=== PATIENT | male | born 1940 | race Caucasian/White ===

== ENCOUNTER 2018-12-08 02:28 | Outpatient (CLI) | payer MEDICARE, OTHER, SELFPAY ==
[2018-12-08 12:13] LABS: HCT 40.5 % (40.0-50.0); HGB 13.4 g/dL (13.5-17.5); Mean Corp. HGB Concentration 33.1 g/dL (32.0-36.0); Mean Corpuscular Hemoglobin 36.4 pg (27.0-33.0); Mean Corpuscular Volume 110.1 fL (80-95); Mean Platelet Volume 9.8 fL (8.0-11.0); Platelet Count 160 x1000/uL (130-400); RBC 3.68 m/cumm (4.50-6.00); RBC Distribution Width 13.6 % (11.8-14.1); White Blood Cell Count 6.05 k/cumm (4.4-10.8)
[2018-12-08 12:44] LABS: ALT 33 U/L (12-78); AST 35 U/L (15-37); Albumin 3.9 g/dL (3.4-5.0); Alkaline Phosphatase 62 U/L (46-116); Anion Gap 9.6 mmol/L (3-11); BUN 14 mg/dL (7-18); Bilirubin, Total 0.9 mg/dL (0.2-1.0); CO2 26.4 mmol/L (21.0-32.0); CREATININE 0.99 mg/dL (0.70-1.30); Calcium 8.5 mg/dL (8.5-10.1); Chloride 108 mmol/L (98-107); Glucose 110 mg/dL (70-100); Potassium 5.1 mmol/L (3.5-5.1); Sodium 144 mmol/L (136-145); Total Protein 6.8 g/dL (6.4-8.2)
== END 2018-12-08 02:48 ==
PROVIDERS: PCP Family Medicine; Visit Provider Family Medicine
DX: Z79.899 Other long term (current) drug therapy (principal); L40.9 Psoriasis, unspecified
CPT/HCPCS: 36415; 80053; 85027

== ENCOUNTER 2019-01-11 05:20 | Emergency (ER) | payer MEDICARE, OTHER, SELFPAY ==
[2019-01-11] VITALS (61 sets, daily range): BP systolic 120–147; BP diastolic 60–86; PULSE 64–79; RESP 13–34; TEMP 36.7–36.8; O2SAT 92–95
--- NOTE | 2019-01-11 05:31 | ED.GENADUL_ITS ---
Discharge Plan Disposition Patient Disposition: HOME Condition: Stable Discharge Details Chief Complaint: Chest Pain Clinical Impression: Chest pain Primary Care Provider: Riky Patterson ED Provider: Nolan Ferreira Home Meds and New Rx's Prescriptions: New lidocaine 5 % adhesive patch,medicated 2 patch TP DAILY Qty: 30 RF: 0 furosemide [Lasix] 20 mg tablet 20 mg PO QAM Qty: 30 RF: 0 Continued ipratropium bromide 42 mcg (0.06 %) spray,non-aerosol 2 spray ASHER TID PRN (Reason: allergy symptoms) Qty: 15 RF: 3 methotrexate sodium 2.5 mg tablet 10 mg PO As Directed Qty: 72 RF: 3 losartan 100 mg tablet 100 mg PO DAILY Qty: 90 RF: 4 melatonin-pyridoxine (vit B6) 1 EACH tablet 2.5 tab PO qpm prn RF: 0 [id number]-qjexypusw-utg C-Mn [Glucosamine 1500 Complex] 1 EACH capsule 500 cap PO DAILY RF: 0 CENTRUM SILVER TABLET 1 EACH tablet 1 tab PO DAILY RF: 0 ascorbic acid (vitamin C) 1,000 MG tablet 1,000 mg PO DAILY RF: 0 aspirin [Aspirin Low-Strength] 81 MG tablet,chewable 81 mg PO DAILY RF: 0 folic acid 1 MG tablet 1 mg PO DAILY Qty: 90 RF: 4 albuterol sulfate [ProAir HFA] 8.5 GM HFA aerosol inhaler 2 puff Inhalation Q6H PRN Qty: 1 RF: 3 tadalafil [Cialis] 5 MG tablet 1 - 2 tab PO As directed MDD 20 mg Qty: 30 RF: 4 metoprolol tartrate 50 mg tablet 25 mg PO BID Qty: 90 RF: 4 Discharge Instructions Instructions: Chest Pain (ED) Additional Instructions: your blood work did not show evidence of a heart attack you had a small amount of fluid in the lungs on your cat scan so we are starting you on lasix. Discuss with your primary care provider continuing this when you follow up with them You should follow up with your primary care provider within a week if you feel more ill, have worsening pain or difficulty breathing return to the emergency department Medical Decision Making <Genet Steve DO - Last Filed: 01/11/19 07:57> 0525 -- 78 yo M with a history of hypertension, hyperlipidemia, COPD, mitral valve replacement and thoracic aortic aneurysm who presents with left-sided chest pain with radiation to his neck worse with deep breath and cough for the past 5 hours. Vitals within normal limits. Lungs clear. He has left anterior chest tenderness to palpation. He has right lower extremity 1+ pitting edema. EKG notes a rate of 72, sinus with first-degree block and no acute ST-T wave ischemic changes. Differential diagnosis includes ACS, dissection, PE, chest wall strain, CHF. Will place an IV, screening labs, CT chest and give nitro for pain. 0615 -- no relief with 3 tabs of nitro. 0715 -- labs and imaging reviewed. Normal white blood cell count, electrolytes. Magnesium 1.5. Troponin negative. BNP 1019. CT chest notes small bilateral pleural effusions but no PE or dissection. Patient still complaining of left- sided chest pain that is worse with deep breath. Suspect could possibly be muscular skeletal. Will give a dose of Toradol and place a Lidoderm patch. We will plan for a 4-hour troponin and repeat EKG. 0800 --Case endorsed to Dr. Ferreira to follow-up on second troponin and EKG and final disposition. Medical Records Medical records reviewed: Yes I reviewed the patient's medical records. Imaging Data Radiologic Study: Radiologist's impression: CT Angiography Chest With Contrast EXAM DATE/TIME: 01/11/2019 5:47 AM CLINICAL HISTORY: 78 years old, male; Left-sided chest pain; Prior surgery; Surgery date: 6+ months; Surgery type: Mitral valve repair; Patient HX: Copd, HX of thoracic aortic aneurysm; Additional info: Pe aorta combo protocol used per Dr. Steve to R/O dissection/pe TECHNIQUE: Imaging protocol: Computed tomographic angiography of the chest with intravenous contrast. 3D rendering: MIP reconstructed images were created and reviewed. Radiation optimization: All CT scans at this facility use at least one of these dose optimization techniques: automated exposure control; mA and/or kV adjustment per patient size (includes targeted exams where dose is matched to clinical indication); or iterative reconstruction. Contrast material: OMNIPAQUE 350; Contrast volume: 85 ml; Contrast route: IV RAC; COMPARISON: CR CHEST 2 VIEWS PA,LAT 09/29/2013 10:55 AM FINDINGS: Pulmonary arteries: Normal. No pulmonary emboli. Aorta: Ascending thoracic aortic aneurysm measures 4.8 x 4.8 cm without dissection Lungs: Unremarkable. No consolidation. No masses. Pleural space: Small bilateral pleural effusions and associated atelectasis. Heart: Unremarkable. No cardiomegaly. No pericardial effusion. Lymph nodes: Unremarkable. No enlarged lymph nodes. Bones/joints: Unremarkable. No acute fracture. Soft tissues: Unremarkable. IMPRESSION: Small bilateral pleural effusions and associated atelectasis. Lab Data Lab results reviewed: Yes I reviewed the patient's lab results. ECG Data Attestation: I personally reviewed and interpreted this ECG (s) as follows: Interpretation: rate of 72, sinus, first degree block, no acute ST elevation or depression, RI 256, QTc 409, QRS 96. <Nolan Ferreira MD - Last Filed: 01/11/19 10:48> Pt signed out to me pending second troponin and ecg both of which are negative and symptoms have resolved with lidocaine patch which seems most likely this is musculoskeletal in nature. His cta did show small pleural effusions which I am starting him on lasix for. He is pain free and hd stable and feels well enough to go home. Will d/c him and have him f/u with his pcp and return precautions given to the patient ECG Data Attestation: I personally reviewed and interpreted this ECG (s) as follows: Prior ECG tracings: available for review Interpretation: 2nd ekg shows sinus rhythm, rate of 71, qtc 422, no acute changes compared to first ekg HPI <Genet Steve DO - Last Filed: 01/11/19 07:57> General Mode of arrival: ambulatory . Date/Time Provider Initiated Documentation: 01/11/19 05:27 . Limitations to Documentation: no limitations . Information obtained by: patient . HPI Narrative: Pt is a 78 yo M w/ a h/o HTN, hyperlipidemia, thoracic aortic aneurysm, mitral valve replacement who presents to the ED w/ a c/o L sided chest pain with radiation to his neck and throat since midnight starting 5 hours ago. Pt describes the pain as sharp, constant and currently 6/10. Pt states the pain is worse with deep breath and cough. He states he has had a nonproductive cough for the past 2 weeks but states it is minimal. He states he was doing a lot of yard work and carpentry at home yesterday but is unsure of a specific injury. He took 4 tabs of aspirin at home w/ some relief. He admits to difficulty taking a deep breath due to the pain in addition to his usual shortness of breath that he has with his COPD. He denies fever, nausea, vomiting, dizziness, decreased appetite, recent travel, recent surgery, leg pain or swelling. Related Data Home Medications Medication Instructions Recorded Confirmed Centrum Silver Tablet 1 tab PO DAILY 09/07/12 01/11/19 [id number]-vdqvijetf-wsn C-Mn 500 cap PO DAILY 09/07/12 01/11/19 [Glucosamine 1500 Complex] melatonin-pyridoxine (vit B6) 2.5 tab PO qpm prn 09/07/12 01/11/19 ascorbic acid (vitamin C) 1,000 mg PO DAILY 09/28/14 01/11/19 aspirin [Aspirin Low-Strength] 81 mg PO DAILY tab-cap 09/28/14 01/11/19 folic acid 1 mg PO DAILY #90 tab-cap 09/28/14 01/11/19 albuterol sulfate [ProAir HFA] 2 puff INHALATION Q6H PRN #1 11/20/17 01/11/19 inhaler tadalafil [Cialis] 1 - 2 tab PO As directed #30 tab 11/24/17 01/11/19 MDD 20 mg metoprolol tartrate 50 mg tablet 25 mg PO BID #90 tab-cap 10/26/18 01/11/19 ipratropium bromide 42 mcg (0.06 2 spray ASHER TID PRN #15 ml 12/02/18 01/11/19 %) nasal spray losartan 100 mg tablet 100 mg PO DAILY #90 tab 12/02/18 01/11/19 methotrexate sodium 2.5 mg tablet 10 mg PO As Directed #72 tab 12/02/18 01/11/19 furosemide [Lasix] 20 mg PO QAM #30 tab 01/11/19 lidocaine 2 patch TP DAILY #30 each 01/11/19 Previous Rx's Medication Instructions Recorded albuterol sulfate [ProAir HFA] 2 puff INHALATION Q6H PRN #1 11/20/17 inhaler tadalafil [Cialis] 1 - 2 tab PO As directed #30 tab 11/24/17 MDD 20 mg metoprolol tartrate 50 mg tablet 25 mg PO BID #90 tab-cap 10/26/18 ipratropium bromide 42 mcg (0.06 2 spray ASHER TID PRN #15 ml 12/02/18 %) nasal spray losartan 100 mg tablet 100 mg PO DAILY #90 tab 12/02/18 methotrexate sodium 2.5 mg tablet 10 mg PO As Directed #72 tab 12/02/18 furosemide [Lasix] 20 mg PO QAM #30 tab 01/11/19 lidocaine 2 patch TP DAILY #30 each 01/11/19 Allergies Allergy/AdvReac Type Severity Reaction Status Date / Time niacin Allergy Severe rash/flusin Verified 12/02/18 13:22 g simvastatin Allergy Intermediate RASH Verified 12/02/18 13:22 metoprolol AdvReac WORSENED Verified 01/11/19 05:33 PSORIASIS General Stated Complaint: Chest Pain BERNY: 2 Review of Systems <Genet Steve DO - Last Filed: 01/11/19 07:57> Review of Systems All systems reviewed & are unremarkable except as noted in HPI and below Constitutional Reports as per HPI, Denies chills and Denies fever(s) Eyes Denies blurry vision ENT Denies dizziness, Denies sore throat and Denies throat swelling Cardiovascular Reports chest pain and Reports dyspnea Respiratory Denies cough and Reports dyspnea Gastrointestinal Denies abdominal pain, Denies diarrhea and Denies vomiting Genitourinary Denies hematuria and Denies dysuria Musculoskeletal Denies back pain and Denies numbness Integumentary/Breasts Denies lesions and Denies rash Neurologic Denies dizziness, Denies focal weakness and Denies numbness Allergic/Immunologic Denies throat swelling PFSH <Genet Steve DO - Last Filed: 01/11/19 07:57> Medical History COPD (chronic obstructive pulmonary disease) (Inactive 11/22/13) Essential hypertension (Inactive 09/08/13) Fractures, multiple (Resolved) HX of multiple fractures; skull,ribs,right pelvis,right ankle and fingers 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 Substance abuse Depression Son No problems noted. Daughter , 40+ Substance abuse Daughter No problems noted. Sister No problems noted. Sister No problems noted. Social History Smoking/Tobacco Use Status: Former Tobacco Use Quit Date: 05/11/02 Alcohol Intake: current Alcohol Intake frequency: 0-2 drinks per day Alcohol type: beer, wine and hard liquor Drug use: Never Caregiver/Support person: No Household members: spouse Communication Needs: None Do you need help understanding health information?: Rarely Pets and animals: Yes Pets and animals: cat(s) Sexually active: No Do you think of yourself as: straight/heterosexual Current gender identity: male What is your relationship status?: How often do you talk on the phone with friends or family?: three or more times per week How often do you get together with friends or relatives?: twice per week How often do you attend catholic or congregation services?: decline to answer Do you belong to any clubs or organized social groups?: no Panel score (0-1 are the most socially isolated patients): 2 What type of physical activity do you participate in: walking and other Details: golf Duration: 30-45 minutes/day Frequency: 3-4 times per week Ericka/Orthodoxy: None Special ericka needs: No Seatbelt use: always Helmet use: No Drive intox or ride w/intox emergency medical technician/driver: No Do you feel safe at home: Yes Do you feel safe in your relationship?: Yes Exam <Genet Steve DO - Last Filed: 01/11/19 07:57> Const General: cooperative and healthy appearing Orientation: alert and awake HENMT Head: normal to inspection Ears: hearing grossly normal bilaterally and external ears normal General nose exam: external nose normal Face and sinus: normal facial exam Mouth: oral mucosae normal Teeth and gingiva: dentition normal Throat: posterior oropharynx normal Eyes General: appearance normal, both eyes and all related structures Eyelids: eyelids normal Pupils: PERRL EOM: EOM intact bilaterally Neck Neck: normal visual inspection Lymphatic: no lymphadenopathy noted Chest Chest: normal inspection of the chest Resp Effort & Inspection: normal respiratory effort and able to speak in complete sentences Auscultation: clear to auscultation bilaterally Cardio Rate: regular rate Rhythm: regular rhythm GI Inspection: normal to inspection Palpation: soft, not firm, no guarding, no hepatosplenomegaly, no masses and nontender Auscultation: normal bowel sounds Skin General skin exam: no rashes or lesions noted Neuro General: alert and awake Cognition: normal cognition Speech: speech normal Gait: normal gait Motor: muscle tone normal throughout Sensory Exam: no sensory deficits noted Extrem General: full ROM and normal capillary refill Other: 1+ pitting edema RLE. No Left lower extremity edema. Psych Appearance: grossly normal Mental Status: mental status grossly normal Speech and Movement: speech and movement normal Affect: normal affect Thought Process: normal Course <Genet Steve DO - Last Filed: 01/11/19 07:57> Vital Signs Temperature 98.2 F 01/11/19 05:25 Pulse 74 01/11/19 05:25 Respiratory Rate 22 01/11/19 05:25 Blood Pressure 138/81 01/11/19 05:25 Pulse Oximetry 95 01/11/19 05:25 Temperature 98.2 F 01/11/19 05:25 Temperature Source Tympanic 01/11/19 05:25 Pulse 74 01/11/19 05:25 Respiratory Rate 22 01/11/19 05:25 Blood Pressure 138/81 01/11/19 05:25 Pulse Oximetry 95 01/11/19 05:25 Oxygen Delivery Method Room Air 01/11/19 05:25 Oxygen Flow Rate 0 01/11/19 05:25 Pain Level 6 01/11/19 05:25 Sign Out <Genet Steve DO - Last Filed: 01/11/19 07:57> Sign Out Data: Sign Out Comment: Follow-up on second troponin and repeat EKG and final disposition. Last updated by Genet Steve DO at 01/11/19 07:28
[2019-01-11 05:56] LABS: Abs Immature Grans 0.02 k/cumm (0.0-0.09); Absolute Basophil Count 0.02 k/cumm (0.0-0.2); Absolute Eosinophil Count 0.17 k/cumm (0.0-0.7); Absolute Lymphocyte Count 0.78 k/cumm (1.2-3.4); Absolute Monocyte Count 0.66 k/cumm (0.11-0.7); Absolute Neutrophil Count 5.23 k/cumm (1.2-6.7); Basophils % 0.3; Eosinophils % 2.5; HCT 39.7 % (40.0-50.0); HGB 13.4 g/dL (13.5-17.5); Immature Grans % 0.3; Lymphocytes % 11.3; Mean Corp. HGB Concentration 33.8 g/dL (32.0-36.0); Mean Corpuscular Hemoglobin 36.8 pg (27.0-33.0); Mean Corpuscular Volume 109.1 fL (80-95); Mean Platelet Volume 9.2 fL (8.0-11.0); Monocytes % 9.6; Platelet Count 175 x1000/uL (130-400); RBC 3.64 m/cumm (4.50-6.00); RBC Distribution Width 13.6 % (11.8-14.1); White Blood Cell Count 6.88 k/cumm (4.4-10.8)
[2019-01-11 06:14] LABS: Macrocytosis 1+; Polychromasia Present
[2019-01-11 06:18] LABS: ALT 34 U/L (16-63); AST 37 U/L (15-37); Albumin 3.8 g/dL (3.4-5.0); Alkaline Phosphatase 56 U/L (46-116); Anion Gap 11.8 mmol/L (3-11); BUN 13 mg/dL (7-18); Bilirubin, Total 0.5 mg/dL (0.2-1.0); CO2 23.2 mmol/L (21.0-32.0); CREATININE 1.04 mg/dL (0.70-1.30); Calcium 8.3 mg/dL (8.5-10.1); Chloride 107 mmol/L (98-107); Glucose 114 mg/dL (70-100); Magnesium 1.5 mg/dL (1.8-2.4); NT-proBNP 1019 pg/mL; Potassium 4.6 mmol/L (3.5-5.1); Sodium 142 mmol/L (136-145); Total Protein 7.4 g/dL (6.4-8.2); Troponin I < 0.05 ng/mL (0.00-0.06)
[2019-01-11] MEDS: Omnipaque 350 MG/ML 100 ML BTL IJ (06:30)
--- NOTE | 2019-01-11 06:50 | DI.CT_ITS ---
SYMPTOM/DIAGNOSIS: H/O THORACIC AORTIC ANEURYSM LT SIDED CHEST PAIN CT ANGIOGRAPHY CHEST: CT angiography was performed with multi slice acquisition and multi planar and 3D reconstruction. The aorta is well opacified with IV contrast which shows no evidence of dissection. There is some calcification along the aorta and mild mural thickening. The maximal diameter of the ascending aorta is 4.8 cm. There is a mitral valve prosthesis. The pulmonary arteries are suboptimally opacified with contrast. No central pulmonary emboli are seen. There are bilateral pleural effusions, small, right greater than left. There is mild right basilar atelectasis. No infiltrate or pulmonary edema is seen. No thoracic compression fractures are seen. Calcifications are noted in the spleen. The liver and gallbladder as well as adrenals and visualized portions of the pancreas and kidneys are unremarkable. IMPRESSION: Atherosclerotic changes of the aorta without evidence of dissection. Dilatation of the ascending aorta to 4.8 cm. Small bilateral pleural effusions, right greater than left.
--- NOTE | 2019-01-11 07:02 | DI.VRAD_ITS ---
EXAM: CT Angiography Chest With Contrast EXAM DATE/TIME: 01/11/2019 5:47 AM CLINICAL HISTORY: 78 years old, male; Left-sided chest pain; Prior surgery; Surgery date: 6+ months; Surgery type: Mitral valve repair; Patient HX: Copd, HX of thoracic aortic aneurysm; Additional info: Pe aorta combo protocol used per Dr. Steve to R/O dissection/pe TECHNIQUE: Imaging protocol: Computed tomographic angiography of the chest with intravenous contrast. 3D rendering: MIP reconstructed images were created and reviewed. Radiation optimization: All CT scans at this facility use at least one of these dose optimization techniques: automated exposure control; mA and/or kV adjustment per patient size (includes targeted exams where dose is matched to clinical indication); or iterative reconstruction. Contrast material: OMNIPAQUE 350; Contrast volume: 85 ml; Contrast route: IV RAC; COMPARISON: CR CHEST 2 VIEWS PA,LAT 09/29/2013 10:55 AM FINDINGS: Pulmonary arteries: Normal. No pulmonary emboli. Aorta: Ascending thoracic aortic aneurysm measures 4.8 x 4.8 cm without dissection Lungs: Unremarkable. No consolidation. No masses. Pleural space: Small bilateral pleural effusions and associated atelectasis. Heart: Unremarkable. No cardiomegaly. No pericardial effusion. Lymph nodes: Unremarkable. No enlarged lymph nodes. Bones/joints: Unremarkable. No acute fracture. Soft tissues: Unremarkable. IMPRESSION: Small bilateral pleural effusions and associated atelectasis. Dictated and Authenticated by: Trino Gaytan MD. Ordering:BRY De León MD
[2019-01-11] MEDS: Acetaminophen 325 MG TAB 650 MG PO (07:05)
[2019-01-11] MEDS: Ketorolac 30 MG/ML VIAL IVP (07:43)
[2019-01-11] MEDS: Lidocaine 5% Patch 1 PATCH TP (07:45)
[2019-01-11] MEDS: Furosemide 20 MG/2 ML VIAL IVP (08:26)
[2019-01-11 10:40] LABS: Troponin I < 0.05 ng/mL (0.00-0.06)
--- NOTE | 2019-01-11 10:46 | NUR.NOTE ---
Nursing Note: Referral faxed to PCP for follow up for chest pain. Lorna Ospina.
== END 2019-01-11 11:05 | disposition home or self-care (01) ==
PROVIDERS: Physician Assistant; Emergency Provider Emergency Medicine; PCP Family Medicine
DX: R07.89 Other chest pain (principal); J90 Pleural effusion, not elsewhere classified; J44.9 Chronic obstructive pulmonary disease, unspecified; Z87.891 Personal history of nicotine dependence; I10 Essential (primary) hypertension; Z95.2 Presence of prosthetic heart valve
CPT/HCPCS: 36415; 71275; 80053; 93005; 96374; 96375; 99285; 83735; 83880; 84484; 85025; 93010; J1885; J1941; J3490

== ENCOUNTER 2019-11-09 02:19 | Outpatient (CLI) | payer MEDICARE, OTHER, SELFPAY ==
--- NOTE | 2019-11-09 13:13 | DI.RAD_ITS ---
EXAM: XR CHEST 2V PA LATERAL CLINICAL HISTORY: Dyspnea on exertion, R06.00 TECHNIQUE: 2D digital imaging was performed. COMPARISON: CR CHEST 2 VIEWS PA,LAT from 09/29/2013 FINDINGS: MEDIASTINUM: Normal. HEART: Upper limits of normal in size. Mitral valve replacement. PULMONARY VASCULATURE: Normal. LUNGS: Clear. PLEURAL SPACE: No pleural effusion or pneumothorax. BONE:Degenerative changes in the spine. OTHER FINDINGS:Normal. IMPRESSION: No acute pulmonary findings. DATA REPOSITORY: RADIATION DOSE DELIVERED:
== END 2019-11-09 02:39 ==
PROVIDERS: PCP Family Medicine; Visit Provider Family Medicine
DX: R06.00 Dyspnea, unspecified (principal); Z95.2 Presence of prosthetic heart valve
CPT/HCPCS: 71046

== ENCOUNTER 2019-12-12 08:18 | Outpatient (CLI) | payer MEDICARE, OTHER, SELFPAY ==
[2019-12-12 12:56] LABS: Anion Gap 7.1 mmol/L (3-11); BUN 23 mg/dL (7-18); CO2 26.9 mmol/L (21.0-32.0); CREATININE 1.15 mg/dL (0.70-1.30); Calcium 8.8 mg/dL (8.5-10.1); Chloride 105 mmol/L (98-107); Glucose 102 mg/dL (74-106); Magnesium 1.8 mg/dL (1.8-2.4); Potassium 4.5 mmol/L (3.5-5.1); Sodium 139 mmol/L (136-145)
== END 2019-12-12 08:38 ==
PROVIDERS: PCP Family Medicine; Visit Provider Family Medicine
DX: I10 Essential (primary) hypertension (principal); E83.42 Hypomagnesemia
CPT/HCPCS: 36415; 80048; 83735

== ENCOUNTER 2020-01-06 03:51 | Outpatient (CLI) | payer MEDICARE, OTHER, SELFPAY ==
[2020-01-09 08:18] LABS: SARS-CoV-2 RNA Undetected (Undetected); SARS-CoV-2 Specimen Source Nasopharynx
== END 2020-01-06 04:11 ==
PROVIDERS: PCP Nurse Practitioner; Visit Provider Family Medicine
DX: Z11.59 Encounter for screening for other viral diseases (principal)
CPT/HCPCS: U0003

== ENCOUNTER → 2020-01-27 09:00 | Outpatient (BNVA) | payer MEDICARE, OTHER, SELFPAY | PROVIDERS: PCP Nurse Practitioner; Referring Provider Nurse Practitioner; Visit Provider Internal Medicine Cardiovascular Disease | DX: I34.0 Nonrheumatic mitral (valve) insufficiency (principal); I77.819 Aortic ectasia, unspecified site; J44.9 Chronic obstructive pulmonary disease, unspecified; I10 Essential (primary) hypertension; Z87.891 Personal history of nicotine dependence | CPT/HCPCS: 99204; 99215 ==

== ENCOUNTER 2020-12-25 03:13 | Outpatient (CLI) | payer MEDICARE, OTHER, SELFPAY ==
[2020-12-25 12:22] LABS: HCT 42.9 % (40.0-50.0); HGB 13.9 g/dL (13.5-17.5); MCH 36.6 pg (27.0-33.0); MCHC 32.4 % (32.0-36.0); MPV 10.1 fL (8.0-11.0); Platelet Count 176 10^3/uL (130-400); RDW 13.6 % (11.8-14.1); RDW-SD 56.8 fL; WBC 4.41 10^3/uL (4.4-10.8)
[2020-12-25 12:36] LABS: ALT 36 U/L (16-63); AST 45 U/L (15-37); Alkaline Phosphatase 53 U/L (46-116); Bilirubin, Direct 0.2 mg/dL (0.0-0.2); Bilirubin, Total 0.7 mg/dL (0.2-1.0); CREATININE 1.2 mg/dL (0.70-1.30); Estimated GFR 58.11 (mL/min/1.73m2); Potassium 4.5 mmol/L (3.5-5.1)
[2020-12-25 13:00] LABS: MCV 112.9 fL (80-95)
== END 2020-12-25 03:14 | disposition home or self-care (01) ==
LOC: LOS 03:18
PROVIDERS: PCP Nurse Practitioner; Visit Provider Nurse Practitioner
DX: I34.0 Nonrheumatic mitral (valve) insufficiency (principal); R06.09 Other forms of dyspnea; L40.9 Psoriasis, unspecified
CPT/HCPCS: 36415; 80076; 85027; 82565; 84132

== ENCOUNTER 2021-07-08 01:05 | Outpatient (CLI) | payer MEDICARE, OTHER, SELFPAY ==
--- NOTE | 2021-07-08 13:57 | DI.US_ITS ---
APPROVED REPORT EXAM: Comprehensive 2D, Doppler, and color-flow Echocardiogram Patient Location: Out-Patient [facility] [employer] Member: Ramila Yan RDCS (AE) Indications: Mitral insufficiency, h/o Annular ring, Thoracic aortic aneurysm Other Information Study Quality: Fair. Technically limited study due to body habitus. Conclusion Normal left ventricular wall thickness and chamber size. Estimated ejection fraction is 60 to 65%. Wall motion is normal The right ventricle is not well visualized Both atria are normal in size The aortic valve is trileaflet and sclerotic with mild to moderate regurgitation. There is no aortic stenosis Mitral annuloplasty ring noted. Mild to moderate eccentric mitral regurgitation Normal tricuspid valve with moderate regurgitation. Estimated right ventricular systolic pressure is 55 mmHg Dilated ascending aorta and aortic root Wall motion Left Ventricle The left ventricle is normal size. The left ventricular systolic function is normal. The left ventric ular ejection fraction is within the normal range. There is normal left ventricular wall thickness. T here is normal LV segmental wall motion. There is no ventricular septal defect visualized. LVEF is 60 -65%. Right Ventricle Right ventricle is not well visualized. Right ventricular systolic function could not be assessed. Th e RVSP is 54.9mmHg. Atria The left atrium size is normal. The right atrium size is normal. The interatrial septum is intact wit h no evidence for an atrial septal defect. Aortic Valve The aortic valve is sclerotic Aortic valve is trileaflet. There is no aortic valvular stenosis. Mild to moderate aortic regurgitation. Mitral Valve Mitral annuloplasty changes are present. No evidence of mitral valve stenosis. Mild to moderate kobe l regurgitation. Mitral regurgitation jet is eccentrically directed. Tricuspid Valve The tricuspid valve is normal in structure. There is no tricuspid valve stenosis. Moderate tricuspid regurgitation. Pulmonic Valve The pulmonary valve is normal in structure. There is no pulmonic valvular stenosis. Trace pulmonic re gurgitation. Great Vessels Aortic root is moderately dilated.3.81 cm The ascending aorta isdilated.4.98 cm Aortic arch is normal in caliber. Due to poor image quality, the IVC could not be assessed. Pericardium There is no pericardial effusion. 2D Dimensions IVSD d PLAX 1.25 cm M: 0.6-1.2 LV Vol A2C d MOD 124.0 mL LVPW d PLAX 1.28 cm M: 0.6 - 1.2 LV Vol A4C d MOD 124.4 mL LVID d PLAX 5.37 cm M: 4.2 - 5.8 LA vol/ BSA A2C s A-L 25.5 mL/m2 LVDs 3.75 cm M: 2.5 - 4.0 LA vol/ BSA A4C s A-L 31.1 mL/m2 Ao Root d 4.28 cm M: 3.1 - 3.7 LA Vol/ BSA Biplane s A-L 28.3 mL/m2 RA Area A4C 17.99 cm2 LA Area A4C s MOD 23.43 cm2 RA Vol/ BSA A4C s A-L 20.9 mL/m2 LA Area A2C s MOD 21.12 cm2 Ao Asc Diam d 4.98 cm M: 2.6 - 3.4 LV EF A4C MOD 59.2 % LV EF Teichholz 56.5 % LV EF A2C MOD 59.1 % LVEF (Argueta's) 58.71 % M: 52 - 72 LV EF Biplane MOD 58.7 % LV Volume 91.08 mL M: 62 - 150 SV 73.81 mL LV Volume Index 41.02 mL/m2 M: 34 - 74 SV Index 33.13 mL/m2 LV Vol Biplane MOD 125.7 mL FS 29.80 % LV Diastology MV E' medial 0.042 (>0.07 m/s) E/A Ratio 1.4 LV E/e MED 44.10 (<14) MV E Vmax 1.83 (0.4-1.3 m/s) MV E' lateral 0.054 (>0.1 m/s) MV A Vmax 1.30 (0.4-1.3 m/s) LV E/e LAT 34.05 (<14) MV E/A Ratio 1.40 MV E/E' medial 44.12 MV E/E' lateral 34.09 Aortic Valve LVOT Area 3.76 cm2 AoV Area Vmax 2.65 cm2 LVOT Vmax 1.13 m/s AoV Area/ BSA (Vmax) 1.19 cm2/m2 LVOT Mean Lonnie. 0.71 m/s JULIETTE Mean Lonnie. 2.46 cm2 LVOT Peak Grad 5.1 mmHg JULIETTE Mean Lonnie. Index 1.10 cm2/m2 LVOT Mean Grad 2.3 mmHg AR DT 1581 msec LVOT VTI 0.226 m AR PHT 459 msec LVOT Diam s 2.15 cm AoV Vmax 1.60 m/s Velocity Ratio 0.70 AoV Mean Lonnie. 1.08 m/s AoV Peak Grad 10.2 mmHg LVOT SV 84.83 mL AoV Mean Grad 5.2 mmHg AoV VTI 0.296 m AoV Area VTI 2.87 cm2 AoV Area/ BSA (VTI) 1.29 cm/m2 Mitral Valve MV DT 369 (160-240 msec) MV PHT 107 msec MV Area PHT 2.06 cm2 MV VTI 0.592 m MV VTI Annulus 0.600 m MV Area VTI 1.45 (4.0-6.0 cm2) Pulmonary Valve PV Vmax 0.87 (0.5-1.5 m/s) RVOT Peak Gr. 1.31 mmHg PV Peak Grad 3.0 mmHg RVOT Mean Gr. 0.75 mmHg PV Mean Grad 1.8 mmHg RVOT VTI 0.134 m PV VTI 0.193 m RVOT Vmax 0.57 m/s Tricuspid Valve TR Peak Grad 51.8 mmHg TR Vmax 3.60 m/s RA Pressure 3.00 mmHg RVSP (TR) 54.9 mmHg
== END 2021-07-08 01:25 ==
PROVIDERS: PCP Nurse Practitioner; Visit Provider Nurse Practitioner
DX: I34.0 Nonrheumatic mitral (valve) insufficiency (principal); I71.2 Thoracic aortic aneurysm, without rupture
CPT/HCPCS: 93306

== ENCOUNTER 2021-10-31 03:29 | Outpatient (CLI) | payer MEDICARE, OTHER, SELFPAY ==
[2021-10-31 12:40] LABS: HCT 38.1 % (40.0-50.0); MCH 39.6 pg (27.0-33.0); MCHC 34.1 % (32.0-36.0); MCV 116 fL (80-95); MPV 10.5 fL (8.0-11.0); Platelet Count 161 10^3/uL (130-400); RBC 3.28 10^6/uL (4.36-5.78); RDW 14.3 % (11.8-14.1); RDW-SD 60.8 fL; WBC 4.58 10^3/uL (4.4-10.8)
[2021-10-31 12:51] LABS: ALT 31 U/L (16-63); AST 48 U/L (15-37); Albumin 3.8 g/dL (3.4-5.0); Alkaline Phosphatase 52 U/L (46-116); Anion Gap 6.9 mmol/L (3-11); BUN 20 mg/dL (7-18); Bilirubin, Total 0.7 mg/dL (0.2-1.0); CO2 28.1 mmol/L (21.0-32.0); CREATININE 1.2 mg/dL (0.70-1.30); Calcium 8.7 mg/dL (8.5-10.1); Calculated LDL 117 mg/dL (<100); Chloride 106 mmol/L (98-107); Cholesterol 213 mg/dL (<200); Estimated GFR 57.96 (mL/min/1.73m2); Glucose 101 mg/dL (74-106); HDL Cholesterol 64 mg/dL (40-60); Potassium 5.4 mmol/L (3.5-5.1); Sodium 141 mmol/L (136-145); Total Protein 7.3 g/dL (6.4-8.2); Triglyceride 163 mg/dL (<150)
== END 2021-10-31 03:30 | disposition home or self-care (01) ==
LOC: LOS 03:29
PROVIDERS: PCP Nurse Practitioner; Visit Provider Nurse Practitioner
DX: E78.5 Hyperlipidemia, unspecified (principal); I10 Essential (primary) hypertension; L40.59 Other psoriatic arthropathy
CPT/HCPCS: 36415; 80053; 80061; 85027

== ENCOUNTER 2021-11-12 09:25 | Outpatient (CLI) | payer MEDICARE, OTHER, SELFPAY ==
--- NOTE | 2021-11-12 09:15 | RT.EKG_ITS ---
APPROVED REPORT Exam: Resting ECG Reason for Exam: CANDIS RAMIREZ regurg history Patient Location: O HR:80 bpm ECG Measurements Heart Rate 80 AXIS LA [id number] P [id number] QRSd 96 QRS -26 QT 365 T 30 QTc 421 Conclusion NSR Atrial premature beats First-degree AV block Late transition
== END 2021-11-12 09:26 | disposition home or self-care (01) ==
LOC: DI.CARD 09:26
PROVIDERS: PCP Nurse Practitioner; Visit Provider Internal Medicine Cardiovascular Disease
DX: I34.0 Nonrheumatic mitral (valve) insufficiency (principal); R06.00 Dyspnea, unspecified
CPT/HCPCS: 93010

== ENCOUNTER → 2021-11-12 13:09 | Outpatient (BNVA) | payer MEDICARE, OTHER, SELFPAY | PROVIDERS: PCP Nurse Practitioner; Referring Provider Nurse Practitioner; Visit Provider Internal Medicine Cardiovascular Disease | DX: I34.0 Nonrheumatic mitral (valve) insufficiency (principal); I71.2 Thoracic aortic aneurysm, without rupture; I10 Essential (primary) hypertension; R06.00 Dyspnea, unspecified | CPT/HCPCS: 93005; 99215 ==

== ENCOUNTER → 2021-12-02 02:24 | Outpatient (CLI) | payer MEDICARE, OTHER, SELFPAY ==
--- NOTE | 2021-12-02 08:00 | DI.CT_ITS ---
Exam(s) CT THORAX CTA EXAM: CT THORAX CTA CLINICAL HISTORY: Ascending Aorta 4.98 cm, MITRAL INSUFF, THORACIC AORTIC ANEURYSM, I71.2. TECHNIQUE: Imaging Protocol: CT angiography of the chest was performed using pulmonary embolus benjamin col. Multi planar reconstructions were performed. CONTRAST MATERIAL: Intravenous: Omnipaque 350 Contrast volume: 100 cc COMPARISON: CT CT CHEST PE CTA from 01/11/2019 FINDINGS: CHEST: THORACIC AORTA/CARDIAC: The ascending thoracic aorta is again noted be dilated. Maximum diameter devon roximately 4.9 cm. No dissection evident. The diameter of the mid aortic arch is 3.2 cm. Diameter of the proximal descending thoracic aorta is 3.7 cm. Diameter of the mid descending thoracic aorta i s 3.5 cm and the diameter of the distal most descending thoracic aorta just above the hemidiaphragm i s 3.7 cm. There is no evidence of aortic dissection. No pericardial effusion. Mitral valve prosthe sis again noted. The heart size is upper normal. No significant shift of the interventricular septu m PULMONARY ARTERIES: There are no obvious intraluminal filling defects to suggest acute pulmonary emb cherry. LUNGS: Mild benign-appearing increased markings in the right lung base just above the hemidiaphragm i n the right middle lobe.. Small 2-3 millimeter nodule in the anterior basal segment of the left lowe r lobe noted. No pleural effusions on either side. MEDIASTINUM: There is no hilar nor mediastinal adenopathy. Visualized thyroid unremarkable. PARTIALLY VISUALIZED UPPERMOST ABDOMEN: Splenic granulomas. Spleen size normal. No adrenal masses. Hepatic steatosis. OSSEOUS: No significant osseous lesions.. IMPRESSION: 1. Maximum diameter of the ascending thoracic aorta is 4.9 cm, similar to previous.No evidence of aor tic dissection. Other thoracic aortic measurements as above. 2. Lung findings as above. No pleural effusions. 3. No hilar nor mediastinal adenopathy. RADIATION DOSE DELIVERED: 575.7mGy.cm Total DLP DATA REPOSITORY: All CT scans at this facility are submitted to the National Radiology Data Registry (NRDR) Dose Index Registry (DIR) with the [employer] (A[employer]). RADIATION OPTIMIZATION: All CT scans at this facility use at least one of these dose optimization te chniques: automated exposure control; mA and/or kV adjustment per patient size (includes targeted exa ms where dose is matched to clinical indication); or iterative reconstruction.
[2021-12-02 13:30] LABS: CREATININE 1.7 mg/dL (0.70-1.30); Estimated GFR 38.78 (mL/min/1.73m2)
[2021-12-02] MEDS: Omnipaque 350 MG/ML 100 ML BTL IV (13:49)
== END ==
PROVIDERS: PCP Nurse Practitioner; Visit Provider Internal Medicine Cardiovascular Disease
DX: I34.0 Nonrheumatic mitral (valve) insufficiency (principal); I71.2 Thoracic aortic aneurysm, without rupture
CPT/HCPCS: 71275; 82565; J3490

== ENCOUNTER 2022-01-01 14:02 | Outpatient (CLI) | payer MEDICARE, OTHER, SELFPAY ==
--- NOTE | 2022-01-01 14:00 | RT.EKG_ITS ---
APPROVED REPORT Exam: Resting ECG Reason for Exam: possible stroke Patient Location: O HR:59 bpm ECG Measurements Heart Rate 59 AXIS WI 281 P -46 QRSd 97 QRS -25 QT 421 T 31 QTc 417 Conclusion Sinus or ectopic atrial rhythm...P axis (-45,135) Prolonged WI interval...WI >220, V-rate 50- 90 Borderline left axis deviation...QRS axis (-15,-29)
== END 2022-01-01 14:03 | disposition home or self-care (01) ==
LOC: DI.CM 14:03
PROVIDERS: PCP Nurse Practitioner; Visit Provider Nurse Practitioner Family
DX: R29.90 Unspecified symptoms and signs involving the nervous system (principal); R94.31 Abnormal electrocardiogram [ECG] [EKG]
CPT/HCPCS: 93010

== ENCOUNTER 2022-01-01 15:39 | Outpatient (REF) | payer MEDICARE, OTHER, SELFPAY ==
[2022-01-01 21:33] LABS: Abs Immature Grans 0.03 10^3/uL (0.0-0.06); Absolute Basophil Count 0.05 10^3/uL (0.0-0.2); Absolute Eosinophil Count 0.35 10^3/uL (0.0-0.7); Absolute Lymphocyte Count 0.96 10^3/uL (1.2-3.4); Absolute Monocyte Count 0.88 10^3/uL (0.1-0.8); Absolute Neutrophil Count 4.58 10^3/uL (1.2-6.7); Basophils % 0.7; Eosinophils % 5.1; HCT 40.4 % (40.0-50.0); Immature Grans % 0.4; MCH 39.8 pg (27.0-33.0); MCHC 34.7 % (32.0-36.0); MCV 115 fL (80-95); MPV 10.9 fL (8.0-11.0); Monocytes % 12.8; Platelet Count 224 10^3/uL (130-400); RBC 3.52 10^6/uL (4.36-5.78); RDW 13.2 % (11.8-14.1); RDW-SD 56.4 fL; WBC 6.85 10^3/uL (4.4-10.8)
[2022-01-01 22:10] LABS: ALT 29 U/L (16-63); AST 40 U/L (15-37); Albumin 4.3 g/dL (3.4-5.0); Alkaline Phosphatase 51 U/L (46-116); Anion Gap 8.8 mmol/L (3-11); BUN 18 mg/dL (7-18); Bilirubin, Total 0.7 mg/dL (0.2-1.0); CO2 26.2 mmol/L (21.0-32.0); CREATININE 1.3 mg/dL (0.70-1.30); Chloride 105 mmol/L (98-107); Estimated GFR 52.85 (mL/min/1.73m2); Glucose 100 mg/dL (74-106); Potassium 4.7 mmol/L (3.5-5.1); Sodium 140 mmol/L (136-145); TSH 1.76 uIU/mL (0.36-3.74); Total Protein 7.6 g/dL (6.4-8.2)
== END 2022-01-01 15:40 | disposition home or self-care (01) ==
LOC: LBN 15:39
PROVIDERS: PCP Nurse Practitioner; Visit Provider Nurse Practitioner Family
DX: R06.00 Dyspnea, unspecified (principal); R53.83 Other fatigue; R29.90 Unspecified symptoms and signs involving the nervous system
CPT/HCPCS: 80053; 84443; 85025

== ENCOUNTER → 2022-01-03 00:21 | Outpatient (CLI) | payer MEDICARE, OTHER, SELFPAY ==
--- NOTE | 2022-01-03 07:00 | DI.CT_ITS ---
Exam(s) CT HEAD WO EXAM: CT HEAD WO CLINICAL HISTORY: mild expressive aphasia,fatigue,r53.83. TECHNIQUE: Imaging Protocol: Axial computed tomography images with coronal and sagittal reformatted images were created and reviewed COMPARISON: No exams were available for comparison FINDINGS: There are no skull fractures nor fluid in the visualized paranasal sinuses. There is no evidence of intracranial hemorrhage, mass effect, or shift of midline structures. There are no extra-axial fluid collections. The ventricles are not enlarged or shifted and there is no blo od within the ventricular system nor within the basal cisterns. There is bilateral periventricular white matter hypodensity consistent with chronic small vessel dise ase. There are few nonhemorrhagic lacunar infarcts in the left periventricular white matter, age ind eterminate. Nonhemorrhagic. The amount of involutional changes consistent with this patient's advanced age. IMPRESSION: No acute intracranial findings on this noninfused CT scan of the brain. Chronic small-vessel white matter ischemic changes with multiple nonacute appearing and nonhemorrhagi c left-sided lacunar infarcts Symmetrical involutional change which is consistent with this patient's advanced age. RADIATION DOSE DELIVERED: 796.62mGy.cm Total DLP DATA REPOSITORY: All CT scans at this facility are submitted to the National Radiology Data Registry (NRDR) Dose Index Registry (DIR) with the [employer] (ACR). RADIATION OPTIMIZATION: All CT scans at this facility use at least one of these dose optimization te chniques: automated exposure control; mA and/or kV adjustment per patient size (includes targeted exa ms where dose is matched to clinical indication); or iterative reconstruction.
== END ==
PROVIDERS: PCP Nurse Practitioner; Visit Provider Nurse Practitioner Family
DX: R47.01 Aphasia (principal); R53.83 Other fatigue; R90.82 White matter disease, unspecified; I67.89 Other cerebrovascular disease
CPT/HCPCS: 70450

== ENCOUNTER 2022-01-03 15:25 | Outpatient (REF) | payer MEDICARE, OTHER, SELFPAY ==
[2022-01-03 11:04] LABS: Bilirubin Negative (Negative); Blood Negative (Negative); Clarity Clear (Clear); Glucose Negative (Negative); Ketones Negative (Negative); Leukocyte Esterase Negative (Negative); Nitrite Negative (Negative); Specific Gravity 1.025 (1.005-1.025); Urobilinogen 0.2 EU/dL (Up TO 0.2); pH 6.5 (5-8)
== END 2022-01-03 15:26 | disposition home or self-care (01) ==
LOC: LBN 15:25
PROVIDERS: PCP Nurse Practitioner; Visit Provider Nurse Practitioner Family
DX: R29.818 Other symptoms and signs involving the nervous system (principal); R53.83 Other fatigue; R06.09 Other forms of dyspnea
CPT/HCPCS: 81003

== ENCOUNTER → 2022-01-21 13:45 | Outpatient (BNVA) | payer MEDICARE, OTHER, SELFPAY | PROVIDERS: PCP Nurse Practitioner; Referring Provider Nurse Practitioner; Visit Provider Psychiatry & Neurology Neurology | DX: I63.81 Other cerebral infarction due to occlusion or stenosis of small artery (principal); I10 Essential (primary) hypertension; E78.5 Hyperlipidemia, unspecified; Z98.890 Other specified postprocedural states; R73.9 Hyperglycemia, unspecified | CPT/HCPCS: 99215 ==

== ENCOUNTER 2022-05-21 02:20 | Outpatient (CLI) | payer MEDICARE, OTHER, SELFPAY ==
--- NOTE | 2022-05-21 10:30 | DI.US_ITS ---
APPROVED REPORT EXAM: Comprehensive 2D, Doppler, and color-flow Echocardiogram Patient Location: Out-Patient [facility] Filler: Ramila Yan RDCS (AE) Indications: Status post mitral valve repair, Mitral insufficiency Other Information Study Quality: Fair. Technically limited study due to body habitus. Conclusion Left ventricle is mildly dilated. Wall thickness is normal. Estimated ejection fraction is 50 to 55 %. There are no segmental wall motion abnormalities Right ventricle is not well visualized Left atrium is mildly dilated. Right atrial size is normal Aortic valve is mildly sclerotic and trileaflet with trace regurgitation There has been a mitral valve repair with an annuloplasty ring. There is mild residual mitral regurg itation Normal tricuspid valve with trace regurgitation. Right ventricular systolic pressure could not be es timated Dilated aortic root , 4.58 cm and ascending aorta, 5.01 cm Wall motion Left Ventricle Left ventricle is mildly dilated. Left ventricular systolic function is borderline. There is normal l eft ventricular wall thickness. There is global hypokinesis of the left ventricle. There is no ventri cular septal defect visualized. LVEF is 50-55%. Right Ventricle Right ventricle is not well visualized. Right ventricular systolic function could not be assessed. Atria Left atrium is mildly dilated. The right atrium size is normal. The interatrial septum is intact with no evidence for an atrial septal defect. Aortic Valve The aortic valve is mildly sclerotic Aortic valve is trileaflet. There is no aortic valvular stenosis . Trace aortic regurgitation. Mitral Valve Mitral annuloplasty changes are present. No evidence of mitral valve stenosis. Mild mitral regurgitat ion. Tricuspid Valve The tricuspid valve is normal in structure. There is no tricuspid valve stenosis. Trace tricuspid reg urgitation. Unable to assess PA pressure. Pulmonic Valve Pulmonic valve is not well visualized. There is no pulmonic valvular stenosis. There is no pulmonic v alvular regurgitation. Great Vessels Aortic root is severely dilated. The ascending aorta is severely dilated. IVC is normal in size and c ollapses >50% with inspiration. Pericardium There is no pericardial effusion. 2D Dimensions IVSD d PLAX 1.18 cm M: 0.6-1.2 LV Vol A2C d MOD 128.0 mL LVPW d PLAX 1.15 cm M: 0.6 - 1.2 LV Vol A4C d MOD 154.2 mL LVID d PLAX 5.90 cm M: 4.2 - 5.8 LA vol/ BSA A2C s A-L 42.9 mL/m2 LVDs 4.35 cm M: 2.5 - 4.0 LA Area A2C s MOD 27.34 cm2 Ao Root d 4.58 cm M: 3.1 - 3.7 LV EF A4C MOD 51.6 % Ao Asc Diam d 5.01 cm M: 2.6 - 3.4 LV EF A2C MOD 50.3 % LV EF Teichholz 50.0 % LV EF Biplane MOD 52.6 % LVEF (Argueta's) 52.56 % M: 52 - 72 SV 76.40 mL LV Volume 105.88 mL M: 62 - 150 SV Index 34.90 mL/m2 LV Volume Index 48.34 mL/m2 M: 34 - 74 LV Vol Biplane MOD 145.4 mL FS 25.80 % LV Diastology MV E' medial 0.127 (>0.07 m/s) E/A Ratio 1.3 LV E/e MED 15.50 (<14) MV E Vmax 1.97 (0.4-1.3 m/s) MV E' lateral 0.119 (>0.1 m/s) MV A Vmax 1.50 (0.4-1.3 m/s) LV E/e LAT 16.60 (<14) MV E/A Ratio 1.30 MV E/E' medial 15.51 MV E/E' lateral 16.63 Aortic Valve LVOT Area 4.12 cm2 AoV Area Vmax 4.46 cm2 LVOT Vmax 1.74 m/s AoV Area/ BSA (Vmax) 2.04 cm2/m2 LVOT Mean Lonnie. 0.97 m/s JULIETTE Mean Lonnie. 3.67 cm2 LVOT Peak Grad 12.2 mmHg JULIETTE Mean Lonnie. Index 1.68 cm2/m2 LVOT Mean Grad 4.3 mmHg AR DT 1936 msec LVOT VTI 0.311 m AR PHT 561 msec LVOT Diam s 2.25 cm AoV Vmax 1.61 m/s Velocity Ratio 1.08 AoV Mean Lonnie. 1.10 m/s AoV Peak Grad 10.4 mmHg LVOT SV 128.19 mL AoV Mean Grad 5.5 mmHg AoV VTI 0.284 m AoV Area VTI 4.51 cm2 AoV Area/ BSA (VTI) 2.06 cm/m2 Mitral Valve MV DT 211 (160-240 msec) MV PHT 61 msec MV Area PHT 3.59 cm2 MV VTI 0.591 m MV Area VTI 2.17 (4.0-6.0 cm2) Pulmonary Valve PV Vmax 0.99 (0.5-1.5 m/s) RVOT Peak Gr. 1.45 mmHg PV Peak Grad 4.0 mmHg RVOT Mean Gr. 0.70 mmHg PV Mean Grad 1.9 mmHg RVOT VTI 0.110 m PV VTI 0.168 m RVOT Vmax 0.60 m/s
== END 2022-05-21 02:40 ==
LOC: DI 02:23
PROVIDERS: PCP Nurse Practitioner Family; Visit Provider Internal Medicine Cardiovascular Disease
DX: I34.0 Nonrheumatic mitral (valve) insufficiency (principal)
CPT/HCPCS: 93306

== ENCOUNTER → 2022-05-27 09:43 | Outpatient (BNVA) | payer MEDICARE, OTHER, SELFPAY | PROVIDERS: PCP Nurse Practitioner Family; Referring Provider Nurse Practitioner; Visit Provider Internal Medicine Cardiovascular Disease | DX: I34.0 Nonrheumatic mitral (valve) insufficiency (principal); I71.21 Aneurysm of the ascending aorta, without rupture; I63.9 Cerebral infarction, unspecified | CPT/HCPCS: 99214 ==

== ENCOUNTER 2022-06-24 07:05 | Emergency (ER) | payer MEDICARE, OTHER, SELFPAY ==
[2022-06-24] VITALS (33 sets, daily range): BP systolic 112–148; BP diastolic 66–92; PULSE 69–101; RESP 15–35; TEMP 37; O2SAT 92–96
--- NOTE | 2022-06-24 07:00 | RT.EKG_ITS ---
APPROVED REPORT Exam: Resting ECG Reason for Exam: chest pain Patient Location: E HR:76 bpm ECG Measurements Heart Rate 76 AXIS DE 144 P -81 QRSd 89 QRS -37 QT 360 T 43 QTc 406 Conclusion Sinus or ectopic atrial rhythm...P axis (-45,135) Left axis deviation...QRS axis (-30,-90)
--- NOTE | 2022-06-24 07:26 | ED.GENADUL_ITS ---
Discharge Plan Discharge Details Chief Complaint: Chest Pain Primary Care Provider: Jocy Forbes ED Provider: Nolan Ferreira Home Meds and New Rx's Prescriptions: No Action DHEA 50 mg tablet 50 mg PO DAILY coenzyme [id number] E 100-100 mg-unit capsule PO metoprolol tartrate 25 mg tablet 25 mg PO DAILY aspirin [Adult Low Dose Aspirin] 81 mg tablet,delayed release (DR/EC) 81 mg PO DAILY triamcinolone acetonide 0.5 % cream 1 applic Topical BID PRN (Reason: psoriasis) Qty: 15 0RF furosemide [Lasix] 20 mg tablet 20 mg PO QAM PRN (Reason: edema) Qty: 90 3RF tamsulosin 0.4 mg capsule 0.4 mg PO DAILY Qty: 90 1RF Spiriva Respimat 1.25 mcg/actuation mist 2 puff inhalation DAILY Qty: 4 1RF CENTRUM SILVER TABLET 1 EACH tablet 1 tab PO DAILY ascorbic acid (vitamin C) 1,000 MG tablet 1,000 mg PO DAILY zhgjpldhety-lhrmpdpmc-daj C-Mn [Glucosamine 1500 Complex] 500-400 mg capsule 1 cap PO BID losartan 100 mg tablet 100 mg PO DAILY Qty: 90 4RF methotrexate sodium 2.5 mg tablet 15 mg PO QWEEK Qty: 72 3RF Incruse Ellipta 62.5 mcg/actuation blister with device 1 inh inhalation DAILY Qty: 30 3RF Medical Decision Making 81yo male with a history of cva, hypertension, hyperlipidemia, COPD, mitral valve replacement and thoracic aortic aneurysm, who comes in with chest pain that started while sleeping aroud 11pm last night. He states the pain is sharp and in the center of his chest. Denies fevers, chills, dyspnea, radiation of pain, diaphoresis. He took ibuprofen this morning a few hours ago and improved the pain and states it is now 2/10. He arrives stable caox4 speaking clearly in no distress. He has no jvd, no calf tenderness, stable vitals, equal and clear breath sounds. Unclear etiology for his pain, ekg not diagnostic, will obtain troponin and given his history of thoracic aneurysm obtain cta of the chest. HE has no abdominal pain or tenderness on exam so doubt referred pain from the abdomen. Patient declines pain medication currently pt signed out to oncoming provider pending labs, ct and final dispo Differential Diagnosis Differential Diagnosis: nstemi, disection, aneurysm, pleurisy, pericarditis Medical Records Medical records reviewed: Yes I reviewed the patient's medical records. ECG Data Attestation: I personally reviewed and interpreted this ECG (s) as follows: Prior ECG tracings: available for review Interpretation: sinus rhythm, pvc's, rate of 76 no stemi HPI General Mode of arrival: ambulatory . Date/Time Provider Initiated Documentation: 06/24/22 07:17 . Limitations to Documentation: no limitations . Information obtained by: patient . History of Present Illness 81 year old M presents to the emergency department with the chief complaint of chest pain, described as moderate, Quality is described as aching and sharp, Patient reports no radiation. Patient started experiencing this hour(s) (8) and it has been constant. Other factors that worsen symptoms (deep breaths) . Patient notes denies cough, diaphoresis, fever/chills and nausea/vomiting. Patient did receive the following treatments prior to arrival, NSAID Related Data Home Medications Medication Instructions Recorded Confirmed Centrum Silver Tablet 1 tab PO DAILY 09/07/12 05/27/22 ascorbic acid (vitamin C) 1,000 mg 1,000 mg PO DAILY 09/28/14 05/27/22 tablet xtpphvirjdt-hzubezagy-xla C-Mn 500 1 cap PO BID 01/18/19 05/27/22 mg-400 mg capsule (Glucosamine 1) prasterone (dhea) 50 mg tablet 50 mg PO DAILY 12/09/19 05/27/22 (DHEA) coenzyme [id number] E 100 mg-100 cap PO 06/11/21 05/27/22 unit capsule losartan 100 mg tablet 100 mg PO DAILY #90 tabs 09/17/21 05/27/22 methotrexate sodium 2.5 mg tablet 15 mg PO QWEEK #72 tabs 02/20/22 05/27/22 aspirin 81 mg tablet,delayed 81 mg PO DAILY 05/13/22 05/27/22 release (Adult Low Dose Aspirin) furosemide 20 mg tablet (Lasix) 20 mg PO QAM PRN edema #90 tabs 05/13/22 05/27/22 tamsulosin 0.4 mg capsule 0.4 mg PO DAILY #90 caps 05/13/22 05/27/22 tiotropium bromide 1.25 2 puff inhalation DAILY #4 grams 05/13/22 05/27/22 mcg/actuation mist for inhalation (Spiriva Respimat) triamcinolone acetonide 0.5 % 1 applic topical BID PRN psoriasis 05/13/22 05/27/22 topical cream #15 grams umeclidinium 62.5 mcg/actuation 1 inh inhalation DAILY #30 ea 05/15/22 05/27/22 blister powder for inhalation (Incruse Ellipta) metoprolol tartrate 25 mg tablet 25 mg PO DAILY 05/27/22 05/27/22 Previous Rx's Medication Instructions Recorded losartan 100 mg tablet 100 mg PO DAILY #90 tabs 09/17/21 methotrexate sodium 2.5 mg tablet 15 mg PO QWEEK #72 tabs 02/20/22 furosemide 20 mg tablet (Lasix) 20 mg PO QAM PRN edema #90 tabs 05/13/22 tamsulosin 0.4 mg capsule 0.4 mg PO DAILY #90 caps 05/13/22 tiotropium bromide 1.25 2 puff inhalation DAILY #4 grams 05/13/22 mcg/actuation mist for inhalation (Spiriva Respimat) triamcinolone acetonide 0.5 % 1 applic topical BID PRN psoriasis 05/13/22 topical cream #15 grams umeclidinium 62.5 mcg/actuation 1 inh inhalation DAILY #30 ea 05/15/22 blister powder for inhalation (Incruse Ellipta) Allergies Allergy/AdvReac Type Severity Reaction Status Date / Time niacin Allergy Severe rash/flusin Verified 06/24/22 07:33 g simvastatin AdvReac Intermediate Myalgia Verified 06/24/22 07:33 atorvastatin AdvReac Myalgias Verified 06/24/22 07:33 metoprolol AdvReac WORSENED Verified 06/24/22 07:33 PSORIASIS detergent AdvReac Intermediate Skin Rash Uncoded 06/24/22 07:33 General Stated Complaint: Chest Pain BERNY: 2 Review of Systems All systems reviewed & are unremarkable except as noted in HPI and below Constitutional Constitutional: Denies chills, Denies fever(s) and Denies weakness Cardiovascular Cardiovascular: Denies dyspnea Respiratory Respiratory: Denies cough and Denies dyspnea Gastrointestinal Gastrointestinal: Denies abdominal pain, Denies nausea and Denies vomiting Genitourinary Genitourinary: Denies dysuria Musculoskeletal Musculoskeletal: Denies joint swelling Integumentary/Breasts Skin/Breast: Denies rash Neurologic Neurologic: Denies weakness PFSH All Active Problems Urinary hesitancy (Acute) Possibly due to BPH Multiple lacunar infarcts (Chronic) Hyperlipidemia (Acute) COPD (chronic obstructive pulmonary disease) (Chronic 11/22/13) Essential hypertension (Acute 09/08/13) Thoracic aortic aneurysm (Acute) 2021- Aortic root is moderately dilated.4.89 cm The ascending aorta isdilated.4.98 cm Aortic arch is normal in caliber. 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 Substance abuse Depression Son No problems noted. Daughter , 40+ Substance abuse Daughter No problems noted. Sister No problems noted. Sister No problems noted. Social History Smoking/Tobacco Use Status: Former Tobacco Use tobacco type: cigarettes, pipe and cigars Quit Date: 05/11/02 Tobacco: How many years used: 30 Second Hand Exposure: Yes Smoking risk assessment performed?: Yes Alcohol Intake: current Alcohol Intake frequency: a few times a week Alcohol type: wine and hard liquor Drug use: Never Substance use type: does not use Caregiver/Support person: No Household members: spouse Housing: house Communication Needs: None Do you need help understanding health information?: Never Pets and animals: Yes Pets and animals: cat(s) Sexually active: No Do you think of yourself as: straight/heterosexual Current gender identity: male What is your relationship status?: How often do you talk on the phone with friends or family?: once per week How often do you get together with friends or relatives?: decline to answer How often do you attend spiritism or yazdanism services?: decline to answer Do you belong to any clubs or organized social groups?: no Panel score (0-1 are the most socially isolated patients): 1 What type of physical activity do you participate in: walking Duration: 30-45 minutes/day Frequency: 1-2 times per week Ericka/Confucianism: None Special ericka needs: No Seatbelt use: always Helmet use: No Drive intox or ride w/intox grain combine driver: No Do you feel safe at home: Yes Do you feel safe in your relationship?: Yes Exam Const General: no acute distress Orientation: alert HENMT Head: normal to inspection Ears: external ears normal General nose exam: external nose normal Mouth: moist mucous membranes Eyes General: appearance normal, both eyes and all related structures Neck Neck: normal visual inspection Chest Chest: normal inspection of the chest Resp Effort & Inspection: normal respiratory effort and able to speak in complete sentences Auscultation: clear to auscultation bilaterally Cardio Jugular venous pressure: no JVD Rate: regular rate GI Palpation: soft and nontender Skin General skin exam: no rashes or lesions noted Neuro General: patient alert and patient oriented x3 Extrem General: normal to inspection Psych Mental Status: mental status grossly normal Course Vital Signs Vital signs: Vital Signs Temperature 37.0 C 06/24/22 07:09 Pulse 90 06/24/22 07:09 Respiratory Rate 18 06/24/22 07:09 Blood Pressure 148/92 H 06/24/22 07:09 Pulse Oximetry 94 06/24/22 07:09 Temperature 37.0 C 06/24/22 07:09 Temperature Source Tympanic 06/24/22 07:09 Pulse 90 06/24/22 07:09 Respiratory Rate 18 06/24/22 07:09 Blood Pressure 148/92 H 06/24/22 07:09 Blood Pressure Position Sitting 06/24/22 07:09 Pulse Oximetry 94 06/24/22 07:09 Oxygen Delivery Method Room Air 06/24/22 07:09 Oxygen Flow Rate 0 06/24/22 07:09
[2022-06-24 07:36] LABS: Abs Immature Grans 0.03 10^3/uL (0.0-0.06); Absolute Basophil Count 0.03 10^3/uL (0.0-0.2); Absolute Eosinophil Count 0.07 10^3/uL (0.0-0.7); Absolute Lymphocyte Count 0.52 10^3/uL (1.2-3.4); Absolute Monocyte Count 1.02 10^3/uL (0.1-0.8); Absolute Neutrophil Count 7.63 10^3/uL (1.2-6.7); Basophils % 0.3; Eosinophils % 0.8; HCT 41.8 % (40.0-50.0); HGB 14.1 g/dL (13.5-17.5); Immature Grans % 0.3; Lymphocytes % 5.6; MCH 36.8 pg (27.0-33.0); MCHC 33.7 % (32.0-36.0); MCV 109 fL (80-95); MPV 9.3 fL (8.0-11.0); Platelet Count 141 10^3/uL (130-400); RBC 3.83 10^6/uL (4.36-5.78); RDW 13.7 % (11.8-14.1); RDW-SD 55.8 fL
[2022-06-24 07:55] LABS: Prothrombin Time 10.4 sec (9.3-11.0)
[2022-06-24 07:59] LABS: Anisocytosis 1+; Diff Comment RBC Morph Reviewed; Macrocytosis 2+
[2022-06-24 08:00] LABS: ALT 20 U/L (16-63); AST 29 U/L (15-37); Albumin 3.9 g/dL (3.4-5.0); Alkaline Phosphatase 55 U/L (46-116); BUN 18 mg/dL (7-18); Bilirubin, Total 1.1 mg/dL (0.2-1.0); CREATININE 1.2 mg/dL (0.70-1.30); Calcium 8.9 mg/dL (8.5-10.1); Chloride 104 mmol/L (98-107); Estimated GFR 60.38 (mL/min/1.73m2); Glucose 131 mg/dL (74-106); Lipase 26 U/L (16-77); Magnesium 1.5 mg/dL (1.8-2.4); Poikilocytes 1+; Potassium 4.5 mmol/L (3.5-5.1); Sodium 138 mmol/L (136-145); Total Protein 7.3 g/dL (6.4-8.2); Troponin I < 50 ng/L (<or=60)
--- NOTE | 2022-06-24 08:02 | W.EDPROG ---
Date of service: 06/24/22 Time of Service: 14:15 Medical Decision Making Medical Records Medical records narrative: I received signout on this 81-year-old male with a history of unknown thoracic aneurysm currently pending a CT chest in setting of chest pain that occurred last night. He is also pending 2 troponins. We will update documentation following imaging. 930AM I spoke to Dr. Black from cardiology. She will help to arrange follow-up. Patient was found to have a right pleural solution but no obvious infiltrate. We will touch base at this primary care provider. His symptoms did not improve with nitroglycerin. 10:20 AM I spoke with Dr. Marr from pulmonology as the patient had right-sided pleural effusion. She will help to arrange outpatient follow-up. Patient does have history of furosemide use however he has not had any lower extremity swelling or worsening shortness of breath and did not appear to be in acute heart failure. Given that he was satting well on room air I felt that the risks of emergent thoracentesis outweigh the benefits so we will proceed with an empiric trial of expectant outpatient management. I have asked patient to return if he feels more short of breath or if he develops any fevers. Given no obvious infiltrate while observe patient off of antibiotics at the moment. Discharge Plan Disposition Patient Disposition: Home Discharge Details Clinical Impression: Pleural effusion on right Primary Care Provider: Jocy Forbes ED Provider: Riky Friedman Home Meds and New Rx's Prescriptions: No Action DHEA 50 mg tablet 50 mg PO DAILY coenzyme [id number]-[id number] E 100-100 mg-unit capsule 1 cap PO DAILY metoprolol tartrate 25 mg tablet 25 mg PO DAILY aspirin [Adult Low Dose Aspirin] 81 mg tablet,delayed release (DR/EC) 81 mg PO DAILY triamcinolone acetonide 0.5 % cream 1 applic Topical BID PRN (Reason: psoriasis) Qty: 15 0RF furosemide [Lasix] 20 mg tablet 20 mg PO QAM PRN (Reason: edema) Qty: 90 3RF tamsulosin 0.4 mg capsule 0.4 mg PO DAILY Qty: 90 1RF Spiriva Respimat 1.25 mcg/actuation mist 2 puff inhalation DAILY Qty: 4 1RF CENTRUM SILVER TABLET 1 EACH tablet 1 tab PO DAILY ascorbic acid (vitamin C) 1,000 MG tablet 1,000 mg PO DAILY cehyvxrdiwp-kitnbinwn-ejn C-Mn [Glucosamine 1500 Complex] 500-400 mg capsule 1 cap PO BID losartan 100 mg tablet 100 mg PO DAILY Qty: 90 4RF methotrexate sodium 2.5 mg tablet 15 mg PO QWEEK Qty: 72 3RF Incruse Ellipta 62.5 mcg/actuation blister with device 1 inh inhalation DAILY Qty: 30 3RF Discharge Instructions Additional Instructions: You were seen in the emergency department for your chest pain. You were found to have a pleural effusion which is fluid around your lungs. Please follow-up with your primary care provider later this week. If you develop fevers or a cough please return to the emergency department. The pulmonology clinic will call you to arrange for outpatient follow-up. If you feel more short of breath please return to the emergency department.
[2022-06-24] MEDS: Omnipaque 350 MG/ML 500 ML BTL-Imaging package 100 ML IJ (08:41)
[2022-06-24] MEDS: Normal Saline - Diluent 50 ML VIAL IV (08:43)
--- NOTE | 2022-06-24 09:05 | DI.CT_ITS ---
Exam(s) CT THORAX CTA EXAM: CT THORAX CTA CLINICAL HISTORY: chest pain, known aneurysm. TECHNIQUE: Imaging Protocol: CT angiography of the chest was performed using pulmonary embolus benjamin col. Multi planar reconstructions were performed. CONTRAST MATERIAL: Intravenous: Omnipaque 350 Contrast volume: 100 cc COMPARISON: CT CT THORAX CTA from 12/02/2021 FINDINGS: CHEST: THORACIC AORTA: A dilated ascending thoracic aorta is again noted diameter 4.9 cm, unchanged. no dis section evident. diameter of the mid aortic arch is 3.1 cm, unchanged. diameter of the proximal savannah cending thoracic aorta is 0.8 cm, unchanged. appearance and diameter of the descending thoracic aort a is also unchanged. the upper most abdominal aorta is included in the field of view here down to th e superior mesenteric artery (which is patent to). diameter of the proximal abdominal aorta is upper normal. LUNGS: There are no confluent infiltrates nor ominous pulmonary nodules. However, there is now a sma ll right pleural effusion which was not previously present. There is a tiny amount of left pleural f luid also noted.. MEDIASTINUM: There is no hilar nor mediastinal adenopathy. Visualized thyroid unremarkable. CARDIAC: Cardiomegaly. No significant pericardial effusion.Thoracic aorta as described above. PARTIALLY VISUALIZED UPPERMOST ABDOMEN: No obvious findings OSSEOUS: No significant osseous lesions.No fractures.. IMPRESSION: 1. Dilated thoracic aorta as described above, unchanged from prior study of 12/02/2021.. Maximum carlos meter 4.9 cm. There is no evidence of aortic dissection and no evidence of pericardial effusion. 2. Small-moderate size right pleural effusion now evident. Tiny amount of left pleural fluid. No co nfluent infiltrates evident. No ominous pulmonary nodules. 3. No obvious significant intrathoracic adenopathy. Called by myself to ER physician. RADIATION DOSE DELIVERED: 632.36mGy.cm Total DLP DATA REPOSITORY: All CT scans at this facility are submitted to the National Radiology Data Registry (NRDR) Dose Index Registry (DIR) with the [employer] (A[employer]). RADIATION OPTIMIZATION: All CT scans at this facility use at least one of these dose optimization te chniques: automated exposure control; mA and/or kV adjustment per patient size (includes targeted exa ms where dose is matched to clinical indication); or iterative reconstruction.
[2022-06-24 09:37] LABS: Troponin I < 50 ng/L (<or=60)
[2022-06-25 18:05] LABS: Troponin T, 5th gen, P 21 ng/L (<=15)
== END 2022-06-24 10:30 | disposition home or self-care (01) ==
PROVIDERS: Emergency Medicine; Emergency Provider Emergency Medicine; PCP Nurse Practitioner Family
DX: J90 Pleural effusion, not elsewhere classified (principal); I10 Essential (primary) hypertension; E78.5 Hyperlipidemia, unspecified; J44.9 Chronic obstructive pulmonary disease, unspecified; Z86.73 Personal history of transient ischemic attack (TIA), and cerebral infarction without residual deficits; R07.9 Chest pain, unspecified
CPT/HCPCS: 36415; 71275; 80053; 83690; 84484; 93005; 99285; 83735; 85025; 85610; 85730; 93010

== ENCOUNTER 2022-07-28 02:26 | Outpatient (CLI) | payer MEDICARE, OTHER, SELFPAY ==
--- NOTE | 2022-07-28 09:21 | DI.RAD_ITS ---
Exam(s) XR CHEST 2V PA LATERAL EXAM: XR CHEST 2V PA LATERAL CLINICAL HISTORY: f/u pleural effusion on rt,j90. TECHNIQUE: 2D digital imaging was performed. COMPARISON: CR XR CHEST 2V PA LATERAL from 11/09/2019 FINDINGS: 2 views: Prosthetic mitral valve is again noted. Heart size unchanged mild cardiomegaly again noted. Mediastinum is not widened. Lungs are clear. No infiltrates nor pleural effusions. No pulmonary edema. IMPRESSION: No acute pulmonary findings.Prosthetic mitral valve again noted. DATA REPOSITORY: RADIATION DOSE DELIVERED:
== END 2022-07-28 02:46 ==
LOC: DI 02:26
PROVIDERS: PCP Nurse Practitioner Family; Visit Provider Student in an Organized Health Care Education/Training Program
DX: J90 Pleural effusion, not elsewhere classified (principal); Z95.2 Presence of prosthetic heart valve; I51.7 Cardiomegaly
CPT/HCPCS: 71046

== ENCOUNTER 2022-10-29 02:45 | Outpatient (CLI) | payer MEDICARE, OTHER, SELFPAY ==
[2022-10-29 12:26] LABS: Abs Immature Grans 0.01 10^3/uL (0.0-0.06); Absolute Basophil Count 0.04 10^3/uL (0.0-0.2); Absolute Lymphocyte Count 0.72 10^3/uL (1.2-3.4); Absolute Monocyte Count 0.52 10^3/uL (0.1-0.8); Absolute Neutrophil Count 2.61 10^3/uL (1.2-6.7); Eosinophils % 7.1; HCT 39.9 % (40.0-50.0); HGB 13.6 g/dL (13.5-17.5); Immature Grans % 0.2; Lymphocytes % 17.1; MCH 37.4 pg (27.0-33.0); MCHC 34.1 % (32.0-36.0); MCV 110 fL (80-95); Monocytes % 12.4; Neutrophils % 62.2; Platelet Count 158 10^3/uL (130-400); RBC 3.64 10^6/uL (4.36-5.78); RDW 13.8 % (11.8-14.1); RDW-SD 55.7 fL
[2022-10-29 12:51] LABS: Anion Gap 10.1 mmol/L (3-11); BUN 21 mg/dL (7-18); CO2 24.9 mmol/L (21.0-32.0); CREATININE 1.3 mg/dL (0.70-1.30); Calcium 8.7 mg/dL (8.5-10.1); Calculated LDL 129 mg/dL (<100); Chloride 106 mmol/L (98-107); Cholesterol 216 mg/dL (<200); Estimated GFR 54.51 (mL/min/1.73m2); Glucose 150 mg/dL (74-106); HDL Cholesterol 67 mg/dL (40-60); Hemoglobin A1C 5.3 % (<5.7); Potassium 4.2 mmol/L (3.5-5.1); Sodium 141 mmol/L (136-145); TSH (W/Ref FT4) 1.86 uIU/mL (0.36-3.74); Triglyceride 101 mg/dL (<150)
[2022-10-29 13:12] LABS: NT-proBNP 660 pg/mL (<300)
== END 2022-10-29 02:46 | disposition home or self-care (01) ==
LOC: LOS 02:45
PROVIDERS: PCP Nurse Practitioner Family; Visit Provider Nurse Practitioner Family
DX: I10 Essential (primary) hypertension (principal); E78.5 Hyperlipidemia, unspecified; R73.9 Hyperglycemia, unspecified; R42 Dizziness and giddiness; R06.09 Other forms of dyspnea
CPT/HCPCS: 36415; 80048; 80061; 83036; 83880; 84443; 85025

== ENCOUNTER 2022-11-21 00:06 | Outpatient (CLI) | payer MEDICARE, OTHER, SELFPAY ==
--- NOTE | 2022-11-21 08:00 | DI.CT_ITS ---
Exam(s) CT THORAX CTA EXAM: CT THORAX CTA CLINICAL HISTORY: Thoracic aortic aneurysm,I71.2. TECHNIQUE: Imaging Protocol: CT angiography of the chest was performed using pulmonary embolus benjamin col. Multi planar reconstructions were performed. CONTRAST MATERIAL: Intravenous: Omnipaque 350 Contrast volume: 100 cc COMPARISON: CT CT CHEST PE CTA from 01/11/[address] THORAX CTA from 06/24/2022 FINDINGS: CHEST: THORACIC AORTA: Diameter of the enlarged ascending thoracic aorta is again noted be 4.9 cm, unchanged and there is no evidence of dissection.The diameter of the mid level of the aortic arch remains 3.1 cm. There is a pseudo-coarctation appearance of the thoracic aortic arch again noted. Diameter of t he proximal descending thoracic aorta is 4 cm. The diameter of the mid descending thoracic aorta is 3.5 cm, unchanged. Diameter of the lower descending thoracic aorta is 3.5 cm, unchanged. Diameter o f the upper abdominal aorta at the SMA takeoff point is 3.2 cm, unchanged. However, the lower most images of this study are slightly lower than on the prior study and include t he abdominal aorta add to level just below the renal arteries and there appears to be fusiform aneury sm dilatation to diameter 3.9 cm. This, however, is unchanged from a CT scan of January 2019. Ple ase note that neither CT scan includes the entire abdominal aorta. LUNGS: No infiltrates nor ominous pulmonary nodules evident. Previously present pleural effusions fo r evident on the June 2022 CT scan have resolved. There presently no pleural effusions. MEDIASTINUM: There is no hilar nor mediastinal adenopathy. Visualized thyroid unremarkable. CARDIAC: Mild cardiomegaly. No pericardial effusion.Thoracic aorta as described above. PARTIALLY VISUALIZED UPPERMOST ABDOMEN: No adrenal masses. Small nonobstructive calculus is noted in the lower pole the left kidney. OSSEOUS: No significant osseous lesions.No fractures.. IMPRESSION: 1. Stable appearance of the dilated thoracic aorta with measurements as above..Maximum measurement is 4.9 cm which is the ascending thoracic aorta. There is no evidence of dissection. 2. There is also evidence of an abdominal aortic aneurysm partly included in the field of view on the lower most images exhibiting diameter 3.9 cm. This, however, is unchanged from January 2019. Ple ase note the entire abdominal aorta is not included on the field of view of this chest only study. 3. Previously present pleural effusions have resolved. There presently no pleural effusions. Small calculus noted in the lower pole the left kidney, nonobstructive. RADIATION DOSE DELIVERED: 687.21mGy.cm Total DLP DATA REPOSITORY: All CT scans at this facility are submitted to the National Radiology Data Registry (NRDR) Dose Index Registry (DIR) with the [employer] (ACR). RADIATION OPTIMIZATION: All CT scans at this facility use at least one of these dose optimization te chniques: automated exposure control; mA and/or kV adjustment per patient size (includes targeted exa ms where dose is matched to clinical indication); or iterative reconstruction.
[2022-11-21] MEDS: Normal Saline - Diluent 50 ML VIAL IJ (14:31)
[2022-11-21] MEDS: Normal Saline Flush 10 ML SYR IVP (14:32)
[2022-11-21] MEDS: Omnipaque 350 MG/ML 100 ML BTL IJ (14:32)
== END 2022-11-21 00:26 ==
LOC: DI 00:07
PROVIDERS: PCP Nurse Practitioner Family; Visit Provider Internal Medicine Cardiovascular Disease
DX: I71.23 Aneurysm of the descending thoracic aorta, without rupture (principal)
CPT/HCPCS: 71275; 82565; J3490

== ENCOUNTER → 2022-12-02 10:30 | Outpatient (BNVA) | payer MEDICARE, OTHER, SELFPAY | PROVIDERS: PCP Nurse Practitioner Family; Referring Provider Nurse Practitioner Family; Visit Provider Internal Medicine Cardiovascular Disease | DX: I10 Essential (primary) hypertension (principal); Z86.73 Personal history of transient ischemic attack (TIA), and cerebral infarction without residual deficits; I71.20 Thoracic aortic aneurysm, without rupture, unspecified; I34.0 Nonrheumatic mitral (valve) insufficiency | CPT/HCPCS: 99214 ==

== ENCOUNTER → 2023-06-25 03:40 | Outpatient (CLI) | payer MEDICARE, OTHER, SELFPAY ==
--- NOTE | 2023-06-25 12:37 | DI.RAD_ITS ---
Exam(s) XR CHEST 2V PA LATERAL EXAM: XR CHEST 2V PA LATERAL CLINICAL HISTORY: chest congestion, hx of pleural effusion,r09.89,thoracic aortic aneurysm TECHNIQUE: 2D digital imaging was performed. COMPARISON: CT CT THORAX CTA from 11/21/2022 FINDINGS: HEART: Enlarged. Mitral valve prosthesis. Aorta: Tortuous. PULMONARY VASCULATURE: Normal. LUNGS: Clear. PLEURAL SPACE: No pleural effusion or pneumothorax. BONE:Unremarkable for age. Soft tissues: Unremarkable. IMPRESSION: No acute abnormality. DATA REPOSITORY: RADIATION DOSE DELIVERED:
== END ==
PROVIDERS: PCP Nurse Practitioner Family; Visit Provider Nurse Practitioner Family
DX: R09.89 Other specified symptoms and signs involving the circulatory and respiratory systems (principal)
CPT/HCPCS: 71046

== ENCOUNTER → 2023-06-25 03:41 | Outpatient (CLI) | payer MEDICARE, OTHER, SELFPAY ==
--- NOTE | 2023-06-25 07:30 | DI.US_ITS ---
APPROVED REPORT EXAM: Comprehensive 2D, Doppler, and color-flow Echocardiogram Patient Location: Out-Patient Quality Assurance Advisor: Ramila Yan RDCS ([facility]) Indications: f/u thoracic aortic aneurysm and ascending aorta, Mitral insufficiency, h/o Mitral annul oplasty. Other Information Study Quality: Fair. Technically limited study due to body habitus. Conclusion Normal left ventricular size and systolic function. Ejection fraction is 50 -55 %. Wall motion is n ormal Right ventricle is not well-visualized Atria are normal in size Aortic valve is trileaflet with trace regurgitation Prior mitral valve repair with trace to mild regurgitation Dilated aortic root and ascending aorta both approximately 4.8 cm Wall motion Left Ventricle The left ventricle is normal size. The overall left ventricular systolic function appears low normal range. There is normal left ventricular wall thickness. Regional wall motion is grossly normal. There is no ventricular septal defect visualized. LVEF is 50-53%. Right Ventricle Right ventricle is not well visualized. Right ventricular systolic function could not be assessed. Atria The left atrium size is normal. The right atrium size is normal. The interatrial septum is intact wit h no evidence for an atrial septal defect. Aortic Valve The aortic valve is normal in structure. Aortic valve is trileaflet. There is no aortic valvular sten osis. Trivial aortic regurgitation. Mitral Valve Mitral annuloplasty changes are present. No evidence of mitral valve stenosis. Trace to mild mitral r egurgitation. Tricuspid Valve The tricuspid valve is normal in structure. There is no tricuspid valve stenosis. Trace tricuspid reg urgitation. Unable to assess PA pressure. Pulmonic Valve The pulmonary valve is normal in structure. There is no pulmonic valvular stenosis. Trace pulmonic re gurgitation. Great Vessels Aortic root is moderate to severely dilated. The ascending aorta is moderate to severely dilated. IVC is normal in size and collapses >50% with inspiration. Pericardium There is no pericardial effusion. 2D Dimensions IVSD d PLAX 1.08 cm M: 0.6-1.2 Ao Root d 4.67 cm M: 3.1 - 3.7 LVPW d PLAX 1.07 cm M: 0.6 - 1.2 Ao Asc Diam d 4.79 cm M: 2.6 - 3.4 LVID d PLAX 5.46 cm M: 4.2 - 5.8 LVDs 4.06 cm M: 2.5 - 4.0 LV EF Teichholz 49.9 % FS 25.59 % LV EDV (Teich) 144.8 mL LV ESV (Teich) 72.6 mL LV Volumes - Method of Disks (Argueta's) Single Plane 2D LV Volumes Biplane 2D LV Volumes LV EDV A4C 106.3 mL LV EDV BP 96.37 mL M: 62 - 150 LV ESV A4C 58.6 mL LV ESV BP 50.2 mL LVEF(%) A4C 44.8 % LVEF(%) BP 47.96 % M: 52 - 72 LV EDV A2C 86.7 mL LV EDV BP Index 44.82 mL/m2 M: 34 - 74 LV ESV A2C 37.9 mL SV BP LVEF(%) A2C 56.2 % SV Index LA Volume LA Length A4C 6.5 cm LA Length A2C 6.3 cm LA Area A4C s 25.73 cm2 LA Area A2C s 23.02 cm2 LA Vol A4C A-L 86.97 mL LA Vol A2C A-L 70.88 mL LA Vol Biplane A-L 79.2 mL LA Vol/BSA A4C A-L LA Vol/BSA A2C A-L LA Vol/BSA BP A-L 36.8 mL/m2 LA Vol A4C MOD 82.0 mL LA Vol A2C MOD 68.2 mL LA Vol BP MOD 75.4 mL LV Diastology MV E' medial 0.819 (>0.07 m/s) MV E Vmax 1.58 (0.4-1.3 m/s) MV E/E' MED 1.93 (<14) MV A Vmax 1.10 (0.4-1.3 m/s) MV E' lateral 0.071 (>0.1 m/s) E/A Ratio 1.4 MV E/E' LAT 22.17 (<14) MV E' Average 0.445 m/s MV E/E'(average) 3.56 Aortic Valve AoV Vmax 1.39 m/s LVOT Vmax 1.10 m/s AoV Peak Grad 7.7 mmHg LVOT Peak Grad 4.9 mmHg AoV Area (Vmax) 2.75 cm2 LVOT VTI 0.219 m AoV VTI 0.276 m LVOT Mean Grad 2.9 mmHg AoV Mean Lonnie. 0.90 m/s LVOT SV 75.88 mL AoV Mean Grad 3.8 mmHg LVOT Diam s 2.10 cm AoV Area (VTI) 2.75 cm2 Velocity Ratio 0.79 Mitral Valve MV DT 301 (160-240 msec) MV Vmax TIPS 1.59 m/s MV Mean Grad 3.4 (<2mmHg) MV VTI 0.497 m Pulmonary Valve PV Vmax 0.73 (0.5-1.5 m/s) RVOT Vmax 0.55 m/s PV Peak Grad 2.1 mmHg RVOT Peak Gr. 1.2 mmHg PV Mean Lonnie 0.45 m/s RVOT VTI 0.112 m PV Mean Grad 1.0 mmHg RVOT Mean Gr. 0.6 mmHg Tricuspid Valve RA Pressure 3.00 mmHg TV S' 0.12 m/s
== END ==
PROVIDERS: PCP Nurse Practitioner Family; Visit Provider Internal Medicine Cardiovascular Disease
DX: I34.0 Nonrheumatic mitral (valve) insufficiency (principal)
CPT/HCPCS: 93306; 71046

== ENCOUNTER → 2023-07-07 09:43 | Outpatient (BNVA) | payer MEDICARE, OTHER, SELFPAY | PROVIDERS: PCP Nurse Practitioner Family; Visit Provider Internal Medicine Cardiovascular Disease | DX: I71.21 Aneurysm of the ascending aorta, without rupture (principal); I34.0 Nonrheumatic mitral (valve) insufficiency; I10 Essential (primary) hypertension | CPT/HCPCS: 99213 ==

== ENCOUNTER → 2023-12-24 10:36 | Outpatient (BNVA) | payer MEDICARE, OTHER, SELFPAY | PROVIDERS: PCP Nurse Practitioner Family; Visit Provider Internal Medicine Cardiovascular Disease | DX: I71.21 Aneurysm of the ascending aorta, without rupture (principal); I34.0 Nonrheumatic mitral (valve) insufficiency | CPT/HCPCS: 99213 ==

== ENCOUNTER 2024-02-12 03:08 | Outpatient (CLI) | payer MEDICARE, OTHER, SELFPAY ==
[2024-02-12 12:11] LABS: HGB 14.3 g/dL (13.5-17.5); MCH 37.7 pg (27.0-33.0); MCHC 33.3 % (32.0-36.0); Platelet Count 150 10^3/uL (130-400); RBC 3.79 10^6/uL (4.36-5.78); RDW 12.9 % (11.8-14.1); RDW-SD 54.1 fL; WBC 4.92 10^3/uL (4.4-10.8)
[2024-02-12 12:12] LABS: MCV 114 fL (80-95)
[2024-02-12 12:23] LABS: ALT 20 U/L (16-63); AST 26 U/L (15-37); Albumin 3.6 g/dL (3.4-5.0); Alkaline Phosphatase 62 U/L (46-116); BUN 12 mg/dL (7-18); Bilirubin, Total 0.61 mg/dL (0.2-1.0); CREATININE 1.3 mg/dL (0.70-1.30); Calcium 8.9 mg/dL (8.5-10.1); Calculated LDL 88 mg/dL (<100); Chloride 105 mmol/L (98-107); Cholesterol 183 mg/dL (<200); Estimated GFR 54.17 (mL/min/1.73m2); Glucose 145 mg/dL (74-106); HDL Cholesterol 66 mg/dL (40-60); Sodium 141 mmol/L (136-145); Total Protein 7.2 g/dL (6.4-8.2); Triglyceride 146 mg/dL (<150)
[2024-02-12 13:03] LABS: Lab Add On Test DONE
[2024-02-12 13:51] LABS: Hemoglobin A1C 5.2 % (<5.7)
== END 2024-02-12 03:09 | disposition home or self-care (01) ==
LOC: LOS 03:08
PROVIDERS: PCP Nurse Practitioner Family; Visit Provider Nurse Practitioner Family
DX: E78.5 Hyperlipidemia, unspecified (principal); R06.00 Dyspnea, unspecified; I10 Essential (primary) hypertension; I71.21 Aneurysm of the ascending aorta, without rupture; I34.0 Nonrheumatic mitral (valve) insufficiency; L40.9 Psoriasis, unspecified; R39.11 Hesitancy of micturition; J44.9 Chronic obstructive pulmonary disease, unspecified; Z00.00 Encounter for general adult medical examination without abnormal findings; R73.09 Other abnormal glucose
CPT/HCPCS: 36415; 80053; 80061; 85027; 83036

== ENCOUNTER 2024-03-18 00:35 | Outpatient (CLI) | payer MEDICARE, OTHER, SELFPAY ==
--- NOTE | 2024-03-18 07:30 | DI.RAD_ITS ---
Exam(s) XR FEMUR LT EXAM: XR FEMUR LT CLINICAL HISTORY: Fall, injury, pain, hematoma,[id number]. TECHNIQUE: 2D digital imaging was performed. Three views. COMPARISON: None. FINDINGS: BONES: No acute fracture is present. No bony destructive lesion is seen. JOINTS: A joint effusion is present. No dislocation present. The left hip joint space is maintained . Mild acetabular spurring. Mild narrowing of the medial femoral tibial joint space of the knee. P eriarticular spurring noted greater medially and at the patella. SOFT TISSUE: Soft tissue edema. Vascular calcification. Surgical clips in the left groin region. IMPRESSION: No evidence of acute fracture. Mild degenerative changes of the hip and knee. Soft tissue swelling. Joint effusion. DATA REPOSITORY: RADIATION DOSE DELIVERED:
== END 2024-03-18 00:55 ==
LOC: DI 00:35
PROVIDERS: PCP Nurse Practitioner Family; Visit Provider Nurse Practitioner Family
DX: W19.XXXA Unspecified fall, initial encounter (principal); M16.12 Unilateral primary osteoarthritis, left hip; M17.12 Unilateral primary osteoarthritis, left knee
CPT/HCPCS: 73552

== ENCOUNTER 2024-04-05 09:46 | Outpatient (CLI) | payer MEDICARE, OTHER, SELFPAY ==
--- NOTE | 2024-04-05 09:21 | DI.RAD_ITS ---
Exam(s) XR CHEST 2V PA LATERAL EXAM: XR CHEST 2V PA LATERAL CLINICAL HISTORY: fall with left side pain W19.XXXA R07.81 PLEURODYNIA TECHNIQUE: 2D digital imaging was performed of the chest. Two images were obtained. PA and lateral views were obtained. COMPARISON: CR XR CHEST 2V PA LATERAL from 06/25/2023 FINDINGS: MEDIASTINUM: Normal. HEART: Normal. Mitral valve replacement. PULMONARY VASCULATURE: Normal. There is tortuosity and atherosclerosis of the thoracic aorta. LUNGS: Clear. PLEURAL SPACE: No pleural effusion or pneumothorax. BONE:Within normal limits for the patient's age. No displaced left rib fractures are identified. OTHER FINDINGS:Normal. IMPRESSION: 1. No acute pulmonary findings. 2. No displaced left rib fractures. If there is continued concern, dedicated left rib films may be o btained. DATA REPOSITORY: RADIATION DOSE DELIVERED:
--- NOTE | 2024-04-05 09:30 | DI.US_ITS ---
Exam(s) US LOWER EXTREMITY VENOUS LT EXAM: US LOWER EXTREMITY VENOUS LT CLINICAL HISTORY: left leg swelling and pain M79.89 SOFT TISSUE DISORDER TECHNIQUE: Left lower extremity venous ultrasound performed using grayscale, color-flow, and spectra l Doppler analysis. COMPARISON: No exams were available for comparison FINDINGS: The left common femoral, femoral and popliteal veins demonstrate normal compressibility, augmentation , and color Doppler. The posterior tibial veins are patent. The saphenofemoral junction is unremarka ble. There is no evidence of a Schrader cyst. There is edema seen in the soft tissues of the lower leg . There is a 6.4 x 1.7 x 6.2 cm complex fluid collection in the soft tissues of the lateral left thi gh which may represent a hematoma. IMPRESSION: 1. No evidence of a left lower extremity DVT. 2. 6.4 x 1.7 x 6.2 cm complex fluid collection in the soft tissues of the lateral left thigh. This c an be seen secondary to trauma and may represent a hematoma. Please correlate clinically. In the ap propriate clinical setting, abscess cannot be excluded. DATA REPOSITORY:
== END 2024-04-05 10:06 ==
LOC: DI 09:46
PROVIDERS: PCP Nurse Practitioner Family; Visit Provider Nurse Practitioner Family
DX: M79.89 Other specified soft tissue disorders (principal); W19.XXXA Unspecified fall, initial encounter; R07.81 Pleurodynia
CPT/HCPCS: 71046; 93971

== ENCOUNTER 2024-06-14 10:06 | Outpatient (CLI) | payer MEDICARE, OTHER, SELFPAY ==
[2024-06-14 12:24] LABS: HCT 40.9 % (40.0-50.0); MCH 36.8 pg (27.0-33.0); MCHC 34.2 % (32.0-36.0); MCV 108 fL (80-95); MPV 10.2 fL (8.0-11.0); Platelet Count 144 10^3/uL (130-400); RDW 13.2 % (11.8-14.1); WBC 4.86 10^3/uL (4.4-10.8)
[2024-06-14 12:47] LABS: ALT 25 U/L (16-63); AST 30 U/L (15-37); Albumin 3.8 g/dL (3.4-5.0); Alkaline Phosphatase 56 U/L (46-116); Anion Gap 7.4 mmol/L (3-11); BUN 21 mg/dL (7-18); Bilirubin, Total 0.96 mg/dL (0.2-1.0); CO2 28.6 mmol/L (21.0-32.0); CREATININE 1.2 mg/dL (0.70-1.30); Calcium 9.3 mg/dL (8.5-10.1); Chloride 106 mmol/L (98-107); Estimated GFR 59.63 (mL/min/1.73m2); Glucose 103 mg/dL (74-106); NT-proBNP 713 pg/mL (<300); Potassium 4.2 mmol/L (3.5-5.1); Sodium 142 mmol/L (136-145); Total Protein 7.4 g/dL (6.4-8.2)
== END 2024-06-14 10:07 | disposition home or self-care (01) ==
LOC: LOS 10:07
PROVIDERS: PCP Nurse Practitioner Family; Referring Provider Nurse Practitioner Family; Visit Provider Nurse Practitioner Family
DX: R06.00 Dyspnea, unspecified (principal); I34.0 Nonrheumatic mitral (valve) insufficiency; L40.50 Arthropathic psoriasis, unspecified; R60.0 Localized edema
CPT/HCPCS: 36415; 80053; 85027; 83880

== ENCOUNTER 2024-07-14 02:11 | Outpatient (CLI) | payer MEDICARE, OTHER, SELFPAY ==
--- NOTE | 2024-07-14 08:15 | DI.US_ITS ---
APPROVED REPORT EXAM: Comprehensive 2D, Doppler, and color-flow Echocardiogram Patient Location: Out-Patient Dump Worker: Anibal Maddox RDCS ([facility]) Indications: Mitral valve repair, dilated ascending aorta Other Information Study Quality: Technically Limited. Technically limited study due to body habitus. Conclusion Normal left ventricular wall thickness and chamber size. Ejection fraction is 60%. Wall motion is n ormal Right ventricle is not well-visualized Both atria are moderately enlarged Aortic valve is sclerotic and trileaflet trace regurgitation Prior mitral valve repair with mild residual regurgitation aortic root and ascending aorta measure 4.7, 4.8 cm Wall motion Left Ventricle The left ventricle is normal size. The left ventricular systolic function is normal. The left ventric ular ejection fraction is within the normal range. There is normal left ventricular wall thickness. T here is normal LV segmental wall motion. There is no ventricular septal defect visualized. LVEF is 59 -62%. Right Ventricle The right ventricle is not well-visualized . Atria Left atrium is moderately dilated. Right atrium is moderately dilated. The interatrial septum is inta ct with no evidence for an atrial septal defect. Aortic Valve The Aortic valve is sclerotic. There is no aortic valvular stenosis. Trace aortic regurgitation. Mitral Valve Status post mitral valve repair. No evidence of mitral valve stenosis. Mild mitral regurgitation. Tricuspid Valve The tricuspid valve is normal in structure. There is no tricuspid valve stenosis. Trace tricuspid reg urgitation. Pulmonic Valve The pulmonary valve is normal in structure. There is no pulmonic valvular stenosis. There is no pulmo narda valvular regurgitation. Great Vessels Aortic root is moderately dilated. The ascending aorta is moderately dilated. Aortic arch is normal i n caliber. IVC is normal in size and collapses >50% with inspiration. Pericardium There is no pericardial effusion. 2D Dimensions IVSD d PLAX 0.75 cm M: 0.6-1.2 Ao Root d 4.72 cm M: 3.1 - 3.7 LVPW d PLAX 0.83 cm M: 0.6 - 1.2 Ao Asc Diam d 4.80 cm M: 2.6 - 3.4 LVID d PLAX 5.26 cm M: 4.2 - 5.8 LVDs 3.58 cm M: 2.5 - 4.0 LV EF Teichholz 59.5 % FS 31.88 % LV EDV (Teich) 132.8 mL LV ESV (Teich) 53.7 mL Stroke Vol Index (Teich) 37.10 M-Mode TAPSE 1.38 cm (M/F) >1.7 LV Volumes - Method of Disks (Argueta's) Single Plane 2D LV Volumes Biplane 2D LV Volumes LV EDV A4C 157.0 mL LV EDV BP 141.93 mL M: 62 - 150 LV ESV A4C 59.2 mL LV ESV BP 58.6 mL LVEF(%) A4C 62.3 % LVEF(%) BP 58.73 % M: 52 - 72 LV EDV A2C 116.3 mL LV EDV BP Index 66.63 mL/m2 M: 34 - 74 LV ESV A2C 57.0 mL SV BP LVEF(%) A2C 51.0 % SV Index LA Volume LA Length A4C 5.4 cm LA Length A2C LA Area A4C s 21.77 cm2 LA Area A2C s LA Vol A4C A-L 74.21 mL LA Vol A2C A-L LA Vol Biplane A-L LA Vol A4C MOD 72.4 mL LA Vol A2C MOD LA Vol BP MOD RA Volume RA Area A4C 15.4 cm2 RA ESV A4C (A-L) 40.5mL RA Vol/BSA A4C A-L RA Length A4C 5.0 cm RA ESV A4C (MOD) 36.1mL LV Diastology MV E' medial 0.084 (>0.07 m/s) MV E Vmax 1.61 (0.4-1.3 m/s) MV E/E' MED 18.98 (<14) MV A Vmax 0.50 (0.4-1.3 m/s) MV E' lateral 0.096 (>0.1 m/s) E/A Ratio 3.2 MV E/E' LAT 16.60 (<14) MV E' Average 0.090 m/s MV E/E'(average) 17.71 Aortic Valve AoV Vmax 1.29 m/s LVOT Vmax 1.06 m/s AoV Peak Grad 29.8 mmHg LVOT Peak Grad 4.5 mmHg AoV Area (Vmax) 3.59 cm2 LVOT VTI 0.168 m AoV VTI 0.233 m LVOT Mean Grad 2.4 mmHg AoV Mean Lonnie. 0.78 m/s LVOT SV 73.23 mL AoV Mean Grad 2.9 mmHg LVOT Diam s 2.35 cm AoV Area (VTI) 3.14 cm2 AV Regurg Peak Gr. 6.61 mmHg Velocity Ratio 0.82 AR Decel [place] 1.0m/sec2 AR DT 3561 msec AR PHT 1033 msec AR Vmax 3.64 m/s Mitral Valve MV DT 172 (160-240 msec) MV Vmax TIPS 2.15 m/s MV Mean Grad 9.2 (<2mmHg) MV VTI 0.410 m
== END 2024-07-14 02:31 ==
LOC: DI 02:12
PROVIDERS: PCP Nurse Practitioner Family; Visit Provider Internal Medicine Cardiovascular Disease
DX: I71.20 Thoracic aortic aneurysm, without rupture, unspecified (principal); I35.0 Nonrheumatic aortic (valve) stenosis; I34.2 Nonrheumatic mitral (valve) stenosis
CPT/HCPCS: 93306

== ENCOUNTER → 2024-07-22 10:30 | Outpatient (BNVA) | payer MEDICARE, OTHER, SELFPAY | PROVIDERS: PCP Nurse Practitioner Family; Visit Provider Internal Medicine Cardiovascular Disease | DX: I71.21 Aneurysm of the ascending aorta, without rupture (principal); Z98.890 Other specified postprocedural states; I10 Essential (primary) hypertension | CPT/HCPCS: 99214 ==

== ENCOUNTER 2024-10-12 14:05 | Inpatient (IN) | payer MEDICARE, OTHER, SELFPAY ==
[2024-10-12] VITALS (36 sets, daily range): BP systolic 113–144; BP diastolic 70–99; PULSE 84–106; RESP 2–33; TEMP 36–36.6; O2SAT 87–99
--- NOTE | 2024-10-12 14:00 | RT.EKG_ITS ---
APPROVED REPORT Exam: Resting ECG Reason for Exam: SOB Patient Location: E HR:101 bpm ECG Measurements Heart Rate 101 AXIS PA [id number] P [id number] QRSd 92 QRS -28 QT 356 T 38 QTc 463 Conclusion Undetermined Rhythm: Sinus w PAC vs Atrial Flutter vs Atrial Fib Borderline Left [place] Normal Interval Normal ST segments
--- NOTE | 2024-10-12 14:12 | ED.GENADUL_ITS ---
Discharge Plan Disposition Patient Disposition: Admit to [facility] Condition: Fair Discharge Details Clinical Impression: Community acquired pneumonia, COPD exacerbation Admit Date/Time: 10/12/24 17:28 Admit Provider: Mikie Allen Attending Provider: Mikie Allen Primary Care Provider: Racquel White ED Provider: Mikie Dash Discharge Data Discharge Date/Time-TO BE ENTERED AT DEPARTURE: 10/12/24 18:11 HPI General Mode of arrival: ambulatory . Date/Time Provider Initiated Documentation: 10/12/24 14:12 . Limitations to Documentation: no limitations . Information obtained by: patient, RN notes reviewed and old records reviewed . HPI Narrative: Patient presents to the emergency department from urgent care with increased difficulty breathing over the last 3 to 4 weeks. Patient does have history of COPD. He does report some increased cough and sputum production. He denies having any chest pain or pressure. He has bilateral lower extremity swelling but feels that has been stable. He reports his weight is actually gone down almost 25 pounds as opposed to going up. He has had some intermittent fevers. He has been using his albuterol inhaler and nebulizer with some relief. Not currently on antibiotics or steroids. Breathing has got to the point where he is unable to even walk without getting short of breath. If he exerts himself beyond that he has to stop every 10 to 15 feet to catch his breath. Denies feeling lightheaded or weak. Again denies feeling chest pain or pressure. He does have a history of thoracic aneurysm as well as mitral valve repair. Related Data Home Medications ?Medication ?Instructions ?Recorded ?Confirmed Centrum Silver Tablet 1 tab PO DAILY 09/07/12 10/12/24 ascorbic acid (vitamin C) 1,000 mg 1,000 mg PO DAILY 09/28/14 10/12/24 tablet [id number]-lcy C-Mn 500 1 cap PO BID 01/18/19 10/12/24 mg-400 mg capsule (Glucosamine 1) prasterone (DHEA) 50 mg tablet 50 mg PO DAILY 12/09/19 10/12/24 (DHEA) aspirin 81 mg tablet,delayed 81 mg PO DAILY 05/13/22 10/12/24 release (Adult Low Dose Aspirin) methotrexate sodium 2.5 mg tablet 15 mg (6 x 2.5 mg) PO QWEEK #72 08/10/23 10/12/24 tabs inhalational spacing device #1 ea 09/15/23 10/12/24 (Aerochamber MV spacer) tamsulosin 0.4 mg capsule 0.4 mg PO DAILY #90 caps 10/13/23 10/12/24 furosemide 20 mg tablet (Lasix) 20 mg PO QAM PRN edema #90 tabs 06/15/24 10/12/24 triamcinolone acetonide 0.5 % 1 applic topical BID PRN psoriasis 08/12/24 10/12/24 topical cream #45 grams albuterol sulfate 90 mcg/actuation 2 puff inhalation Q4H PRN 09/21/24 10/12/24 aerosol inhaler shortness of breath or wheezing #8.5 grams Previous Rx's ?Medication ?Instructions ?Recorded methotrexate sodium 2.5 mg tablet 15 mg (6 x 2.5 mg) PO QWEEK #72 08/10/23 tabs inhalational spacing device #1 ea 09/15/23 (Aerochamber MV spacer) tamsulosin 0.4 mg capsule 0.4 mg PO DAILY #90 caps 10/13/23 furosemide 20 mg tablet (Lasix) 20 mg PO QAM PRN edema #90 tabs 06/15/24 triamcinolone acetonide 0.5 % 1 applic topical BID PRN psoriasis 08/12/24 topical cream #45 grams albuterol sulfate 90 mcg/actuation 2 puff inhalation Q4H PRN 09/21/24 aerosol inhaler shortness of breath or wheezing #8.5 grams Allergies Allergy/AdvReac Type Severity Reaction Status Date / Time niacin Allergy Severe rash/flusin Verified 10/12/24 14:16 g simvastatin AdvReac Intermediate Myalgia Verified 10/12/24 14:16 detergent AdvReac Intermediate Skin Rash Uncoded 10/12/24 14:16 General BERNY: 2 Exam Narrative Exam Narrative: Const: WDWN elderly male in NAD. VS per triage. HEENT: NC/AT. Normal facial exam. Neck: Supple. Trachea midline. Lungs: Tachypneic with mild increased work of breathing, lung sounds diminished. Cor: RRR without murmur. Good radial pulses. GI: Soft/ND/NT. Neuro: A+O x 3. Normal speech, mentation, gait. Cranial nerves II - XII grossly intact. No gross motor or sensory deficit. Ext: No C/C. Significant BLE Medical Decision Making Patient presenting to ED with increasing shortness of breath and dyspnea on exertion worsening over 3 to 4 weeks. He does have history of COPD and does admit to increased cough and sputum production. He intermittently has fevers. He does think albuterol helps but it does not last very long. He does have known thoracic aneurysm and mitral valve repair. He feels that his lower extremity edema is baseline and has been for the last month or so. He has actually lost weight. He is denying any chest pain or pressure. His EKG obtained at triage has an undetermined rhythm, sinus with PAC versus a flutter versus A-fib. Monitor appears to be sinus at this time. Lung sounds are dim inished throughout and he is tachypneic with some increased work of breathing. Saturations are 90-92 at rest without oxygen. Differential is rather broad though I suspect this is going to end up being COPD exacerbation. Doubt AK or arrhythmia but will check troponins. Given weight loss and stable lower extremity edema probably not CHF but will obtain BNP. Doubtful this is PE given timeframe but will obtain CTA of chest as this is likely to provide the most information to help sort out because of his SOB and RAMIREZ. Will give DuoNeb here as he has not used his inhaler or neb today. Patient's laboratory studies with a normal white count. He has a mild anemia. His venous gas shows that he is hyperventilating to some degree with alkalosis and low pCO2. Chemistries unremarkable. Magnesium a little low at 1.6. Initial troponin at 163. BNP also elevated 4613. His CT scan was discussed with radiology, Dr. Ureña. Patient has a right sided pleural effusion and right lower lobe infiltrate most consistent with pneumonia. His aortic aneurysm is stable. He does not have evidence of pulmonary edema on CT. Repeat troponin is unchanged at 163. Given this I do not think this is cardiac related at all. May have some demand given the amount of dyspnea on exertion and shortness of breath he has been having. Will treat this as community-acquired pneumonia/COPD exacerbation. Ceftriaxone, azithromycin, Solu-Medrol all ordered. I have discussed findings with patient. Recommend admission to stabilize his dyspnea. He is also now requiring 2 L nasal cannula oxygen saturations Dipping below 90 at rest. Did not attempt to ambulate patient. Case discussed with hospitalist and patient accepted to their service. Medical Records Medical records reviewed: Yes I reviewed the patient's medical records. Medical records narrative: outpatient cardiology note, today's note Lab Data Lab results reviewed: Yes I reviewed the patient's lab results. Lab results narrative: see MDM ECG Data Attestation: I personally reviewed and interpreted this ECG (s) as follows: Prior ECG tracings: available for review Interpretation: see MDM/EKG [facility] All Active Problems (Updated 10/12/24 @ 19:13 by Mikie Dash MD) COPD exacerbation (Acute) Hypomagnesemia (Acute) Community acquired pneumonia (Acute) Bilateral edema of lower extremity (Acute) Urinary hesitancy (Acute) Possibly due to BPH Dupuytren contracture (Acute) bilateral palms Mitral insufficiency (Chronic) status post mitral valve ring 2021 EF 60-65% Sensorineural hearing loss (SNHL) of both ears (Acute) Venous insufficiency of left leg (Acute) Psoriasis (Acute) On methotrexate, CBC & CMP yearly Medical History Thoracic aortic aneurysm 2021- Aortic root is moderately dilated.4.89 cm The ascending aorta isdilated.4.98 cm Aortic arch is normal in caliber. 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 Substance abuse Depression Son No problems noted. Daughter , 40+ Substance abuse Daughter No problems noted. Sister No problems noted. Sister No problems noted. Social History Smoking/Tobacco Use Status: Former Tobacco Use tobacco type: cigarettes, pipe and cigars Quit Date: 05/11/03 Tobacco: How many years used: 30 Second Hand Exposure: Yes Smoking risk assessment performed?: Yes Alcohol Intake: current Alcohol Intake frequency: 3 or more drinks per day Alcohol type: beer, wine and hard liquor Drug use: Never Substance use type: does not use Caregiver/Support person: No Household members: spouse Housing: house Communication Needs: None Do you need help understanding health information?: Never Pets and animals: Yes Pets and animals: cat(s) Sexually active: No Do you think of yourself as: straight/heterosexual Current gender identity: male What is your relationship status?: How often do you talk on the phone with friends or family?: once per week How often do you get together with friends or relatives?: decline to answer How often do you attend buddhism or temple services?: decline to answer Do you belong to any clubs or organized social groups?: no Panel score (0-1 are the most socially isolated patients): 1 What type of physical activity do you participate in: walking Duration: 30-45 minutes/day Frequency: 1-2 times per week Ericka/Tenriism: None Special ericka needs: No Seatbelt use: always Helmet use: No Drive intox or 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
--- NOTE | 2024-10-12 14:30 | DI.CT_ITS ---
Exam(s) CT CHEST PE CTA EXAM: CT CHEST PE CTA CLINICAL HISTORY: worsening SOB, ? new afib. TECHNIQUE: Imaging Protocol: CT angiography of the chest was performed using pulmonary embolus benjamin col. Multi planar reconstructions were performed. CONTRAST MATERIAL: Intravenous: Omnipaque 350 Contrast volume: 80 cc COMPARISON: CT CT THORAX CTA from 11/21/2022 FINDINGS: CHEST: PULMONARY ARTERIES: There are no intraluminal filling defects to suggest acute pulmonary emboli. LUNGS: There is mild pleural based infiltrate in the anterior basal segment of the right lower lobe. There is a small-moderate size unilateral non loculated right pleural effusion. No pleural effusion on the left side. There is slightly increased markings in the posterior segment of the right upper lobe and basal segments of the right lower lobe. No infiltrates in the left lung. No findings in tr achea and mainstem bronchi. No bronchiectasis. MEDIASTINUM: There is no hilar nor mediastinal adenopathy. CARDIAC: Mild cardiomegaly again noted. Prosthetic mitral valve again noted. There is no pericardia l effusion. The diameter of the thoracic aorta is again noted be enlarged. Diameter of the ascendin g thoracic aorta is 4.9 cm, unchanged. Again noted is a pseudo coarctation configuration of the aort ic archthe diameter of the proximal descending thoracic aorta again measures 4 cm. The diameter of t he mid descending thoracic aorta measures 3.5 cm, unchanged, and the diameter of the lower descending thoracic aorta is also 3.5 cm. Cannot assess for dissection as there is no contrast in the thoraci c aorta; all the contrast is in the pulmonary arterial tree. There is no significant shift of the in terventricular septum. PARTIALLY VISUALIZED UPPERMOST ABDOMEN: Splenic granulomas noted. No obvious adrenal masses. OSSEOUS: No significant osseous lesions.. IMPRESSION: 1. No evidence of acute pulmonary emboli. No evidence of pulmonary infarction.Small-moderate size ri ght pleural effusion and mild infiltrate in the right lower lobe in the anterior basal segment of the right lower lobe. 2. Mild cardiomegaly. Prosthetic mitral valve. 3. Ascending thoracic aortic aneurysm with unchanged diameter 4.9 cm. Cannot assess for dissection a s there is no contrast in the thoracic aorta. Other findings as above. Called by myself to ER physician 10/12/2024 at 4:01 p.m. RADIATION DOSE DELIVERED: Total DLP DATA REPOSITORY: All CT scans at this facility are submitted to the National Radiology Data Registry (NRDR) Dose Index Registry (DIR) with the [employer] (ACR). RADIATION OPTIMIZATION: All CT scans at this facility use at least one of these dose optimization te chniques: automated exposure control; mA and/or kV adjustment per patient size (includes targeted exa ms where dose is matched to clinical indication); or iterative reconstruction.
[2024-10-12 14:46] LABS: Abs Immature Grans 0.03 10^3/uL (0.0-0.06); Absolute Basophil Count 0.04 10^3/uL (0.0-0.2); Absolute Eosinophil Count 0.14 10^3/uL (0.0-0.7); Absolute Lymphocyte Count 0.47 10^3/uL (1.2-3.4); Absolute Monocyte Count 0.97 10^3/uL (0.1-0.8); Absolute Neutrophil Count 4.18 10^3/uL (1.2-6.7); BE (Venous) 0 mmol/L (-2-3); Basophils % 0.7 %; Eosinophils % 2.4 %; HCO3 (Venous) 24 mmol/L (23-28); HCT 36.7 % (40.0-50.0); HGB 12.2 g/dL (13.5-17.5); Immature Grans % 0.5 %; Lymphocytes % 8.1 %; MCH 35.7 pg (27.0-33.0); MCHC 33.2 % (32.0-36.0); MCV 107 fL (80-95); MPV 9.2 fL (8.0-11.0); Monocytes % 16.6 %; Neutrophils % 71.7 %; O2 Sat (Venous) 93 %; Platelet Count 218 10^3/uL (130-400); RBC 3.42 10^6/uL (4.36-5.78); RDW 12.9 % (11.8-14.1); RDW-SD 50.6 fL; TCO2 (Venous) 22 mmol/L (24-29); WBC 5.83 10^3/uL (4.4-10.8); pCO2 (Venous) 36 mmHg (41-51); pH (Venous) 7.43 (7.31-7.41); pO2 (Venous) 66 mmHg
[2024-10-12] MEDS: Albuterol/Ipratropium 3 ML UPD VIAL UPD ×2 (14:47→23:56)
[2024-10-12 15:05] LABS: Macrocytosis 1+
[2024-10-12 15:14] LABS: ALT 20 U/L (16-63); AST 28 U/L (15-37); Albumin 3.1 g/dL (3.4-5.0); Alkaline Phosphatase 70 U/L (46-116); Anion Gap 8.4 mmol/L (3-11); BUN 19 mg/dL (7-18); Bilirubin, Total 0.6 mg/dL (0.2-1.0); CO2 25.6 mmol/L (21.0-32.0); CREATININE 1.1 mg/dL (0.70-1.30); Calcium 8.9 mg/dL (8.5-10.1); Chloride 105 mmol/L (98-107); Estimated GFR 65.79 (mL/min/1.73m2); Glucose 110 mg/dL (74-106); Magnesium 1.6 mg/dL (1.8-2.4); NT-proBNP 4613 pg/mL (<300); Potassium 4.7 mmol/L (3.5-5.1); Sodium 139 mmol/L (136-145); Total Protein 7.2 g/dL (6.4-8.2)
[2024-10-12 15:15] LABS: Troponin I 163 ng/L (<or=76)
[2024-10-12] MEDS: Omnipaque 350 MG/ML 100 ML BTL 80 ML IJ (15:49)
[2024-10-12 16:34] LABS: Troponin I 163 ng/L (<or=76)
[2024-10-12] MEDS: Azithromycin 250 MG TAB 500 MG PO (16:43)
[2024-10-12] MEDS: methylPREDNISolone SUCC 125 MG VIAL IVP (16:43)
[2024-10-12] MEDS: cefTRIAXone 1 GM/50 ML BAG IVPB (16:44)
--- NOTE | 2024-10-12 17:55 | W.PC.ACHO ---
Registration Status: Primary Language: Preferred Language: ED Information & Data Chief Complaint SOB 10/12/24 15:00 Chief Complaint SOB 10/12/24 14:08 Triage Note increased SOB over past few 10/12/24 14:08 days, more difficulty ambulating, swelling BLE Medical / Surgical History Thoracic aortic aneurysm Essential hypertension (09/08/13) COPD (chronic obstructive pulmonary disease) (11/22/13) Hyperlipidemia Multiple lacunar infarcts Psoriatic arthritis Fractures, multiple History of poliomyelitis History of tobacco use (Last Reviewed 10/12/24 @ 14:15 by Mikie Dash MD) H/O mitral valve repair Vasectomy Most Recent Vital Signs Temperature 36.6 C 10/12/24 14:43 Pulse 95 H 10/12/24 17:20 Pulse 88 10/12/24 17:20 Respiratory Rate 28 H 10/12/24 17:20 Respiratory Effort Short of Breath 10/12/24 14:41 Respiratory Depth Normal 10/12/24 14:41 Respiratory Pattern Normal 10/12/24 14:41 Blood Pressure 132/95 H 10/12/24 17:16 Blood Pressure Mean 102 10/12/24 17:16 Pulse Oximetry 96 10/12/24 17:20 Oxygen Delivery Method Room Air 10/12/24 14:43 Oxygen Flow Rate 0 10/12/24 14:43 Allergies niacin Allergy (Severe, Verified 10/12/24 14:16) rash/flusing simvastatin Adverse Reaction (Intermediate, Verified 10/12/24 14:16) Myalgia detergent Adverse Reaction (Intermediate, Uncoded 10/12/24 14:16) Skin Rash Active Medications Generic Name Dose Route Start Last Admin Trade Name Sebastianq PRN Reason Stop Dose Admin Iohexol 80 ml 10/12/24 16:00 10/12/24 15:49 Omnipaque 350 Mg/Ml 100 Ml Btl IJ 11/11/24 23:59 80 ml DIRECTED DHARMESH Administration IV IV Catheter Type [Right Peripheral IV Antecubital] IV Catheter Gauge [Right 18 Antecubital] Diagnostics 10/12/24 10/12/24 10/12/24 Range/Units 17:32 15:55 14:40 WBC 5.83 (4.4-10.8) 10^3/uL RBC 3.42 L (4.36-5.78) 10^6/uL Hgb 12.2 L (13.5-17.5) g/dL Hct 36.7 L (40.0-50.0) % MCV 107 H (80-95) fL MCH 35.7 H (27.0-33.0) pg MCHC 33.2 (32.0-36.0) % RDW 12.9 (11.8-14.1) % Plt Count 218 (130-400) 10^3/uL MPV 9.2 (8.0-11.0) fL Immature Gran % 0.5 % Neutrophils % 71.7 % Lymphocytes % 8.1 % Monocytes % 16.6 % Eosinophils % 2.4 % Basophils % 0.7 % Nucleated RBC % 0.0 (0.0-0.3) % Absolute Neutrophils 4.18 (1.2-6.7) 10^3/uL Absolute Lymphocytes 0.47 L (1.2-3.4) 10^3/uL Absolute Monocytes 0.97 H (0.1-0.8) 10^3/uL Absolute Eosinophils 0.14 (0.0-0.7) 10^3/uL Absolute Basophils 0.04 (0.0-0.2) 10^3/uL RBC Morphology See Below Macrocytosis 1+ VBG pH 7.43 H (7.31-7.41) VBG pCO2 36 L (41-51) mmHg VBG pO2 66 mmHg VBG HCO3 24 (23-28) mmol/L VBG Total CO2 22 L (24-29) mmol/L VBG O2 Saturation 93 % VBG Base Excess 0 (-2-3) mmol/L Sodium 139 (136-145) mmol/L Potassium 4.7 (3.5-5.1) mmol/L Chloride 105 (98-107) mmol/L Carbon Dioxide 25.6 (21.0-32.0) mmol/L Anion Gap 8.4 (3-11) mmol/L BUN 19 H (7-18) mg/dL Creatinine 1.1 (0.70-1.30) mg/dL Est GFR (CKD-EPI 2020) 65.79 (mL/min/1.73m2) Glucose 110 H (74-106) mg/dL Calcium 8.9 (8.5-10.1) mg/dL Magnesium 1.6 L (1.8-2.4) mg/dL Total Bilirubin 0.6 (0.2-1.0) mg/dL AST 28 (15-37) U/L ALT 20 (16-63) U/L Alkaline Phosphatase 70 (46-116) U/L Troponin I Cancelled 163 H* 163 H* (<or=76) ng/L NT-Pro-B Natriuret Pep 4613 H (<300) pg/mL Total Protein 7.2 (6.4-8.2) g/dL Albumin 3.1 L (3.4-5.0) g/dL Intake and Output - 24 Hour Total 10/12/24 14:05 thru 10/12/24 14:08 Weight 97.885 kg Falls Risk Assessment History of Falls No History 10/12/24 14:42 Contributing Factors No Factors 10/12/24 14:42 Ambulatory Aids Independent 10/12/24 14:42 Tubes/Lines None 10/12/24 14:42 Gait Evaluation No gait disturbance 10/12/24 14:42 Cognition No cognitive impairment 10/12/24 14:42 Fall Total Score 0 10/12/24 14:42 Level of Risk Standard/Low Risk 10/12/24 14:42 v v v v v v v v v Sending and/or Receiving Nurses: Please use comment section below to note any information pertinent to the patient hand-off not included above. Information / Comments: Report received from:dayo
[2024-10-12] MEDS: Enoxaparin 40 MG/0.4 ML SYR SC (18:14)
[2024-10-12] MEDS: MAGNESIUM SULFATE 1 GM/100 ML BAG IV_INF (18:14)
--- NOTE | 2024-10-12 18:43 | HPE_ITS ---
Date of service: 10/12/24 Time of Service: 18:43 Assessment and Plan Assessment and plan (1) COPD exacerbation: Status: Acute Assessment and plan: Patient presents with worsening dyspnea, increased sputum production, and intermittent fevers Imaging: Chest CT shows mild right lower lobe infiltrate and right pleural effusion?suggestive of infectious etiology. Labs: WBC normal (likely blunted due to methotrexate), elevated proBNP (4613), t roponin elevation (163 x2, 3rd pending)?likely chronic or type 2 from increased work of breathing and demand Treatment Initiated: * Azithromycin + Ceftriaxone for CAP coverage. * Systemic corticosteroids for COPD exacerbation. * DuoNebs administered in ED. * Continue dual antibiotic therapy (ceftriaxone + azithromycin) for 5?7 days. * Continue systemic steroids (e.g., prednisone 40 mg daily x5 days). * Bronchodilators: albuterol-ipratropium nebs Q4?6H PRN. * Monitor respiratory status closely, especially for any need for oxygen supplementation or respiratory failure. * Sputum culture, blood cultures pending (2) Community acquired pneumonia: Status: Acute Assessment and plan: as above (3) Hypomagnesemia: Status: Acute Assessment and plan: 1.6 - repleted; follow (4) Thoracic aortic aneurysm: Assessment and plan: - stable with unchanged diameter of 4.9 cm. (5) Essential hypertension: Assessment and plan: BP stable 130/88 Continue home meds History of Present Illness History of Present Illness Chief Complaint: Shortness of breath Narrative: The patient is an 84 year old male with a significant past medical history including COPD, thoracic aortic aneurysm, mitral valve repair, hypertension, hyperlipidemia, psoriatic arthritis (on methotrexate), and prior tobacco use, who presents to the emergency department with progressive shortness of breath over the past 3 to 4 weeks. He reports a worsening cough with increased sputum production, intermittent low- grade fevers, and increasing dyspnea on exertion to the point that he now becomes short of breath after walking 10 to 15 feet. He denies any chest pain, pressure, lightheadedness, or syncope. He notes some relief with albuterol inhaler and nebulizer, though effects are short-lived. The patient has not been on any antibiotics or steroids recently. He has stable bilateral lower extremity edema, which he feels has not changed over the past month, and he reports an unintentional weight loss of approximately 25 pounds. No recent travel, known sick contacts, or changes in functional status besides worsening breathlessness. He denies hemoptysis, orthopnea, or paroxysmal nocturnal dyspnea. On arrival, he was noted to be tachypneic with mild increased work of breathing, oxygen saturation of 90?92% on room air, and diminished breath sounds bilaterally. Initial EKG showed a rhythm concerning for PACs vs atrial flutter or fibrillation, though currently in sinus on monitoring. A DuoNeb was administered in the ED with plans for further diagnostic workup, including CTA chest, troponins, BNP, and labs to assess for infectious or cardiopulmonary causes. Given the subacute symptom progression, COPD history, and increased sputum production with intermittent fevers, the leading differential includes COPD exacerbation (possibly infectious) and community-acquired pneumonia. Less likely considerations include pulmonary embolism, heart failure exacerbation, or arrhythmia-induced decompensation. Labs in the ED: WBC 5.83 Hgb 12.2, sodium 139, potassium 4.7, chloride 105, BUN 19 Creatinine 1.1, glucose 110, manesium 1.6, Troponin 163, 163 and third pending. proBNP [address]: no evidence of Acute PE, no evidence of pulmonary infarction. Small - moderate size right pleural effusion and mild infiltrate in the right lower lobe in the anterior basal segment of the right lower lobe. Mild cardiomegally, prosthetic mitral valve, ascending thoracic aortic aneurysm with unchanged diameter 4.9 cm. Last echo 07/2024 - EF 60% NWMA Patient was given azithromycin, ceftriaxone and steroids in the ED. Patient is admitted for further testing and treatment. He does not require oxygen at this time. Patient confirmed he is DNR/DNI. Review of Systems All systems reviewed & are unremarkable except as noted in HPI and below PFSH All Active Problems (Updated 10/12/24 @ 18:56 by Kaela Wagoner NP) COPD exacerbation (Acute) Hypomagnesemia (Acute) Community acquired pneumonia (Acute) Bilateral edema of lower extremity (Acute) Urinary hesitancy (Acute) Possibly due to BPH Dupuytren contracture (Acute) bilateral palms Mitral insufficiency (Chronic) status post mitral valve ring 2021 EF 60-65% Sensorineural hearing loss (SNHL) of both ears (Acute) Venous insufficiency of left leg (Acute) Psoriasis (Acute) On methotrexate, CBC & CMP yearly Medical History Thoracic aortic aneurysm 2021- Aortic root is moderately dilated.4.89 cm The ascending aorta isdilated.4.98 cm Aortic arch is normal in caliber. 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 Substance abuse Depression Son No problems noted. Daughter , 40+ Substance abuse Daughter No problems noted. Sister No problems noted. Sister No problems noted. Social History Smoking/Tobacco Use Status: Former Tobacco Use tobacco type: cigarettes, pipe and cigars Quit Date: 05/11/03 Tobacco: How many years used: 30 Second Hand Exposure: Yes Smoking risk assessment performed?: Yes Alcohol Intake: current Alcohol Intake frequency: 3 or more drinks per day Alcohol type: beer, wine and hard liquor Drug use: Never Substance use type: does not use Caregiver/Support person: No Household members: spouse Housing: house Communication Needs: None Do you need help understanding health information?: Never Pets and animals: Yes Pets and animals: cat(s) Sexually active: No Do you think of yourself as: straight/heterosexual Current gender identity: male What is your relationship status?: How often do you talk on the phone with friends or family?: once per week How often do you get together with friends or relatives?: decline to answer How often do you attend pentecostalism or protestant services?: decline to answer Do you belong to any clubs or organized social groups?: no Panel score (0-1 are the most socially isolated patients): 1 What type of physical activity do you participate in: walking Duration: 30-45 minutes/day Frequency: 1-2 times per week Ericka/Taoism: None Special ericka needs: No Seatbelt use: always Helmet use: No Drive intox or ride w/intox crude oil driver: No Do you feel safe at home: Yes Do you feel safe in your relationship?: Yes Meds Allergies and Home Medications Allergies Allergy/AdvReac Type Severity Reaction Status Date / Time niacin Allergy Severe rash/flusin Verified 10/12/24 14:16 g simvastatin AdvReac Intermediate Myalgia Verified 10/12/24 14:16 detergent AdvReac Intermediate Skin Rash Uncoded 10/12/24 14:16 Home Medications ?Medication ?Instructions ?Recorded ?Confirmed ?Type Centrum Silver Tablet 1 tab PO DAILY 09/07/12 10/12/24 History ascorbic acid (vitamin C) 1,000 mg 1,000 mg PO DAILY 09/28/14 10/12/24 History tablet [id number] C-Mn 500 1 cap PO BID 01/18/19 10/12/24 History mg-400 mg capsule (Glucosamine 1) prasterone (DHEA) 50 mg tablet 50 mg PO DAILY 12/09/19 10/12/24 History (DHEA) aspirin 81 mg tablet,delayed 81 mg PO DAILY 05/13/22 10/12/24 History release (Adult Low Dose Aspirin) methotrexate sodium 2.5 mg tablet 15 mg (6 x 2.5 mg) PO QWEEK #72 08/10/23 10/12/24 Rx tabs inhalational spacing device #1 ea 09/15/23 10/12/24 Rx (Aerochamber MV spacer) tamsulosin 0.4 mg capsule 0.4 mg PO DAILY #90 caps 10/13/23 10/12/24 Rx furosemide 20 mg tablet (Lasix) 20 mg PO QAM PRN edema #90 tabs 06/15/24 10/12/24 Rx triamcinolone acetonide 0.5 % 1 applic topical BID PRN psoriasis 08/12/24 10/12/24 Rx topical cream #45 grams albuterol sulfate 90 mcg/actuation 2 puff inhalation Q4H PRN 09/21/24 10/12/24 Rx aerosol inhaler shortness of breath or wheezing #8.5 grams Exam Const General: no acute distress Orientation: alert HENMT Head: normal to inspection Ears: external ears normal General nose exam: external nose normal Mouth: moist mucous membranes Eyes General: appearance normal, both eyes and all related structures Neck Neck: normal visual inspection Chest Chest: normal inspection of the chest Resp Effort & Inspection: normal respiratory effort and able to speak in complete sentences Auscultation: clear to auscultation bilaterally Cardio Jugular venous pressure: no JVD Rate: regular rate GI Palpation: soft and nontender Skin General skin exam: no rashes or lesions noted Neuro General: patient alert and patient oriented x3 Extrem General: normal to inspection Psych Mental Status: mental status grossly normal Results Labs 10/12/24 14:40 10/12/24 14:40 Labs: Laboratory Results - last 24 hr 10/12/24 10/12/24 10/12/24 14:40 15:55 17:32 WBC 5.83 RBC 3.42 L Hgb 12.2 L Hct 36.7 L MCV 107 H MCH 35.7 H MCHC 33.2 RDW 12.9 Plt Count 218 MPV 9.2 Immature Gran % 0.5 Neutrophils % 71.7 Lymphocytes % 8.1 Monocytes % 16.6 Eosinophils % 2.4 Basophils % 0.7 Nucleated RBC % 0.0 Absolute Neutrophils 4.18 Absolute Lymphocytes 0.47 L Absolute Monocytes 0.97 H Absolute Eosinophils 0.14 Absolute Basophils 0.04 RBC Morphology See Below Macrocytosis 1+ VBG pH 7.43 H VBG pCO2 36 L VBG pO2 66 VBG HCO3 24 VBG Total CO2 22 L VBG O2 Saturation 93 VBG Base Excess 0 Sodium 139 Potassium 4.7 Chloride 105 Carbon Dioxide 25.6 Anion Gap 8.4 BUN 19 H Creatinine 1.1 Est GFR (CKD-EPI 2020) 65.79 Glucose 110 H Calcium 8.9 Magnesium 1.6 L Total Bilirubin 0.6 AST 28 ALT 20 Alkaline Phosphatase 70 Troponin I 163 H* 163 H* Cancelled NT-Pro-B Natriuret Pep 4613 H Total Protein 7.2 Albumin 3.1 L Last Vital Signs Temp 36 C L 10/12/24 18:20 Pulse 98 H 10/12/24 18:20 Resp 18 10/12/24 18:20 BP 133/93 H 10/12/24 18:20 Pulse Ox 92 10/12/24 18:20 PAWSS Have you Been Recently Intoxicated or Drunk Within the Last 30 days?: No Have you Ever Experienced Previous Episodes of Alcohol Withdrawal?: No Have you ever Experienced Withdrawal Seizures?: No Have you ever Experienced Delirium Tremens(DT)s?: No Have you ever undergone Alcohol Rehabilitation Treatment (i.e, inpt ot outpatient treatment programs)?: No Have you ever Experienced Blackouts?: No Have you ever Combined Alcohol with other Downers within the last 90 days?: No Have you ever Combined Alcohol with any other Substance of Abuse during the last 90 days?: No Positive Blood Alcohol level on Presentation? [PCS.BAL]: No Evidence of Increased Autonomic Activity (i.e. HR>120, tremor, sweating, agitation, nausea)?: No Result: 0 Time Spent Time spent with Patient: 40-54 minutes Time was spent: preparing to see the patient(eg.review tests), obtaining and/or reviewing separately otained hiistory, ordering medications,tests, procedures, referring, communicating with other health health care specialist, indepentently interpreting results, counseling the patient and care coordination
[2024-10-12] MEDS: Normal Saline Flush 10 ML SYR IVP (21:22)
[2024-10-12 23:09] LABS: MRSA PCR Positive (Negative)
[2024-10-13] VITALS (8 sets, daily range): BP systolic 105–143; BP diastolic 74–92; PULSE 95–104; RESP 2–19; TEMP 35.5–36.7; O2SAT 89–94
[2024-10-13] MEDS: Albuterol/Ipratropium 3 ML UPD VIAL UPD ×2 (06:10→18:22)
[2024-10-13 06:39] LABS: Abs Immature Grans 0.04 10^3/uL (0.0-0.06); Absolute Basophil Count 0.01 10^3/uL (0.0-0.2); Absolute Lymphocyte Count 0.28 10^3/uL (1.2-3.4); Absolute Neutrophil Count 2.69 10^3/uL (1.2-6.7); Basophils % 0.3 %; HCT 35.3 % (40.0-50.0); HGB 11.9 g/dL (13.5-17.5); Immature Grans % 1.3 %; MCH 36.4 pg (27.0-33.0); MCHC 33.7 % (32.0-36.0); MCV 108 fL (80-95); MPV 9.1 fL (8.0-11.0); Monocytes % 3.2 %; Neutrophils % 86.2 %; Platelet Count 187 10^3/uL (130-400); RBC 3.27 10^6/uL (4.36-5.78); RDW 12.7 % (11.8-14.1); RDW-SD 50.4 fL; WBC 3.12 10^3/uL (4.4-10.8)
[2024-10-13 06:58] LABS: Anion Gap 8.7 mmol/L (3-11); BUN 20 mg/dL (7-18); CO2 27.3 mmol/L (21.0-32.0); Calcium 8.9 mg/dL (8.5-10.1); Chloride 104 mmol/L (98-107); Estimated GFR 73.76 (mL/min/1.73m2); Glucose 178 mg/dL (74-106); Magnesium 1.9 mg/dL (1.8-2.4); Potassium 4.6 mmol/L (3.5-5.1); Sodium 140 mmol/L (136-145)
[2024-10-13] MEDS: Multivitamin TAB 1 TAB PO (08:11)
[2024-10-13] MEDS: predniSONE 20 MG TAB 40 MG PO (08:11)
[2024-10-13] MEDS: Ascorbic Acid 500 MG TAB 1000 MG PO (08:11)
[2024-10-13] MEDS: Normal Saline Flush 10 ML SYR IVP ×2 (08:11→22:06)
[2024-10-13] MEDS: Tamsulosin 0.4 MG CAPCR PO (08:11)
--- NOTE | 2024-10-13 09:10 | INITIAL_ITS ---
Date of service: 10/13/24 Time of Service: 09:10 Care Management Initial Assmt Initial Assessment Reason for Hospitalization: COPD Functional Status/Living Situation Patient Presentation: Romeo was sitting in a recliner getting ready to eat dinner when CM met with him. He is easy to engage in conversation and reports that he lives in [place] with his Akanksha. 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 His primary RN is present and feels pt will benefit from a PT consult,because he is unsteady on his feet. Per pt, he's had a couple of recent falls and a history of passing/blacking out. He denies any concerns at home, recently hired someone to mow his lawn and is planning to continue to hire help around the house now that he and his are getting older. Town of Residence: [place] Resides with: Spouse (Akanksha ) Employment Status: Retired Instrumental Activities of Daily Living (ADLs): Independent Medications Medication Management: No Issues/Barriers identified Advance Directives Advance Directives: Do you have an Advance Directive: Y 10/22/22 16:53 AD On File at [facility]: Y 10/22/22 16:53 Date Asked 06/04/24 06/13/24 13:38 AD Date Reviewed 10/12/24 10/12/24 14:11 COLST On File at [facility] No 10/12/24 14:11 COLST Date Scanned Code Status Resuscitation Status DNR/DNI Insurance Coverage/Financial Issues Insurance: Medicare Part A & B - [id number] [employer] Medicare Supplement Ins - [id number] Care Team Visit Care Team Role Provider Type Michelle De La O APRN MD [facility] STAFF PHYSICIAN BRENDA Grace Primary Care Provider [facility] Mikie Dash MD Emergency Provider [facility] STAFF PHYSICIAN Mikie Allen MD Admit Provider [facility] STAFF PHYSICIAN Attending Provider Discharge Potential Discharge Needs: PCP F/U Appt Anticipated Barriers to Discharge: None Identified Patient/Family Education Needs: Review discharge instructions, discuss Ask Me Three Transportation: Private vehicle Plan: Pt would benefit from a PT evaluation. Anticipate, Romeo will discharge home via private vehicle when medically cleared for discharge. He will follow up with community providers and his discharge plan of care as directed. CM will follow. Social Determinants of Health Screening Social Determinants of health last assessed in clinic: 10/13/24 Will the Patient Participate in the Screening?: Yes Do you worry about having a steady place to live?: no Problems where you live: no known problems In the past 12 months, have you had to go without electric, gas, oil or water in your home?: no 1. Within the past 12 months, we worried whether our food would run out before we got money to buy more.: Never true 2. Within the past 12 months, the food we bought just didn't last and we didn't have money to get more.: Never true Has lack of transportation kept you from medical appointments or from doing things needed for daily living?: no Has anyone in your life made you feel unsafe or unsupported?: no How hard is it for you to pay for the very basics like food, housing, medical care, and heating? Would you say it is:: Not hard at all Do you want help finding or keeping work or a job?: I do not need or want help If for any reason you need help with day-to-day activities such as bathing, preparing meals, shopping, managing finances, etc., do you get the help you need?: I don?t need any help How often do you feel lonely or isolated from those around you?: Never Do you speak a language other than Czech at home?: No PFSH All Active Problems (Updated 10/13/24 @ 15:47 by Michelle De La O APRN) On deep vein thrombosis (DVT) prophylaxis (Acute) COPD exacerbation (Acute) Hypomagnesemia (Acute) Community acquired pneumonia (Acute) Bilateral edema of lower extremity (Acute) Urinary hesitancy (Acute) Possibly due to BPH Dupuytren contracture (Acute) bilateral palms Mitral insufficiency (Chronic) status post mitral valve ring 2021 EF 60-65% Sensorineural hearing loss (SNHL) of both ears (Acute) Venous insufficiency of left leg (Acute) Psoriasis (Acute) On methotrexate, CBC & CMP yearly Medical History Thoracic aortic aneurysm 2021- Aortic root is moderately dilated.4.89 cm The ascending aorta isdilated.4.98 cm Aortic arch is normal in caliber. 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 Substance abuse Depression Son No problems noted. Daughter , 40+ Substance abuse Daughter No problems noted. Sister No problems noted. Sister No problems noted. Social History Smoking/Tobacco Use Status: Former Tobacco Use tobacco type: cigarettes, pipe and cigars Quit Date: 10/11/98 Tobacco: How many years used: 30 Second Hand Exposure: Yes Smoking risk assessment performed?: Yes Alcohol Intake: current Alcohol Intake frequency: 3 or more drinks per day Alcohol type: beer, wine and hard liquor Drug use: Never Substance use type: does not use Caregiver/Support person: No Household members: spouse Housing: house Communication Needs: None Do you need help understanding health information?: Never Pets and animals: Yes Pets and animals: cat(s) Sexually active: No Do you think of yourself as: straight/heterosexual Current gender identity: male What is your relationship status?: How often do you talk on the phone with friends or family?: once per week How often do you get together with friends or relatives?: decline to answer How often do you attend pentecostal or nondenominational services?: decline to answer Do you belong to any clubs or organized social groups?: no Panel score (0-1 are the most socially isolated patients): 1 What type of physical activity do you participate in: walking Duration: 30-45 minutes/day Frequency: 1-2 times per week Ericka/Evangelical: None Special ericka needs: No Seatbelt use: always Helmet use: No Drive intox or ride w/intox charter and tour bus driver: No Do you feel safe at home: Yes Do you feel safe in your relationship?: Yes
--- NOTE | 2024-10-13 11:07 | PDOC.CMDIS ---
Date of service: 10/13/24 Time of Service: 11:07 LACE Index Scoring Tool Questions: Length of Stay (in days): 1 Was the patient admitted via the E.D.?: Yes Comorbidities: Chronic Pulmonary Disease E.D. Visits: 1 Answers: Total Score: 7 Risk of Readmission: Low Risk Care Management Discharge Plan Reason for Hospitalization: COPD Discharge Plan: Romeo is being discharged home via private vehicle. Pt will follow up with community providers and discharge plan of care as directed. No new services are ordered prior to discharge. Patient/Family Education Needs: Review discharge instructions and plan to follow up after discharge. Discuss ask me three. SDOH Health Related Social Needs: No Data to Display
--- NOTE | 2024-10-13 12:02 | W.PM.DS.N ---
Date of service: 10/14/24 Time of Service: 15:37 DS: Diagnosis Discharge Diagnosis (1) COPD exacerbation: Status: Acute (2) Community acquired pneumonia: Status: Acute (3) Hypomagnesemia: Status: Acute (4) Thoracic aortic aneurysm: (5) Essential hypertension: Discharge Plan Disposition Patient Disposition: Home Condition: Improving Discharge Details Reason For Visit: Community acquired pneumonia; COPD exacerbation Admit Date/Time: 10/12/24 17:28 Admit Provider: Mikie Allen Attending Provider: Mikie Allen [facility]: This 84 year old male patiet with a significant past medical history including COPD, thoracic aortic aneurysm, mitral valve repair, hypertension, hyperlipidemia, psoriatic arthritis (on methotrexate), and prior tobacco use presented to the emergency department on 10/12/24 with progressive shortness of breath over the past 3 to 4 weeks, worsening cough with increased sputum production, intermittent low-grade fevers, and increasing dyspnea on exertion on ambulation of 10 to [address] was positive for small-moderate size right pleural effusion and mild infiltrate in the right lower lobe in the anterior basal segment of the right lower lobe.. Work-up in the ED was positive BNP at 4613, Mg of 1.6.Reported some relief with albuterol inhaler and nebulizer, though effects are short-lived. On arrival, he was noted to be tachypneic with mild increased work of breathing, oxygen saturation of 90?92% on room air, and diminished breath sounds bilaterally. Initial EKG showed a tachycardic rhythm HR 101 concerning for PACs vs atrial flutter or fibrillation but later estimated to be in sinus on monitoring. The patient was admitted to the medical surgical floor for sepsis in the setting of pneumonia and COPD exacerbation. Blood culture were negative. A-fib seen on telemetry metoprolol low dose started for rate control. absence of p-wave as per EKG. Cardiology consult completed with recommendation fro anticoagualtion, the patient was started on Eliquis and risk of stroke VS risk of bleeding discussed with patient. Outpatient referral with cardiology completed. On the day of discharge patient was hemodynamically stable and left follow-up with his primary care practitioner within 7 days of discharge. Outpatient physical referral completed. Recommendation for PCP follow-up Will need a cardiology referral outpatient Adjust metoprolol dosing if needed Discussed with Dr. Dumont Home Meds and New Rx's Prescriptions: New azithromycin 500 mg tablet See Rx Instructions .ROUTE .COMPLEX Qty: 3 0RF Rx Instructions: For 500 mg dose pack: take 500 mg once daily for 3 days cefpodoxime 200 mg tablet 200 mg PO BID Qty: 10 0RF Rx Instructions: must administer with a meal/food prednisone 20 mg tablet 40 mg PO DAILY Qty: 10 0RF Eliquis 5 mg tablet 5 mg PO BID Qty: 60 0RF metoprolol tartrate 25 mg tablet 12.5 mg PO BID Qty: 30 0RF Continued DHEA 50 mg tablet 50 mg PO DAILY (DME) Aerochamber MV Spacer See Rx Instructions .Route Qty: 1 0RF Rx Instructions: As directed albuterol sulfate 90 mcg/actuation HFA aerosol inhaler 2 puff inhalation Q4H PRN (Reason: shortness of breath or wheezing) Qty: 8.5 0RF aspirin [Adult Low Dose Aspirin] 81 mg tablet,delayed release (DR/EC) 81 mg PO DAILY tamsulosin 0.4 mg capsule 0.4 mg PO DAILY Qty: 90 3RF CENTRUM SILVER TABLET 1 EACH tablet 1 tab PO DAILY ascorbic acid (vitamin C) 1,000 MG tablet 1,000 mg PO DAILY [id number] C-Mn [Glucosamine 1500 Complex] 500-400 mg capsule 1 cap PO BID methotrexate sodium 2.5 mg tablet 15 mg PO QWEEK Qty: 72 3RF furosemide [Lasix] 20 mg tablet 20 mg PO QAM PRN (Reason: edema) Qty: 90 3RF triamcinolone acetonide 0.5 % cream 1 applic Topical BID PRN (Reason: psoriasis) Qty: 45 3RF Discharge Instructions Instructions: Heart Failure, Adult (DC), Community-Acquired Pneumonia, Adult (DC) Referrals: P.SHWETA Hernández [OTHER] - (Outpatient physical therapy ) Edelmira Dillard MD [ [facility] STAFF PHYSICIAN] - (Will need a follow-up with cardiology please - already a patient ) Jocy Forbes NP [Primary Care Provider] - (Follow-up within 7 days of discharge please) Activity:: Activity as Tolerated Equipment/Supplies:: No Equipment Needed Diet:: heart healthy Discharge Orders Discharge Orders: Discharge Order (Routine); Ordered 10/14/24 Ordered By: Michelle De La O DS: Summary Time Spent with Patient providing and/or coordinating discharge services: Greater than 30 minutes Status at Discharge Functional status at discharge: independent ambulation Overall status at discharge: patient is progressing back to baseline Mental Status: mental status grossly normal Speech and Movement: speech and movement normal Mood: congruent mood Affect: normal affect Quality:SDOH Health Related Social Needs: No Data to Display Exam Narrative Exam Narrative: Constitutional The patient is sitting in chair well groomed without acute distress; A&O X 4 , non-focal ; speaks in full sentences, unlabored breathing, clear lung bilaterally; Atrial-fibrillation, irregular rhythm, S1, S2, murmur, bilateral radial and dorsalis pedis pulses are positive, palpable; abdomen is not distended, soft and non tender, bowel sounds are present; negative CVA ; moves all 4 ext - trace edema to both legs L>R. Psych Mental Status: mental status grossly normal Speech and Movement: speech and movement normal Mood: congruent mood Affect: normal affect DS: Data Vitals/I&O Vitals and I&O: Vital Signs Temperature 36.2 C L 10/13/24 11:30 Temperature Source Temporal Artery Scan 10/13/24 11:30 Pulse 100 H 10/13/24 11:30 Pulse Rhythm Regular 10/12/24 18:20 Pulse 90 10/12/24 17:50 Respiratory Rate 15 10/13/24 11:30 Respiratory Effort Short of Breath 10/12/24 18:20 Respiratory Depth Normal 10/12/24 18:20 Respiratory Pattern Normal 10/12/24 18:20 Blood Pressure 105/74 10/13/24 11:30 Blood Pressure Mean 84 10/13/24 11:30 Pulse Oximetry 94 10/13/24 11:30 Oxygen Delivery Method Room Air 10/13/24 11:30 Oxygen Flow Rate 0 10/13/24 11:30 Pain Level 0 10/13/24 01:53 Comment nurse notified 10/12/24 19:23 Intake & Output 10/12/24 10/13/24 10/13/24 23:59 11:59 23:59 Output Total 175 / 175 100 / 100 Balance -175 / -175 -100 / -100 Weight 97.522 kg Output: Urine 175 / 175 100 / 100 Other: Urine Color Yellow Yellow Urine Appearance Clear Urine Odor Normal Normal Comment pt voided into toilet unable to mesasure 97, 107, 91 Data Completed and Pending Labs on day of discharge: Labs from last 24 hours 10/13/24 10/12/24 10/12/24 05:53 22:05 21:45 WBC 3.12 L RBC 3.27 L Hgb 11.9 L Hct 35.3 L MCV 108 H MCH 36.4 H MCHC 33.7 RDW 12.7 Plt Count 187 MPV 9.1 Immature Gran % 1.3 Neutrophils % 86.2 Lymphocytes % 9.0 Monocytes % 3.2 Eosinophils % 0.0 Basophils % 0.3 Nucleated RBC % 0.0 Absolute Neutrophils 2.69 Absolute Lymphocytes 0.28 L Absolute Monocytes 0.10 Absolute Eosinophils 0.00 Absolute Basophils 0.01 RBC Morphology Macrocytosis VBG pH VBG pCO2 VBG pO2 VBG HCO3 VBG Total CO2 VBG O2 Saturation VBG Base Excess Sodium 140 Potassium 4.6 Chloride 104 Carbon Dioxide 27.3 Anion Gap 8.7 BUN 20 H Creatinine 1.0 Est GFR (CKD-EPI 2020) 73.76 Glucose 178 H Calcium 8.9 Magnesium 1.9 Total Bilirubin AST ALT Alkaline Phosphatase Troponin I NT-Pro-B Natriuret Pep Total Protein Albumin Legionella Source Pending Legionella DNA (PCR) Pending MRSA (TEM-PCR) Positive A 10/12/24 10/12/24 10/12/24 17:32 15:55 14:40 WBC 5.83 RBC 3.42 L Hgb 12.2 L Hct 36.7 L MCV 107 H MCH 35.7 H MCHC 33.2 RDW 12.9 Plt Count 218 MPV 9.2 Immature Gran % 0.5 Neutrophils % 71.7 Lymphocytes % 8.1 Monocytes % 16.6 Eosinophils % 2.4 Basophils % 0.7 Nucleated RBC % 0.0 Absolute Neutrophils 4.18 Absolute Lymphocytes 0.47 L Absolute Monocytes 0.97 H Absolute Eosinophils 0.14 Absolute Basophils 0.04 RBC Morphology See Below Macrocytosis 1+ VBG pH 7.43 H VBG pCO2 36 L VBG pO2 66 VBG HCO3 24 VBG Total CO2 22 L VBG O2 Saturation 93 VBG Base Excess 0 Sodium 139 Potassium 4.7 Chloride 105 Carbon Dioxide 25.6 Anion Gap 8.4 BUN 19 H Creatinine 1.1 Est GFR (CKD-EPI 2020) 65.79 Glucose 110 H Calcium 8.9 Magnesium 1.6 L Total Bilirubin 0.6 AST 28 ALT 20 Alkaline Phosphatase 70 Troponin I Cancelled 163 H* 163 H* NT-Pro-B Natriuret Pep 4613 H Total Protein 7.2 Albumin 3.1 L Legionella Source Legionella DNA (PCR) MRSA (TEM-PCR) 10/12/24 22:05 Sputum Sputum Culture - Pending 10/12/24 19:48 Blood Blood Culture - Pending 10/12/24 19:35 Blood Blood Culture - Pending Preliminary micro results at discharge 10/12/24 22:05 Sputum Sputum Culture - Pending 10/12/24 19:48 Blood Blood Culture - Pending 10/12/24 19:35 Blood Blood Culture - Pending [facility] All Active Problems (Updated 10/14/24 @ 13:53 by Edelmira Dillard MD) Supraventricular tachycardia (Chronic) On deep vein thrombosis (DVT) prophylaxis (Acute) COPD exacerbation (Acute) Hypomagnesemia (Acute) Community acquired pneumonia (Acute) Bilateral edema of lower extremity (Acute) Urinary hesitancy (Acute) Possibly due to BPH Dupuytren contracture (Acute) bilateral palms Mitral insufficiency (Chronic) status post mitral valve ring 2021 EF 60-65% Sensorineural hearing loss (SNHL) of both ears (Acute) Venous insufficiency of left leg (Acute) Psoriasis (Acute) On methotrexate, CBC & CMP yearly Medical History Thoracic aortic aneurysm 2021- Aortic root is moderately dilated.4.89 cm The ascending aorta isdilated.4.98 cm Aortic arch is normal in caliber. 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 Substance abuse Depression Son No problems noted. Daughter , 40+ Substance abuse Daughter No problems noted. Sister No problems noted. Sister No problems noted. Social History Smoking/Tobacco Use Status: Former Tobacco Use tobacco type: cigarettes, pipe and cigars Quit Date: 10/11/98 Tobacco: How many years used: 30 Second Hand Exposure: Yes Smoking risk assessment performed?: Yes Alcohol Intake: current Alcohol Intake frequency: 3 or more drinks per day Alcohol type: beer, wine and hard liquor Drug use: Never Substance use type: does not use Caregiver/Support person: No Household members: spouse Housing: house Communication Needs: None Do you need help understanding health information?: Never Pets and animals: Yes Pets and animals: cat(s) Sexually active: No Do you think of yourself as: straight/heterosexual Current gender identity: male What is your relationship status?: How often do you talk on the phone with friends or family?: once per week How often do you get together with friends or relatives?: decline to answer How often do you attend zoroastrianism or mandaeism services?: decline to answer Do you belong to any clubs or organized social groups?: no Panel score (0-1 are the most socially isolated patients): 1 What type of physical activity do you participate in: walking Duration: 30-45 minutes/day Frequency: 1-2 times per week Ericka/Adventist: None Special ericka needs: No Seatbelt use: always Helmet use: No Drive intox or ride w/intox motor coach driver: No Do you feel safe at home: Yes Do you feel safe in your relationship?: Yes Time Spent with Patient Time Spent with Patient: 70-84 minutes4 Time was spent: preparing to see the patient(eg.review tests), obtaining and/or reviewing separately otained hiistory, ordering medications,tests, procedures, referring, communicating with other health family member caretaker, indepentently interpreting results, counseling the patient and care coordination
[2024-10-13] MEDS: Cefpodoxime 200 MG TAB PO ×2 (12:50→22:06)
[2024-10-13] MEDS: Azithromycin 250 MG TAB 500 MG PO (12:50)
--- NOTE | 2024-10-13 15:35 | PGE_ITS ---
Date of Service Date of service: 10/13/24 Time of Service: 15:36 Assessment and Plan Assessment and plan (1) COPD exacerbation: Status: Acute Assessment and plan: Patient presented with worsening dyspnea,increased non-productive cough, and intermittent fevers Imaging: Chest CT shows mild right lower lobe infiltrate and right pleural effusion?suggestive of infectious etiology. Labs: no leukocytosis (likely blunted due to methotrexate), elevated proBNP (4613)- IV lasix 20 mg daily troponin elevation (163 x2, 3rd cancelled 0- will repeat with next blood dr sofía)?likely chronic or type 2 from increased work of breathing and demand Treatment Initiated: * Azithromycin + Ceftriaxone for CAP coverage change to oral zithromax and cefpodoxime * MRSA positive in nares- zyvox IV added * Blood C& S pending - * IV Systemic corticosteroids in the ED now on oral for COPD exacerbation. * Continue DuoNebs administered in ED. * Continue dual antibiotic therapy (cephalosporin + azithromycin) for 5?7 days with additional MRSA coverage * Continue systemic steroids (e.g., prednisone 40 mg daily x5 days). * Bronchodilators: albuterol-ipratropium nebs Q4?6H PRN. * Monitor respiratory status closely, especially for any need for oxygen supplementation or respiratory failure. * Sputum culture, blood cultures pending (2) Community acquired pneumonia: Status: Acute Assessment and plan: as above (3) Hypomagnesemia: Status: Acute Assessment and plan: Resolved at 1.9 today Was 1.6 Mag in AM (4) Thoracic aortic aneurysm: Assessment and plan: -Asymptomatic - stable with unchanged diameter of 4.9 cm. (5) Essential hypertension: Assessment and plan: Continue to monitor Ongoing home meds (6) On deep vein thrombosis (DVT) prophylaxis: Status: Acute Assessment and plan: Ongoing LMWH discussed with Dr. Dumont Subjective Subjective Patient reports: feels better, tolerating liquids well, tolerating a regular diet, flatus and shortness of breath (improving); denies voiding w/o difficulty, nausea, vomiting or fever Exam Narrative Exam Narrative: Constitutional The patient is sitting in chair well groomed without acute distress; A&O X 4 , non-focal ; speaks in full sentences, unlabored breathing, clear lung bilaterally; regular rhythm, S1, S2, murmur, bilateral radial and dorsalis pedis pulses are positive, palpable; abdomen is not distended, soft and non tender, bowel sounds are present; negative CVA ; moves all 4 ext Objective Last Vital Signs Temp 36.2 C L 10/13/24 11:30 Pulse 100 H 10/13/24 11:30 Resp 15 10/13/24 11:30 BP 105/74 10/13/24 11:30 Pulse Ox 94 10/13/24 11:30 Laboratory Results - last 24 hr 10/12/24 10/12/24 10/12/24 15:55 17:32 21:45 WBC RBC Hgb Hct MCV MCH MCHC RDW Plt Count MPV Immature Gran % Neutrophils % Lymphocytes % Monocytes % Eosinophils % Basophils % Nucleated RBC % Absolute Neutrophils Absolute Lymphocytes Absolute Monocytes Absolute Eosinophils Absolute Basophils Sodium Potassium Chloride Carbon Dioxide Anion Gap BUN Creatinine Est GFR (CKD-EPI 2020) Glucose Calcium Magnesium Troponin I 163 H* Cancelled MRSA (TEM-PCR) Positive A 10/13/24 05:53 WBC 3.12 L RBC 3.27 L Hgb 11.9 L Hct 35.3 L MCV 108 H MCH 36.4 H MCHC 33.7 RDW 12.7 Plt Count 187 MPV 9.1 Immature Gran % 1.3 Neutrophils % 86.2 Lymphocytes % 9.0 Monocytes % 3.2 Eosinophils % 0.0 Basophils % 0.3 Nucleated RBC % 0.0 Absolute Neutrophils 2.69 Absolute Lymphocytes 0.28 L Absolute Monocytes 0.10 Absolute Eosinophils 0.00 Absolute Basophils 0.01 Sodium 140 Potassium 4.6 Chloride 104 Carbon Dioxide 27.3 Anion Gap 8.7 BUN 20 H Creatinine 1.0 Est GFR (CKD-EPI 2020) 73.76 Glucose 178 H Calcium 8.9 Magnesium 1.9 Troponin I MRSA (TEM-PCR) PAWSS Have you Been Recently Intoxicated or Drunk Within the Last 30 days?: No Have you Ever Experienced Previous Episodes of Alcohol Withdrawal?: No Have you ever Experienced Withdrawal Seizures?: No Have you ever Experienced Delirium Tremens(DT)s?: No Have you ever undergone Alcohol Rehabilitation Treatment (i.e, inpt ot outpatient treatment programs)?: No Have you ever Experienced Blackouts?: No Have you ever Combined Alcohol with other Downers within the last 90 days?: No Have you ever Combined Alcohol with any other Substance of Abuse during the last 90 days?: No Positive Blood Alcohol level on Presentation? [PCS.BAL]: No Evidence of Increased Autonomic Activity (i.e. HR>120, tremor, sweating, agitation, nausea)?: No Result: 0 Time Spent with Patient Time Spent with Patient: >50 minutes Time was spent: preparing to see the patient(eg.review tests), obtaining and/or reviewing separately otained hiistory, ordering medications,tests, procedures, referring, communicating with other health pet care associate, indepentently interpreting results, counseling the patient and care coordination
[2024-10-13 16:43] LABS: Troponin I 89 ng/L (<or=76)
[2024-10-13] MEDS: Furosemide 20 MG/2 ML VIAL IVP (17:06)
[2024-10-13] MEDS: Enoxaparin 40 MG/0.4 ML SYR SC (17:06)
[2024-10-13] MEDS: LINEZOLID 600 MG/300 ML BAG 300 MG IVPB (17:58)
[2024-10-14 00:03] VITALS: RESP 5
[2024-10-14] MEDS: Albuterol/Ipratropium 3 ML UPD VIAL UPD ×3 (00:03→11:19)
[2024-10-14 04:43] VITALS: BP 126/84; PULSE 64; RESP 19; TEMP 36; O2SAT 94
[2024-10-14] MEDS: LINEZOLID 600 MG/300 ML BAG 300 MG IVPB (05:54)
[2024-10-14 06:31] LABS: Abs Immature Grans 0.06 10^3/uL (0.0-0.06); Absolute Basophil Count 0.01 10^3/uL (0.0-0.2); Absolute Eosinophil Count 0.01 10^3/uL (0.0-0.7); Absolute Lymphocyte Count 0.65 10^3/uL (1.2-3.4); Absolute Monocyte Count 0.86 10^3/uL (0.1-0.8); Absolute Neutrophil Count 8.33 10^3/uL (1.2-6.7); Basophils % 0.1 %; Eosinophils % 0.1 %; HCT 36.4 % (40.0-50.0); HGB 12.1 g/dL (13.5-17.5); Immature Grans % 0.6 %; Lymphocytes % 6.6 %; MCH 35.9 pg (27.0-33.0); MCHC 33.2 % (32.0-36.0); MCV 108 fL (80-95); MPV 9.5 fL (8.0-11.0); Monocytes % 8.7 %; Neutrophils % 83.9 %; Platelet Count 216 10^3/uL (130-400); RBC 3.37 10^6/uL (4.36-5.78); RDW 12.9 % (11.8-14.1); RDW-SD 50.4 fL; WBC 9.92 10^3/uL (4.4-10.8)
[2024-10-14 06:44] LABS: Anion Gap 8.1 mmol/L (3-11); BUN 27 mg/dL (7-18); CO2 27.9 mmol/L (21.0-32.0); CREATININE 1.2 mg/dL (0.70-1.30); Chloride 103 mmol/L (98-107); Estimated GFR 59.26 (mL/min/1.73m2); Glucose 126 mg/dL (74-106); Magnesium 1.7 mg/dL (1.8-2.4); Potassium 4.1 mmol/L (3.5-5.1); Sodium 139 mmol/L (136-145)
[2024-10-14] MEDS: Normal Saline Flush 10 ML SYR IVP ×2 (07:30→09:46)
[2024-10-14 08:07] VITALS: BP 119/84; PULSE 108; RESP 14; TEMP 35.8; O2SAT 93
[2024-10-14] MEDS: Ascorbic Acid 500 MG TAB 1000 MG PO (09:43)
[2024-10-14] MEDS: Multivitamin TAB 1 TAB PO (09:44)
[2024-10-14] MEDS: Tamsulosin 0.4 MG CAPCR PO (09:44)
[2024-10-14] MEDS: predniSONE 20 MG TAB 40 MG PO (09:44)
[2024-10-14] MEDS: Furosemide 20 MG/2 ML VIAL IVP (09:44)
[2024-10-14] MEDS: Cefpodoxime 200 MG TAB PO (09:44)
--- NOTE | 2024-10-14 10:00 | RT.EKG_ITS ---
APPROVED REPORT Exam: Resting ECG Reason for Exam: Atrial fibrilltion Patient Location: I HR:108 bpm ECG Measurements Heart Rate 108 AXIS WV [id number] P [id number] QRSd 93 QRS -31 QT 328 T 42 QTc 440 Conclusion Junctional tachycardia...absent P waves, rapid V-rate Left axis deviation...QRS axis (-30,-90)
[2024-10-14 11:19] VITALS: PULSE 102; O2SAT 90
[2024-10-14 11:34] VITALS: BP 119/87
[2024-10-14] MEDS: Metoprolol 12.5 MG TAB PO (12:32)
[2024-10-14] MEDS: Magnesium Oxide 400 MG TAB PO (12:32)
--- NOTE | 2024-10-14 13:50 | W.CARDCONSUL ---
Date of service: 10/14/24 Time of Service: 13:50 Assessment and Plan Assessment and plan (1) H/O mitral valve repair: Assessment and plan: Prior echocardiogram has shown good durability of of his mitral valve repair (2) Thoracic aortic aneurysm: Assessment and plan: Stable overall, 5 cm (3) Supraventricular tachycardia: Status: Chronic Assessment and plan: I agree this is most likely atrial fibrillation. The fact that he has had multiple strokes in the past would go along with this. I would recommend he be considered for anticoagulation though he may be resistant History of Present Illness Narrative: This is an 84-year-old man who was admitted several days ago with difficulty breathing. He was felt to have pneumonia but has also been diuresed with good effect. He has a cardiac history includes mitral insufficiency dating back to 2016 when he had a robotic mitral valve repair. He has a known ascending aortic aneurysm measuring approximately 5 cm, stable for several years. Here in the hospital he was noted to have a narrow complex supraventricular tachycardia, predominantly regular. Low-dose beta-blake has been initiated. Apparently consideration is being given to anticoagulation. Several years ago the patient was noted to have multiple infarcts on brain imaging. He declined further evaluation one of the concerns at that point was that he had atrial fibrillation causing stroke. Currently the patient is sitting in the chair. He relates that he is being discharged PFSH All Active Problems (Updated 10/14/24 @ 13:53 by Edelmira Dillard MD) Supraventricular tachycardia (Chronic) On deep vein thrombosis (DVT) prophylaxis (Acute) COPD exacerbation (Acute) Hypomagnesemia (Acute) Community acquired pneumonia (Acute) Bilateral edema of lower extremity (Acute) Urinary hesitancy (Acute) Possibly due to BPH Dupuytren contracture (Acute) bilateral palms Mitral insufficiency (Chronic) status post mitral valve ring 2021 EF 60-65% Sensorineural hearing loss (SNHL) of both ears (Acute) Venous insufficiency of left leg (Acute) Psoriasis (Acute) On methotrexate, CBC & CMP yearly Medical History Thoracic aortic aneurysm 2021- Aortic root is moderately dilated.4.89 cm The ascending aorta isdilated.4.98 cm Aortic arch is normal in caliber. 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 Substance abuse Depression Son No problems noted. Daughter , 40+ Substance abuse Daughter No problems noted. Sister No problems noted. Sister No problems noted. Social History Smoking/Tobacco Use Status: Former Tobacco Use tobacco type: cigarettes, pipe and cigars Quit Date: 10/11/98 Tobacco: How many years used: 30 Second Hand Exposure: Yes Smoking risk assessment performed?: Yes Alcohol Intake: current Alcohol Intake frequency: 3 or more drinks per day Alcohol type: beer, wine and hard liquor Drug use: Never Substance use type: does not use Caregiver/Support person: No Household members: spouse Housing: house Communication Needs: None Do you need help understanding health information?: Never Pets and animals: Yes Pets and animals: cat(s) Sexually active: No Do you think of yourself as: straight/heterosexual Current gender identity: male What is your relationship status?: How often do you talk on the phone with friends or family?: once per week How often do you get together with friends or relatives?: decline to answer How often do you attend jehovah's witness or lutheran services?: decline to answer Do you belong to any clubs or organized social groups?: no Panel score (0-1 are the most socially isolated patients): 1 What type of physical activity do you participate in: walking Duration: 30-45 minutes/day Frequency: 1-2 times per week Ericka/Caodaism: None Special ericka needs: No Seatbelt use: always Helmet use: No Drive intox or ride w/intox cdl bulk driver: No Do you feel safe at home: Yes Do you feel safe in your relationship?: Yes Exam Const Other: Looks younger than stated age no acute distress Results Last Vital Signs Temp 35.8 C L 10/14/24 08:07 Pulse 102 H 10/14/24 11:19 Resp 14 10/14/24 08:07 BP 119/87 10/14/24 11:34 Pulse Ox 90 L 10/14/24 11:19 Labs 10/14/24 05:52 10/14/24 05:52 Labs: Laboratory Results - last 24 hr 10/13/24 10/14/24 16:05 05:52 WBC 9.92 RBC 3.37 L Hgb 12.1 L Hct 36.4 L MCV 108 H MCH 35.9 H MCHC 33.2 RDW 12.9 Plt Count 216 MPV 9.5 Immature Gran % 0.6 Neutrophils % 83.9 Lymphocytes % 6.6 Monocytes % 8.7 Eosinophils % 0.1 Basophils % 0.1 Nucleated RBC % 0.0 Absolute Neutrophils 8.33 H Absolute Lymphocytes 0.65 L Absolute Monocytes 0.86 H Absolute Eosinophils 0.01 Absolute Basophils 0.01 Sodium 139 Potassium 4.1 Chloride 103 Carbon Dioxide 27.9 Anion Gap 8.1 BUN 27 H Creatinine 1.2 Est GFR (CKD-EPI 2020) 59.26 Glucose 126 H Calcium 9.0 Magnesium 1.7 L Troponin I 89 H*
--- NOTE | 2024-10-14 14:15 | PT.INIE ---
PT Notes Visit Reasons: Community acquired pneumonia; COPD exacerbation Physical Therapy Inpatient Initial Evaluation Date: 10/14/2024 Referring Doctor: Riky Goff MD PT Orders: PT CONSULT: recent falls, some weakness Precautions: Fall. Standard. Activity as tolerated. Patient Profile/Admitting Diagnosis: Romeo is an 84-year-old male with COPD excerbation, CAP, thoracic aortic aneurysm, and HTN admitted to the ED with chief complaits of worsening SOB for the past 2-3 weeks. PMHX: All Active Problems (Updated 10/12/24 @ 18:56 by Kaela Wagoner NP) COPD exacerbation (Acute) Hypomagnesemia (Acute) Community acquired pneumonia (Acute) Bilateral edema of lower extremity (Acute) Urinary hesitancy (Acute) Possibly due to BPH Dupuytren contracture (Acute) bilateral palms Mitral insufficiency (Chronic) status post mitral valve ring 2021 EF 60-65% Sensorineural hearing loss (SNHL) of both ears (Acute) Venous insufficiency of left leg (Acute) Psoriasis (Acute) On methotrexate, CBC & CMP yearly Medical History Thoracic aortic aneurysm 2021- Aortic root is moderately dilated.4.89 cm The ascending aorta isdilated.4.98 cm Aortic arch is normal in caliber. 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 I with all aspects of ADLs prior to admission. Still drives. Equipment Owned/DME: [facility], [facility] Subjective: Mildly short of breath after the walk but resolved with rest. Hopeful to go home today. Objective: General Observation: Seated on bedside chair. No lines. Mental Status: Alert and oriented as to person, place, time, and purpose. Able to pay attention, focus, and respond appropriately. Pain: Non reported Vital Signs: Closely monitored by nursing staff ROM: Right Upper Extremity: Shoulder Flexion WFL. Shoulder abduction WFL. Elbow flexion WFL. Wrist flexion WFL. Functional opening and closing of hand WFL. Left Upper Extremity: Shoulder Flexion WFL. Shoulder abduction WFL. Elbow flexion WFL. Wrist flexion WFL. Functional opening and closing of hand WFL. Right Lower Extremity: Hip flexion WFL. Hip abduction WFL. Knee flexion WFL. Ankle dorsiflexion WFL. Ankle plantarflexion WFL. Left Lower Extremity: Hip flexion WFL. Hip abduction WFL. Knee flexion WFL. Ankle dorsiflexion WFL. Ankle plantarflexion WFL. Strength: Right Upper Extremity: Shoulder flexors 4-/5. Shoulder abductors 4-/5. Elbow flexors 4-/5. Elbow extensors 4-/5. [employer] strong. Left Upper Extremity: Shoulder flexors 4-/5. Shoulder abductors 4-/5. Elbow flexors 4-/5. Elbow extensors 4-/5. [employer] strong. Right Lower Extremity: Hip flexors 4-/5. Hip abductors 4-/5. Knee flexors 4-/5. Knee extensors 4-/5. Ankle dorsiflexors 4-/5. Ankle plantarflexors 4-/5. Left Lower Extremity: Hip flexors 4-/5. Hip abductors 4-/5. Knee flexors 4-/5. Knee extensors 4-/5. Ankle dorsiflexors 4-/5. Ankle plantarflexors 4-/5. Bed Mobility/Transfers: Rolling independent Supine to sit independent Sit to supine independent Sit to stand independent Stand to sit independent Bed to reclining chair independent Reclining chair to bed independent Gait: Supervision only for ambulation up to 250 feet without assitive device but with slowed maddie and needed to hold onto walk with each directional change. Patient stated that this has been his baseline mobility at home. Balance: Static Sitting: Normal Dynamic Sitting: Normal Static Standing: Good Dynamic Standing: Fair 4-Stage Balance Test: Feet together 10 seocnds Semi- tandem 10 seconds Full tandem unable One-legged stance unable Special Tests: Mobility Limitations Standardized Measure [facility] AM-PAC 6 clicks Basic Mobility Inpatient Short Form: Raw Score: 24 CMS Score: 0% deficit Informed Consent/Education: Patient was instructed in purpose of PT consult and plan of care. Agreeable to proceed with established PT POC to achieve personal goals. Assessment: Patient is at baseline mobility level requiring no assistive device with maddie slowed. Will benefit from OP PT to decrease fall risk and address pre-existing balance problem. Patient presents with clinical signs and symptoms consistent with current/admitting diagnoses that have resulted to mobility limitations, gait instability, generalized weakness, and overall ADL decline as demonstrated by the following impairment level findings: 1. Decreased strength to B LE major muscle groups 2. Impaired sitting/standing balance 3. Impaired activity tolerance 4. Shortness of breath Impairments are contributing to the following functional limitations: 1. Decline in bed mobility skills 2. Decline in transfer skills 3. Difficulty with ambulation with slowed maddie 4. Increased completion time for mobility ADL performance 5. Increased risk for falls 6. Difficulty with managing steps alone safely Patient is assessed as a 24543 Low complexity based on the following: History: 84-year-old male with past medical history as indicated above Examination: Demonstrable impairment in strength, balance, and mobility level with underlying impairments and functional limitations as exhibited above Presentation: Stable Decision Makin Low complexity Goals: N/A. PT evaluation only for need for assistive device. Plan of Care/Treatment Plan: N/A. PT evaluation only for need for assistive device. DISCHARGE RECOMMENDATIONS: [] Home with no services [] [] Home with services [specify] [X] Home with outpatient PT. OP PT for balance and strengthening. [] SNF for continued rehabilitation [] [] [facility] [] [] SNF versus LTC based on ability to participate and progress [] TREATMENT CODE/TIME: 28523 x 25 minutes for 1 unit (14:15-14:40). Thank you for the opportunity to participate in the care of this patient. Yessi Schwartz PT, DPT, CLT [facility] [place], [place]
[2024-10-17 23:58] LABS: Result Negative; Specimen Source sputum
== END 2024-10-14 16:26 | disposition home or self-care (01) | DRG 194 ==
LOC: ER 15:22 → MS 18:09
PROVIDERS: Nurse Practitioner Family; Admitting Provider Hospitalist; Emergency Provider Emergency Medicine; PCP Nurse Practitioner Family; Responsible Provider Nurse Practitioner Acute Care; Visit Provider Hospitalist
DX: J18.9 Pneumonia, unspecified organism (principal); I47.10 Supraventricular tachycardia, unspecified; J44.1 Chronic obstructive pulmonary disease with (acute) exacerbation; J44.0 Chronic obstructive pulmonary disease with (acute) lower respiratory infection; I71.21 Aneurysm of the ascending aorta, without rupture; L40.50 Arthropathic psoriasis, unspecified; Z95.2 Presence of prosthetic heart valve; I10 Essential (primary) hypertension; E83.42 Hypomagnesemia; R60.0 Localized edema; H90.3 Sensorineural hearing loss, bilateral; E78.5 Hyperlipidemia, unspecified; Z66 Do not resuscitate; I87.2 Venous insufficiency (chronic) (peripheral); N40.1 Benign prostatic hyperplasia with lower urinary tract symptoms; R39.11 Hesitancy of micturition; Z79.631 Long term (current) use of antimetabolite agent; Z86.73 Personal history of transient ischemic attack (TIA), and cerebral infarction without residual deficits; Z87.891 Personal history of nicotine dependence; Z86.12 Personal history of poliomyelitis; Z79.899 Other long term (current) drug therapy
CPT/HCPCS: 00123; 36415; 71275; 80048; 80053; 82805; 87040; 87641; 87801; 93005; 94640; 94761; 96365; 96367; 96372; 96375; 97162; 99222; 99285; J1650; 83735; 83880; 84484; 85025; 87070; 87205; 93010; 94760; 99233; 99239; J0696; J1938; J2020; J2919; J3475; J3490; J7512; J7620; J8610

== ENCOUNTER → 2024-11-04 10:37 | Outpatient (BNVA) | payer MEDICARE, OTHER, SELFPAY | PROVIDERS: PCP Nurse Practitioner Family; Referring Provider Nurse Practitioner Family; Visit Provider Internal Medicine Cardiovascular Disease | DX: I48.0 Paroxysmal atrial fibrillation (principal); I71.21 Aneurysm of the ascending aorta, without rupture; Z98.890 Other specified postprocedural states; Z79.01 Long term (current) use of anticoagulants | CPT/HCPCS: 99214 ==

== ENCOUNTER → 2024-12-20 12:55 | Outpatient (BNVA) | payer MEDICARE, OTHER, SELFPAY | PROVIDERS: PCP Nurse Practitioner Family; Referring Provider Nurse Practitioner Family; Visit Provider Internal Medicine Pulmonary Disease | DX: L40.50 Arthropathic psoriasis, unspecified (principal); J90 Pleural effusion, not elsewhere classified; J44.9 Chronic obstructive pulmonary disease, unspecified; Z87.891 Personal history of nicotine dependence | CPT/HCPCS: 99215 ==

== ENCOUNTER 2024-12-26 04:31 | Outpatient (CLI) | payer MEDICARE, OTHER, SELFPAY ==
[2024-12-26] MEDS: Inhaler, Assist Device 1 EACH MC (16:40)
[2024-12-26] MEDS: Levalbuterol HFA 15 GM INH 4 PUFF IH (16:40)
--- NOTE | 2024-12-27 09:13 | W.PFT ---
Date of service: 12/26/24 Time of Service: 15:13 Pulmonary Function Test Result Indications: COPD Impression 1. Good patient effort was noted. ATS standards for reproducibility were met. 2. Spirometry showed moderate obstructive lung disease with an FEV1 of 79% (1.76 L) 3. Following the administration of a bronchodilator there was not a significant response 4. TLC was normal. No evidence of restrictive lung disease 5. DLCO was 53%, consistent with a moderate defect in alveolar gas exchange
== END 2024-12-26 04:32 | disposition home or self-care (01) ==
LOC: RT 04:31
PROVIDERS: PCP Nurse Practitioner Family; Visit Provider Internal Medicine Pulmonary Disease
DX: J44.9 Chronic obstructive pulmonary disease, unspecified (principal)
CPT/HCPCS: 94060; 94726; 94729

== ENCOUNTER 2025-01-29 11:12 | Observation (INO) | payer MEDICARE, OTHER, SELFPAY ==
[2025-01-29] VITALS (30 sets, daily range): BP systolic 116–150; BP diastolic 81–94; PULSE 75–91; RESP 12–33; TEMP 36.2–36.7; O2SAT 93–99
--- NOTE | 2025-01-29 | DI.CT_ITS ---
Exam(s) CT ABDOMEN PELVIS WO EXAM: CT ABDOMEN PELVIS WO CLINICAL HISTORY: BRITTANY. TECHNIQUE: Imaging Protocol: Axial computed tomography images with coronal and sagittal reformatted images were created and reviewed. COMPARISON: CT CT CHEST PE CTA from 01/11/[address] THORAX CTA from 12/02/[address] THORAX CTA from 06/24/[address] THORAX CTA from 11/21/[address] CHEST PE CTA from 10/12/2024 FINDINGS: Lack of IV contrast does limit evaluation of the abdominal pelvic organs. ABDOMEN: Lung Bases: There are persistent small pleural effusions, right greater than left. There is atelectasis in the right lung base. Liver: Normal density. No measurable mass. Gallbladder and biliary tract: There is a tiny gallstone in the fundus of the gallbladder. There is no biliary ductal dilatation. Pancreas: Normal density, no abnormal calcifications or inflammatory process. Spleen: Calcified granuloma are seen in the spleen. Kidneys: Normal size, contour and axis.There is bilateral nephrolithiasis. There is no obstructive uropathy. No masses seen. Adrenal glands: No mass is seen. Lymph nodes: Within normal limits. Abdominal Aorta: There is a 4.5 x 4.8 cm infrarenal abdominal aortic aneurysm. Atherosclerotic calcification is present. PELVIS: Bladder:Symmetric distention, no gross wall thickening. Bowel: There is diverticulosis seen in the colon without evidence of acute diverticulitis. There is no evidence of bowel obstruction or bowel wall thickening. The stomach is incompletely distended limiting evaluation. There is no evidence of appendicitis. There is no evidence of pneumatosis. Peritoneal cavity: There is a small amount of perihepatic and perisplenic ascites. There is also a small amount of ascites seen in both the pericolic gutters. No free air. Reproductive organs: Unremarkable as visualized. Bones: Within normal limits. There is grade 1 anterolisthesis of L5 on S1. There is moderately severe bilateral neural foraminal stenosis at L5-S1. There is mild retrolisthesis of L3 on L4. There is moderate bilateral neural foraminal stenosis present. Soft Tissues: There is a fat containing right inguinal hernia. IMPRESSION: 1. Small amount of abdominal pelvic ascites. 2. Persistent bilateral pleural effusions, right greater than left and right basilar atelectasis. 3. Colonic diverticulosis without evidence of acute diverticulitis. 4. 4.5 x 4.8 cm infrarenal abdominal aortic aneurysm. 5. Bilateral nephrolithiasis. No hydronephrosis. 6. Cholelithiasis. No biliary ductal dilatation. RADIATION DOSE DELIVERED: 885.07mGy.cm Total DLP DATA REPOSITORY: All CT scans at this facility are submitted to the National Radiology Data Registry (NRDR) Dose Index Registry (DIR) with the [employer] (A[employer]). RADIATION OPTIMIZATION: All CT scans at this facility use at least one of these dose optimization techniques: automated exposure control; mA and/or kV adjustment per patient size (includes targeted exams where dose is matched to clinical indication); or iterative reconstruction.
--- NOTE | 2025-01-29 11:15 | RT.EKG_ITS ---
APPROVED REPORT Exam: Resting ECG Reason for Exam: SOB, Leg swelling Patient Location: E HR:87 bpm ECG Measurements Heart Rate 87 AXIS [place] [id number] P [id number] QRSd 96 QRS -21 QT 389 T 56 QTc 468 Conclusion Atrial fibrillation...? atrial activity -------- NO STEMI
--- NOTE | 2025-01-29 11:30 | DI.RAD_ITS ---
Exam(s) XR PORTABLE CHEST AP EXAM: XR PORTABLE CHEST AP CLINICAL HISTORY: SOB TECHNIQUE: 2D digital imaging was performed of the chest. One image was obtained. An AP view was obtained. COMPARISON: CR XR CHEST 2V PA LATERAL from 07/28/2022 CR XR CHEST 2V PA LATERAL from 06/25/2023 CR XR CHEST 2V PA LATERAL from 04/05/[address] CHEST PE CTA from 10/12/2024 FINDINGS: MEDIASTINUM: Normal. HEART: There is an enlarged heart. There is a mitral valve prosthesis present. PULMONARY VASCULATURE: Normal. LUNGS: There opacity seen in the lower lobes bilaterally, right greater than left. PLEURAL SPACE: There is some blunting of the right costophrenic angle suggesting a small pleural effusion. There is no left pleural effusion. No pneumothorax is present. BONE:Within normal limits for the patient's age. OTHER FINDINGS:Surgical clips are seen in the right axilla. IMPRESSION: 1. Cardiomegaly. 2. Tiny right pleural effusion. 3. Bilateral basilar opacities, right greater than left. Differential considerations include atelectasis, pneumonia or pulmonary edema. 4. The preliminary [facility] report was reviewed. DATA REPOSITORY: RADIATION DOSE DELIVERED:
--- NOTE | 2025-01-29 11:39 | W.ED.GENAD ---
Discharge Plan Disposition Patient Disposition: Admit to [facility] Condition: Stable Discharge Details Clinical Impression: CHF (congestive heart failure), BRITTANY (acute kidney injury) Primary Care Provider: Jocy Forbes ED Provider: Ayala Klein Home Meds and New Rx's Prescriptions: No Action DHEA 50 mg tablet 50 mg PO DAILY (DME) Aerochamber MV Spacer See Rx Instructions .Route Qty: 1 0RF Rx Instructions: As directed Breztri Aerosphere 160-9-4.8 mcg/actuation HFA aerosol inhaler 2 inh inhalation BID Qty: 10.7 3RF folic acid 1 mg tablet 1 mg PO DAILY Qty: 90 3RF aspirin [Adult Low Dose Aspirin] 81 mg tablet,delayed release (DR/EC) 81 mg PO DAILY metoprolol succinate 50 mg tablet extended release 24 hr 50 mg PO DAILY Qty: 90 3RF Eliquis 5 mg tablet 5 mg PO BID Qty: 180 3RF tamsulosin 0.4 mg capsule 0.4 mg PO DAILY Qty: 90 3RF CENTRUM SILVER TABLET 1 EACH tablet 1 tab PO DAILY ascorbic acid (vitamin C) 1,000 MG tablet 1,000 mg PO DAILY [id number] C-Mn [Glucosamine 1500 Complex] 500-400 mg capsule 1 cap PO BID furosemide [Lasix] 20 mg tablet 20 mg PO QAM PRN (Reason: edema) Qty: 90 3RF triamcinolone acetonide 0.5 % cream 1 applic Topical BID PRN (Reason: psoriasis) Qty: 45 3RF albuterol sulfate 90 mcg/actuation HFA aerosol inhaler 2 puff inhalation Q4H PRN (Reason: shortness of breath or wheezing) Qty: 8.5 12RF HPI General Mode of arrival: wheelchair. Date/Time Provider Initiated Documentation: 01/29/25 11:26. Limitations to Documentation: no limitations and physical limitation (CHINIK). Information obtained by: patient, RN notes reviewed and old records reviewed. HPI Narrative: 84-year-old male presents to the ER chief complaint of increased shortness of breath which began last night, leg weeping and increased edema left greater than the right. He reports that he had a hard time sleeping last night and woke up soaked from the edema in his lower extremity. Denies any recent travel. He does have a history of pulmonary edema, COPD, thoracic aortic aneurysm, hypomagnesemia hypertension, hyperlipidemia CVA, history of a former smoker and mitral valve repair. He did not take any of his a.m. medications this morning including 20 mg of his daily Lasix. He does appear somewhat short of breath and dyspneic. No tripoding no retractions, he does have leaking of clear fluid to his left lower calf and left thigh. Related Data Home Medications ?Medication ?Instructions ?Recorded ?Confirmed Centrum Silver Tablet 1 tab PO DAILY 09/07/12 01/29/25 ascorbic acid (vitamin C) 1,000 mg 1,000 mg PO DAILY 09/28/14 01/29/25 tablet [id number]-[id number] C-Mn 500 1 cap PO BID 01/18/19 01/29/25 mg-400 mg capsule (Glucosamine 1) prasterone (DHEA) 50 mg tablet 50 mg PO DAILY 12/09/19 01/29/25 (DHEA) aspirin 81 mg tablet,delayed 81 mg PO DAILY 05/13/22 01/29/25 release (Adult Low Dose Aspirin) inhalational spacing device #1 ea 09/15/23 01/29/25 (Aerochamber MV spacer) furosemide 20 mg tablet (Lasix) 20 mg PO QAM PRN edema #90 tabs 06/15/24 01/29/25 triamcinolone acetonide 0.5 % 1 applic topical BID PRN psoriasis 08/12/24 01/29/25 topical cream #45 grams apixaban 5 mg tablet (Eliquis) 5 mg PO BID #180 tabs 11/04/24 01/29/25 metoprolol succinate 50 mg 50 mg PO DAILY #90 tabs 11/04/24 01/29/25 tablet,extended release 24 hr tamsulosin 0.4 mg capsule 0.4 mg PO DAILY #90 caps 11/28/24 01/29/25 budesonide 160 mcg-glycopyr 9 2 inh inhalation BID #10.7 grams 12/20/24 01/29/25 mcg-formot 4.8 mcg/actuation HFA inhaler (Breztri Aerosphere) folic acid 1 mg tablet 1 mg PO DAILY #90 tabs 12/20/24 01/29/25 albuterol sulfate 90 mcg/actuation 2 puff inhalation Q4H PRN 01/10/25 01/29/25 aerosol inhaler shortness of breath or wheezing #8.5 grams Previous Rx's ?Medication ?Instructions ?Recorded inhalational spacing device #1 ea 09/15/23 (Aerochamber MV spacer) furosemide 20 mg tablet (Lasix) 20 mg PO QAM PRN edema #90 tabs 06/15/24 triamcinolone acetonide 0.5 % 1 applic topical BID PRN psoriasis 08/12/24 topical cream #45 grams apixaban 5 mg tablet (Eliquis) 5 mg PO BID #180 tabs 11/04/24 metoprolol succinate 50 mg 50 mg PO DAILY #90 tabs 11/04/24 tablet,extended release 24 hr tamsulosin 0.4 mg capsule 0.4 mg PO DAILY #90 caps 11/28/24 budesonide 160 mcg-glycopyr 9 2 inh inhalation BID #10.7 grams 12/20/24 mcg-formot 4.8 mcg/actuation HFA inhaler (Breztri Aerosphere) folic acid 1 mg tablet 1 mg PO DAILY #90 tabs 12/20/24 albuterol sulfate 90 mcg/actuation 2 puff inhalation Q4H PRN 01/10/25 aerosol inhaler shortness of breath or wheezing #8.5 grams Allergies Allergy/AdvReac Type Severity Reaction Status Date / Time niacin Allergy Severe rash/flusin Verified 01/29/25 11:24 g simvastatin AdvReac Intermediate Myalgia Verified 01/29/25 11:24 detergent AdvReac Intermediate Skin Rash Uncoded 01/29/25 11:24 General Stated Complaint: Vascular BERNY: 3 Review of Systems All systems reviewed & are unremarkable except as noted in HPI and below Cardiovascular Cardiovascular: Denies chest pain, Reports leg edema, Reports dyspnea and Reports dyspnea on exertion Respiratory Respiratory: Reports dyspnea and Reports dyspnea on exertion Integumentary/Breasts Skin/Breast: Reports as per HPI Exam Narrative Exam Narrative: Constitutional: Alert and oriented x3. Appears stated age. Normal body habitus. Appears frail and chronically ill. Alert and oriented x 3. Head: Normocephalic, no trauma. Eyes: Pupils PERRL, Red reflex noted, EOM's intact. Eyelids symmetrical without lesions, discharge, or swelling. ENT: Bilateral TM's WNL, no mastoid TTP, swelling, or erythema, Nasal turbinates WNL, no nasal discharge. Normal dentition, Posterior pharynx WNL, no exudate. Chest: RRR, Normal S1, S2, distal pulses intact. Resp: Lungs clear to auscultation bilaterally, no wheezes, rales, or rhonchi. Slightly diminished in the bases. Abdomen: Soft, non-distended, Normoactive bowel sounds all 4 quads. Musculoskeletal: Unable to assess gait, moves all 4 extremities with difficulty. Skin: 2+ pitting edema noted to lower extremity, he does have some weeping clear fluid up into his thigh on the left, also has some edema which appears chronic on the right lower extremity. Does have a healing contusion noted to his right lateral hand, ecchymosis noted to his left outer ear. Denies falls. Neurologic: Cranial nerves II-XII intact. Alert and oriented x 3. Motor: No deficits noted. Is slightly hard of hearing. Hematologic/Lymphatic: No ecchymosis, no lymphadenopathy. Course Vital Signs Vital signs: Vital Signs Temperature 36.7 C 01/29/25 11:17 Pulse 84 01/29/25 11:17 Respiratory Rate 18 01/29/25 11:17 Blood Pressure 131/90 01/29/25 11:17 Pulse Oximetry 93 01/29/25 11:17 Temperature 36.7 C 01/29/25 11:17 Temperature Source Oral 01/29/25 11:17 Pulse 84 01/29/25 11:17 Respiratory Rate 18 01/29/25 11:17 Blood Pressure 131/90 01/29/25 11:17 Blood Pressure Position Sitting 01/29/25 11:17 Pulse Oximetry 93 01/29/25 11:17 Oxygen Delivery Method Room Air 01/29/25 11:17 Oxygen Flow Rate 0 01/29/25 11:17 Pain Level 0 01/29/25 11:17 Medical Decision Making 84-year-old male presents to the ER chief complaint of increased shortness of breath which began last night, leg weeping and increased edema left greater than the right. He reports that he had a hard time sleeping last night and woke up soaked from the edema in his lower extremity. Denies any recent travel. He does have a history of pulmonary edema, COPD, thoracic aortic aneurysm, hypomagnesemia hypertension, hyperlipidemia CVA, history of a former smoker and mitral valve repair. He did not take any of his a.m. medications this morning including 20 mg of his daily Lasix. He does appear somewhat short of breath and dyspneic. No tripoding no retractions, he does have leaking of clear fluid to his left lower calf and left thigh. Cardiac workup ordered including EKG, CBC CMP, PT, VBG proBNP serial troponins, chest x-ray and 20 of Lasix IV. Will consider giving an additional 20 mg after lab results. EKG was reviewed by myself and Dr. Van ER attending, old EKG available for review, no STEMI, normal sinus rhythm please see official report. 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 These were last drawn in October of this year, glucose 123 proBNP is elevated at 5502. Initial troponin is 36. 1313: Contacted Dr. Celeste regarding patient case and details and request for admission. He verbalized understanding and agrees to accept patient for CHF exacerbation and BRITTANY. Discussed plan of care with patient who verbalized understanding is in agreement with the plan. He has had approximately 50 to 75 mL of urine output since the IV Lasix. Plan is to admit patient to [facility]. He has been hemodynamically stable condition throughout his stay. This text was generated using [employer] dictation system, please disregard any oddities of phrase or misspellings. Medical Records Medical records reviewed: Yes I reviewed the patient's medical records. Imaging Data Radiologic Study: Imaging: X-Ray Radiologist's impression: FINDINGS: MEDIASTINUM: Normal. HEART: There is an enlarged heart. There is a mitral valve prosthesis present. PULMONARY VASCULATURE: Normal. LUNGS: There opacity seen in the lower lobes bilaterally, right greater than left. PLEURAL SPACE: There is some blunting of the right costophrenic angle suggesting a small pleural effusion. There is no left pleural effusion. No pneumothorax is present. BONE:Within normal limits for the patient's age. OTHER FINDINGS:Surgical clips are seen in the right axilla. IMPRESSION: 1. Cardiomegaly. 2. Tiny right pleural effusion. 3. Bilateral basilar opacities, right greater than left. Differential considerations include atelectasis, pneumonia or pulmonary edema. 4. The preliminary [facility] report was reviewed. Lab Data Lab results reviewed: Yes I reviewed the patient's lab results. Labs: Laboratory Tests Range/Units 01/29/25 12:10 WBC (4.4-10.8) 10^3/uL 7.12 RBC (4.36-5.78) 10^6/uL 3.27 L Hgb (13.5-17.5) g/dL 10.3 L Hct (40.0-50.0) % 33.2 L MCV (80-95) fL 102 H MCH (27.0-33.0) pg 31.5 MCHC (32.0-36.0) % 31.0 L RDW (11.8-14.1) % 16.7 H Plt Count (130-400) 10^3/uL 161 MPV (8.0-11.0) fL 9.1 Immature Gran % % 0.3 Neutrophils % % 78.9 Lymphocytes % % 7.9 Monocytes % % 9.8 Eosinophils % % 2.5 Basophils % % 0.6 Nucleated RBC % (0.0-0.3) % 0.0 Absolute Neutrophils (1.2-6.7) 10^3/uL 5.62 Absolute Lymphocytes (1.2-3.4) 10^3/uL 0.56 L Absolute Monocytes (0.1-0.8) 10^3/uL 0.70 Absolute Eosinophils (0.0-0.7) 10^3/uL 0.18 Absolute Basophils (0.0-0.2) 10^3/uL 0.04 PT (9.1-11.1) sec 13.8 H INR (0.9-1.1) 1.4 H VBG pH (7.31-7.41) 7.42 H VBG pCO2 (41-51) mmHg 43 VBG pO2 mmHg 34 VBG HCO3 (23-28) mmol/L 28 VBG Total CO2 (24-29) mmol/L 26 VBG O2 Saturation % 58 VBG Base Excess (-2-3) mmol/L 3 Sodium (136-145) mmol/L 142 Potassium (3.5-5.1) mmol/L 4.5 Chloride (98-107) mmol/L 105 Carbon Dioxide (21.0-32.0) mmol/L 30.1 Anion Gap (3-11) mmol/L 6.9 BUN (7-18) mg/dL 30 H Creatinine (0.70-1.30) mg/dL 2.2 H Est GFR (CKD-EPI 2020) (mL/min/1.73m2) 28.63 Glucose (74-106) mg/dL 123 H Calcium (8.5-10.1) mg/dL 8.9 Magnesium (1.8-2.4) mg/dL 2.0 Total Bilirubin (0.2-1.0) mg/dL 0.9 AST (15-37) U/L 26 ALT (16-63) U/L 19 Alkaline Phosphatase (46-116) U/L 63 Troponin I (<or=76) ng/L 36 NT-Pro-B Natriuret Pep (<300) pg/mL 5502 H Total Protein (6.4-8.2) g/dL 7.3 Albumin (3.4-5.0) g/dL 3.6 PFSH All Active Problems (Updated 01/29/25 @ 13:35 by Leda Falcon NP) BPH (benign prostatic hyperplasia) (Chronic) COPD (chronic obstructive pulmonary disease) (Chronic 11/22/13) Essential hypertension (Chronic 09/08/13) Decompensated heart failure (Acute) BRITTANY (acute kidney injury) (Acute) CHF (congestive heart failure) (Chronic) Obstructive lung disease (Acute) Pleural effusion (Acute) Paroxysmal A-fib (Acute) Supraventricular tachycardia (Chronic) On deep vein thrombosis (DVT) prophylaxis (Acute) COPD exacerbation (Acute) Community acquired pneumonia (Acute) Bilateral edema of lower extremity (Acute) Urinary hesitancy (Acute) Possibly due to BPH Dupuytren contracture (Acute) bilateral palms Mitral insufficiency (Chronic) status post mitral valve ring 2021 EF 60-65% Sensorineural hearing loss (SNHL) of both ears (Acute) Venous insufficiency of left leg (Acute) Psoriasis (Acute) On methotrexate, CBC & CMP yearly Medical History Hypomagnesemia Thoracic aortic aneurysm 2021- Aortic root is moderately dilated.4.89 cm The ascending aorta isdilated.4.98 cm Aortic arch is normal in caliber. 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 Substance abuse Depression Son No problems noted. Daughter , 40+ Substance abuse Daughter No problems noted. Sister No problems noted. Sister No problems noted. Social History Smoking/Tobacco Use Status: Former Tobacco Use tobacco type: cigarettes, pipe and cigars Quit Date: 10/11/98 Tobacco: How many years used: 30 Second Hand Exposure: Yes Smoking risk assessment performed?: Yes Alcohol Intake: current Alcohol Intake frequency: 3 or more drinks per day Alcohol type: beer, wine and hard liquor Drug use: Never Substance use type: does not use Caregiver/Support person: No Household members: spouse Housing: house Communication Needs: None Do you need help understanding health information?: Never Pets and animals: Yes Pets and animals: cat(s) Sexually active: No Do you think of yourself as: straight/heterosexual Current gender identity: male What is your relationship status?: How often do you talk on the phone with friends or family?: once per week How often do you get together with friends or relatives?: decline to answer How often do you attend sabianism or jew services?: decline to answer Do you belong to any clubs or organized social groups?: no Panel score (0-1 are the most socially isolated patients): 1 What type of physical activity do you participate in: walking Duration: 30-45 minutes/day Frequency: 1-2 times per week Ericka/Methodist: None Special ericka needs: No Seatbelt use: always Helmet use: No Drive intox or ride w/intox class b driver: No Do you feel safe at home: Yes Do you feel safe in your relationship?: Yes PAWSS Have you Been Recently Intoxicated or Drunk Within the Last 30 days?: No Have you Ever Experienced Previous Episodes of Alcohol Withdrawal?: No Have you ever Experienced Withdrawal Seizures?: No Have you ever Experienced Delirium Tremens(DT)s?: No Have you ever undergone Alcohol Rehabilitation Treatment (i.e, inpt ot outpatient treatment programs)?: No Have you ever Experienced Blackouts?: No Have you ever Combined Alcohol with other Downers within the last 90 days?: No Have you ever Combined Alcohol with any other Substance of Abuse during the last 90 days?: No Positive Blood Alcohol level on Presentation? [PCS.BAL]: No Evidence of Increased Autonomic Activity (i.e. HR>120, tremor, sweating, agitation, nausea)?: No Result: 0
[2025-01-29 12:21] LABS: BE (Venous) 3 mmol/L (-2-3); HCO3 (Venous) 28 mmol/L (23-28); O2 Sat (Venous) 58 %; TCO2 (Venous) 26 mmol/L (24-29); pCO2 (Venous) 43 mmHg (41-51); pO2 (Venous) 34 mmHg
[2025-01-29] MEDS: Furosemide 20 MG/2 ML VIAL IVP (12:22)
[2025-01-29 12:23] LABS: Abs Immature Grans 0.02 10^3/uL (0.0-0.06); HCT 33.2 % (40.0-50.0); HGB 10.3 g/dL (13.5-17.5); Immature Grans % 0.3 %; MCH 31.5 pg (27.0-33.0); MCHC 31.0 % (32.0-36.0); MCV 102 fL (80-95); MPV 9.1 fL (8.0-11.0); Platelet Count 161 10^3/uL (130-400); RBC 3.27 10^6/uL (4.36-5.78); RDW 16.7 % (11.8-14.1); RDW-SD 62.9 fL; WBC 7.12 10^3/uL (4.4-10.8)
[2025-01-29 12:32] LABS: INR 1.4 (0.9-1.1); Prothrombin Time 13.8 sec (9.1-11.1)
[2025-01-29 12:45] LABS: ALT 19 U/L (16-63); AST 26 U/L (15-37); Albumin 3.6 g/dL (3.4-5.0); Alkaline Phosphatase 63 U/L (46-116); Anion Gap 6.9 mmol/L (3-11); BUN 30 mg/dL (7-18); Bilirubin, Total 0.9 mg/dL (0.2-1.0); CO2 30.1 mmol/L (21.0-32.0); Calcium 8.9 mg/dL (8.5-10.1); Chloride 105 mmol/L (98-107); Estimated GFR 28.63 (mL/min/1.73m2); Glucose 123 mg/dL (74-106); Magnesium 2.0 mg/dL (1.8-2.4); NT-proBNP 5502 pg/mL (<300); Potassium 4.5 mmol/L (3.5-5.1); Sodium 142 mmol/L (136-145); Total Protein 7.3 g/dL (6.4-8.2); Troponin I 36 ng/L (<or=76)
--- NOTE | 2025-01-29 13:30 | W.PM.HP.N ---
Date of service: 01/29/25 Time of Service: 13:30 Assessment and Plan Assessment and plan (1) Decompensated heart failure: Status: Acute Assessment and plan: Referred to observation on the medical surgical unit received IV diuresis in ED, output 650 ml prior to admission, Monitor intake and output closely Daily weights Update echocardiogram when available Previous echo from July 2024 showed preserved ejection fraction at 60% with no wall motion abnormalities. Both atria moderately enlarged prior MVR with mild regurgitation aortic root and ascending aorta measure 4.7 and 4.8 cm (2) BRITTANY (acute kidney injury): Status: Acute Assessment and plan: In the setting of decompensated heart failure with history of BPH on tamsulosin Monitor for outlet obstruction Renal imaging Will avoid nephrotoxic drugs, renally dose medications as needed Continue diuresis (3) Paroxysmal A-fib: Status: Acute Assessment and plan: Rate controlled Fully anticoagulated on apixaban Continue Metroprolol succinate (4) COPD (chronic obstructive pulmonary disease): Status: Chronic Assessment and plan: Stable with no evidence of exacerbation will continue budesonide/formoterol inhaler (5) Essential hypertension: Status: Chronic Assessment and plan: Blood pressure is stable Continue routine monitoring while diuresing (6) BPH (benign prostatic hyperplasia): Status: Chronic Assessment and plan: Continue tamsulosin Monitoring for urinary retention in setting of BRITTANY, postvoid bladder scan Renal imaging DVT prophylaxis: on apixaban discussed with DR Roula PINTO All Active Problems (Updated 01/29/25 @ 13:35 by Leda Falcon NP) BPH (benign prostatic hyperplasia) (Chronic) COPD (chronic obstructive pulmonary disease) (Chronic 11/22/13) Essential hypertension (Chronic 09/08/13) Decompensated heart failure (Acute) BRITTANY (acute kidney injury) (Acute) CHF (congestive heart failure) (Chronic) Obstructive lung disease (Acute) Pleural effusion (Acute) Paroxysmal A-fib (Acute) Supraventricular tachycardia (Chronic) On deep vein thrombosis (DVT) prophylaxis (Acute) COPD exacerbation (Acute) Community acquired pneumonia (Acute) Bilateral edema of lower extremity (Acute) Urinary hesitancy (Acute) Possibly due to BPH Dupuytren contracture (Acute) bilateral palms Mitral insufficiency (Chronic) status post mitral valve ring 2021 EF 60-65% Sensorineural hearing loss (SNHL) of both ears (Acute) Venous insufficiency of left leg (Acute) Psoriasis (Acute) On methotrexate, CBC & CMP yearly Medical History Hypomagnesemia Thoracic aortic aneurysm 2021- Aortic root is moderately dilated.4.89 cm The ascending aorta isdilated.4.98 cm Aortic arch is normal in caliber. 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 Substance abuse Depression Son No problems noted. Daughter , 40+ Substance abuse Daughter No problems noted. Sister No problems noted. Sister No problems noted. Social History Smoking/Tobacco Use Status: Former Tobacco Use tobacco type: cigarettes, pipe and cigars Quit Date: 10/11/98 Tobacco: How many years used: 30 Second Hand Exposure: Yes Smoking risk assessment performed?: Yes Alcohol Intake: current Alcohol Intake frequency: 3 or more drinks per day Alcohol type: beer, wine and hard liquor Drug use: Never Substance use type: does not use Caregiver/Support person: No Household members: spouse Housing: house Communication Needs: None Do you need help understanding health information?: Never Pets and animals: Yes Pets and animals: cat(s) Sexually active: No Do you think of yourself as: straight/heterosexual Current gender identity: male What is your relationship status?: How often do you talk on the phone with friends or family?: once per week How often do you get together with friends or relatives?: decline to answer How often do you attend hinduism or taoist services?: decline to answer Do you belong to any clubs or organized social groups?: no Panel score (0-1 are the most socially isolated patients): 1 What type of physical activity do you participate in: walking Duration: 30-45 minutes/day Frequency: 1-2 times per week Ericka/Zoroastrianism: None Special ericka needs: No Seatbelt use: always Helmet use: No Drive intox or ride w/intox driver trainer: No Do you feel safe at home: Yes Do you feel safe in your relationship?: Yes Meds Allergies and Home Medications Allergies Allergy/AdvReac Type Severity Reaction Status Date / Time niacin Allergy Severe rash/flusin Verified 01/29/25 11:24 g simvastatin AdvReac Intermediate Myalgia Verified 01/29/25 11:24 detergent AdvReac Intermediate Skin Rash Uncoded 01/29/25 11:24 Home Medications ?Medication ?Instructions ?Recorded ?Confirmed ?Type Centrum Silver Tablet 1 tab PO DAILY 09/07/12 01/29/25 History ascorbic acid (vitamin C) 1,000 mg 1,000 mg PO DAILY 09/28/14 01/29/25 History tablet pqnijpnyqjk-jrzoarjje-qzy C-Mn 500 1 cap PO BID 01/18/19 01/29/25 History mg-400 mg capsule (Glucosamine 1) prasterone (DHEA) 50 mg tablet 50 mg PO DAILY 12/09/19 01/29/25 History (DHEA) aspirin 81 mg tablet,delayed 81 mg PO DAILY 05/13/22 01/29/25 History release (Adult Low Dose Aspirin) inhalational spacing device #1 ea 09/15/23 01/29/25 Rx (Aerochamber MV spacer) furosemide 20 mg tablet (Lasix) 20 mg PO QAM PRN edema #90 tabs 06/15/24 01/29/25 Rx triamcinolone acetonide 0.5 % 1 applic topical BID PRN psoriasis 08/12/24 01/29/25 Rx topical cream #45 grams apixaban 5 mg tablet (Eliquis) 5 mg PO BID #180 tabs 11/04/24 01/29/25 Rx metoprolol succinate 50 mg 50 mg PO DAILY #90 tabs 11/04/24 01/29/25 Rx tablet,extended release 24 hr tamsulosin 0.4 mg capsule 0.4 mg PO DAILY #90 caps 11/28/24 01/29/25 Rx budesonide 160 mcg-glycopyr 9 2 inh inhalation BID #10.7 grams 12/20/24 01/29/25 Rx mcg-formot 4.8 mcg/actuation HFA inhaler (Breztri Aerosphere) folic acid 1 mg tablet 1 mg PO DAILY #90 tabs 12/20/24 01/29/25 Rx albuterol sulfate 90 mcg/actuation 2 puff inhalation Q4H PRN 01/10/25 01/29/25 Rx aerosol inhaler shortness of breath or wheezing #8.5 grams Exam Narrative Exam Narrative: Chronically ill-appearing male with stated age no acute distress head is atraumatic eyes nonicteric noninjected oral mucosas slightly dry neck full range of motion cardiovascular regular rate and rhythm respirations even and unlabored breath sounds are clear bilaterally no rales or wheezing abdomen is round soft nontender bilateral lower extremities pitting edema +2 up to the waist. Neurologic he is awake alert oriented no focal deficits psychiatric appropriate mood and affect Results Labs 01/29/25 12:10 01/29/25 12:10 Labs: Laboratory Results - last 24 hr 01/29/25 12:10 WBC 7.12 RBC 3.27 L Hgb 10.3 L Hct 33.2 L MCV 102 H MCH 31.5 MCHC 31.0 L RDW 16.7 H Plt Count 161 MPV 9.1 Immature Gran % 0.3 Neutrophils % 78.9 Lymphocytes % 7.9 Monocytes % 9.8 Eosinophils % 2.5 Basophils % 0.6 Nucleated RBC % 0.0 Absolute Neutrophils 5.62 Absolute Lymphocytes 0.56 L Absolute Monocytes 0.70 Absolute Eosinophils 0.18 Absolute Basophils 0.04 PT 13.8 H INR 1.4 H VBG pH 7.42 H VBG pCO2 43 VBG pO2 34 VBG HCO3 28 VBG Total CO2 26 VBG O2 Saturation 58 VBG Base Excess 3 Sodium 142 Potassium 4.5 Chloride 105 Carbon Dioxide 30.1 Anion Gap 6.9 BUN 30 H Creatinine 2.2 H Est GFR (CKD-EPI 2020) 28.63 Glucose 123 H Calcium 8.9 Magnesium 2.0 Total Bilirubin 0.9 AST 26 ALT 19 Alkaline Phosphatase 63 Troponin I 36 NT-Pro-B Natriuret Pep 5502 H Total Protein 7.3 Albumin 3.6 Last Vital Signs Temp 36.7 C 01/29/25 11:17 Pulse 84 01/29/25 11:17 Resp 18 01/29/25 12:10 BP 131/90 01/29/25 11:17 Pulse Ox 93 01/29/25 11:17 PAWSS Have you Been Recently Intoxicated or Drunk Within the Last 30 days?: No Have you Ever Experienced Previous Episodes of Alcohol Withdrawal?: No Have you ever Experienced Withdrawal Seizures?: No Have you ever Experienced Delirium Tremens(DT)s?: No Have you ever undergone Alcohol Rehabilitation Treatment (i.e, inpt ot outpatient treatment programs)?: No Have you ever Experienced Blackouts?: No Have you ever Combined Alcohol with other Downers within the last 90 days?: No Have you ever Combined Alcohol with any other Substance of Abuse during the last 90 days?: No Positive Blood Alcohol level on Presentation? [PCS.BAL]: No Evidence of Increased Autonomic Activity (i.e. HR>120, tremor, sweating, agitation, nausea)?: No Result: 0 Time Spent Time spent with Patient: 55-74 minutes Time was spent: preparing to see the patient(eg.review tests), obtaining and/or reviewing separately otained hiistory, ordering medications,tests, procedures, indepentently interpreting results and counseling the patient
--- NOTE | 2025-01-29 13:47 | DI.VRAD_ITS ---
PROCEDURE INFORMATION: Exam: XR Chest Exam date and time: 01/29/2025 12:08 PM Age: 84 years old Clinical indication: Shortness of breath TECHNIQUE: Imaging protocol: Radiologic exam of the chest. Views: 1 view. COMPARISON: CT CHEST PE CTA 10/12/2024 3:34 PM FINDINGS: Lungs: There are bibasilar linear opacities nonspecific possibly atelectasis. There is no lobar consolidation. There is no overt CHF Pleural spaces: There is no large pleural effusion or pneumothorax Heart/Mediastinum: Heart is enlarged. Mitral valve replacement noted. Vasculature: Vascular calcification is seen at the aortic arch Bones/joints: Degenerative changes are seen in the spine, shoulders. There is no acute bony abnormality. IMPRESSION: 1. Cardiomegaly 2. Mild bibasilar opacity possibly atelectasis. No lobar consolidation. Dictated and Authenticated by: Jeni Barrientos MD. Orderin Ernie Cai MD
[2025-01-29 14:00] LABS: Troponin I 36 ng/L (<or=76)
[2025-01-29 16:02] LABS: Glucose Negative (Negative)
[2025-01-29 17:23] LABS: Troponin I 42 ng/L (<or=76)
[2025-01-29] MEDS: Normal Saline Flush 10 ML SYR IVP (20:12)
[2025-01-30] VITALS (9 sets, daily range): BP systolic 114–123; BP diastolic 77–84; PULSE 81–89; RESP 17–34; TEMP 36.4–36.9; O2SAT 83–95
[2025-01-30 06:28] LABS: Abs Immature Grans 0.04 10^3/uL (0.0-0.06); HCT 33.3 % (40.0-50.0); HGB 9.8 g/dL (13.5-17.5); Immature Grans % 0.6 %; MCH 31.3 pg (27.0-33.0); MCHC 29.4 % (32.0-36.0); MCV 106 fL (80-95); MPV 9.4 fL (8.0-11.0); Platelet Count 136 10^3/uL (130-400); RBC 3.13 10^6/uL (4.36-5.78); RDW 17.2 % (11.8-14.1); RDW-SD 66.6 fL; WBC 6.98 10^3/uL (4.4-10.8)
[2025-01-30 07:08] LABS: Anion Gap 9.1 mmol/L (3-11); BUN 28 mg/dL (7-18); CO2 25.9 mmol/L (21.0-32.0); Calcium 8.8 mg/dL (8.5-10.1); Chloride 105 mmol/L (98-107); Estimated GFR 39.02 (mL/min/1.73m2); Glucose 97 mg/dL (74-106); Potassium 4.0 mmol/L (3.5-5.1); Sodium 140 mmol/L (136-145)
[2025-01-30] MEDS: Metoprolol CR 50 MG TABCR PO (07:52)
[2025-01-30] MEDS: Multivitamin TAB 1 TAB PO (07:52)
[2025-01-30] MEDS: Tamsulosin 0.4 MG CAPCR PO (07:52)
[2025-01-30] MEDS: Aspirin E.C. 81 MG TABEC PO (07:52)
[2025-01-30] MEDS: Ascorbic Acid 500 MG TAB 1000 MG PO (07:52)
[2025-01-30] MEDS: Furosemide 20 MG TAB PO (07:52)
[2025-01-30] MEDS: Normal Saline Flush 10 ML SYR IVP ×2 (07:57→19:45)
--- NOTE | 2025-01-30 08:38 | PDOC.CMIN ---
Date of service: 01/30/25 Time of Service: 08:39 Care Management Initial Assmt Initial Assessment Reason for Hospitalization: Decompensated heart failure Functional Status/Living Situation Patient Presentation: Romeo was sitting in a recliner getting ready to eat lunch when CM met with him. Romeo was easy to engage in conversation and reports that he lives in [place] with his , Akanksha. Together, they had a blended family of 7, although he reports 2 have from drug use. 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 Romeo reports that he is satisfied with the care he is currently receiving. However, he shared that his feels he should be under the care of an MD and transferred to [facility] [place]. He states he is mentioning this out of repect for her judgement. CM will continue to follow. Town of Residence: [place] Resides with: Spouse (Akanksha) Significant Other/Family: Local ( and 5 children.) Employment Status: Retired Instrumental Activities of Daily Living (ADLs): Independent Medications Medication Management: No Issues/Barriers identified Physical Functioning/Mobility Assistive Device: Walker Advance Directives Advance Directives: Do you have an Advance Directive: Y 10/22/22, 16:53 AD On File at [facility]: Y 10/22/22, 16:53 Date Asked 01/29/25 01/29/25, 13:26 AD Date Reviewed 01/29/25 01/29/25, 15:11 COLST On File at [facility] No 10/12/24, 14:11 COLST Date Scanned Code Status Resuscitation Status DNR/DNI Portal Pt does not currently have a portal and education provided: Yes Insurance Coverage/Financial Issues Insurance: Medicare Part A & B - [id number] [employer] Medicare Supplement Ins - [id number] Care Team Visit Care Team Role Provider Type Kaela Wagoner NP MD [facility] STAFF PHYSICIAN Jocy Forbes NP Primary Care Provider NURSE PRACTITIONER InPatient Cresencio Bennett Other Providers OTHER Ayala Klein NP Emergency Provider NURSE PRACTITIONER Isac Celeste MD Admit Provider [facility] STAFF PHYSICIAN Attending Provider Discharge Anticipated Barriers to Discharge: None Identified Patient/Family Education Needs: Review discharge instructions, discuss Ask Me Three Transportation: Private vehicle Plan: PT recommends: Home with HHPT and better breather's program versus outpatient pulmonary rehab. Anticipate, Romeo will discharge home via private vehicle with family once medically ready for discharge. He will follow up with community providers and continue per his discharge plan of care. CM will follow. Social Determinants of Health Screening Will the Patient Participate in the Screening?: Unable to obtain PFSH All Active Problems (Updated 01/29/25 @ 13:35 by Leda Falcon NP) BPH (benign prostatic hyperplasia) (Chronic) COPD (chronic obstructive pulmonary disease) (Chronic 11/22/13) Essential hypertension (Chronic 09/08/13) Decompensated heart failure (Acute) BRITTANY (acute kidney injury) (Acute) CHF (congestive heart failure) (Chronic) Obstructive lung disease (Acute) Pleural effusion (Acute) Paroxysmal A-fib (Acute) Supraventricular tachycardia (Chronic) On deep vein thrombosis (DVT) prophylaxis (Acute) COPD exacerbation (Acute) Community acquired pneumonia (Acute) Bilateral edema of lower extremity (Acute) Urinary hesitancy (Acute) Possibly due to BPH Dupuytren contracture (Acute) bilateral palms Mitral insufficiency (Chronic) status post mitral valve ring 2021 EF 60-65% Sensorineural hearing loss (SNHL) of both ears (Acute) Venous insufficiency of left leg (Acute) Psoriasis (Acute) On methotrexate, CBC & CMP yearly Medical History Hypomagnesemia Thoracic aortic aneurysm 2021- Aortic root is moderately dilated.4.89 cm The ascending aorta isdilated.4.98 cm Aortic arch is normal in caliber. 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 Substance abuse Depression Son No problems noted. Daughter , 40+ Substance abuse Daughter No problems noted. Sister No problems noted. Sister No problems noted. Social History Smoking/Tobacco Use Status: Former Tobacco Use tobacco type: cigarettes, pipe and cigars Quit Date: 10/11/98 Tobacco: How many years used: 30 Second Hand Exposure: Yes Smoking risk assessment performed?: Yes Alcohol Intake: current Alcohol Intake frequency: 3 or more drinks per day Alcohol type: beer, wine and hard liquor Drug use: Never Substance use type: does not use Caregiver/Support person: No Household members: spouse Housing: house Communication Needs: None Do you need help understanding health information?: Never Pets and animals: Yes Pets and animals: cat(s) Sexually active: No Do you think of yourself as: straight/heterosexual Current gender identity: male What is your relationship status?: How often do you talk on the phone with friends or family?: once per week How often do you get together with friends or relatives?: decline to answer How often do you attend anabaptist or hinduism services?: decline to answer Do you belong to any clubs or organized social groups?: no Panel score (0-1 are the most socially isolated patients): 1 What type of physical activity do you participate in: walking Duration: 30-45 minutes/day Frequency: 1-2 times per week Ericka/Confucianism: None Special ericka needs: No Seatbelt use: always Helmet use: No Drive intox or ride w/intox armored truck driver: No Do you feel safe at home: Yes Do you feel safe in your relationship?: Yes
[2025-01-30] MEDS: Albuterol HFA 8 GM 60 PUFF INH IH (08:46)
[2025-01-30] MEDS: Apixaban 2.5 MG TAB PO ×2 (08:51→19:43)
--- NOTE | 2025-01-30 10:29 | IN_ITS ---
PT Notes Visit Reasons: decompensated heart failure,acute kidney injury Physical Therapy Inpatient Initial Evaluation Date: 01/30/2025 Referring Doctor: [] PT Orders: PT CONSULT: [] Precautions: Standard, oxygen to maintain saturation >88% ( Currnetly 1L/min at rest) Patient Profile/Admitting Diagnosis: 84-year-old male presents to the ER ON 01/29/2025 with chief complaint of increased shortness of breath which began last night, leg weeping and increased edema left greater than the right. He reports that he had a hard time sleeping last night (01/28/25) and woke up soaked from the edema in his lower extremity. 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 These were last drawn in October of this year, glucose 123 proBNP is elevated at 5502. Initial troponin is 36. Pt admitted to the Med Surg unit for Observation for management of CHF and BRITTANY. PMHX: BPH (benign prostatic hyperplasia) (Chronic) COPD (chronic obstructive pulmonary disease) (Chronic 11/22/13) Essential hypertension (Chronic 09/08/13) Decompensated heart failure (Acute) BRITTANY (acute kidney injury) (Acute) CHF (congestive heart failure) (Chronic) Obstructive lung disease (Acute) Pleural effusion (Acute) Paroxysmal A-fib (Acute) Supraventricular tachycardia (Chronic) On deep vein thrombosis (DVT) prophylaxis (Acute) COPD exacerbation (Acute) Community acquired pneumonia (Acute) Bilateral edema of lower extremity (Acute) Urinary hesitancy (Acute)Possibly due to BPH Dupuytren contracture (Acute) bilateral palms Mitral insufficiency (Chronic) status post mitral valve [id number] EF 60-65% Sensorineural hearing loss (SNHL) of both ears (Acute) Venous insufficiency of left leg (Acute) Psoriasis (Acute) On methotrexate, CBC & CMP yearly Medical History Hypomagnesemia Thoracic aortic aneurysm 2021- Aortic root is moderately dilated.4.89 cm The ascending aorta isdilated.4.98 cm Aortic arch is normal in caliber. 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 Patient has help for lawn service. He is independent otherwise Equipment Owned/DME: [facility] Subjective: Patient states he choked on his eggs this morning and the nurse is aware. Objective: [] General Observation: presented semireclined in bed Oxygen at 1L/min via NC Mental Status: A +OX4,cooperative , motivated, agreeable to participate Pain: denied Vitals: 1L min : rest 92%; 90% with activity and 100% cues ; without cues 84% on room air ROM: [] BUE: WFL BLE: WFL Strength: [] BUE: 5/5 BLE: hips: 3+/5, knees 4/5, ankle 4/5 Sensation: Intact Bed Mobility/Transfers: [] Supine to sit contact-guard assist cues for technique Sit to stand contact-guard assist with cues for hand placement Stand to sit contact-guard assist with cues for hand placement Bed to chair contact-guard assist with FWW cues for safe approach Gait: Ambulated 30 feet with FWW with contact-guard assist wide base of support external rotation bilateral hips, reduced step height reduce step length Balance: [] Static Sitting: Normal Dynamic Sitting:Good Static Standing: Good with BUE Dynamic Standing: Fair with UE support Special Tests: [] Mobility Limitations Standardized Measure [] [facility] AM-PAC 6 clicks Basic Mobility Inpatient Short Form: [] Raw Score: 20 CMS Score: 35.83% Informed Consent/Education: Patient instructed in purpose of PT consult. Patient education provided on pursed lip breathing at rest and during functional tasks patient would benefit from further training for carryover of good technique Assessment: Patient is an 84 yo male who presents with clinical signs and symptoms consistent with current/admitting diagnoses that have resulted to mobility limitations, gait instability, generalized weakness, and impairment of motor control as demonstrated by the following impairment level findings: 1. Decreased strength to BLE major muscle groups 2. Impaired standing balance 3. Impaired functional activity tolerance 4. Poor breath control/pacing techniques 5. O2 dependent currently at 1 L/min via nasal cannula Impairments are contributing to the following functional limitations: 1. Inability to safely ambulate without assistive device 2. Increase completion time for mobility ADL performance 3. Increased fall risk 4. Decline in functional transfer ability 5. Difficulty performing stairs Patient is assessed as a moderate complexity based on the following: History: 84-year-old male with impairment level findings, functional limitations, and past medical history as indicated above Examination: Demonstrable impairment in strength, balance, and mobility level with underlying impairments and functional limitations as documented above Presentation: Evolving Decision Making: Moderate Goals: 1. Independent bed mobility 2. Independent transfers eith LRD 3. Mod I amb with LRD >150 feet x 2 maintaining SaO2 >88% with use of energy conservation/pacing 4. supervision 5 steps with rails to safeley enter and exit home 5. independent with PLB and breath control during all functional mobility Plan of Care/Treatment Plan: 1-2x/day, 7 days/week x 1 week. Plan of care has been reviewed with the HIGH PRESSURE FIRER providing the service under Physical Therapy direction. Initiate Physical Therapy intervention for strengthening, bed mobility, transfers, gait, stairs, balance training, use of assistive device. DISCHARGE RECOMMENDATIONS: Home with HHPT and better breather's program versus outpatient pulmonary rehab TREATMENT CODE/TIME: [id number] Thank you for the opportunity to participate in the care of this patient. Ashely Delacruz, PT [facility]
--- NOTE | 2025-01-30 13:53 | W.PM.PROGNOT ---
Date of Service Date of service: 01/30/25 Time of Service: 13:53 Assessment and Plan Assessment and plan (1) Decompensated heart failure: Status: Acute Assessment and plan: Monitor intake and output closely Continue furosemide - 40 mg IV today and increase to 40 mg orally daily Daily weights Echo done - results pending Previous echo from July 2024 showed preserved ejection fraction at 60% with no wall motion abnormalities. Both atria moderately enlarged prior MVR with mild regurgitation aortic root and ascending aorta measure 4.7 and 4.8 cm Pulmonary consult: Dyspnea/CHF exacerbation: Likely hypervolemic; small R pleural effusion. Diuresis, monitor renal function. Bedside US post-diuresis,COPD: Stable; continue Breztri + PRN albuterol. A-fib: On apixaban. Renal: Acute on chronic; UA unremarkable, nephrolithiasis non-obstructive. Plan: No steroids/ABX. Follow up on echo. VBG reassuring pH 7.44, CO2 42 HCO3 29 (2) BRITTANY (acute kidney injury): Status: Acute Assessment and plan: In the setting of decompensated heart failure with history of BPH on tamsulosin Cr 1.7 up from baseline 1.2 Monitor for outlet obstruction Renal imaging -Bilateral nephrolithiasis. No hydronephrosis. Will avoid nephrotoxic drugs, renally dose medications as needed Continue diuresis (3) Paroxysmal A-fib: Status: Acute Assessment and plan: Rate controlled Fully anticoagulated on apixaban - decrease to 2.5 mg daily s/t renal fxn Continue Metroprolol succinate (4) COPD (chronic obstructive pulmonary disease): Status: Chronic Assessment and plan: Stable with no evidence of exacerbation will continue budesonide/formoterol inhaler (5) Essential hypertension: Status: Chronic Assessment and plan: Blood pressure is stable Continue routine monitoring while diuresing (6) BPH (benign prostatic hyperplasia): Status: Chronic Assessment and plan: Continue tamsulosin Monitoring for urinary retention in setting of BRITTANY, postvoid bladder scan Renal imaging Bilateral nephrolithiasis. No hydronephrosis. DVT prophylaxis: on apixaban discussed with Dr Celeste Subjective Subjective Patient reports: no new complaints, tolerating liquids well, tolerating a regular diet, flatus, diarrhea, shortness of breath and afebrile; denies blood in stool, nausea or vomiting Interval history since last seen: Pain Exam Narrative Exam Narrative: General: Alert, in no acute distress Head: Normocephalic, atraumatic ENT: No stridor; trachea midline Cardiovascular: Normal rate, irregular rhythm; no murmurs or gallops noted Respiratory: Clear to auscultation bilaterally; no wheezes, crackles, rhonchi; no prolonged expiration Gastrointestinal: Abdomen soft, non-tender, non-distended; no hepatosplenomegaly Skin: Warm, dry, intact; no rashes Extremities: +2 pitting edema; no cyanosis or digital clubbing Psychiatric: Normal affect, appropriate mood and behavior Objective Last Vital Signs Temp 36.5 C 01/30/25 13:30 Pulse 87 01/30/25 13:30 Resp 32 H 01/30/25 13:30 BP 114/81 01/30/25 13:30 Pulse Ox 89 L 01/30/25 13:30 Laboratory Results - last 24 hr 01/29/25 01/29/25 01/29/25 13:23 15:59 17:00 WBC RBC Hgb Hct MCV MCH MCHC RDW Plt Count MPV Immature Gran % Neutrophils % Lymphocytes % Monocytes % Eosinophils % Basophils % Nucleated RBC % Absolute Neutrophils Absolute Lymphocytes Absolute Monocytes Absolute Eosinophils Absolute Basophils Sodium Potassium Chloride Carbon Dioxide Anion Gap BUN Creatinine Est GFR (CKD-EPI 2020) Glucose Calcium Troponin I 36 42 Urine Color Yellow Urine Clarity Clear Urine pH 6.0 Ur Specific [place] 1.015 Urine Protein Negative Urine Ketones Negative Urine Blood Negative Urine Nitrite Negative Urine Bilirubin Negative Urine Urobilinogen 0.2 Ur Leukocyte Esterase Negative Urine Glucose Negative 01/30/25 05:53 WBC 6.98 RBC 3.13 L Hgb 9.8 L Hct 33.3 L MCV 106 H D MCH 31.3 MCHC 29.4 L RDW 17.2 H Plt Count 136 MPV 9.4 Immature Gran % 0.6 Neutrophils % 76.9 Lymphocytes % 8.5 Monocytes % 8.6 Eosinophils % 4.7 Basophils % 0.7 Nucleated RBC % 0.0 Absolute Neutrophils 5.37 Absolute Lymphocytes 0.59 L Absolute Monocytes 0.60 Absolute Eosinophils 0.33 Absolute Basophils 0.05 Sodium 140 Potassium 4.0 Chloride 105 Carbon Dioxide 25.9 Anion Gap 9.1 BUN 28 H Creatinine 1.7 H Est GFR (CKD-EPI 2020) 39.02 Glucose 97 Calcium 8.8 Troponin I Urine Color Urine Clarity Urine pH Ur Specific [place] Urine Protein Urine Ketones Urine Blood Urine Nitrite Urine Bilirubin Urine Urobilinogen Ur Leukocyte Esterase Urine Glucose PAWSS Have you Been Recently Intoxicated or Drunk Within the Last 30 days?: No Have you Ever Experienced Previous Episodes of Alcohol Withdrawal?: No Have you ever Experienced Withdrawal Seizures?: No Have you ever Experienced Delirium Tremens(DT)s?: No Have you ever undergone Alcohol Rehabilitation Treatment (i.e, inpt ot outpatient treatment programs)?: No Have you ever Experienced Blackouts?: No Have you ever Combined Alcohol with other Downers within the last 90 days?: No Have you ever Combined Alcohol with any other Substance of Abuse during the last 90 days?: No Positive Blood Alcohol level on Presentation? [PCS.BAL]: No Evidence of Increased Autonomic Activity (i.e. HR>120, tremor, sweating, agitation, nausea)?: No Result: 0 Time Spent with Patient Time Spent with Patient: 25-34 minutes Time was spent: preparing to see the patient(eg.review tests), ordering medications,tests, procedures, referring, communicating with other health hospice care transitions coordinator, indepentently interpreting results, counseling the patient and care coordination
[2025-01-30 14:19] LABS: BE (Venous) 5 mmol/L (-2-3); HCO3 (Venous) 29 mmol/L (23-28); O2 Sat (Venous) 46 %; TCO2 (Venous) 27 mmol/L (24-29); pCO2 (Venous) 42 mmHg (41-51); pO2 (Venous) 28 mmHg
--- NOTE | 2025-01-30 14:22 | PUCON_ITS ---
General Date Of Service Date of service: 01/30/25 Time of Service: 13:50 Reason for Consult: Dyspnea, pleural effusion Recommendations: Assessment: 1. Dyspnea - suspect mainly due to hypervolemia / CHF exacerbation. Do not believe he is in COPD exacerbation . Right pleural effusion is small - could be contributing to some degree, but unlikely the main cause 2. Right pleural effusion - likely cardiogenic. Small on CT imaging. No clinical evidence of active infectious process at this time 3. COPD - not in exacerbation 4. A-fib - on eliquis 5. Acute on chronic renal failure - UA unremarkable. Bilateral nephrolithiasis on CT imaging, no obstructive uropathy noted Recommendations - agree with diuresis. Will need to follow his renal function closely - will do a bedside US in the Am to re-assess his right pleural effusion after diuresis - do not see any clear indication for systemic steroids or antibiotics at this time. Continue breztri and PRN albuterol - follow up on echo report Discussed with Kaela Wagoner NP. History of Present Illness Narrative: Patient is an 84 yo with a history of COPD, Afib, and pleural effusions who was admitted on 01/29 for worsening dyspnea. He reports a several week history of worsening dyspnea and LE swelling. Has had a cough with clear sputum production. No fevers. No hemoptysis. Denied chest pain. CT abd on admission showed a small right pleural effusion. He is currently using breztri and PRN albuterol for COPD management. Leroy that breztri did improve his COPD management moreso than anoro. Has diuresed ~600 mL since admission. Dyspnea has mildly improved since. Currently on room air. Family history: denied family history of lung disease Smoking history: smoked 1 ppd x 45 years. Quit 1999 Exposure history: none ROS: 10 pt ROS negative except as in HPI PFSH All Active Problems (Updated 01/29/25 @ 13:35 by Leda Falcon, JANETTE) BPH (benign prostatic hyperplasia) (Chronic) COPD (chronic obstructive pulmonary disease) (Chronic 11/22/13) Essential hypertension (Chronic 09/08/13) Decompensated heart failure (Acute) BRITTANY (acute kidney injury) (Acute) CHF (congestive heart failure) (Chronic) Obstructive lung disease (Acute) Pleural effusion (Acute) Paroxysmal A-fib (Acute) Supraventricular tachycardia (Chronic) On deep vein thrombosis (DVT) prophylaxis (Acute) COPD exacerbation (Acute) Community acquired pneumonia (Acute) Bilateral edema of lower extremity (Acute) Urinary hesitancy (Acute) Possibly due to BPH Dupuytren contracture (Acute) bilateral palms Mitral insufficiency (Chronic) status post mitral valve ring 2021 EF 60-65% Sensorineural hearing loss (SNHL) of both ears (Acute) Venous insufficiency of left leg (Acute) Psoriasis (Acute) On methotrexate, CBC & CMP yearly Medical History Hypomagnesemia Thoracic aortic aneurysm 2021- Aortic root is moderately dilated.4.89 cm The ascending aorta isdilated.4.98 cm Aortic arch is normal in caliber. 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 Substance abuse Depression Son No problems noted. Daughter , 40+ Substance abuse Daughter No problems noted. Sister No problems noted. Sister No problems noted. Social History Smoking/Tobacco Use Status: Former Tobacco Use tobacco type: cigarettes, pipe and cigars Quit Date: 10/11/98 Tobacco: How many years used: 30 Second Hand Exposure: Yes Smoking risk assessment performed?: Yes Alcohol Intake: current Alcohol Intake frequency: 3 or more drinks per day Alcohol type: beer, wine and hard liquor Drug use: Never Substance use type: does not use Caregiver/Support person: No Household members: spouse Housing: house Communication Needs: None Do you need help understanding health information?: Never Pets and animals: Yes Pets and animals: cat(s) Sexually active: No Do you think of yourself as: straight/heterosexual Current gender identity: male What is your relationship status?: How often do you talk on the phone with friends or family?: once per week How often do you get together with friends or relatives?: decline to answer How often do you attend scientologist or advent services?: decline to answer Do you belong to any clubs or organized social groups?: no Panel score (0-1 are the most socially isolated patients): 1 What type of physical activity do you participate in: walking Duration: 30-45 minutes/day Frequency: 1-2 times per week Ericka/Christian: None Special ericka needs: No Seatbelt use: always Helmet use: No Drive intox or ride w/intox charter bus driver: No Do you feel safe at home: Yes Do you feel safe in your relationship?: Yes Visit Medication and Allergies Active Medications Generic Name Dose Route Start Last Admin Trade Name Freq PRN Reason Stop Dose Admin Acetaminophen 650 mg 01/29/25 15:29 Acetaminophen 325 Mg Tab PO Q4H PRN PRN Albuterol Sulfate 2 puff 01/29/25 15:52 01/30/25 08:46 Albuterol Hfa 8 Gm 60 Puff Inh IH 2 puffs Q4H PRN PRN Administration shortness of breath or wheezing Apixaban 2.5 mg 01/30/25 08:30 01/30/25 08:51 Apixaban 2.5 Mg Tab PO 2.5 mg BID DHARMESH Administration Ascorbic Acid 1,000 mg 01/30/25 08:30 01/30/25 07:52 Ascorbic Acid 500 Mg Tab PO 1,000 mg DAILY DHARMESH Administration Aspirin 81 mg 01/30/25 08:30 01/30/25 07:52 Aspirin E.C. 81 Mg Tabec PO 81 mg DAILY DHARMESH Administration Furosemide 20 mg 01/30/25 08:30 01/30/25 07:52 Furosemide 20 Mg Tab PO 20 mg QAM DHARMESH Administration IV Miscellaneous Supplies 1 each 01/29/25 11:30 Iv Access-Emergency Dept IV DIRECTED DHARMESH Metoprolol Succinate 50 mg 01/30/25 08:30 01/30/25 07:52 Metoprolol Cr 50 Mg Tabcr PO 50 mg DAILY DHARMESH Administration Multivitamins 1 tab 01/30/25 08:30 01/30/25 07:52 Multivitamin Tab PO 1 tab DAILY DHARMESH Administration Pt's Own Budesonide- 2 each 01/30/25 08:30 01/30/25 08:47 Glycopyr-Formoterol IH 2 each [Breztri] Inhaler BID DHARMESH Administration Polyethylene Glycol 17 gm 01/29/25 15:29 Polyethylene Glycol 3350 17 Gm Packet PO DAILY PRN PRN Constipation Sodium Chloride 0 ml 01/29/25 11:26 Normal Saline Flush 10 Ml Syr IVP PRN PRN Sodium Chloride 0 ml 01/29/25 20:00 01/30/25 07:57 Normal Saline Flush 10 Ml Syr IVP 10 ml BID DHARMESH Administration Sodium Chloride 0 ml 01/29/25 11:26 Normal Saline 10 Ml Vial IJ DIRECTED PRN Tamsulosin HCl 0.4 mg 01/30/25 08:30 01/30/25 07:52 Tamsulosin 0.4 Mg Capcr PO 0.4 mg DAILY DHARMESH Administration Allergies niacin Allergy (Severe, Verified 01/29/25 11:24) rash/flusing simvastatin Adverse Reaction (Intermediate, Verified 01/29/25 11:24) Myalgia detergent Adverse Reaction (Intermediate, Uncoded 01/29/25 11:24) Skin Rash Exam Narrative Exam Narrative: General: alert, no acute distress Head: normocephalic ENT: no stridor, trachea midline CV: normal rate, irregular rhythm Respiratory: no wheezing, no crackles, no rhonchi, no prolonged expiration GI: abd soft, non-tender, non-distended Skin: no rashes Extremities: +2 edema, no digital clubbing Psych: normal affect Results Last Vital Signs Temp 36.5 C 01/30/25 13:30 Pulse 87 01/30/25 13:30 Resp 32 H 01/30/25 13:30 BP 114/81 01/30/25 13:30 Pulse Ox 89 L 01/30/25 13:30 Labs 01/30/25 05:53 01/30/25 05:53 Labs: Laboratory Results - last 24 hr 01/29/25 01/29/25 01/30/25 15:59 17:00 05:53 WBC 6.98 RBC 3.13 L Hgb 9.8 L Hct 33.3 L MCV 106 H D MCH 31.3 MCHC 29.4 L RDW 17.2 H Plt Count 136 MPV 9.4 Immature Gran % 0.6 Neutrophils % 76.9 Lymphocytes % 8.5 Monocytes % 8.6 Eosinophils % 4.7 Basophils % 0.7 Nucleated RBC % 0.0 Absolute Neutrophils 5.37 Absolute Lymphocytes 0.59 L Absolute Monocytes 0.60 Absolute Eosinophils 0.33 Absolute Basophils 0.05 Sodium 140 Potassium 4.0 Chloride 105 Carbon Dioxide 25.9 Anion Gap 9.1 BUN 28 H Creatinine 1.7 H Est GFR (CKD-EPI 2020) 39.02 Glucose 97 Calcium 8.8 Troponin I 42 Urine Color Yellow Urine Clarity Clear Urine pH 6.0 Ur Specific [place] 1.015 Urine Protein Negative Urine Ketones Negative Urine Blood Negative Urine Nitrite Negative Urine Bilirubin Negative Urine Urobilinogen 0.2 Ur Leukocyte Esterase Negative Urine Glucose Negative Imaging Chest x-ray: report reviewed and image reviewed Abdomen CT scan report/results: report reviewed and image reviewed
--- NOTE | 2025-01-30 14:28 | PT.INTREAT ---
PT Notes Visit Reasons: decompensated heart failure,acute kidney injury Date: 01/30/2025 PRECAUTIONS: Standard, oxygen to maintain saturation >88% ( Currnetly 1L/min at rest) SUBJECTIVE: Pt in recliner when approached for therapy this afternoon. agreed to participating with therapy session. OBJECTIVE: ?pt trial on room air with pt SA02 staying at low 90's at rest ? PAIN: VITALS: monitored by nursing Therapeutic Activities 57524: Direct one-on-one instruction in dynamic activities to improve functional performance. ?? BED MOBILITY/TRANSFERS? Rolling L/R: independent Supine-sit: ?independent? Sit-supine: ? independent? Sit-stand: ? independent? Stand-sit: ?independent? Bed-Chair:? ?independent ? Chair-bed: independent Provided skilled cues and instruction on performance and technique throughout. Gait Training 06275: Direct one-on-one instruction and skilled instruction in: Employing an assistive device Movement sequencing Turning and movement with proper form Provided verbal cues for equipment management and technique Provided instruction in gait pattern Patient education regarding pacing and breathing techniques to maximize activity tolerance? GAIT? Assistive Device: ??FWW ? Weight bearing: FWB Assist: ?SBA? Distance:?? ?100' x2 ?seated rest break in between distance ? Deviation: ? Slow maddie, low step height, short step length? STAIRS:? 6 steps x4 up/down, step over step bilateral handrail ? ASSESSMENT:?Pt tolerated activity well, pt Sa02 walking from room to PT gym stayed at low 90's%, Sao2 going up and down stairs went down to 88% which was able to go back up without 02 support with pt doing purse lip and deep breathing. PLAN: Continue with balance training, global strengthening and general conditioning for improved safety, mobility and activity tolerance until pt is ready for DC. TREATMENT CODE/TIME: 76862k3, 52632m4 30mins ( 1:20-1:50pm)
[2025-01-30] MEDS: Furosemide 40 MG/4 ML VIAL IVP (15:45)
[2025-01-30] MEDS: Acetaminophen 325 MG TAB 650 MG PO (18:25)
[2025-01-30] MEDS: Melatonin 3 MG TAB 9 MG PO (19:43)
[2025-01-31] VITALS (12 sets, daily range): BP systolic 104–125; BP diastolic 70–90; PULSE 56–95; RESP 15–22; TEMP 36.2–36.9; O2SAT 85–95
--- NOTE | 2025-01-31 07:53 | PGE_ITS ---
Date of Service Date of service: 01/31/25 Time of Service: 07:40 Assessment and Plan Assessment and plan (1) COPD (chronic obstructive pulmonary disease): Status: Chronic (2) BRITTANY (acute kidney injury): Status: Acute (3) Pleural effusion: Status: Acute (4) Paroxysmal A-fib: Status: Acute (5) Heart failure with preserved ejection fraction: Status: Acute (6) Acute hypoxic respiratory failure: Status: Acute Assessment and plan: Assessment: 1. Dyspnea - Largely improved. mainly due to hypervolemia / CHF exacerbation. Not in a COPD exacerbation. 2. B/L pleural effusion - POCUS exam completed reveals small in size R>L - likely cardiogenic. No clinical evidence of active infectious process at this time 3. Acute Hypoxic Respiratory Failure - in the setting of hypervolemia, comfortable 93% on 1.5L 4. COPD - not in exacerbation 5. A-fib - on eliquis 6. Acute on chronic renal failure - UA unremarkable. Bilateral nephrolithiasis on CT imaging, no obstructive uropathy noted Recommendations - agree with continued diuresis today, provided Cr has not significantly increased. Will wait to see labs this AM - his pleural effusions are small and likley cardiogenic. Can monitor with diuresis. I suspect they will continue to improve with fluid removal - wean O2 as tolerated to keep SpO2 >88% - continue to work with PT - Continue maintenance therapy for COPD - breztri and PRN albuterol Subjective Subjective Interval history since last seen: Patient slept well, breathing better than yesterday. Has a cough with clear mucous production. Worked with PT yesterday. Diuresed 1.6 L over the past day. TTE 01/29/25 with moderate TR. EF normal Exam Const General: cooperative, comfortable and no acute distress Resp Effort & Inspection: normal respiratory effort and able to speak in complete sentences Auscultation: clear to auscultation bilaterally, no rales, no rhonchi and no wheezes Cardio Rate: regular rate Heart Sounds: S1 normal, S2 normal, no gallops, no murmurs and no rubs Extrem Other: improved edema in the lower extremities Objective Last Vital Signs Temp 98.1 F 01/31/25 07:09 Pulse 88 01/31/25 07:09 Resp 20 01/31/25 07:09 BP 110/90 01/31/25 07:09 Pulse Ox 93 09/23/25 07:09 Laboratory Results - last 24 hr 01/30/25 14:10 VBG pH 7.44 H VBG pCO2 42 VBG pO2 28 VBG HCO3 29 H VBG Total CO2 27 VBG O2 Saturation 46 VBG Base Excess [address] abd imaging and CXR reviewed PAWSS Have you Been Recently Intoxicated or Drunk Within the Last 30 days?: No Have you Ever Experienced Previous Episodes of Alcohol Withdrawal?: No Have you ever Experienced Withdrawal Seizures?: No Have you ever Experienced Delirium Tremens(DT)s?: No Have you ever undergone Alcohol Rehabilitation Treatment (i.e, inpt ot outpatient treatment programs)?: No Have you ever Experienced Blackouts?: No Have you ever Combined Alcohol with other Downers within the last 90 days?: No Have you ever Combined Alcohol with any other Substance of Abuse during the last 90 days?: No Positive Blood Alcohol level on Presentation? [PCS.BAL]: No Evidence of Increased Autonomic Activity (i.e. HR>120, tremor, sweating, agitation, nausea)?: No Result: 0 POCUS Pulmonology Limited thoracic lung Exam DATE OF EXAM: 01/31/25 TIME OF EXAM: 08:45 PROVIDER THAT PERFORMED THE STUDY: Rusty Burger IS THIS A REPEAT STUDY: No REASON FOR EXAM: Shortness ofBreath and Pleural Effusion Visualized structures: right posterior and left posterior PERTINENT FINDINGS/IMPRESSION: Present Left pleural effusion and Right pleural effusion DIFFERNTIAL DIAGNOSES: B/L pleural effusions R>L Exam complete Time Spent with Patient Time Spent with Patient: 35-49 minutes Time was spent: preparing to see the patient(eg.review tests), obtaining and/or reviewing separately otained hiistory, ordering medications,tests, procedures, referring, communicating with other health healthcare economics consultant, indepentently interpreting results and counseling the patient
--- NOTE | 2025-01-31 09:04 | PDOC.CMPRO ---
Date of service: 01/31/25 Time of Service: 09:04 Care Management Progress Note Progress Note Text Progress Note Text: Romeo was awake and sitting in a recliner when CM met with him. He is being closely monitored and treated for Acute hypoxic respiratory failure, BRITTANY and B/L pleural effusion likely cardiogenic, per provider. He continues to requires supplemental O2, but reports that he feels better than yesterday. He is working with PT, the recommend home with New [facility] PT, also recommend better breathers program. CM notified [facility] of anticipated discharge tomorrow. Discharge Potential Discharge Needs: PCP F/U Appt Anticipated Barriers to Discharge: None Identified Patient/Family Education Needs: Review discharge instructions, discuss Ask Me Three Transportation: Private vehicle Plan: PT recommends: Home with HHPT and better breather's program versus outpatient pulmonary rehab. Anticipate, Romeo will discharge home via private vehicle with family once medically ready for discharge. He will follow up with community providers and continue per his discharge plan of care. CM will follow. Social Determinants of Health Screening Will the Patient Participate in the Screening?: Unable to obtain
--- NOTE | 2025-01-31 09:07 | PGE_ITS ---
Date of Service Date of service: 01/31/25 Time of Service: 09:07 Assessment and Plan Assessment and plan (1) COPD (chronic obstructive pulmonary disease): Status: Chronic Assessment and plan: Stable with no evidence of exacerbation Continue Breztri + PRN albuterol (2) BRITTANY (acute kidney injury): Status: Acute Assessment and plan: In the setting of decompensated heart failure with history of BPH on tamsulosin Cr 1.5 - decreased from 01/30 1.7 Monitor for outlet obstruction Renal imaging -Bilateral nephrolithiasis. No hydronephrosis. Will avoid nephrotoxic drugs, renally dose medications as needed Continue diuresis - discussed with pulmonology (3) Pleural effusion: Status: Acute Assessment and plan: Seen by pulmonology again today; dyspnea largely improved. Dyspnea improved, likely due to CHF exacerbation; not a COPD flare. Small bilateral pleural effusions (R>L), likely cardiogenic; no signs of infect ion. Acute hypoxic respiratory failure, improved; stable on 1.5 L O2 (SpO2 93%). Continue diuresis; monitor pleural effusions with diuresis; wean O2 to maintain SpO2 >88%; continue PT; Should be ok to dc tomorrow if continues to improve. (4) Paroxysmal A-fib: Status: Acute Assessment and plan: Rate controlled Fully anticoagulated on apixaban - decrease to 2.5 mg daily s/t renal fxn Continue Metroprolol succinate (5) Heart failure with preserved ejection fraction: Status: Acute (6) Acute hypoxic respiratory failure: Status: Acute Assessment and plan: Assessment: 1. Dyspnea - Largely improved. mainly due to hypervolemia / CHF exacerbation. Not in a COPD exacerbation. 2. B/L pleural effusion - POCUS exam completed reveals small in size R>L - likely cardiogenic. No clinical evidence of active infectious process at this time 3. Acute Hypoxic Respiratory Failure - in the setting of hypervolemia, comfortable 93% on 1.5L 4. COPD - not in exacerbation 5. A-fib - on eliquis 6. Acute on chronic renal failure - UA unremarkable. Bilateral nephrolithiasis on CT imaging, no obstructive uropathy noted Recommendations - agree with continued diuresis today, provided Cr has not significantly increased. Will wait to see labs this AM - his pleural effusions are small and likley cardiogenic. Can monitor with diuresis. I suspect they will continue to improve with fluid removal - wean O2 as tolerated to keep SpO2 >88% - continue to work with PT - Continue maintenance therapy for COPD - breztri and PRN albuterol (7) Decompensated heart failure: Status: Acute Assessment and plan: Monitor intake and output closely. Continue furosemide 40 mg IV today, then transition to 40 mg PO daily. Daily weights. Echocardiogram completed?LV normal size. EF 55-60%; no segmental wall motion abdnormalities. Prior echocardiogram (July 2024) showed preserved EF (60%), no wall motion abnormalities, moderate biatrial enlargement, history of MVR with mild regurgitation, and aortic root/ascending aorta measuring 4.7?4.8 cm (8) Essential hypertension: Status: Chronic Assessment and plan: Blood pressure is stable Continue routine monitoring while diuresing (9) BPH (benign prostatic hyperplasia): Status: Chronic Assessment and plan: Continue tamsulosin Monitoring for urinary retention in setting of BRITTANY, postvoid bladder scan Renal imaging Bilateral nephrolithiasis. No hydronephrosis. DVT prophylaxis: on apixaban discussed with Dr Celeste Subjective Subjective Patient reports: no new complaints, feels better, tolerating liquids well, tolerating a regular diet, shortness of breath and afebrile; denies flatus, diarrhea, nausea or vomiting Interval history since last seen: Continues to complain of some shortness of breath with exertion Exam Narrative Exam Narrative: General: Alert, in no acute distress Head: Normocephalic, atraumatic ENT: No stridor; trachea midline Cardiovascular: Normal rate, irregular rhythm; no murmurs or gallops noted Respiratory: Clear to auscultation bilaterally; no wheezes, crackles, rhonchi; no prolonged expiration Gastrointestinal: Abdomen soft, non-tender, non-distended; no hepatosplenomegaly Skin: Warm, dry, intact; no rashes Extremities: +2 pitting edema; no cyanosis or digital clubbing Psychiatric: Normal affect, appropriate mood and behavior Objective Last Vital Signs Temp 36.7 C 01/31/25 07:09 Pulse 88 01/31/25 07:09 Resp 20 01/31/25 07:09 BP 110/90 01/31/25 07:09 Pulse Ox 93 01/31/25 07:09 Laboratory Results - last 24 hr 01/30/25 01/31/25 14:10 08:47 WBC Cancelled RBC Cancelled Hgb Cancelled Hct Cancelled MCV Cancelled MCH Cancelled MCHC Cancelled RDW Cancelled Plt Count Cancelled MPV Cancelled Immature Gran % Cancelled Neutrophils % Cancelled Band Neutrophils % Cancelled Lymphocytes % Cancelled Atypical Lymphs % Cancelled Monocytes % Cancelled Eosinophils % Cancelled Basophils % Cancelled Metamyelocytes % Cancelled Myelocytes % Cancelled Promyelocytes % Cancelled Other Cells % Cancelled Nucleated RBC % Cancelled Absolute Neutrophils Cancelled Absolute Lymphocytes Cancelled Absolute Monocytes Cancelled Absolute Eosinophils Cancelled Absolute Basophils Cancelled RBC Morphology Cancelled Polychromasia Cancelled Hypochromasia Cancelled Poikilocytosis Cancelled Basophilic Stippling Cancelled Anisocytosis Cancelled Microcytosis Cancelled Macrocytosis Cancelled Spherocytes Cancelled Tear Drop Cells Cancelled Ovalocytes Cancelled Stomatocytes Cancelled [place] Bodies Cancelled Wendie Cells/Echinocytes Cancelled Acanthocytes (Spur) Cancelled Schistocytes Cancelled VBG pH 7.44 H VBG pCO2 42 VBG pO2 28 VBG HCO3 29 H VBG Total CO2 27 VBG O2 Saturation 46 VBG Base Excess 5 H Sodium Cancelled Potassium Cancelled Chloride Cancelled Carbon Dioxide Cancelled Anion Gap Cancelled BUN Cancelled Creatinine Cancelled Est GFR (CKD-EPI 2020) Cancelled Glucose Cancelled Calcium Cancelled Magnesium Cancelled Vitamin B12 Cancelled PAWSS Have you Been Recently Intoxicated or Drunk Within the Last 30 days?: No Have you Ever Experienced Previous Episodes of Alcohol Withdrawal?: No Have you ever Experienced Withdrawal Seizures?: No Have you ever Experienced Delirium Tremens(DT)s?: No Have you ever undergone Alcohol Rehabilitation Treatment (i.e, inpt ot outpatient treatment programs)?: No Have you ever Experienced Blackouts?: No Have you ever Combined Alcohol with other Downers within the last 90 days?: No Have you ever Combined Alcohol with any other Substance of Abuse during the last 90 days?: No Positive Blood Alcohol level on Presentation? [PCS.BAL]: No Evidence of Increased Autonomic Activity (i.e. HR>120, tremor, sweating, agitation, nausea)?: No Result: 0 Time Spent with Patient Time Spent with Patient: 25-34 minutes Time was spent: preparing to see the patient(eg.review tests), ordering medications,tests, procedures, referring, communicating with other health manager wound care, indepentently interpreting results, counseling the patient and care coordination
[2025-01-31] MEDS: Ascorbic Acid 500 MG TAB 1000 MG PO (09:10)
[2025-01-31] MEDS: Furosemide 40 MG TAB PO (09:10)
[2025-01-31] MEDS: Metoprolol CR 50 MG TABCR PO (09:11)
[2025-01-31] MEDS: Tamsulosin 0.4 MG CAPCR PO (09:11)
[2025-01-31] MEDS: Normal Saline Flush 10 ML SYR IVP ×3 (09:11→19:47)
[2025-01-31] MEDS: Aspirin E.C. 81 MG TABEC PO (09:11)
[2025-01-31] MEDS: Multivitamin TAB 1 TAB PO (09:11)
[2025-01-31] MEDS: Apixaban 2.5 MG TAB PO ×2 (09:11→19:47)
[2025-01-31 09:35] LABS: Abs Immature Grans 0.03 10^3/uL (0.0-0.06); HCT 31.4 % (40.0-50.0); HGB 9.8 g/dL (13.5-17.5); Immature Grans % 0.4 %; MCH 31.4 pg (27.0-33.0); MCHC 31.2 % (32.0-36.0); MCV 101 fL (80-95); MPV 9.8 fL (8.0-11.0); Platelet Count 153 10^3/uL (130-400); RBC 3.12 10^6/uL (4.36-5.78); RDW 16.9 % (11.8-14.1); RDW-SD 61.1 fL; WBC 8.26 10^3/uL (4.4-10.8)
[2025-01-31 09:56] LABS: Lab Add On Test DONE
[2025-01-31 09:57] LABS: Lab Add On Test DONE
[2025-01-31 10:43] LABS: Anion Gap 13.3 mmol/L (3-11); BUN 22 mg/dL (7-18); CO2 25.7 mmol/L (21.0-32.0); Calcium 8.7 mg/dL (8.5-10.1); Chloride 102 mmol/L (98-107); Estimated GFR 45.34 (mL/min/1.73m2); Glucose 174 mg/dL (74-106); Magnesium 1.7 mg/dL (1.8-2.4); Potassium 3.8 mmol/L (3.5-5.1); Sodium 141 mmol/L (136-145)
[2025-01-31] MEDS: Furosemide 40 MG/4 ML VIAL IVP (11:37)
--- NOTE | 2025-01-31 13:55 | PT.INTREAT ---
PT Notes Visit Reasons: decompensated heart failure,acute kidney injury Inpatient Physical Therapy Treatment Note [facility] Date: 01/31/25 PRECAUTIONS:Standard SUBJECTIVE: Pt reports that yesterday and today he had head ache. OBJECTIVE: VITALS: ? Post-Treatment: 114/73 Therapeutic Activities ([id number][]): Direct one-on-one instruction in dynamic activities to improve functional performance. ? BED MOBILITY/TRANSFERS? Sit-stand: SBA ? Stand-sit: SBA ? Provided skilled cues and instruction on performance and technique throughout. ? Therapeutic Exercises ([id number][]): Direct one-on-one instruction in therapeutic exercises to develop strength, endurance, range of motion and flexibility. ? Exercises ? Too tired Ambulation ? Assistive Device: FWW? Weight bearing: Full Assist: SBA ? Distance:? Approx 165 ft ?had to take a seated break due to feeling slightly dizzy and had a head ache. I took his bp which is above and WNL and oxygen in the low 90's with 2L. ? ASSESSMENT:? Pt did not want to complete any ther ex after his walk due to the headache. PLAN: Cont as per PT POC. TREATMENT CODE/TIME: 1:25- 1:55 (30) TAx2 DISCHARGE RECOMMENDATION: []
--- NOTE | 2025-01-31 14:22 | PT.INTREAT ---
Date of service: 01/31/25 Time of Service: 11:21 PT Notes Visit Reasons: decompensated heart failure,acute kidney injury Date: 01/31/2025 PRECAUTIONS: Standard, oxygen to maintain saturation >88% ( Currently 1.5L/min at rest) SUBJECTIVE: Pt stating he feels a little better today but still feels short of breath. OBJECTIVE: Pt presented semireclined in bed with his step dtr present. His oxygen was not on. Sats 85% on RA Oxygen applied sats increased to 92% with cues for PLB? PAIN: denies VITALS: monitored by nursing Therapeutic Activities 88557: Direct one-on-one instruction in dynamic activities to improve functional performance. ?? BED MOBILITY/TRANSFERS? Rolling L/R: independent Supine-sit: ?independent? Sit-supine: ? independent? Sit-stand: ? independent? Stand-sit: ?independent? Bed-Chair:?supervision with cues for FWW management and hand placement? Chair-bed: Supervision with FWW cues for safe approach Provided skilled cues and instruction on performance and technique throughout. Education for breath control and pacing exhalation with exertion during transitions. Pt needs continuous cues for breath control. Gait Training 89651: Direct one-on-one instruction and skilled instruction in: Employing an assistive device Movement sequencing Turning and movement with proper form Provided verbal cues for equipment management and technique Provided instruction in gait pattern Patient education regarding pacing and breathing techniques to maximize activity tolerance? GAIT? Assistive Device: ??FWW ? Weight bearing: FWB Assist: ?SBA? Distance:?? ?100' x2 ?seated rest break in between distance ? Deviation: ? Slow maddie, low step height, short step length? STAIRS:? 6 steps x4 up/down, step over step bilateral handrail SBA cues for exhaling as steps up. ? ASSESSMENT:?Pt tolerated activity well, pt Sa02 walking from room to PT gym stayed at low 90's% on 2L/min with stand rest and cues to breath in through nose and slowly exhale out through pursed lips., Sao2 going up and down stairs went down to 88% on 2L/min which was able to return to low 90s with pt doing purse lip breathing. Patient requires continuous cues for pursed lip breathing technique with emphasis on slowly inhaling through his nose and then slowly exhaling through pursed lips patient tendency to hold his breath between inhaling and exhaling and then pushing the air out quickly through open mouth. PLAN: Continue with balance training, global strengthening and general conditioning for improved safety, mobility and activity tolerance until pt is ready for DC. TREATMENT CODE/TIME: 02676, [id number] 43mins ( [id number])
[2025-01-31] MEDS: Acetaminophen 325 MG TAB 650 MG PO (14:44)
[2025-01-31 16:04] LABS: Vitamin B12 494 pg/mL (193-986)
[2025-01-31 19:28] LABS: Folate > 20.0 ng/mL (8.6-20.0)
[2025-01-31] MEDS: Melatonin 3 MG TAB 9 MG PO (19:47)
[2025-02-01 02:40] VITALS: BP 100/73; PULSE 94; RESP 22; TEMP 36.8; O2SAT 93
[2025-02-01] MEDS: Acetaminophen 325 MG TAB 650 MG PO (03:17)
[2025-02-01] MEDS: Albuterol HFA 8 GM 60 PUFF INH IH (05:28)
[2025-02-01 07:12] LABS: Abs Immature Grans 0.03 10^3/uL (0.0-0.06); HCT 30.3 % (40.0-50.0); HGB 9.4 g/dL (13.5-17.5); Immature Grans % 0.4 %; MCH 31.0 pg (27.0-33.0); MCHC 31.0 % (32.0-36.0); MCV 100 fL (80-95); MPV 10.2 fL (8.0-11.0); Platelet Count 164 10^3/uL (130-400); RBC 3.03 10^6/uL (4.36-5.78); RDW 16.7 % (11.8-14.1); RDW-SD 61.1 fL; WBC 7.13 10^3/uL (4.4-10.8)
[2025-02-01 07:44] VITALS: O2SAT 88
[2025-02-01 07:45] LABS: Anion Gap 9.7 mmol/L (3-11); BUN 27 mg/dL (7-18); CO2 29.3 mmol/L (21.0-32.0); Calcium 8.8 mg/dL (8.5-10.1); Chloride 100 mmol/L (98-107); Estimated GFR 49.25 (mL/min/1.73m2); Glucose 93 mg/dL (74-106); Magnesium 1.6 mg/dL (1.8-2.4); Potassium 3.6 mmol/L (3.5-5.1); Sodium 139 mmol/L (136-145)
[2025-02-01 07:49] VITALS: BP 107/76; PULSE 89; RESP 20; TEMP 36.1; O2SAT 95
[2025-02-01] MEDS: Metoprolol CR 50 MG TABCR PO (09:22)
[2025-02-01] MEDS: Tamsulosin 0.4 MG CAPCR PO (09:22)
[2025-02-01] MEDS: Multivitamin TAB 1 TAB PO (09:22)
[2025-02-01] MEDS: Ascorbic Acid 500 MG TAB 1000 MG PO (09:22)
[2025-02-01] MEDS: Aspirin E.C. 81 MG TABEC PO (09:22)
[2025-02-01] MEDS: Furosemide 40 MG TAB PO (09:22)
[2025-02-01] MEDS: Polyethylene Glycol 3350 17 GM PACKET PO (09:38)
[2025-02-01] MEDS: MAGNESIUM SULFATE 1 GM/100 ML BAG IV_INF (09:38)
[2025-02-01 10:15] VITALS: PULSE 88; PULSE 94; PULSE 95; RESP 20; RESP 24; RESP 26; O2SAT 89; O2SAT 92; O2SAT 94
[2025-02-01 10:30] VITALS: O2SAT 92
--- NOTE | 2025-02-01 10:38 | PT.INTREAT ---
PT Notes Visit Reasons: decompensated heart failure,acute kidney injury Date: 02/01/2025 PRECAUTIONS: Standard, oxygen to maintain saturation >88% ( Currently RA at rest) SUBJECTIVE: Pt stating he feels a little better today but still feels short of breath. OBJECTIVE: Pt presented reclined in chair respiratory therapist present to monitor O2 sats during functional tasks on room air? PAIN: denies VITALS: monitored by RT, patient able to sustain saturations greater than 90% throughout session intermittent cues for pursed lip breathing Therapeutic Activities 35065: Direct one-on-one instruction in dynamic activities to improve functional performance. ?? BED MOBILITY/TRANSFERS? Sit-stand: ? independent? Stand-sit: ?independent? Bed-Chair:?supervision with cues for FWW management and hand placement? Chair-bed: Supervision with FWW cues for safe approach Provided skilled cues and instruction on performance and technique throughout. Education for breath control and pacing exhalation with exertion during transitions. Pt needs continuous cues for breath control. Ambulation Employing an assistive device Movement sequencing Turning and movement with proper form Provided verbal cues for equipment management and technique Provided instruction in gait pattern Patient education regarding pacing and breathing techniques to maximize activity tolerance? GAIT? Assistive Device: ??FWW ? Weight bearing: FWB Assist: ?SBA? Distance:?? ?160 feet x 1 with 1 stand rest then?40 feet seated rest break in between distance ? Deviation: ? Slow maddie, low step height, short step length? STAIRS:? 6 steps x4 up/down, step over step bilateral handrail SBA cues for exhaling as steps up. ? ASSESSMENT:? patient with improved functional activity tolerance this session demonstrating ability to ambulate at 160 feet x 1 with 1 standing rest before needing sit rest due to reports of left lower extremity fatigue. Patient able to maintain saturations greater than 90% on room air. As needed through continuous oximetry with RT present PLAN: Continue with balance training, global strengthening and general conditioning for improved safety, mobility and activity tolerance until pt is ready for DC. TREATMENT CODE/TIME: 57765, [id number]
--- NOTE | 2025-02-01 11:26 | PDOC.CMDIS ---
Date of service: 02/01/25 Time of Service: 11:26 LACE Index Scoring Tool Questions: Length of Stay (in days): 3 Was the patient admitted via the E.D.?: Yes Comorbidities: Congestive Heart Failure and Chronic Pulmonary Disease E.D. Visits: 2 Answers: Total Score: 13 Risk of Readmission: High Risk Care Management Discharge Plan Reason for Hospitalization: decompensated heart failure, BRITTANY Discharge Plan: PT recommends: Home with HHPT and better breather's program versus outpatient pulmonary rehab. Romeo will discharge home with new PT services. He will drive himself home. He will follow up with community providers and continue per his discharge plan of care. Patient/Family Education Needs: Review of discharge instruction, activity, limitations, and plan of care. Discuss ask me three. SDOH Health Related Social Needs: Health related social needs lonely/isolated
[2025-02-01 11:50] VITALS: BP 112/71; PULSE 81; RESP 20; TEMP 36.6; O2SAT 88
--- NOTE | 2025-02-01 12:20 | W.PM.DS.N ---
Date of service: 02/01/25 Time of Service: 12:20 DS: Diagnosis Discharge Diagnosis (1) COPD (chronic obstructive pulmonary disease): Status: Chronic (2) BRITTANY (acute kidney injury): Status: Acute (3) Pleural effusion: Status: Acute (4) Paroxysmal A-fib: Status: Acute (5) Heart failure with preserved ejection fraction: Status: Acute (6) Acute hypoxic respiratory failure: Status: Acute (7) Decompensated heart failure: Status: Acute (8) Essential hypertension: Status: Chronic (9) BPH (benign prostatic hyperplasia): Status: Chronic Discharge Plan Disposition Patient Disposition: Home W/Home Health Services Condition: Improving Discharge Details Reason For Visit: decompensated heart failure,acute kidney injury Admit Date/Time: 01/29/25 13:28 Admit Provider: Isac Celeste Attending Provider: Isac Celeste [facility] Hospital Course: The patient is 84 year old male, admitted with acute hypoxic respiratory failure and dyspnea, primarily in the setting of decompensated heart failure and hypervolemia. Pulmonology was consulted and noted small bilateral pleural effusions, right greater than left, which were deemed cardiogenic in nature without evidence of infection. The patient?s dyspnea improved with diuresis and he is now stable, saturating 93% on room air. COPD remains stable without exacerbation, and maintenance therapy with Breztri and PRN albuterol will be continued. He has a history of paroxysmal atrial fibrillation, currently rate controlled on metoprolol succinate and fully anticoagulated on apixaban, which was dose-adjusted to 2.5 mg BID due to renal function during hospitalization. He also has acute kidney injury on chronic kidney disease, with creatinine improved to 1.4 from 1.7 on admission, and renal imaging showed bilateral nephrolithiasis without obstruction. Heart failure with preserved ejection fraction was confirmed on echocardiogram with an EF of 55?60% and no wall motion abnormalities, consistent with his prior study. He will continue daily furosemide, increased to 40 mg orally, with monitoring of intake/output, daily weights, and a repeat BMP in one week. His essential hypertension is stable, and his benign prostatic hyperplasia remains controlled on tamsulosin with monitoring for urinary retention. The patient reports improvement in breathing, tolerates diet well, and remains afebrile with stable vital signs. Stable for discharge home with home health PT and home health nursing to provide ongoing teaching, monitoring, and support with disease management and follow-up care. Recommendations for Follow Up Recommended tests to be ordered by follow up provider: POLI 1 week. (Mateusz and madhu) Home Meds and New Rx's Prescriptions: New furosemide 40 mg Tablet 40 mg PO QAM Qty: 30 0RF Continued DHEA 50 mg tablet 50 mg PO DAILY (DME) Aerochamber MV Spacer See Rx Instructions .Route Qty: 1 0RF Rx Instructions: As directed Breztri Aerosphere 160-9-4.8 mcg/actuation HFA aerosol inhaler 2 inh inhalation BID Qty: 10.7 3RF folic acid 1 mg tablet 1 mg PO DAILY Qty: 90 3RF aspirin [Adult Low Dose Aspirin] 81 mg tablet,delayed release (DR/EC) 81 mg PO DAILY metoprolol succinate 50 mg tablet extended release 24 hr 50 mg PO DAILY Qty: 90 3RF Eliquis 5 mg tablet 5 mg PO BID Qty: 180 3RF tamsulosin 0.4 mg capsule 0.4 mg PO DAILY Qty: 90 3RF CENTRUM SILVER TABLET 1 EACH tablet 1 tab PO DAILY ascorbic acid (vitamin C) 1,000 MG tablet 1,000 mg PO DAILY [id number] C-Mn [Glucosamine 1500 Complex] 500-400 mg capsule 1 cap PO BID triamcinolone acetonide 0.5 % cream 1 applic Topical BID PRN (Reason: psoriasis) Qty: 45 3RF albuterol sulfate 90 mcg/actuation HFA aerosol inhaler 2 puff inhalation Q4H PRN (Reason: shortness of breath or wheezing) Qty: 8.5 12RF Discontinued furosemide [Lasix] 20 mg tablet 20 mg PO QAM PRN (Reason: edema) Qty: 90 3RF Discharge Instructions Instructions: Heart Failure, Adult (DC), Furosemide Additional Instructions: Medications: Furosemide 40 mg oral daily (new dose). Continue Breztri daily and albuterol as needed. Apixaban 5 mg twice daily. Metoprolol succinate, tamsulosin, and other home meds as prescribed. Follow-up: Labs (POLI) Recommend in 1 week to monitor renal function and electrolytes. Activity: Resume activity as tolerated. Home health PT arranged for strengthening and mobility support. Diet: Cardiac diet with sodium restriction. When to seek care: Worsening shortness of breath, chest pain, palpitations, fever, weight gain >2?3 lbs in 24 hrs, or decreased urine output. Stable for discharge home with home health PT and home health nursing to provide ongoing teaching, monitoring, and support with disease management and follow-up care. Stand Alone Forms: Nursing Discharge Form Referrals: Jocy Forbes NP [Primary Care Provider, Medicine] Referral Note: Please contact your PCP to make a follow-up appointment. Activity:: Activity as Tolerated Equipment/Supplies:: Walker Diet:: As Tolerated Discharge Orders Discharge Orders: Discharge Order (Routine); Ordered 02/01/25 Ordered By: Kaela Wagoner DS: Summary Time Spent with Patient providing and/or coordinating discharge services: Greater than 30 minutes Status at Discharge Functional status at discharge: uses cane/walker Overall status at discharge: patient is back to baseline Mental Status: mental status grossly normal Speech and Movement: speech and movement normal Mood: congruent mood Affect: normal affect Exam Narrative Exam Narrative: Constitutional: Alert and oriented x3. Appears stated age. Normal body habitus. Appears frail and chronically ill. Alert and oriented x 3. Head: Normocephalic, no trauma. Eyes: Pupils PERRL, Red reflex noted, EOM's intact. Eyelids symmetrical without lesions, discharge, or swelling. ENT: Bilateral TM's WNL, no mastoid TTP, swelling, or erythema, Nasal turbinates WNL, no nasal discharge. Normal dentition, Posterior pharynx WNL, no exudate. Chest: RRR, Normal S1, S2, distal pulses intact. Resp: Lungs clear to auscultation bilaterally, no wheezes, rales, or rhonchi. Slightly diminished in the bases. Abdomen: Soft, non-distended, Normoactive bowel sounds all 4 quads. Musculoskeletal: Unable to assess gait, moves all 4 extremities with difficulty. Skin: 1+ pitting edema noted to lower extremity, healing contusion noted to his right lateral hand, ecchymosis noted to his left outer ear. Denies falls. Neurologic: Cranial nerves II-XII intact. Alert and oriented x 3. Motor: No deficits noted. Is slightly hard of hearing. Hematologic/Lymphatic: No ecchymosis, no lymphadenopathy. Psych Mental Status: mental status grossly normal Speech and Movement: speech and movement normal Mood: congruent mood Affect: normal affect DS: Data Vitals/I&O Vitals and I&O: Vital Signs Temperature 36.1 C L 02/01/25 07:49 Temperature Source Temporal Artery Scan 02/01/25 07:49 Pulse 89 02/01/25 07:49 Pulse Rhythm Irregular 01/29/25 15:30 Pulse 86 01/29/25 14:50 Respiratory Rate 20 02/01/25 07:49 Respiratory Effort Normal, Non-Labored 01/29/25 15:30 Respiratory Depth Normal 01/29/25 14:30 Respiratory Pattern Normal 01/29/25 13:15 Blood Pressure 107/76 02/01/25 07:49 Blood Pressure Mean 86 02/01/25 07:49 Blood Pressure Position Sitting 01/29/25 11:17 Pulse Oximetry 92 02/01/25 10:30 Oxygen Delivery Method Room Air 02/01/25 10:30 Oxygen Flow Rate 0 02/01/25 10:30 Pain Level 3 02/01/25 03:30 Comment awake 01/31/25 03:41 Intake & Output 01/31/25 02/01/25 02/01/25 23:59 11:59 23:59 Intake Total 100 / 100 Output Total 225 / 875 350 / 350 Balance -215 / -865 -250 / -250 Weight 96.7 kg Intake: IV 100 / 100 Output: Urine 225 / 875 350 / 350 Other: Urine Color Yellow [place] Urine Appearance Clear Clear Urine Odor Normal Data Completed and Pending Labs on day of discharge: Labs from last 24 hours 02/01/25 01/31/25 06:03 09:07 WBC 7.13 RBC 3.03 L Hgb 9.4 L Hct 30.3 L MCV 100 H MCH 31.0 MCHC 31.0 L RDW 16.7 H Plt Count 164 MPV 10.2 Immature Gran % 0.4 Neutrophils % 72.1 Lymphocytes % 9.3 Monocytes % 9.4 Eosinophils % 8.4 Basophils % 0.4 Nucleated RBC % 0.0 Absolute Neutrophils 5.14 Absolute Lymphocytes 0.66 L Absolute Monocytes 0.67 Absolute Eosinophils 0.60 Absolute Basophils 0.03 Sodium 139 Potassium 3.6 Chloride 100 Carbon Dioxide 29.3 Anion Gap 9.7 BUN 27 H Creatinine 1.4 H Est GFR (CKD-EPI 2020) 49.25 Glucose 93 Calcium 8.8 Magnesium 1.6 L Vitamin B12 494 Folate > 20.0 H PFSH All Active Problems (Updated 01/31/25 @ 08:08 by BRENDA Maxwell) Acute hypoxic respiratory failure (Acute) Heart failure with preserved ejection fraction (Acute) BPH (benign prostatic hyperplasia) (Chronic) COPD (chronic obstructive pulmonary disease) (Chronic 11/22/13) Essential hypertension (Chronic 09/08/13) Decompensated heart failure (Acute) BRITTANY (acute kidney injury) (Acute) CHF (congestive heart failure) (Chronic) Obstructive lung disease (Acute) Pleural effusion (Acute) Paroxysmal A-fib (Acute) Supraventricular tachycardia (Chronic) On deep vein thrombosis (DVT) prophylaxis (Acute) COPD exacerbation (Acute) Community acquired pneumonia (Acute) Bilateral edema of lower extremity (Acute) Urinary hesitancy (Acute) Possibly due to BPH Dupuytren contracture (Acute) bilateral palms Mitral insufficiency (Chronic) status post mitral valve ring 2021 EF 60-65% Sensorineural hearing loss (SNHL) of both ears (Acute) Venous insufficiency of left leg (Acute) Psoriasis (Acute) On methotrexate, CBC & CMP yearly Medical History Hypomagnesemia Thoracic aortic aneurysm 2021- Aortic root is moderately dilated.4.89 cm The ascending aorta isdilated.4.98 cm Aortic arch is normal in caliber. referred to 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 Substance abuse Depression Son No problems noted. Daughter , 40+ Substance abuse Daughter No problems noted. Sister No problems noted. Sister No problems noted. Social History Smoking/Tobacco Use Status: Former Tobacco Use tobacco type: cigarettes, pipe and cigars Quit Date: 10/11/98 Tobacco: How many years used: 30 Second Hand Exposure: Yes Smoking risk assessment performed?: Yes Alcohol Intake: current Alcohol Intake frequency: 3 or more drinks per day Alcohol type: beer, wine and hard liquor Drug use: Never Substance use type: does not use Caregiver/Support person: No Household members: spouse Housing: house Communication Needs: None Do you need help understanding health information?: Never Pets and animals: Yes Pets and animals: cat(s) Sexually active: No Do you think of yourself as: straight/heterosexual Current gender identity: male What is your relationship status?: How often do you talk on the phone with friends or family?: once per week How often do you get together with friends or relatives?: decline to answer How often do you attend rastafarian or lutheran services?: decline to answer Do you belong to any clubs or organized social groups?: no Panel score (0-1 are the most socially isolated patients): 1 What type of physical activity do you participate in: walking Duration: 30-45 minutes/day Frequency: 1-2 times per week Ericka/Gnosticist: None Special ericka needs: No Seatbelt use: always Helmet use: No Drive intox or ride w/intox non emergency services ambulance driver: No Do you feel safe at home: Yes Do you feel safe in your relationship?: Yes Time Spent with Patient Time Spent with Patient: 45-69 minutes Time was spent: preparing to see the patient(eg.review tests), ordering medications,tests, procedures, referring, communicating with other health weekend caregiver, indepentently interpreting results, counseling the patient and care coordination
--- NOTE | 2025-02-01 12:38 | PDOC.HHF2F ---
Date of service: 02/01/25 Time of Service: 12:38 Home Health Referral Home Health Orders Clinical synopsis of why skilled professionals are needed: The patient is 84 year old male, admitted with acute hypoxic respiratory failure and dyspnea, primarily in the setting of decompensated heart failure and hypervolemia. Pulmonology was consulted and noted small bilateral pleural effusions, right greater than left, which were deemed cardiogenic in nature without evidence of infection. The patient?s dyspnea improved with diuresis and he is now stable, saturating 93% on room air. COPD remains stable without exacerbation, and maintenance therapy with Breztri and PRN albuterol will be continued. He has a history of paroxysmal atrial fibrillation, currently rate controlled on metoprolol succinate and fully anticoagulated on apixaban, which was dose-adjusted to 2.5 mg BID due to renal function during hospitalization. He also has acute kidney injury on chronic kidney disease, with creatinine improved to 1.5 from 1.7 on admission, and renal imaging showed bilateral nephrolithiasis without obstruction. Heart failure with preserved ejection fraction was confirmed on echocardiogram with an EF of 55?60% and no wall motion abnormalities, consistent with his prior study. He will continue daily furosemide, increased to 40 mg orally, with monitoring of intake/output, daily weights, and a repeat BMP in one week. His essential hypertension is stable, and his benign prostatic hyperplasia remains controlled on tamsulosin with monitoring for urinary retention. The patient reports improvement in breathing, tolerates diet well, and remains afebrile with stable vital signs. Stable for discharge home with home health PT and home health nursing to provide ongoing teaching, monitoring, and support with disease management and follow-up care. Medical diagnosis necessitation home health referral: Acute hypoxic respiratory failure. Registered Nurse: Check all that apply Instruct on new or changed medication(s)/assess compliance: Ordered Assess for exacerbation of medical condition, instruct patient/caregivers on signs and symptoms to report for early detection: Ordered Physical Therapist: Check all that apply Increase strength & endurance for safe mobility at home: Ordered To design/establish home maintenance program: Ordered Fall reduction therapy program for patient with history of frequent falls: Ordered Home safety evaluation and teaching/gait training including stair management (if applicable): Ordered Sprayer Operator: Assist with community resources: Ordered Assist with ad terminal makeup operator care planning: Ordered Home Bound Status Requires the aid of supportive device (check all that apply): Walker Patient has a condition such that leaving home is medically contraindicated (Describe): Easily exhausted, frequent rest periods, not driving. Describe why leaving home would require a considerable and taxing effort: Requires frequent rest periods Encounter Date and Reason: I certify that a FTF encounter for this patient was performed on February 01, 2025 and that such encounter was related to the primary reason the patient requires home health services. The encounter was conducted in the following manner: By me as the certifying physician, CAPTAIN CANNERY TENDER, PA or By an inpatient physician, CAPTAIN CANNERY TENDER or PA during an inpatient stay who communicated findings to me, Certification And Authentication I certify that I composed the above information based on my clinical judgment relating to this patient's medical condition and, if applicable, clinical findings communicated to me by the NPP or inpatient physician who performed the FTF encounter. Name of Provider that will be monitoring home health services: Jocy Forbes
== END 2025-02-01 13:45 | disposition home health service (06) ==
LOC: ER 14:15 → MS 15:11
PROVIDERS: Internal Medicine Pulmonary Disease; Nurse Practitioner Acute Care; Admitting Provider Family Medicine; Emergency Provider Registered Nurse Emergency; PCP Nurse Practitioner Family; Responsible Provider Nurse Practitioner Family; Visit Provider Family Medicine
DX: I13.0 Hypertensive heart and chronic kidney disease with heart failure and stage 1 through stage 4 chronic kidney disease, or unspecified chronic kidney disease (principal); I50.33 Acute on chronic diastolic (congestive) heart failure; N17.9 Acute kidney failure, unspecified; J96.01 Acute respiratory failure with hypoxia; I48.0 Paroxysmal atrial fibrillation; J44.9 Chronic obstructive pulmonary disease, unspecified; N40.0 Benign prostatic hyperplasia without lower urinary tract symptoms; I34.0 Nonrheumatic mitral (valve) insufficiency; H90.3 Sensorineural hearing loss, bilateral; I87.2 Venous insufficiency (chronic) (peripheral); L40.9 Psoriasis, unspecified; E78.5 Hyperlipidemia, unspecified; N20.0 Calculus of kidney; Z86.73 Personal history of transient ischemic attack (TIA), and cerebral infarction without residual deficits; Z87.891 Personal history of nicotine dependence; Z79.631 Long term (current) use of antimetabolite agent; Z79.01 Long term (current) use of anticoagulants; N18.9 Chronic kidney disease, unspecified
CPT/HCPCS: 00123; 36415; 51798; 80048; 80053; 82805; 93005; 94618; 94640; 96374; 96376; 97110; 97116; 97162; 97530; 99222; 99232; 99285; 71045; 74176; 81003; 82607; 82746; 83735; 83880; 84484; 85025; 85610; 93010; 93306; 94664; 94760; 99231; 99239; G0378; J1938; J3475

== ENCOUNTER → 2025-01-30 15:47 | Outpatient (BNVA) | payer MEDICARE, OTHER, SELFPAY | PROVIDERS: PCP Nurse Practitioner Family; Referring Provider Nurse Practitioner Family; Visit Provider Internal Medicine Pulmonary Disease | CPT/HCPCS: 99215 ==

== ENCOUNTER → 2025-02-16 12:43 | Outpatient (BNVA) | payer MEDICARE, OTHER, SELFPAY | PROVIDERS: PCP Nurse Practitioner Family; Referring Provider Nurse Practitioner Family; Visit Provider Internal Medicine Cardiovascular Disease | DX: I50.33 Acute on chronic diastolic (congestive) heart failure (principal); I48.0 Paroxysmal atrial fibrillation; J44.9 Chronic obstructive pulmonary disease, unspecified; Z79.01 Long term (current) use of anticoagulants | CPT/HCPCS: 99214 ==

== ENCOUNTER → 2025-02-21 10:53 | Outpatient (BNVA) | payer MEDICARE, OTHER, SELFPAY | PROVIDERS: PCP Nurse Practitioner Family; Referring Provider Nurse Practitioner Family; Visit Provider Internal Medicine Pulmonary Disease | DX: J44.9 Chronic obstructive pulmonary disease, unspecified (principal); J90 Pleural effusion, not elsewhere classified; Z87.891 Personal history of nicotine dependence | CPT/HCPCS: 36415; 76604; 99214 ==

== ENCOUNTER 2025-02-21 12:00 | Outpatient (REF) | payer MEDICARE, OTHER, SELFPAY ==
[2025-02-21 13:05] LABS: Anion Gap 11.6 mmol/L (3-11); BUN 34 mg/dL (7-18); CO2 28.4 mmol/L (21.0-32.0); Calcium 9.2 mg/dL (8.5-10.1); Chloride 99 mmol/L (98-107); Estimated GFR 36.43 (mL/min/1.73m2); Glucose 107 mg/dL (74-106); Potassium 3.7 mmol/L (3.5-5.1); Sodium 139 mmol/L (136-145)
== END 2025-02-21 12:01 | disposition home or self-care (01) ==
LOC: LBN 12:00
PROVIDERS: PCP Nurse Practitioner Family; Visit Provider Internal Medicine Pulmonary Disease
DX: J90 Pleural effusion, not elsewhere classified (principal); J44.9 Chronic obstructive pulmonary disease, unspecified
CPT/HCPCS: 80048

== ENCOUNTER → 2025-03-10 13:33 | Outpatient (BNVA) | payer MEDICARE, OTHER, SELFPAY | PROVIDERS: PCP Nurse Practitioner Family; Referring Provider Nurse Practitioner Family; Visit Provider Internal Medicine Cardiovascular Disease | DX: I50.33 Acute on chronic diastolic (congestive) heart failure (principal); I48.0 Paroxysmal atrial fibrillation; I71.21 Aneurysm of the ascending aorta, without rupture; Z79.01 Long term (current) use of anticoagulants | CPT/HCPCS: 99214 ==

== ENCOUNTER → 2025-03-24 11:09 | Outpatient (CLI) | payer MEDICARE, OTHER, SELFPAY ==
--- NOTE | 2025-03-24 10:45 | DI.RAD_ITS ---
Exam(s) XR ANKLE LT COMPLETE EXAM: XR ANKLE LT COMPLETE CLINICAL HISTORY: M25.572 M79.672 Pain left foot and ankle joints TECHNIQUE: 2D digital imaging was performed. Three views. COMPARISON: No exams were available for comparison FINDINGS: BONES: No acute fracture is present. No talar dome defects are visible. No bony destructive lesion is seen. JOINTS:Severe flattening of the plantar arch. Pronation with medial tilt of the talus. Abnormal widening of the superior and lateral ankle mortise. Degenerative changes are noted at the malleoli. SOFT TISSUE: Swelling around the malleoli. IMPRESSION: Severe pes planus. Abnormal ankle mortise alignment. DATA REPOSITORY: RADIATION DOSE DELIVERED:
--- NOTE | 2025-03-24 10:45 | DI.RAD_ITS ---
Exam(s) XR FOOT LT COMPLETE EXAM: XR FOOT LT COMPLETE CLINICAL HISTORY: M25.572 M79.672 Pain left foot and ankle pain. TECHNIQUE: 2D digital imaging was performed. Three views. COMPARISON: No exams were available for comparison FINDINGS: BONES: No acute fracture is present. No bony destructive lesion is seen. [place] adjacent to cuboid. Degenerative subchondral cysts in medial 1st metatarsal. Tiny plantar calcaneal spur. JOINTS: No dislocation present. Severe pes planus. Mild degenerative changes at the 1st MTP joint intertarsal joints. Degenerative changes also present at the 1st metatarsal sesamoid joints. SOFT TISSUE: Normal. IMPRESSION: Severe pes planus. Mild degenerative changes. DATA REPOSITORY: RADIATION DOSE DELIVERED:
== END ==
LOC: DI 11:14
PROVIDERS: PCP Nurse Practitioner Family; Visit Provider Nurse Practitioner Family
DX: M79.672 Pain in left foot (principal); M25.572 Pain in left ankle and joints of left foot; M21.42 Flat foot [pes planus] (acquired), left foot
CPT/HCPCS: 73610; 73630

== ENCOUNTER 2025-04-21 12:52 | Outpatient (CLI) | payer MEDICARE, OTHER, SELFPAY | END 2025-04-21 12:53 | disposition home or self-care (01) | PROVIDERS: PCP Nurse Practitioner Family; Visit Provider Nurse Practitioner Family | DX: R42 Dizziness and giddiness (principal); I48.0 Paroxysmal atrial fibrillation | CPT/HCPCS: 93246 ==

== ENCOUNTER 2025-04-24 15:15 | Inpatient (IN) | payer MEDICARE, OTHER, SELFPAY ==
[2025-04-24] VITALS (58 sets, daily range): BP systolic 108–128; BP diastolic 38–99; PULSE 55–105; RESP 15–32; TEMP 36.4–36.8; O2SAT 90–100
--- NOTE | 2025-04-24 15:15 | RT.EKG_ITS ---
APPROVED REPORT Exam: Resting ECG Reason for Exam: SOB Patient Location: E HR:63 bpm ECG Measurements Heart Rate 63 AXIS ID [id number] P [id number] QRSd 102 QRS 15 QT 450 T 54 QTc 462 Conclusion Atrial fibrillation, rate 63 No interval abnormalities No STEMI No significant changes from prior
--- NOTE | 2025-04-24 15:40 | W.ED.GENAD ---
Discharge Plan Disposition Patient Disposition: Admit to [facility] Condition: Stable Discharge Details Clinical Impression: Acute hypoxic respiratory failure, COPD (chronic obstructive pulmonary disease), Anemia requiring transfusions, BRITTANY (acute kidney injury) Primary Care Provider: Jocy Forbes ED Provider: Sosa Gorman Home Meds and New Rx's Prescriptions: No Action DHEA 50 mg tablet 50 mg PO DAILY (DME) Aerochamber MV Spacer See Rx Instructions .Route Qty: 1 0RF Rx Instructions: As directed sertraline 25 mg tablet 25 mg PO DAILY Qty: 90 3RF aspirin [Adult Low Dose Aspirin] 81 mg tablet,delayed release (DR/EC) 81 mg PO DAILY metoprolol succinate 50 mg tablet extended release 24 hr 50 mg PO DAILY Qty: 90 3RF tamsulosin 0.4 mg capsule 0.4 mg PO DAILY Qty: 90 3RF CENTRUM SILVER TABLET 1 EACH tablet 1 tab PO DAILY ascorbic acid (vitamin C) 1,000 MG tablet 1,000 mg PO DAILY [id number]-vppthrfze-kuz C-Mn [Glucosamine 1500 Complex] 500-400 mg capsule 1 cap PO BID triamcinolone acetonide 0.5 % cream 1 applic Topical BID PRN (Reason: psoriasis) Qty: 45 3RF albuterol sulfate 90 mcg/actuation HFA aerosol inhaler 2 puff inhalation Q4H PRN (Reason: shortness of breath or wheezing) Qty: 8.5 12RF Eliquis 5 mg tablet 5 mg PO BID Qty: 180 3RF Breztri Aerosphere 160-9-4.8 mcg/actuation HFA aerosol inhaler 2 inh inhalation BID Qty: 10.7 3RF torsemide 20 mg tablet 20 mg PO BID Qty: 180 3RF HPI General Mode of arrival: wheelchair. Date/Time Provider Initiated Documentation: 04/24/25 15:20. Limitations to Documentation: no limitations. Information obtained by: patient and old records reviewed. HPI Narrative: This is an 84-year-old male patient with a past medical history significant for CHF, COPD, atrial fibrillation on Eliquis, presenting for evaluation of shortness of breath and hypoxia. The patient was seen at his clinic today and was noted to be profoundly short of breath, hypoxic to 85% on room air, does not typically wear oxygen at home. He reports that his symptoms have been gradually worsening over the past week or so, states that he has been taking his inhalers and other medications without missed doses. States that 4 nights ago he experienced a nosebleed at night, and woke up to blood running down his throat, states that he has been coughing and worries that there is still some blood in his lungs. He reports that he continues to cough up some sputum since that event. No fevers or chills, endorses some chest pain on the right side of his chest. Related Data Home Medications ?Medication ?Instructions ?Recorded ?Confirmed Centrum Silver Tablet 1 tab PO DAILY 09/07/12 04/24/25 ascorbic acid (vitamin C) 1,000 mg 1,000 mg PO DAILY 09/28/14 04/24/25 tablet nquubtgxuij-kxvypixqb-rje C-Mn 500 1 cap PO BID 01/18/19 04/24/25 mg-400 mg capsule (Glucosamine 1) prasterone (DHEA) 50 mg tablet 50 mg PO DAILY 12/09/19 04/24/25 (DHEA) aspirin 81 mg tablet,delayed 81 mg PO DAILY 05/13/22 04/24/25 release (Adult Low Dose Aspirin) inhalational spacing device #1 ea 09/15/23 04/24/25 (Aerochamber MV spacer) triamcinolone acetonide 0.5 % 1 applic topical BID PRN psoriasis 08/12/24 04/24/25 topical cream #45 grams metoprolol succinate 50 mg 50 mg PO DAILY #90 tabs 11/04/24 04/24/25 tablet,extended release 24 hr tamsulosin 0.4 mg capsule 0.4 mg PO DAILY #90 caps 11/28/24 04/24/25 albuterol sulfate 90 mcg/actuation 2 puff inhalation Q4H PRN 01/10/25 04/24/25 aerosol inhaler shortness of breath or wheezing #8.5 grams sertraline 25 mg tablet 25 mg PO DAILY #90 tabs 02/13/25 04/24/25 apixaban 5 mg tablet (Eliquis) 5 mg PO BID #180 tabs 02/16/25 04/24/25 budesonide 160 mcg-glycopyr 9 2 inh inhalation BID #10.7 grams 02/20/25 04/24/25 mcg-formot 4.8 mcg/actuation HFA inhaler (Breztri Aerosphere) torsemide 20 mg tablet 20 mg PO BID #180 tabs 02/23/25 04/24/25 Previous Rx's ?Medication ?Instructions ?Recorded inhalational spacing device #1 ea 09/15/23 (Aerochamber MV spacer) triamcinolone acetonide 0.5 % 1 applic topical BID PRN psoriasis 08/12/24 topical cream #45 grams metoprolol succinate 50 mg 50 mg PO DAILY #90 tabs 11/04/24 tablet,extended release 24 hr tamsulosin 0.4 mg capsule 0.4 mg PO DAILY #90 caps 11/28/24 albuterol sulfate 90 mcg/actuation 2 puff inhalation Q4H PRN 01/10/25 aerosol inhaler shortness of breath or wheezing #8.5 grams sertraline 25 mg tablet 25 mg PO DAILY #90 tabs 02/13/25 apixaban 5 mg tablet (Eliquis) 5 mg PO BID #180 tabs 02/16/25 budesonide 160 mcg-glycopyr 9 2 inh inhalation BID #10.7 grams 02/20/25 mcg-formot 4.8 mcg/actuation HFA inhaler (Breztri Aerosphere) torsemide 20 mg tablet 20 mg PO BID #180 tabs 02/23/25 Allergies Allergy/AdvReac Type Severity Reaction Status Date / Time niacin Allergy Severe rash/flusin Verified 04/24/25 14:28 g simvastatin AdvReac Intermediate Myalgia Verified 04/24/25 14:28 detergent AdvReac Intermediate Skin Rash Uncoded 04/24/25 14:28 General Stated Complaint: SOB BERNY: 2 Exam Narrative Exam Narrative: Gen: Awake and alert, in no apparent distress HEENT: Non-icteric sclera Neck: Supple Lungs: The patient appears in notable respiratory distress with diminished lung sounds bilaterally CV: Appears well perfused, heart with irregularly irregular rhythm but regular rate, 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 MSK: Moves 4 extremities without apparent limitation in ROM. Trace bilateral peripheral edema appreciated, no unilateral calf swelling or tenderness Skin: Visualized skin without rashes, cyanosis. Neuro: No obvious focal deficits or facial asymmetry. Speaks in full, clear sentences. Psych: Appropriate for situation. Course Vital Signs Vital signs: Vital Signs Temperature 36.5 C 04/24/25 15:20 Pulse 61 04/24/25 15:20 Respiratory Rate 20 04/24/25 15:20 Blood Pressure 119/49 L 04/24/25 15:20 Pulse Oximetry 100 04/24/25 15:20 Temperature 36.5 C 04/24/25 15:20 Temperature Source Oral 04/24/25 15:20 Pulse 61 04/24/25 15:20 Respiratory Rate 20 04/24/25 15:20 Blood Pressure 119/49 L 04/24/25 15:20 Pulse Oximetry 100 04/24/25 15:20 Oxygen Delivery Method Nasal Cannula 04/24/25 15:20 Oxygen Flow Rate 4 04/24/25 15:20 Pain Level 3 04/24/25 15:20 Medical Decision Making This is an 84-year-old male patient presenting for evaluation of shortness of breath and hypoxia. On arrival, he was noted to be 84% on room air with increased work of breathing and was placed on 4 L of supplemental oxygen by nasal cannula to good effect. My differential includes but is not limited to COPD exacerbation, pulmonary edema and CHF exacerbation, pleural effusion, pneumothorax, certainly considered infectious pathology including URI, pneumonia, bronchitis. Considered aspiration in the setting of the reported nosebleed, as well as cardiac abnormalities including ACS. We did obtain an EKG which shows an atrial fibrillation with a controlled ventricular rate of 63 and no evidence for acute ischemia, interval abnormality, or ectopy. The patient is appropriately anticoagulated without missed doses, making PE less likely. We will provide the patient with a duo nebulizer and Solu-Medrol for his diminished lung sounds, obtain a Fluvid, VBG, and other labs to include CBC, CMP, magnesium, troponin, BNP, and will obtain a chest x-ray. - After nebulizer the patient has coarse lung sounds that are improved from a diminishment standpoint. He has had improved oxygenation on 4 L by nasal cannula but continues to desat with any type of exertion. I reviewed the patient's laboratory studies, which show no leukocytosis but do note a new and severe anemia to 6.0 with. For this reason I did obtain a blood consent, the patient is amenable to transfusion and a type and screen was obtained. The patient will be transfused 2 units of PRBCs. No thrombocytopenia, INR 1.2, VBG without hypercarbia or acidosis. Chemistry panel without significant electrolyte derangements, the patient does have a new BRITTANY with a BUN of 77 and a creatinine of 2.2. Given his history of heart failure I will hold on fluid resuscitation, as the patient will receive blood first. No evidence of liver enzyme abnormalities, initial troponin is negative, BNP is slightly elevated to 3600 which is actually improved compared to the patient's most recent baseline. Fluvid is negative. I provided the patient with ceftriaxone and azithromycin for antibiosis, the x-ray does show a question of a right pleural effusion versus infiltrate at the right costophrenic angle. Given his COPD history and worsening respiratory status it is reasonable for us to proceed with treatment for COPD exacerbation. The patient was graciously accepted to the hospitalist service for ongoing management, he remained hemodynamically improved while under my care and was transferred from our department without incident. Sosa Gorman MD Quality:SDOH Health Related Social Needs: Health related social needs lonely/isolated Critical Care Time Critical Care Time Critical Care Time: Yes Total Critical Care Time: 35 Attestation: Upon my evaluation, this patient had a high probability of imminent or life-threatening deterioration due to hypoxic respiratory failure, anemia requiring transfusion, which required my direct attention, intervention, and personal management. I have personally provided 35 minutes of critical care time exclusive of time spent on separately billable procedures. Time includes review of laboratory data, radiology results, discussion with consultants, and monitoring for potential decompensation. Interventions were performed as documented above. Sosa Gorman MD [facility] All Active Problems (Updated 04/24/25 @ 19:06 by Sosa Gorman MD) Anemia requiring transfusions (Acute) Acute hypoxic respiratory failure (Acute) COPD (chronic obstructive pulmonary disease) (Chronic 11/22/13) Depression (Chronic) Acute hypoxic respiratory failure (Acute) Heart failure with preserved ejection fraction (Acute) Decompensated heart failure (Acute) BRITTANY (acute kidney injury) (Acute) CHF (congestive heart failure) (Chronic) Obstructive lung disease (Acute) Pleural effusion (Acute) Paroxysmal A-fib (Acute) Supraventricular tachycardia (Chronic) On deep vein thrombosis (DVT) prophylaxis (Acute) COPD exacerbation (Acute) Community acquired pneumonia (Acute) Bilateral edema of lower extremity (Acute) Urinary hesitancy (Acute) Possibly due to BPH Dupuytren contracture (Acute) bilateral palms Mitral insufficiency (Chronic) status post mitral valve ring 2021 EF 60-65% Sensorineural hearing loss (SNHL) of both ears (Acute) Venous insufficiency of left leg (Acute) Psoriasis (Acute) On methotrexate, CBC & CMP yearly Medical History BPH (benign prostatic hyperplasia) Essential hypertension (09/08/13) Hypomagnesemia Thoracic aortic aneurysm 2021- Aortic root is moderately dilated.4.89 cm The ascending aorta isdilated.4.98 cm Aortic arch is normal in caliber. 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 Substance abuse Depression Son No problems noted. Daughter , 40+ Substance abuse Daughter No problems noted. Sister No problems noted. Sister No problems noted. Social History Smoking/Tobacco Use Status: Former Tobacco Use tobacco type: cigarettes, pipe and cigars Quit Date: 10/11/98 Tobacco: How many years used: 45 Quit status: has quit before Second Hand Exposure: Yes Smoking risk assessment performed?: Yes Alcohol Intake: current Alcohol Intake frequency: 3 or more drinks per day Alcohol type: beer, wine and hard liquor Drug use: Never Substance use type: does not use Caregiver/Support person: No Household members: spouse Housing: house Communication Needs: None Do you need help understanding health information?: Never Pets and animals: Yes Pets and animals: cat(s) Sexually active: No Do you think of yourself as: straight/heterosexual Current gender identity: male What is your relationship status?: How often do you talk on the phone with friends or family?: once per week How often do you get together with friends or relatives?: decline to answer How often do you attend scientology or taoism services?: decline to answer Do you belong to any clubs or organized social groups?: no Panel score (0-1 are the most socially isolated patients): 1 What type of physical activity do you participate in: walking Duration: 30-45 minutes/day Frequency: 1-2 times per week Ericka/Religious: None Special ericka needs: No Seatbelt use: always Helmet use: No Drive intox or ride w/intox school bus driver/teacher assistant: No Do you feel safe at home: Yes Do you feel safe in your relationship?: Yes
[2025-04-24] MEDS: methylPREDNISolone SUCC 125 MG VIAL IVP (16:09)
[2025-04-24] MEDS: Albuterol/Ipratropium 3 ML UPD VIAL UPD (16:09)
[2025-04-24 16:12] LABS: Abs Immature Grans 0.02 10^3/uL (0.0-0.06); Immature Grans % 0.3 %; MCH 26.8 pg (27.0-33.0); MCHC 30.6 % (32.0-36.0); MCV 88 fL (80-95); MPV 9.8 fL (8.0-11.0); Platelet Count 267 10^3/uL (130-400); RBC 2.24 10^6/uL (4.36-5.78); RDW 16.2 % (11.8-14.1); RDW-SD 51.4 fL; WBC 6.24 10^3/uL (4.4-10.8)
[2025-04-24 16:15] LABS: HCT 19.6 % (40.0-50.0); HGB 6.0 g/dL (13.5-17.5)
[2025-04-24 16:26] LABS: BE (Venous) 0 mmol/L (-2-3); HCO3 (Venous) 24 mmol/L (23-28); O2 Sat (Venous) 52 %; TCO2 (Venous) 23 mmol/L (24-29); pCO2 (Venous) 33 mmHg (41-51); pO2 (Venous) 30 mmHg
[2025-04-24 16:31] LABS: INR 1.2 (0.9-1.1); PTT Activated 21.9 sec (20.6-30.2); Prothrombin Time 11.9 sec (9.1-11.1)
[2025-04-24 16:35] LABS: Magnesium 2.6 mg/dL (1.6-2.6)
[2025-04-24 16:36] LABS: Troponin I 20 ng/L (<54)
[2025-04-24 16:44] LABS: ALT 14 U/L (10-49); AST 32 U/L (<34); Albumin 4.0 g/dL (3.2-5.0); Alkaline Phosphatase 47 U/L (46-116); Anion Gap 15.4 mmol/L (3-11); Anisocytosis 1+; BUN 77 mg/dL (9-23); Bilirubin, Total 0.4 mg/dL (0.2-1.2); CO2 21.6 mmol/L (20.0-31.0); Calcium 8.9 mg/dL (8.3-10.6); Chloride 103 mmol/L (98-107); Glucose 113 mg/dL (74-106); Hypochromasia 1+; Poikilocytes 1+; Polychromasia Present; Potassium 4.5 mmol/L (3.5-5.1); Sodium 140 mmol/L (136-145); Total Protein 6.9 g/dL (5.7-8.2)
[2025-04-24 16:52] LABS: COVID-19 PCR Negative (Negative); RSV PCR Negative (Negative)
[2025-04-24 17:37] LABS: Troponin I 20 ng/L (<54)
--- NOTE | 2025-04-24 17:51 | DI.RAD_ITS ---
Exam(s) XR CHEST 2V PA LATERAL EXAM: XR CHEST 2V PA LATERAL CLINICAL HISTORY: productive cough, hypoxia TECHNIQUE: 2D digital imaging was performed. Two views. COMPARISON: CT CT CHEST PE CTA from 10/12/2024 CR,XR XR PORTABLE CHEST AP from 01/29/2025 FINDINGS: Overlying monitoring leads. HEART: Enlarged, unchanged. Valve prosthesis. Aorta: Not dilated. PULMONARY VASCULATURE: Normal. MEDIASTINUM: Unremarkable. LUNGS: Increased densities noted at the right costophrenic angle. Findings may represent an infiltrate and/or small right pleural effusion. Chronic interstitial changes. PLEURAL SPACE: Trace right pleural effusion. No pneumothorax. BONE:Unremarkable for age. SOFT TISSUES: Moderate ring device over the upper midline of the chest. Surgical clips in the right axilla. IMPRESSION: Cardiomegaly. Trace right pleural effusion versus infiltrate.. DATA REPOSITORY: RADIATION DOSE DELIVERED:
[2025-04-24] MEDS: cefTRIAXone 1 GM/50 ML BAG IVPB (19:10)
--- NOTE | 2025-04-24 19:28 | W.PM.HP.N ---
Date of service: 04/24/25 Time of Service: 19:28 Assessment and Plan Assessment and plan (1) Acute hypoxic respiratory failure: Start date: 04/24/25 Status: Acute Assessment and plan: This is an 84-year-old gentleman with acute hypoxic respiratory failure secondary to nosebleed with probable aspiration of blood 4 days prior to presentation and worsening COPD chronically. He is not on home O2 but is requiring oxygen supplementation presently. He also has more tachypneic than usual. He has responded to nebulizer treatments and will be admitted for treatment of his aspiration pneumonia and COPD exacerbation. He is not having CO2 retention. He did not appear to have any cardiac decompensation. His Eliquis and aspirin will be held because of his severe epistasis recently. Long-term we need to reevaluate use of anticoagulation but has had a history of multiple strokes with probable paroxysmal atrial fibrillation as far back as 15 years ago when he had mitral valve replaced. Dr. Gibbs does see the patient and may be consulted during his hospital stay. Patient is a DNR/DNI. (2) Aspiration pneumonia: Start date: 04/24/25 Status: Acute Assessment and plan: Unasyn with continuation of Zithromax IV. Follow-up imaging as indicated. (3) Acute blood loss anemia: Start date: 04/24/25 Status: Acute Assessment and plan: S/p transfusion with 2 units packed red blood cells. Follow-up trending CBCs with need for further transfusion and likely since his epistaxis has stopped. Continue to reevaluate use of Eliquis with nosebleed since he initiated this treatment. He is on aspirin chronically. (4) BRITTANY (acute kidney injury): Start date: 04/24/25 Status: Acute Assessment and plan: CKD now exacerbated with follow-up lab status post transfusion. No IV fluids for now but he had an echocardiogram recently which shows that he most likely would tolerate IV fluid resuscitation if needed. (5) COPD (chronic obstructive pulmonary disease): Status: Chronic Assessment and plan: IV Solu-Medrol with frequent nebulizer treatments. Consider pulmonology consultation if needed. (6) Essential hypertension: Assessment and plan: Continue outpatient medical therapy. (7) Paroxysmal A-fib: Status: Chronic Assessment and plan: The patient does have evidence of right carotid stenosis though he did have a stroke on his left but embolic phenomenon could be at play with the patient having paroxysmal atrial fibrillation most likely for years. Continue outpatient medical therapy and cardiac monitoring. Reconsider Eliquis risk and benefit and consider Watchman procedure and lieu of anticoagulation with patient's difficulty with epistasis. Most likely should stay on aspirin. Echocardiogram was performed recently and does not appear to need updated at this time. (8) Heart failure with preserved ejection fraction: Status: Chronic Assessment and plan: Echocardiogram in July 2024 with no update presently. Patient is chronically on torsemide which will be continued. Trend lab with BRITTANY on CKD. History of Present Illness Narrative: This is an 84-year-old male patient with a past medical history significant for CHF, COPD, paroxysmal atrial fibrillation on Eliquis for only the last month, presenting for evaluation of worsening shortness of breath over 4 days and hypoxia. The patient was seen at his clinic today and was noted to be profoundly short of breath, hypoxic to 85% on room air with no history of oxygen supplement at home. He reports that his symptoms have been gradually worsening over the past week or so, states that he has been taking his inhalers and other medications without missed doses. The patient has had frequent nosebleeds on Eliquis and 4 nights ago he experienced a severe nosebleed at night, and woke up to blood running down his throat. He has had increased coughing and worries that there is still some blood in his lungs. He reports that he continues to cough up some sputum since that event. No fevers or chills, and endorses some chest pain on the right side of his chest. He has status post mitral valve replacement 15 years ago did have some episodes of atrial fibrillation at that time. 4 years ago he had a left CVA with right hemiparesis and some speech difficulty with the weakness resolved but a continued hoarse voice. At that time with workup, he was found to have multiple old strokes over the same side. He does have a right carotid stenosis and with his recent stroke had no interventions. The patient is on aspirin with his Eliquis. He is not on Plavix. He does have a history of TIAs prior to his larger stroke. The patient was evaluated in the ED he was found to have severe anemia which was most likely from blood loss anemia with azotemia suggesting upper GI blood absorption and worsening of his baseline CKD with BRITTANY. He states that he has been eating and drinking fairly well. He has had problems with his breathing over the last 2 years especially not playing golf and seeing Dr. Kerr who recently stopped methotrexate which was prescribed for many years after diagnosis of COPD 15 years ago. In the ED, chest x-ray revealed right pleural effusion and possible infiltrate consistent with aspiration. Echocardiogram in July 2024 revealed preserved left ventricular ejection fraction with dilated atria and no mention of PA pressures. The patient was given 2 units of packed blood cells in the ED and began treatment for aspiration pneumonia as well as COPD exacerbation. Patient did respond to nebulizer treatments. He will be admitted for continuation of treatment and monitoring. He is a DNI. Review of Systems Narrative: 13 point review of system otherwise unrevealing or stable. Patient has had some peripheral edema but no significant weight gain. [facility] All Active Problems (Updated 04/24/25 @ 19:34 by Myron Felix) Acute blood loss anemia (Acute) Aspiration pneumonia (Acute) Anemia requiring transfusions (Acute) Acute hypoxic respiratory failure (Acute) COPD (chronic obstructive pulmonary disease) (Chronic 11/22/13) Depression (Chronic) Acute hypoxic respiratory failure (Acute) Heart failure with preserved ejection fraction (Chronic) Decompensated heart failure (Acute) BRITTANY (acute kidney injury) (Acute) CHF (congestive heart failure) (Chronic) Obstructive lung disease (Acute) Pleural effusion (Acute) Paroxysmal A-fib (Chronic) Supraventricular tachycardia (Chronic) On deep vein thrombosis (DVT) prophylaxis (Acute) COPD exacerbation (Acute) Community acquired pneumonia (Acute) Bilateral edema of lower extremity (Acute) Urinary hesitancy (Acute) Possibly due to BPH Dupuytren contracture (Acute) bilateral palms Mitral insufficiency (Chronic) status post mitral valve ring 2021 EF 60-65% Sensorineural hearing loss (SNHL) of both ears (Acute) Venous insufficiency of left leg (Acute) Psoriasis (Acute) On methotrexate, CBC & CMP yearly Medical History BPH (benign prostatic hyperplasia) Essential hypertension (09/08/13) Hypomagnesemia Thoracic aortic aneurysm 2021- Aortic root is moderately dilated.4.89 cm The ascending aorta isdilated.4.98 cm Aortic arch is normal in caliber. 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 Substance abuse Depression Son No problems noted. Daughter , 40+ Substance abuse Daughter No problems noted. Sister No problems noted. Sister No problems noted. Social History Smoking/Tobacco Use Status: Former Tobacco Use tobacco type: cigarettes, pipe and cigars Quit Date: 10/11/98 Tobacco: How many years used: 45 Quit status: has quit before Second Hand Exposure: Yes Smoking risk assessment performed?: Yes Alcohol Intake: current Alcohol Intake frequency: 3 or more drinks per day Alcohol type: beer, wine and hard liquor Drug use: Never Substance use type: does not use Caregiver/Support person: No Household members: spouse Housing: house Communication Needs: None Do you need help understanding health information?: Never Pets and animals: Yes Pets and animals: cat(s) Sexually active: No Do you think of yourself as: straight/heterosexual Current gender identity: male What is your relationship status?: How often do you talk on the phone with friends or family?: once per week How often do you get together with friends or relatives?: decline to answer How often do you attend alevism or hindu services?: decline to answer Do you belong to any clubs or organized social groups?: no Panel score (0-1 are the most socially isolated patients): 1 What type of physical activity do you participate in: walking Duration: 30-45 minutes/day Frequency: 1-2 times per week Ericka/Taoist: None Special ericka needs: No Seatbelt use: always Helmet use: No Drive intox or ride w/intox courtesy car driver: No Do you feel safe at home: Yes Do you feel safe in your relationship?: Yes Meds Allergies and Home Medications Allergies Allergy/AdvReac Type Severity Reaction Status Date / Time niacin Allergy Severe rash/flusin Verified 04/24/25 20:17 g simvastatin AdvReac Intermediate Myalgia Verified 04/24/25 20:17 detergent AdvReac Intermediate Skin Rash Uncoded 04/24/25 20:17 Home Medications ?Medication ?Instructions ?Recorded ?Confirmed ?Type Centrum Silver Tablet 1 tab PO DAILY 09/07/12 04/24/25 History ascorbic acid (vitamin C) 1,000 mg 1,000 mg PO DAILY 09/28/14 04/24/25 History tablet [id number] C-Mn 500 1 cap PO BID 01/18/19 04/24/25 History mg-400 mg capsule (Glucosamine 1) prasterone (DHEA) 50 mg tablet 50 mg PO DAILY 12/09/19 04/24/25 History (DHEA) aspirin 81 mg tablet,delayed 81 mg PO DAILY 05/13/22 04/24/25 History release (Adult Low Dose Aspirin) inhalational spacing device #1 ea 09/15/23 04/24/25 Rx (Aerochamber MV spacer) triamcinolone acetonide 0.5 % 1 applic topical BID PRN psoriasis 08/12/24 04/24/25 Rx topical cream #45 grams metoprolol succinate 50 mg 50 mg PO DAILY #90 tabs 11/04/24 04/24/25 Rx tablet,extended release 24 hr tamsulosin 0.4 mg capsule 0.4 mg PO DAILY #90 caps 11/28/24 04/24/25 Rx albuterol sulfate 90 mcg/actuation 2 puff inhalation Q4H PRN 01/10/25 04/24/25 Rx aerosol inhaler shortness of breath or wheezing #8.5 grams sertraline 25 mg tablet 25 mg PO DAILY #90 tabs 02/13/25 04/24/25 Rx apixaban 5 mg tablet (Eliquis) 5 mg PO BID #180 tabs 02/16/25 04/24/25 Rx budesonide 160 mcg-glycopyr 9 2 inh inhalation BID #10.7 grams 02/20/25 04/24/25 Rx mcg-formot 4.8 mcg/actuation HFA inhaler (Breztri Aerosphere) torsemide 20 mg tablet 20 mg PO BID #180 tabs 02/23/25 04/24/25 Rx Exam Narrative Exam Narrative: General: Patient appears appropriate for age, alert and oriented x 3 and in moderate distress from his respiratory symptoms with tachypnea when speaking. He also has a moist cough. HEENT: Normocephalic, eyes with pupils equal and reactive to light symmetrically, extraocular movement intact and sclera anicteric. Oropharynx with dry mucosa and fair dentition. There is no active nosebleed. Neck: Supple without JVD. Back: Kyphotic without CVA tenderness. Lungs: Coarse crackles more on the right than left base with bronchovesicular breath sound diffusely, coarse rhonchi with cough, no focalizing rales. Decreased aeration at bases. No expiratory wheeze. Patient is tachypneic during exam. Heart: Irregularly irregular rhythm without any appreciable murmur or gallop. Abdomen: Obese contour, soft and nontender to palpation with no palpable hepatosplenomegaly. Bowel sounds positive in all quadrants. Genitalia/rectal: Exam deferred. Extremities: 1-2+ pitting edema lower extremities with chronic skin changes including loss of hair but no atrophy or ulceration and no skin color changes. Fair capillary refill. Skin: Pale, warm and dry. Neuro: Cranial nerves II through XII gross intact, no focal motor deficits or tremor. Psych: Flattened affect with slightly depressed mood. No abnormal thought processes. Remote and recent memory intact. Results Imaging Imaging Studies: EXAM: XR CHEST 2V PA LATERAL Date of exam: 04/24/2025 CLINICAL HISTORY: productive cough, hypoxia TECHNIQUE: 2D digital imaging was performed. Two views. COMPARISON: CT CT CHEST PE CTA from 10/12/2024 CR,XR XR PORTABLE CHEST AP from 01/29/2025 FINDINGS: Overlying monitoring leads. HEART: Enlarged, unchanged. Valve prosthesis. Aorta: Not dilated. PULMONARY VASCULATURE: Normal. MEDIASTINUM: Unremarkable. LUNGS: Increased densities noted at the right costophrenic angle. Findings may represent an infiltrate and/or small right pleural effusion. Chronic interstitial changes. PLEURAL SPACE: Trace right pleural effusion. No pneumothorax. BONE:Unremarkable for age. SOFT TISSUES: Moderate ring device over the upper midline of the chest. Surgical clips in the right axilla. IMPRESSION: Cardiomegaly. Trace right pleural effusion versus infiltrate. - Date of Exam: 07/14/24 EXAM: Comprehensive 2D, Doppler, and color-flow Echocardiogram Patient Location: Out-Patient [facility] Machine Operator: Anibal Maddox RDCS (AE) Indications: Mitral valve repair, dilated ascending aorta Other Information Study Quality: Technically Limited. Technically limited study due to body habitus. Conclusion Normal left ventricular wall thickness and chamber size. Ejection fraction is 60%. Wall motion is normal Right ventricle is not well-visualized Both atria are moderately enlarged Aortic valve is sclerotic and trileaflet trace regurgitation Prior mitral valve repair with mild residual regurgitation aortic root and ascending aorta measure 4.7, 4.8 cm Labs 04/25/25 06:25 04/25/25 06:25 Labs: Laboratory Results - last 24 hr 04/24/25 04/24/25 04/24/25 15:40 16:00 17:15 WBC 6.24 RBC 2.24 L Hgb 6.0 L* Hct 19.6 L* MCV 88 MCH 26.8 L MCHC 30.6 L RDW 16.2 H Plt Count 267 MPV 9.8 Immature Gran % 0.3 Neutrophils % 71.8 Lymphocytes % 10.7 Monocytes % 11.4 Eosinophils % 5.6 Basophils % 0.2 Nucleated RBC % 0.0 Absolute Neutrophils 4.48 Absolute Lymphocytes 0.67 L Absolute Monocytes 0.71 Absolute Eosinophils 0.35 Absolute Basophils 0.01 RBC Morphology See Below Polychromasia Present Hypochromasia 1+ Poikilocytosis 1+ Anisocytosis 1+ PT 11.9 H INR 1.2 H APTT 21.9 VBG pH 7.47 H VBG pCO2 33 L VBG pO2 30 VBG HCO3 24 VBG Total CO2 23 L VBG O2 Saturation 52 VBG Base Excess 0 Sodium 140 Potassium 4.5 Chloride 103 Carbon Dioxide 21.6 Anion Gap 15.4 H BUN 77 H Creatinine 2.24 H Est GFR (CKD-EPI 2020) 27.95 Glucose 113 H Calcium 8.9 Magnesium 2.6 Total Bilirubin 0.4 AST 32 ALT 14 Alkaline Phosphatase 47 Troponin I 20 20 NT-Pro-B Natriuret Pep 3663 H Total Protein 6.9 Albumin 4.0 COVID-19 Source Nasopharynx SARS-CoV-2 (PCR) Negative Influenza Type A (PCR) Negative Influenza Type B (PCR) Negative RSV (PCR) Negative ABO/Rh A Positive Blood Type Recheck A Positive Antibody Screen NEGATIVE Crossmatch See Detail 04/24/25 18:35 WBC RBC Hgb Hct MCV MCH MCHC RDW Plt Count MPV Immature Gran % Neutrophils % Lymphocytes % Monocytes % Eosinophils % Basophils % Nucleated RBC % Absolute Neutrophils Absolute Lymphocytes Absolute Monocytes Absolute Eosinophils Absolute Basophils RBC Morphology Polychromasia Hypochromasia Poikilocytosis Anisocytosis PT INR APTT VBG pH VBG pCO2 VBG pO2 VBG HCO3 VBG Total CO2 VBG O2 Saturation VBG Base Excess Sodium Potassium Chloride Carbon Dioxide Anion Gap BUN Creatinine Est GFR (CKD-EPI 2020) Glucose Calcium Magnesium Total Bilirubin AST ALT Alkaline Phosphatase Troponin I Cancelled NT-Pro-B Natriuret Pep Total Protein Albumin COVID-19 Source SARS-CoV-2 (PCR) Influenza Type A (PCR) Influenza Type B (PCR) RSV (PCR) ABO/Rh Blood Type Recheck Antibody Screen Crossmatch Last Vital Signs Temp 36.8 C 04/24/25 18:57 Pulse 61 04/24/25 18:57 Resp 24 04/24/25 18:57 BP 115/70 04/24/25 18:57 Pulse Ox 94 04/24/25 18:57 VTE Prohylaxis Risk Level: Moderate/High Risk Contraindications: Active bleed/high bleed risk (Nosebleed with blood loss anemia) and Medical contrainidcation Prophylaxis: Patient anticoagulated and Mechanical Time Spent Time spent with Patient: >75 minutes Time was spent: preparing to see the patient(eg.review tests), obtaining and/or reviewing separately otained hiistory, ordering medications,tests, procedures, indepentently interpreting results, counseling the patient and care coordination
[2025-04-24] MEDS: AZITHROMYCIN 500 MG in Normal Saline 250 ML 250 MG IVPB (19:35)
[2025-04-24 20:20] LABS: Glucose Negative (Negative)
[2025-04-24 22:37] LABS: HCT 22.1 % (40.0-50.0); MCH 27.0 pg (27.0-33.0); MCHC 31.2 % (32.0-36.0); MCV 86 fL (80-95); MPV 9.5 fL (8.0-11.0); Platelet Count 216 10^3/uL (130-400); RBC 2.56 10^6/uL (4.36-5.78); RDW 15.0 % (11.8-14.1); RDW-SD 47.3 fL; WBC 4.44 10^3/uL (4.4-10.8)
[2025-04-24 22:42] LABS: HGB 6.9 g/dL (13.5-17.5)
[2025-04-24] MEDS: methylPREDNISolone SUCC 125 MG VIAL 60 MG IVP (22:54)
[2025-04-24] MEDS: Normal Saline Flush 10 ML SYR IVP (22:55)
[2025-04-24 22:57] LABS: TSH (W/Ref FT4) 1.55 uIU/mL (0.55-4.78)
--- NOTE | 2025-04-24 23:19 | W.PC.ACHO ---
Registration Status: ADM IN Primary Language: Preferred Language: Polish ED Information & Data Chief Complaint SOB 04/24/25 20:17 Chief Complaint SOB 04/24/25 15:43 Triage Note Pt arrives to ED c/o SOB x a 04/24/25 15:20 few days + productive cough (yellow phlegm). Pt states he had a bloody nose 4 days ago and believes he aspirated since it happened while he was sleeping. Pt is on Eliquis. O2 84% on RA Medical / Surgical History BPH (benign prostatic hyperplasia) Essential hypertension (09/08/13) Hypomagnesemia Thoracic aortic aneurysm Hyperlipidemia Multiple lacunar infarcts Psoriatic arthritis Fractures, multiple History of poliomyelitis History of tobacco use (Last Reviewed 04/24/25 @ 19:28 by Myron Felix) H/O mitral valve repair Vasectomy Most Recent Vital Signs Temperature 36.6 C 04/24/25 23:02 Temperature Source Temporal Artery Scan 04/24/25 23:02 Pulse 105 H 04/24/25 23:02 Pulse Rhythm Regular 04/24/25 22:22 Pulse 65 04/24/25 21:50 Respiratory Rate 18 04/24/25 23:02 Respiratory Effort Normal 04/24/25 22:22 Respiratory Depth Normal 04/24/25 20:18 Respiratory Pattern Normal 04/24/25 22:22 Blood Pressure 128/69 04/24/25 23:02 Blood Pressure Mean 88 04/24/25 23:02 Blood Pressure Position Supine 04/24/25 20:17 Pulse Oximetry 99 04/24/25 23:02 Oxygen Delivery Method Nasal Cannula 04/24/25 23:02 Oxygen Flow Rate 2 04/24/25 23:02 End Tidal Co2 2 04/24/25 20:17 Pain Level 0 04/24/25 22:22 Comment 2 NC 04/24/25 22:22 Allergies niacin Allergy (Severe, Verified 04/24/25 20:17) rash/flusing simvastatin Adverse Reaction (Intermediate, Verified 04/24/25 20:17) Myalgia detergent Adverse Reaction (Intermediate, Uncoded 04/24/25 20:17) Skin Rash Active Medications Generic Name Dose Route Start Last Admin Trade Name Freq PRN Reason Stop Dose Admin Methylprednisolone Sodium Succinate 60 mg 04/24/25 22:00 04/24/25 22:54 Methylprednisolone Succ 125 Mg Vial IVP 60 mg Q8H DHARMESH Administration Sodium Chloride 0 ml 04/24/25 20:00 04/24/25 22:55 Normal Saline Flush 10 Ml Syr IVP 10 ml BID DHARMESH Administration IV IV Catheter Type [Left Wrist] Saline Lock IV Catheter Type [Right Saline Lock Antecubital] IV Catheter Gauge [Left Wrist] 20 IV Catheter Gauge [Right 18 Antecubital] Diet Orders Category Date Time Status Heart Healthy Eating [DIET] Nutrition 04/25/25 Breakfast Ordered Diagnostics 04/24/25 04/24/25 04/24/25 Range/Units 22:30 20:05 18:35 WBC 4.44 (4.4-10.8) 10^3/uL RBC 2.56 L (4.36-5.78) 10^6/uL Hgb 6.9 L* (13.5-17.5) g/dL Hct 22.1 L (40.0-50.0) % MCV 86 (80-95) fL MCH 27.0 (27.0-33.0) pg MCHC 31.2 L (32.0-36.0) % RDW 15.0 H (11.8-14.1) % Plt Count 216 (130-400) 10^3/uL MPV 9.5 (8.0-11.0) fL Immature Gran % % Neutrophils % % Lymphocytes % % Monocytes % % Eosinophils % % Basophils % % Nucleated RBC % (0.0-0.3) % Absolute Neutrophils (1.2-6.7) 10^3/uL Absolute Lymphocytes (1.2-3.4) 10^3/uL Absolute Monocytes (0.1-0.8) 10^3/uL Absolute Eosinophils (0.0-0.7) 10^3/uL Absolute Basophils (0.0-0.2) 10^3/uL RBC Morphology Polychromasia Hypochromasia Poikilocytosis Anisocytosis PT (9.1-11.1) sec INR (0.9-1.1) APTT (20.6-30.2) sec VBG pH (7.31-7.41) VBG pCO2 (41-51) mmHg VBG pO2 mmHg VBG HCO3 (23-28) mmol/L VBG Total CO2 (24-29) mmol/L VBG O2 Saturation % VBG Base Excess (-2-3) mmol/L Sodium (136-145) mmol/L Potassium (3.5-5.1) mmol/L Chloride (98-107) mmol/L Carbon Dioxide (20.0-31.0) mmol/L Anion Gap (3-11) mmol/L BUN (9-23) mg/dL Creatinine (0.73-1.18) mg/dL Est GFR (CKD-EPI 2020) (mL/min/1.73m2) Glucose (74-106) mg/dL Calcium (8.3-10.6) mg/dL Magnesium (1.6-2.6) mg/dL Total Bilirubin (0.2-1.2) mg/dL AST (<34) U/L ALT (10-49) U/L Alkaline Phosphatase (46-116) U/L Troponin I Cancelled (<54) ng/L NT-Pro-B Natriuret Pep (<300) pg/mL Total Protein (5.7-8.2) g/dL Albumin (3.2-5.0) g/dL TSH (0.55-4.78) uIU/mL Urine Color Yellow (Yellow) Urine Clarity Clear (Clear) Urine pH 7.0 (5-8) Ur Specific [place] 1.010 (1.005-1.025) Urine Protein Negative (Neg-Trace) mg/dL Urine Ketones Trace H (Negative) mg/dL Urine Blood Negative (Negative) Urine Nitrite Negative (Negative) Urine Bilirubin Negative (Negative) Urine Urobilinogen 0.2 (Up to 0.2) mg/dL Ur Leukocyte Esterase Negative (Negative) Urine Glucose Negative (Negative) mg/dL COVID-19 Source SARS-CoV-2 (PCR) (Negative) Influenza Type A (PCR) (Negative) Influenza Type B (PCR) (Negative) RSV (PCR) (Negative) ABO/Rh Blood Type Recheck Antibody Screen Crossmatch 04/24/25 04/24/25 04/24/25 Range/Units 17:15 16:00 15:40 WBC 6.24 (4.4-10.8) 10^3/uL RBC 2.24 L (4.36-5.78) 10^6/uL Hgb 6.0 L* (13.5-17.5) g/dL Hct 19.6 L* (40.0-50.0) % MCV 88 (80-95) fL MCH 26.8 L (27.0-33.0) pg MCHC 30.6 L (32.0-36.0) % RDW 16.2 H (11.8-14.1) % Plt Count 267 (130-400) 10^3/uL MPV 9.8 (8.0-11.0) fL Immature Gran % 0.3 % Neutrophils % 71.8 % Lymphocytes % 10.7 % Monocytes % 11.4 % Eosinophils % 5.6 % Basophils % 0.2 % Nucleated RBC % 0.0 (0.0-0.3) % Absolute Neutrophils 4.48 (1.2-6.7) 10^3/uL Absolute Lymphocytes 0.67 L (1.2-3.4) 10^3/uL Absolute Monocytes 0.71 (0.1-0.8) 10^3/uL Absolute Eosinophils 0.35 (0.0-0.7) 10^3/uL Absolute Basophils 0.01 (0.0-0.2) 10^3/uL RBC Morphology See Below Polychromasia Present Hypochromasia 1+ Poikilocytosis 1+ Anisocytosis 1+ PT 11.9 H (9.1-11.1) sec INR 1.2 H (0.9-1.1) APTT 21.9 (20.6-30.2) sec VBG pH 7.47 H (7.31-7.41) VBG pCO2 33 L (41-51) mmHg VBG pO2 30 mmHg VBG HCO3 24 (23-28) mmol/L VBG Total CO2 23 L (24-29) mmol/L VBG O2 Saturation 52 % VBG Base Excess 0 (-2-3) mmol/L Sodium 140 (136-145) mmol/L Potassium 4.5 (3.5-5.1) mmol/L Chloride 103 (98-107) mmol/L Carbon Dioxide 21.6 (20.0-31.0) mmol/L Anion Gap 15.4 H (3-11) mmol/L BUN 77 H (9-23) mg/dL Creatinine 2.24 H (0.73-1.18) mg/dL Est GFR (CKD-EPI 2020) 27.95 (mL/min/1.73m2) Glucose 113 H (74-106) mg/dL Calcium 8.9 (8.3-10.6) mg/dL Magnesium 2.6 (1.6-2.6) mg/dL Total Bilirubin 0.4 (0.2-1.2) mg/dL AST 32 (<34) U/L ALT 14 (10-49) U/L Alkaline Phosphatase 47 (46-116) U/L Troponin I 20 20 (<54) ng/L NT-Pro-B Natriuret Pep 3663 H (<300) pg/mL Total Protein 6.9 (5.7-8.2) g/dL Albumin 4.0 (3.2-5.0) g/dL TSH 1.55 (0.55-4.78) uIU/mL Urine Color (Yellow) Urine Clarity (Clear) Urine pH (5-8) Ur Specific [place] (1.005-1.025) Urine Protein (Neg-Trace) mg/dL Urine Ketones (Negative) mg/dL Urine Blood (Negative) Urine Nitrite (Negative) Urine Bilirubin (Negative) Urine Urobilinogen (Up to 0.2) mg/dL Ur Leukocyte Esterase (Negative) Urine Glucose (Negative) mg/dL COVID-19 Source Nasopharynx SARS-CoV-2 (PCR) Negative (Negative) Influenza Type A (PCR) Negative (Negative) Influenza Type B (PCR) Negative (Negative) RSV (PCR) Negative (Negative) ABO/Rh A Positive Blood Type Recheck A Positive Antibody Screen NEGATIVE Crossmatch See Detail Intake and Output - 24 Hour Total 04/24/25 15:15 thru 04/24/25 22:22 Intake Total 800 Balance 800 Weight 84.5 kg Intake: IV 300 Blood Product 500 Rbc Leuko Reduced Unit 500 [id number] Other: Urine Appearance Clear Falls Risk Assessment History of Falls Previous History 04/24/25 22:22 Contributing Factors No Factors 04/24/25 20:18 Ambulatory Aids Uses ambulatory device 04/24/25 20:18 Tubes/Lines None 04/24/25 22:22 Gait Evaluation No gait disturbance 04/24/25 20:18 Cognition No cognitive impairment 04/24/25 20:18 Fall Total Score 15 04/24/25 22:22 Level of Risk Standard/Low Risk 04/24/25 22:22 Problems (Last Reviewed 04/24/25 @ 19:28 by Myron Felix) Acute blood loss anemia (Acute) Aspiration pneumonia (Acute) Acute hypoxic respiratory failure (Acute) COPD (chronic obstructive pulmonary disease) (Chronic 11/22/13) Heart failure with preserved ejection fraction (Chronic) BRITTANY (acute kidney injury) (Acute) Paroxysmal A-fib (Chronic) Attestation Statement: By documenting the first initial, last name, and credentials of the reporting nurse below, both parties acknowledge that all relevant information regarding the patient handoff has been communicated, and that all questions have been addressed to ensure continuity and safety of care. Additional Patient Information/Comments: Report Received From: Krystle MONTES
[2025-04-24] MEDS: Metoprolol 25 MG TAB PO (23:57)
[2025-04-24] MEDS: Torsemide 20 MG TAB PO (23:58)
[2025-04-25] VITALS (31 sets, daily range): BP systolic 95–121; BP diastolic 48–77; PULSE 55–78; RESP 16–24; TEMP 36.1–37.1; O2SAT 95–100
[2025-04-25] MEDS: Albuterol/Ipratropium 3 ML UPD VIAL UPD ×3 (00:08→11:20)
[2025-04-25 02:25] LABS: HCT 21.7 % (40.0-50.0); MCH 27.4 pg (27.0-33.0); MCHC 31.8 % (32.0-36.0); MCV 86 fL (80-95); MPV 9.4 fL (8.0-11.0); Platelet Count 217 10^3/uL (130-400); RBC 2.52 10^6/uL (4.36-5.78); RDW 14.9 % (11.8-14.1); RDW-SD 46.7 fL; WBC 3.69 10^3/uL (4.4-10.8)
[2025-04-25 02:31] LABS: HGB 6.9 g/dL (13.5-17.5)
--- NOTE | 2025-04-25 04:59 | W.PC.ACHO ---
Registration Status: ADM IN Primary Language: Preferred Language: Turkish ED Information & Data Chief Complaint SOB 04/24/25 20:17 Chief Complaint SOB 04/24/25 15:43 Triage Note Pt arrives to ED c/o SOB x a 04/24/25 15:20 few days + productive cough (yellow phlegm). Pt states he had a bloody nose 4 days ago and believes he aspirated since it happened while he was sleeping. Pt is on Eliquis. O2 84% on RA Medical / Surgical History BPH (benign prostatic hyperplasia) Essential hypertension (09/08/13) Hypomagnesemia Thoracic aortic aneurysm Hyperlipidemia Multiple lacunar infarcts Psoriatic arthritis Fractures, multiple History of poliomyelitis History of tobacco use (Last Reviewed 04/24/25 @ 19:28 by Myron Felix) H/O mitral valve repair Vasectomy Most Recent Vital Signs Temperature 36.1 C L 04/25/25 03:42 Temperature Source Temporal Artery Scan 04/24/25 23:02 Pulse 55 L 04/25/25 03:42 Pulse Rhythm Regular 04/24/25 22:22 Pulse 65 04/24/25 21:50 Respiratory Rate 18 04/25/25 03:42 Respiratory Effort Normal 04/24/25 22:22 Respiratory Depth Normal 04/24/25 20:18 Respiratory Pattern Normal 04/24/25 22:22 Blood Pressure 104/75 04/25/25 03:42 Blood Pressure Mean 84 04/25/25 03:42 Blood Pressure Position Supine 04/24/25 20:17 Pulse Oximetry 98 04/25/25 03:42 Oxygen Delivery Method Room Air 04/25/25 03:42 Oxygen Flow Rate 0 04/25/25 03:42 End Tidal Co2 2 04/24/25 20:17 Pain Level 0 04/24/25 22:22 Comment 1nc 04/25/25 03:42 Allergies niacin Allergy (Severe, Verified 04/24/25 20:17) rash/flusing simvastatin Adverse Reaction (Intermediate, Verified 04/24/25 20:17) Myalgia detergent Adverse Reaction (Intermediate, Uncoded 04/24/25 20:17) Skin Rash Active Medications Generic Name Dose Route Start Last Admin Trade Name Freq PRN Reason Stop Dose Admin Albuterol/Ipratropium 3 ml 04/24/25 23:00 04/25/25 00:08 Albuterol/Ipratropium 3 Ml Upd Vial UPD 3 ml Q6H DHARMESH Administration Methylprednisolone Sodium Succinate 60 mg 04/24/25 22:00 04/24/25 22:54 Methylprednisolone Succ 125 Mg Vial IVP 60 mg Q8H DHARMESH Administration Metoprolol Tartrate 25 mg 04/24/25 23:00 04/24/25 23:57 Metoprolol 25 Mg Tab PO 25 mg BID DHARMESH Administration Sodium Chloride 0 ml 04/24/25 20:00 04/24/25 22:55 Normal Saline Flush 10 Ml Syr IVP 10 ml BID DHARMESH Administration Torsemide 20 mg 04/24/25 23:15 04/24/25 23:58 Torsemide 20 Mg Tab PO 20 mg BID DIURETIC DHARMESH Administration IV IV Catheter Type [Left Wrist] Saline Lock IV Catheter Type [Right Saline Lock Antecubital] IV Catheter Gauge [Left Wrist] 20 IV Catheter Gauge [Right 18 Antecubital] Diet Orders Category Date Time Status Heart Healthy Eating [DIET] Nutrition 04/25/25 Breakfast Active Diagnostics 04/25/25 04/25/25 04/25/25 Range/Units 10:19 06:19 05:35 WBC Pending Pending (4.4-10.8) 10^3/uL RBC Pending Pending (4.36-5.78) 10^6/uL Hgb Pending Pending (13.5-17.5) g/dL Hct Pending Pending (40.0-50.0) % MCV Pending Pending (80-95) fL MCH Pending Pending (27.0-33.0) pg MCHC Pending Pending (32.0-36.0) % RDW Pending Pending (11.8-14.1) % Plt Count Pending Pending (130-400) 10^3/uL MPV Pending Pending (8.0-11.0) fL Immature Gran % % Neutrophils % % Lymphocytes % % Monocytes % % Eosinophils % % Basophils % % Nucleated RBC % (0.0-0.3) % Absolute Neutrophils (1.2-6.7) 10^3/uL Absolute Lymphocytes (1.2-3.4) 10^3/uL Absolute Monocytes (0.1-0.8) 10^3/uL Absolute Eosinophils (0.0-0.7) 10^3/uL Absolute Basophils (0.0-0.2) 10^3/uL RBC Morphology Polychromasia Hypochromasia Poikilocytosis Anisocytosis PT (9.1-11.1) sec INR (0.9-1.1) APTT (20.6-30.2) sec VBG pH (7.31-7.41) VBG pCO2 (41-51) mmHg VBG pO2 mmHg VBG HCO3 (23-28) mmol/L VBG Total CO2 (24-29) mmol/L VBG O2 Saturation % VBG Base Excess (-2-3) mmol/L Sodium Pending (136-145) mmol/L Potassium Pending (3.5-5.1) mmol/L Chloride Pending (98-107) mmol/L Carbon Dioxide Pending (20.0-31.0) mmol/L Anion Gap Pending (3-11) mmol/L BUN Pending (9-23) mg/dL Creatinine Pending (0.73-1.18) mg/dL Est GFR (CKD-EPI 2020) Pending (mL/min/1.73m2) Glucose Pending (74-106) mg/dL Calcium Pending (8.3-10.6) mg/dL Magnesium Pending (1.6-2.6) mg/dL Total Bilirubin Pending (0.2-1.2) mg/dL AST Pending (<34) U/L ALT Pending (10-49) U/L Alkaline Phosphatase Pending (46-116) U/L Troponin I (<54) ng/L NT-Pro-B Natriuret Pep (<300) pg/mL Total Protein Pending (5.7-8.2) g/dL Albumin Pending (3.2-5.0) g/dL TSH (0.55-4.78) uIU/mL Urine Color (Yellow) Urine Clarity (Clear) Urine pH (5-8) Ur Specific [place] (1.005-1.025) Urine Protein (Neg-Trace) mg/dL Urine Ketones (Negative) mg/dL Urine Blood (Negative) Urine Nitrite (Negative) Urine Bilirubin (Negative) Urine Urobilinogen (Up to 0.2) mg/dL Ur Leukocyte Esterase (Negative) Urine Glucose (Negative) mg/dL COVID-19 Source SARS-CoV-2 (PCR) (Negative) Influenza Type A (PCR) (Negative) Influenza Type B (PCR) (Negative) RSV (PCR) (Negative) ABO/Rh Blood Type Recheck Antibody Screen Crossmatch 04/25/25 04/24/25 04/24/25 Range/Units 02:19 22:30 20:05 WBC 3.69 L 4.44 (4.4-10.8) 10^3/uL RBC 2.52 L 2.56 L (4.36-5.78) 10^6/uL Hgb 6.9 L* 6.9 L* (13.5-17.5) g/dL Hct 21.7 L 22.1 L (40.0-50.0) % MCV 86 86 (80-95) fL MCH 27.4 27.0 (27.0-33.0) pg MCHC 31.8 L 31.2 L (32.0-36.0) % RDW 14.9 H 15.0 H (11.8-14.1) % Plt Count 217 216 (130-400) 10^3/uL MPV 9.4 9.5 (8.0-11.0) fL Immature Gran % % Neutrophils % % Lymphocytes % % Monocytes % % Eosinophils % % Basophils % % Nucleated RBC % (0.0-0.3) % Absolute Neutrophils (1.2-6.7) 10^3/uL Absolute Lymphocytes (1.2-3.4) 10^3/uL Absolute Monocytes (0.1-0.8) 10^3/uL Absolute Eosinophils (0.0-0.7) 10^3/uL Absolute Basophils (0.0-0.2) 10^3/uL RBC Morphology Polychromasia Hypochromasia Poikilocytosis Anisocytosis PT (9.1-11.1) sec INR (0.9-1.1) APTT (20.6-30.2) sec VBG pH (7.31-7.41) VBG pCO2 (41-51) mmHg VBG pO2 mmHg VBG HCO3 (23-28) mmol/L VBG Total CO2 (24-29) mmol/L VBG O2 Saturation % VBG Base Excess (-2-3) mmol/L Sodium (136-145) mmol/L Potassium (3.5-5.1) mmol/L Chloride (98-107) mmol/L Carbon Dioxide (20.0-31.0) mmol/L Anion Gap (3-11) mmol/L BUN (9-23) mg/dL Creatinine (0.73-1.18) mg/dL Est GFR (CKD-EPI 2020) (mL/min/1.73m2) Glucose (74-106) mg/dL Calcium (8.3-10.6) mg/dL Magnesium (1.6-2.6) mg/dL Total Bilirubin (0.2-1.2) mg/dL AST (<34) U/L ALT (10-49) U/L Alkaline Phosphatase (46-116) U/L Troponin I (<54) ng/L NT-Pro-B Natriuret Pep (<300) pg/mL Total Protein (5.7-8.2) g/dL Albumin (3.2-5.0) g/dL TSH (0.55-4.78) uIU/mL Urine Color Yellow (Yellow) Urine Clarity Clear (Clear) Urine pH 7.0 (5-8) Ur Specific [place] 1.010 (1.005-1.025) Urine Protein Negative (Neg-Trace) mg/dL Urine Ketones Trace H (Negative) mg/dL Urine Blood Negative (Negative) Urine Nitrite Negative (Negative) Urine Bilirubin Negative (Negative) Urine Urobilinogen 0.2 (Up to 0.2) mg/dL Ur Leukocyte Esterase Negative (Negative) Urine Glucose Negative (Negative) mg/dL COVID-19 Source SARS-CoV-2 (PCR) (Negative) Influenza Type A (PCR) (Negative) Influenza Type B (PCR) (Negative) RSV (PCR) (Negative) ABO/Rh Blood Type Recheck Antibody Screen Crossmatch 04/24/25 04/24/25 04/24/25 Range/Units 18:35 17:15 16:00 WBC 6.24 (4.4-10.8) 10^3/uL RBC 2.24 L (4.36-5.78) 10^6/uL Hgb 6.0 L* (13.5-17.5) g/dL Hct 19.6 L* (40.0-50.0) % MCV 88 (80-95) fL MCH 26.8 L (27.0-33.0) pg MCHC 30.6 L (32.0-36.0) % RDW 16.2 H (11.8-14.1) % Plt Count 267 (130-400) 10^3/uL MPV 9.8 (8.0-11.0) fL Immature Gran % 0.3 % Neutrophils % 71.8 % Lymphocytes % 10.7 % Monocytes % 11.4 % Eosinophils % 5.6 % Basophils % 0.2 % Nucleated RBC % 0.0 (0.0-0.3) % Absolute Neutrophils 4.48 (1.2-6.7) 10^3/uL Absolute Lymphocytes 0.67 L (1.2-3.4) 10^3/uL Absolute Monocytes 0.71 (0.1-0.8) 10^3/uL Absolute Eosinophils 0.35 (0.0-0.7) 10^3/uL Absolute Basophils 0.01 (0.0-0.2) 10^3/uL RBC Morphology See Below Polychromasia Present Hypochromasia 1+ Poikilocytosis 1+ Anisocytosis 1+ PT 11.9 H (9.1-11.1) sec INR 1.2 H (0.9-1.1) APTT 21.9 (20.6-30.2) sec VBG pH 7.47 H (7.31-7.41) VBG pCO2 33 L (41-51) mmHg VBG pO2 30 mmHg VBG HCO3 24 (23-28) mmol/L VBG Total CO2 23 L (24-29) mmol/L VBG O2 Saturation 52 % VBG Base Excess 0 (-2-3) mmol/L Sodium 140 (136-145) mmol/L Potassium 4.5 (3.5-5.1) mmol/L Chloride 103 (98-107) mmol/L Carbon Dioxide 21.6 (20.0-31.0) mmol/L Anion Gap 15.4 H (3-11) mmol/L BUN 77 H (9-23) mg/dL Creatinine 2.24 H (0.73-1.18) mg/dL Est GFR (CKD-EPI 2020) 27.95 (mL/min/1.73m2) Glucose 113 H (74-106) mg/dL Calcium 8.9 (8.3-10.6) mg/dL Magnesium 2.6 (1.6-2.6) mg/dL Total Bilirubin 0.4 (0.2-1.2) mg/dL AST 32 (<34) U/L ALT 14 (10-49) U/L Alkaline Phosphatase 47 (46-116) U/L Troponin I Cancelled 20 20 (<54) ng/L NT-Pro-B Natriuret Pep 3663 H (<300) pg/mL Total Protein 6.9 (5.7-8.2) g/dL Albumin 4.0 (3.2-5.0) g/dL TSH 1.55 (0.55-4.78) uIU/mL Urine Color (Yellow) Urine Clarity (Clear) Urine pH (5-8) Ur Specific [place] (1.005-1.025) Urine Protein (Neg-Trace) mg/dL Urine Ketones (Negative) mg/dL Urine Blood (Negative) Urine Nitrite (Negative) Urine Bilirubin (Negative) Urine Urobilinogen (Up to 0.2) mg/dL Ur Leukocyte Esterase (Negative) Urine Glucose (Negative) mg/dL COVID-19 Source SARS-CoV-2 (PCR) (Negative) Influenza Type A (PCR) (Negative) Influenza Type B (PCR) (Negative) RSV (PCR) (Negative) ABO/Rh A Positive Blood Type Recheck A Positive Antibody Screen NEGATIVE Crossmatch See Detail 04/24/25 Range/Units 15:40 WBC (4.4-10.8) 10^3/uL RBC (4.36-5.78) 10^6/uL Hgb (13.5-17.5) g/dL Hct (40.0-50.0) % MCV (80-95) fL MCH (27.0-33.0) pg MCHC (32.0-36.0) % RDW (11.8-14.1) % Plt Count (130-400) 10^3/uL MPV (8.0-11.0) fL Immature Gran % % Neutrophils % % Lymphocytes % % Monocytes % % Eosinophils % % Basophils % % Nucleated RBC % (0.0-0.3) % Absolute Neutrophils (1.2-6.7) 10^3/uL Absolute Lymphocytes (1.2-3.4) 10^3/uL Absolute Monocytes (0.1-0.8) 10^3/uL Absolute Eosinophils (0.0-0.7) 10^3/uL Absolute Basophils (0.0-0.2) 10^3/uL RBC Morphology Polychromasia Hypochromasia Poikilocytosis Anisocytosis PT (9.1-11.1) sec INR (0.9-1.1) APTT (20.6-30.2) sec VBG pH (7.31-7.41) VBG pCO2 (41-51) mmHg VBG pO2 mmHg VBG HCO3 (23-28) mmol/L VBG Total CO2 (24-29) mmol/L VBG O2 Saturation % VBG Base Excess (-2-3) mmol/L Sodium (136-145) mmol/L Potassium (3.5-5.1) mmol/L Chloride (98-107) mmol/L Carbon Dioxide (20.0-31.0) mmol/L Anion Gap (3-11) mmol/L BUN (9-23) mg/dL Creatinine (0.73-1.18) mg/dL Est GFR (CKD-EPI 2020) (mL/min/1.73m2) Glucose (74-106) mg/dL Calcium (8.3-10.6) mg/dL Magnesium (1.6-2.6) mg/dL Total Bilirubin (0.2-1.2) mg/dL AST (<34) U/L ALT (10-49) U/L Alkaline Phosphatase (46-116) U/L Troponin I (<54) ng/L NT-Pro-B Natriuret Pep (<300) pg/mL Total Protein (5.7-8.2) g/dL Albumin (3.2-5.0) g/dL TSH (0.55-4.78) uIU/mL Urine Color (Yellow) Urine Clarity (Clear) Urine pH (5-8) Ur Specific [place] (1.005-1.025) Urine Protein (Neg-Trace) mg/dL Urine Ketones (Negative) mg/dL Urine Blood (Negative) Urine Nitrite (Negative) Urine Bilirubin (Negative) Urine Urobilinogen (Up to 0.2) mg/dL Ur Leukocyte Esterase (Negative) Urine Glucose (Negative) mg/dL COVID-19 Source Nasopharynx SARS-CoV-2 (PCR) Negative (Negative) Influenza Type A (PCR) Negative (Negative) Influenza Type B (PCR) Negative (Negative) RSV (PCR) Negative (Negative) ABO/Rh Blood Type Recheck Antibody Screen Crossmatch Intake and Output - 24 Hour Total 04/24/25 15:15 thru 04/25/25 04:28 Intake Total 1083 Output Total 235 Balance 848 Weight 84.5 kg Intake: IV 300 Blood Product 783 Rbc Leuko Reduced Unit 283 [id number] Rbc Leuko Reduced Unit 500 [id number] Output: Urine 235 Other: Urine Color Yellow Urine Appearance Clear Falls Risk Assessment History of Falls Previous History 04/24/25 22:22 Contributing Factors No Factors 04/24/25 20:18 Ambulatory Aids Uses ambulatory device 04/24/25 20:18 Tubes/Lines None 04/24/25 22:22 Gait Evaluation No gait disturbance 04/24/25 20:18 Cognition No cognitive impairment 04/24/25 20:18 Fall Total Score 15 04/24/25 22:22 Level of Risk Standard/Low Risk 04/24/25 22:22 Problems (Last Reviewed 04/24/25 @ 19:28 by Myron Felix) Acute blood loss anemia (Acute) Aspiration pneumonia (Acute) Acute hypoxic respiratory failure (Acute) COPD (chronic obstructive pulmonary disease) (Chronic 11/22/13) Heart failure with preserved ejection fraction (Chronic) BRITTANY (acute kidney injury) (Acute) Paroxysmal A-fib (Chronic) Attestation Statement: By documenting the first initial, last name, and credentials of the reporting nurse below, both parties acknowledge that all relevant information regarding the patient handoff has been communicated, and that all questions have been addressed to ensure continuity and safety of care. Additional Patient Information/Comments: Pt came in with SOB, hypoxia wheezes 02sat 85% 4 night ago nose bleed, patient also had nose bleed at home with blood down runnig his throat hbg of 6 2 units of blood given. Report Received From:Krystle MONTES
[2025-04-25] MEDS: AMPICILLIN/SULBACTAM 3 GM in Normal Saline 100 ML IVPB ×2 (05:39→17:56)
[2025-04-25] MEDS: methylPREDNISolone SUCC 125 MG VIAL 60 MG IVP ×3 (05:41→22:58)
[2025-04-25 06:52] LABS: MCH 27.8 pg (27.0-33.0); MCHC 32.4 % (32.0-36.0); MCV 86 fL (80-95); MPV 9.8 fL (8.0-11.0); Platelet Count 185 10^3/uL (130-400); RBC 2.45 10^6/uL (4.36-5.78); RDW 14.9 % (11.8-14.1); RDW-SD 46.1 fL; WBC 2.82 10^3/uL (4.4-10.8)
[2025-04-25 07:01] LABS: HCT 21.0 % (40.0-50.0); HGB 6.8 g/dL (13.5-17.5)
[2025-04-25 07:13] LABS: ALT 11 U/L (10-49); AST 15 U/L (<34); Albumin 3.5 g/dL (3.2-5.0); Alkaline Phosphatase 42 U/L (46-116); Anion Gap 12.8 mmol/L (3-11); BUN 70 mg/dL (9-23); Bilirubin, Total 0.4 mg/dL (0.2-1.2); CO2 24.2 mmol/L (20.0-31.0); Calcium 8.0 mg/dL (8.3-10.6); Chloride 103 mmol/L (98-107); Glucose 197 mg/dL (74-106); Potassium 3.6 mmol/L (3.5-5.1); Sodium 140 mmol/L (136-145); Total Protein 6.1 g/dL (5.7-8.2)
[2025-04-25 07:14] LABS: Magnesium 2.2 mg/dL (1.6-2.6)
[2025-04-25] MEDS: Ascorbic Acid 500 MG TAB 1000 MG PO (07:47)
[2025-04-25] MEDS: Tamsulosin 0.4 MG CAPCR PO (07:47)
[2025-04-25] MEDS: Multivitamin w/Minerals TAB 1 TAB PO (07:47)
[2025-04-25] MEDS: Normal Saline Flush 10 ML SYR IVP ×6 (07:47→22:58)
[2025-04-25] MEDS: Metoprolol 25 MG TAB PO ×2 (07:47→20:25)
--- NOTE | 2025-04-25 07:53 | PDOC.CMIN ---
Date of service: 04/25/25 Time of Service: 16:17 Care Management Initial Assmt Initial Assessment Reason for Hospitalization: Epistasis with acute blood loss anemia, CHF Functional Status/Living Situation Patient Presentation: Romeo was awake, alert, and sitting up in bed at the time of the CM visit. Earlier in the day, he received a visit from his neighbor, Eileen. He presented to the Emergency Department for evaluation of shortness of breath and hypoxia. Per report, Romeo has received two units of blood and is anticipated to require additional transfusions. He expressed curiosity regarding the indication for the blood transfusions. His vital signs are stable. Romeo was pleasant, cooperative, and willing to engage in conversation. He reported living in [place] with his , Akanksha, and shared that they have a blended family of seven children. He noted that two of his children are due to complications related to substance use. At baseline, Romeo is independent in all activities of daily living and continues to drive. Romeo has advance directives in place and expressed an expectation that he will be discharged home tomorrow. CM will continue to follow. 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) Instrumental Activities of Daily Living (ADLs): Independent Medications Medication Management: No Issues/Barriers identified Physical Functioning/Mobility Assistive Device: Walker Advance Directives Advance Directives: Do you have an Advance Directive: Y 10/22/22, 16:53 AD On File at [facility]: Y 10/22/22, 16:53 Date Asked 03/24/25 03/24/25, 11:14 AD Date Reviewed 04/24/25 04/24/25, 15:33 COLST On File at [facility] No 10/12/24, 14:11 COLST Date Scanned Code Status Resuscitation Status DNR/DNI Portal Pt does not currently have a portal and education provided: Yes Insurance Coverage/Financial Issues Insurance: Medicare Part A & B - [id number] [employer] Medicare Supplement Ins - [id number] Care Team Visit Care Team Role Provider Type Kaela Wagoner NP MD [facility] STAFF PHYSICIAN Jocy Forbes NP Primary Care Provider NURSE PRACTITIONER Sosa Gorman MD Emergency Provider [facility] STAFF PHYSICIAN Myron Felix Admit Provider NON-[facility] STAFF PHYSICIAN Attending Provider Discharge Potential Discharge Needs: PCP F/U Appt Anticipated Barriers to Discharge: None Identified Patient/Family Education Needs: Review discharge instructions, discuss Ask Me Three Transportation: Private vehicle Plan: Anticipate, Romeo will discharge home, once medically ready with no new services. It is recommended he follow up with his community providers and continue per his discharge plan of care. He will transport via private vehicle with family. CM will follow. Social Determinants of Health Screening Social Determinants of health last assessed in clinic: 04/25/25 Will the Patient Participate in the Screening?: Yes Do you worry about having a steady place to live?: no Problems where you live: no known problems In the past 12 months, have you had to go without electric, gas, oil or water in your home?: no 1. Within the past 12 months, we worried whether our food would run out before we got money to buy more.: Never true 2. Within the past 12 months, the food we bought just didn't last and we didn't have money to get more.: Never true Has lack of transportation kept you from medical appointments or from doing things needed for daily living?: no Has anyone in your life made you feel unsafe or unsupported?: no How hard is it for you to pay for the very basics like food, housing, medical care, and heating? Would you say it is:: Not hard at all Do you want help finding or keeping work or a job?: I do not need or want help If for any reason you need help with day-to-day activities such as bathing, preparing meals, shopping, managing finances, etc., do you get the help you need?: I don?t need any help How often do you feel lonely or isolated from those around you?: Never Do you speak a language other than Korean at home?: No Does the patient want assistance with any of the above?: No PFSH All Active Problems (Updated 04/24/25 @ 19:34 by Myron Felix) Acute blood loss anemia (Acute) Aspiration pneumonia (Acute) Anemia requiring transfusions (Acute) Acute hypoxic respiratory failure (Acute) COPD (chronic obstructive pulmonary disease) (Chronic 11/22/13) Depression (Chronic) Acute hypoxic respiratory failure (Acute) Heart failure with preserved ejection fraction (Chronic) Decompensated heart failure (Acute) BRITTANY (acute kidney injury) (Acute) CHF (congestive heart failure) (Chronic) Obstructive lung disease (Acute) Pleural effusion (Acute) Paroxysmal A-fib (Chronic) Supraventricular tachycardia (Chronic) On deep vein thrombosis (DVT) prophylaxis (Acute) COPD exacerbation (Acute) Community acquired pneumonia (Acute) Bilateral edema of lower extremity (Acute) Urinary hesitancy (Acute) Possibly due to BPH Dupuytren contracture (Acute) bilateral palms Mitral insufficiency (Chronic) status post mitral valve ring 2021 EF 60-65% Sensorineural hearing loss (SNHL) of both ears (Acute) Venous insufficiency of left leg (Acute) Psoriasis (Acute) On methotrexate, CBC & CMP yearly Medical History BPH (benign prostatic hyperplasia) Essential hypertension (09/08/13) Hypomagnesemia Thoracic aortic aneurysm 2021- Aortic root is moderately dilated.4.89 cm The ascending aorta isdilated.4.98 cm Aortic arch is normal in caliber. 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 Substance abuse Depression Son No problems noted. Daughter , 40+ Substance abuse Daughter No problems noted. Sister No problems noted. Sister No problems noted. Social History Smoking/Tobacco Use Status: Former Tobacco Use tobacco type: cigarettes, pipe and cigars Quit Date: 10/11/98 Tobacco: How many years used: 45 Quit status: has quit before Second Hand Exposure: Yes Smoking risk assessment performed?: Yes Alcohol Intake: current Alcohol Intake frequency: 3 or more drinks per day Alcohol type: beer, wine and hard liquor Drug use: Never Substance use type: does not use Caregiver/Support person: No Household members: spouse Housing: house Communication Needs: None Do you need help understanding health information?: Never Pets and animals: Yes Pets and animals: cat(s) Sexually active: No Do you think of yourself as: straight/heterosexual Current gender identity: male What is your relationship status?: How often do you talk on the phone with friends or family?: once per week How often do you get together with friends or relatives?: decline to answer How often do you attend druze or episcopalian services?: decline to answer Do you belong to any clubs or organized social groups?: no Panel score (0-1 are the most socially isolated patients): 1 What type of physical activity do you participate in: walking Duration: 30-45 minutes/day Frequency: 1-2 times per week Ericka/Sikhism: None Special ericka needs: No Seatbelt use: always Helmet use: No Drive intox or ride w/intox vending route driver: No Do you feel safe at home: Yes Do you feel safe in your relationship?: Yes Readmission Within the Past 30 Days Yes or No: No
[2025-04-25 10:20] LABS: MCH 27.5 pg (27.0-33.0); MCHC 31.8 % (32.0-36.0); MCV 86 fL (80-95); MPV 9.2 fL (8.0-11.0); Platelet Count 180 10^3/uL (130-400); RBC 2.33 10^6/uL (4.36-5.78); RDW 14.9 % (11.8-14.1); RDW-SD 46.7 fL; WBC 3.92 10^3/uL (4.4-10.8)
[2025-04-25 10:23] LABS: HCT 20.1 % (40.0-50.0); HGB 6.4 g/dL (13.5-17.5)
--- NOTE | 2025-04-25 12:41 | W.SURGCON ---
Date of service: 04/25/25 Time of Service: 12:42 Assessment and Plan Assessment and plan (1) Anemia requiring transfusions: Status: Acute Assessment and plan: Patient is an 84-year-old male admitted to the hospitalist service with epistaxis with subsequent aspiration pneumonia and acute blood loss anemia. He notes that about 4 days ago he had a severe nosebleed and subsequently developed likely aspiration, shortness of breath and hypoxia. He was admitted to the hospitalist service through the emergency department. On admission he received 2 units of PRBCs and still was noted to have a hemoglobin of 6.4 this morning. Given this finding General Surgery was consulted for concern for additional GI source of bleeding. On discussion with him today he notes that he had 1 melanotic stool yesterday prior to presentation. He states that he believes this is in the setting of a severe nosebleed. He denies any other history of GI bleed or melanotic stools prior to this episode. He notes he has never had a prior upper endoscopy or colonoscopy. He remains afebrile and hemodynamically stable. He is receiving further transfusion today. Given his history and current presentation it is difficult to discern whether there is a component of the GI bleeding as well. He has remained stable since admission and has had no further episodes of melena. Given this and his current respiratory status would continue observation and trending CBC following most recent transfusion. Continue to hold Eliquis at this time. There is no indication for urgent upper endoscopy or colonoscopy at this time. Also on further discussion with him he is unsure he would pursue an upper endoscopy or colonoscopy or further procedures even if recommended. History of Present Illness Narrative: He experienced a severe nosebleed 4 days ago, which led to coughing up significant amounts of blood for several days. Some of this blood was swallowed, resulting in a dark black bowel movement yesterday afternoon. He has not had any similar bowel movements today. Prior to the nosebleed, his stools were normal and denies any blood or black stools. The nosebleed occurred during sleep and was severe enough to cause significant blood loss. He managed to stop the bleeding by applying pressure to his nose. He suspects that his medication, Eliquis, may have contributed to the incident. He has not experienced any severe nosebleeds in the past 4 or 5 days, although he was having them every 2 or 3 days at home. His appetite has been poor, and he has lost 25 pounds a couple months ago. He is now able to eat again and reports no abdominal pain. He has never had a colonoscopy but has undergone 2 Cologuard tests in the last 10 years, both of which were negative. He has never had an upper endoscopy or any history of gastrointestinal bleeding. He has no history of abdominal surgery. PAST SURGICAL HISTORY: Mitral valve repair approximately 15 years ago. Review of Systems Constitutional Constitutional: Denies chills, Denies fever(s) and Denies weight gain Gastrointestinal Gastrointestinal: Denies abdominal pain, Denies nausea and Denies vomiting PFSH All Active Problems (Updated 04/24/25 @ 19:34 by Myron Felix) Acute blood loss anemia (Acute) Aspiration pneumonia (Acute) Anemia requiring transfusions (Acute) Acute hypoxic respiratory failure (Acute) COPD (chronic obstructive pulmonary disease) (Chronic 11/22/13) Depression (Chronic) Acute hypoxic respiratory failure (Acute) Heart failure with preserved ejection fraction (Chronic) Decompensated heart failure (Acute) BRITTANY (acute kidney injury) (Acute) CHF (congestive heart failure) (Chronic) Obstructive lung disease (Acute) Pleural effusion (Acute) Paroxysmal A-fib (Chronic) Supraventricular tachycardia (Chronic) On deep vein thrombosis (DVT) prophylaxis (Acute) COPD exacerbation (Acute) Community acquired pneumonia (Acute) Bilateral edema of lower extremity (Acute) Urinary hesitancy (Acute) Possibly due to BPH Dupuytren contracture (Acute) bilateral palms Mitral insufficiency (Chronic) status post mitral valve ring 2021 EF 60-65% Sensorineural hearing loss (SNHL) of both ears (Acute) Venous insufficiency of left leg (Acute) Psoriasis (Acute) On methotrexate, CBC & CMP yearly Medical History BPH (benign prostatic hyperplasia) Essential hypertension (09/08/13) Hypomagnesemia Thoracic aortic aneurysm 2021- Aortic root is moderately dilated.4.89 cm The ascending aorta isdilated.4.98 cm Aortic arch is normal in caliber. 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 Substance abuse Depression Son No problems noted. Daughter , 40+ Substance abuse Daughter No problems noted. Sister No problems noted. Sister No problems noted. Social History Smoking/Tobacco Use Status: Former Tobacco Use tobacco type: cigarettes, pipe and cigars Quit Date: 10/11/98 Tobacco: How many years used: 45 Quit status: has quit before Second Hand Exposure: Yes Smoking risk assessment performed?: Yes Alcohol Intake: current Alcohol Intake frequency: 3 or more drinks per day Alcohol type: beer, wine and hard liquor Drug use: Never Substance use type: does not use Caregiver/Support person: No Household members: spouse Housing: house Communication Needs: None Do you need help understanding health information?: Never Pets and animals: Yes Pets and animals: cat(s) Sexually active: No Do you think of yourself as: straight/heterosexual Current gender identity: male What is your relationship status?: How often do you talk on the phone with friends or family?: once per week How often do you get together with friends or relatives?: decline to answer How often do you attend sikh or moravian services?: decline to answer Do you belong to any clubs or organized social groups?: no Panel score (0-1 are the most socially isolated patients): 1 What type of physical activity do you participate in: walking Duration: 30-45 minutes/day Frequency: 1-2 times per week Ericka/Moravian: None Special ericka needs: No Seatbelt use: always Helmet use: No Drive intox or ride w/intox sprinkler truck driver: No Do you feel safe at home: Yes Do you feel safe in your relationship?: Yes Exam Narrative Exam Narrative: General: no acute distress. Skin: Good turgor, no visible rashes or lesion HEENT: Normocephalic, atraumatic CV: Regular rate Lungs: Bilateral equal chest rise Abdomen: Soft, non-tender, non-distended Extremities: Warm, well perfused Neurologic: No focal deficits Psychiatric: Alert and oriented, normal mood and affect Results Last Vital Signs Temp 36.8 C 04/25/25 12:30 Pulse 69 04/25/25 12:30 Resp 16 04/25/25 12:30 BP 108/65 04/25/25 12:30 Pulse Ox 96 04/25/25 12:30 Labs 04/25/25 10:11 04/25/25 06:25 Labs: Laboratory Results - last 24 hr 04/24/25 04/24/25 04/24/25 15:40 16:00 17:15 WBC 6.24 RBC 2.24 L Hgb 6.0 L* Hct 19.6 L* MCV 88 MCH 26.8 L MCHC 30.6 L RDW 16.2 H Plt Count 267 MPV 9.8 Immature Gran % 0.3 Neutrophils % 71.8 Lymphocytes % 10.7 Monocytes % 11.4 Eosinophils % 5.6 Basophils % 0.2 Nucleated RBC % 0.0 Absolute Neutrophils 4.48 Absolute Lymphocytes 0.67 L Absolute Monocytes 0.71 Absolute Eosinophils 0.35 Absolute Basophils 0.01 RBC Morphology See Below Polychromasia Present Hypochromasia 1+ Poikilocytosis 1+ Anisocytosis 1+ PT 11.9 H INR 1.2 H APTT 21.9 VBG pH 7.47 H VBG pCO2 33 L VBG pO2 30 VBG HCO3 24 VBG Total CO2 23 L VBG O2 Saturation 52 VBG Base Excess 0 Sodium 140 Potassium 4.5 Chloride 103 Carbon Dioxide 21.6 Anion Gap 15.4 H BUN 77 H Creatinine 2.24 H Est GFR (CKD-EPI 2020) 27.95 Glucose 113 H Calcium 8.9 Magnesium 2.6 Total Bilirubin 0.4 AST 32 ALT 14 Alkaline Phosphatase 47 Troponin I 20 20 NT-Pro-B Natriuret Pep 3663 H Total Protein 6.9 Albumin 4.0 TSH 1.55 Urine Color Urine Clarity Urine pH Ur Specific [place] Urine Protein Urine Ketones Urine Blood Urine Nitrite Urine Bilirubin Urine Urobilinogen Ur Leukocyte Esterase Urine Glucose COVID-19 Source Nasopharynx SARS-CoV-2 (PCR) Negative Influenza Type A (PCR) Negative Influenza Type B (PCR) Negative RSV (PCR) Negative ABO/Rh A Positive Blood Type Recheck A Positive Antibody Screen NEGATIVE Crossmatch See Detail 04/24/25 04/24/25 04/24/25 18:35 20:05 22:30 WBC 4.44 RBC 2.56 L Hgb 6.9 L* Hct 22.1 L MCV 86 MCH 27.0 MCHC 31.2 L RDW 15.0 H Plt Count 216 MPV 9.5 Immature Gran % Neutrophils % Lymphocytes % Monocytes % Eosinophils % Basophils % Nucleated RBC % Absolute Neutrophils Absolute Lymphocytes Absolute Monocytes Absolute Eosinophils Absolute Basophils RBC Morphology Polychromasia Hypochromasia Poikilocytosis Anisocytosis PT INR APTT VBG pH VBG pCO2 VBG pO2 VBG HCO3 VBG Total CO2 VBG O2 Saturation VBG Base Excess Sodium Potassium Chloride Carbon Dioxide Anion Gap BUN Creatinine Est GFR (CKD-EPI 2020) Glucose Calcium Magnesium Total Bilirubin AST ALT Alkaline Phosphatase Troponin I Cancelled NT-Pro-B Natriuret Pep Total Protein Albumin TSH Urine Color Yellow Urine Clarity Clear Urine pH 7.0 Ur Specific [place] 1.010 Urine Protein Negative Urine Ketones Trace H Urine Blood Negative Urine Nitrite Negative Urine Bilirubin Negative Urine Urobilinogen 0.2 Ur Leukocyte Esterase Negative Urine Glucose Negative COVID-19 Source SARS-CoV-2 (PCR) Influenza Type A (PCR) Influenza Type B (PCR) RSV (PCR) ABO/Rh Blood Type Recheck Antibody Screen Crossmatch 04/25/25 04/25/25 04/25/25 02:19 06:25 10:11 WBC 3.69 L 2.82 L 3.92 L RBC 2.52 L 2.45 L 2.33 L Hgb 6.9 L* 6.8 L* 6.4 L* Hct 21.7 L 21.0 L 20.1 L* MCV 86 86 86 MCH 27.4 27.8 27.5 MCHC 31.8 L 32.4 31.8 L RDW 14.9 H 14.9 H 14.9 H Plt Count 217 185 180 MPV 9.4 9.8 9.2 Immature Gran % Neutrophils % Lymphocytes % Monocytes % Eosinophils % Basophils % Nucleated RBC % Absolute Neutrophils Absolute Lymphocytes Absolute Monocytes Absolute Eosinophils Absolute Basophils RBC Morphology Polychromasia Hypochromasia Poikilocytosis Anisocytosis PT INR APTT VBG pH VBG pCO2 VBG pO2 VBG HCO3 VBG Total CO2 VBG O2 Saturation VBG Base Excess Sodium 140 Potassium 3.6 Chloride 103 Carbon Dioxide 24.2 Anion Gap 12.8 H BUN 70 H Creatinine 1.94 H Est GFR (CKD-EPI 2020) 32.99 Glucose 197 H Calcium 8.0 L Magnesium 2.2 Total Bilirubin 0.4 AST 15 ALT 11 Alkaline Phosphatase 42 L Troponin I NT-Pro-B Natriuret Pep Total Protein 6.1 Albumin 3.5 TSH Urine Color Urine Clarity Urine pH Ur Specific [place] Urine Protein Urine Ketones Urine Blood Urine Nitrite Urine Bilirubin Urine Urobilinogen Ur Leukocyte Esterase Urine Glucose COVID-19 Source SARS-CoV-2 (PCR) Influenza Type A (PCR) Influenza Type B (PCR) RSV (PCR) ABO/Rh Blood Type Recheck Antibody Screen Crossmatch
--- NOTE | 2025-04-25 12:43 | PHA.REVIEW2 ---
Pharmacy Admission Review Admission Clinical Review Admission Pharmacy Review: Acute blood loss anemia (Acute) Aspiration pneumonia (Acute) Acute hypoxic respiratory failure (Acute) BRITTANY (acute kidney injury) (Acute) niacin Allergy (Severe, Verified 04/24/25 20:17) rash/flusing simvastatin Adverse Reaction (Intermediate, Verified 04/24/25 20:17) Myalgia detergent Adverse Reaction (Intermediate, Uncoded 04/24/25 20:17) Skin Rash Resuscitation Status DNR/DNI Height 5 ft 7 in Weight 84.5 kg Pharmacy Admission Review Renal Dosing Renal Dosing: BUN 70 mg/dL (9-23) H 04/25/25 06:25 Creatinine 1.94 mg/dL (0.73-1.18) H 04/25/25 06:25 Medications needing adjustments: Intervened (CrCl 28 mL/min, BUN and SCr decreased) List of meds needing interventions: Changed Unasyn order from q8h to q12h due to CrCl < 30 Anticoagulation Anticoagulation: Hgb 6.4 g/dL (13.5-17.5) L* 6.8 g/dL (13.5-17.5) L* 6.9 g/dL (13.5-17.5) L* 6.9 g/dL (13.5-17.5) L* 6.0 g/dL (13.5-17.5) L* 04/25/25 10:11 04/25/25 06:25 04/25/25 02:19 04/24/25 22:30 04/24/25 16:00 Hct 20.1 % (40.0-50.0) L* 04/25/25 10:11 Plt Count 180 10^3/uL (130-400) 04/25/25 10:11 INR 1.2 (0.9-1.1) H 04/24/25 16:00 Creatinine 1.94 mg/dL (0.73-1.18) H 04/25/25 06:25 DVT Prophylaxis: Reviewed (SCDs, received 2 units of PRBCs yesterday) Relevant Labs Relevant Labs: Sodium 140 mmol/L (136-145) 04/25/25 06:25 Potassium 3.6 mmol/L (3.5-5.1) 04/25/25 06:25 Chloride 103 mmol/L (98-107) 04/25/25 06:25 Magnesium 2.2 mg/dL (1.6-2.6) 04/25/25 06:25 Electrolytes, C-Reactive P, ESR: Reviewed Cardiac Review Cardiac Review: Troponin I Cancelled 04/24/25 18:35 NT-Pro-B Natriuret Pep 3663 pg/mL (<300) H 04/24/25 16:00 BP, HR, EF%: Reviewed (BP and HR WNL) List meds needing interventions: Has orders for metoprolol 25mg BID and torsemide 20mg BID QTc Review QTc: Reviewed (462 from 04/25/25) IV to PO Switch IV Medications: Reviewed (methylprednisolone, Unasyn and azithromycin) Home Meds Home Med List reviewed: Intervened Relevent Home Meds Not ordered & why?: Eliquis (on hold) and aspirin Breztri on home med list was not initially ordered, reached out to provider who put in order. Changed to patients own (non-form) and asked nurse if this could be brought in for patient. Waiting to hear back. Changed triamcinolone cream and glucosamine to patients own orders (non-form). Reached out to nurse. Waiting to hear back. Per external fill history torsemide last filled 03/04 for 14 day supply. Asked nurse to verify that patient is still taking this at home. Waiting to hear back. Prasterone(DHEA) on home med list - reached out to provider as this is a vaginal med for menopause. Unsure if they meant just DHEA, asked nurse to clarify with patient. Provider said to cancel order. Per nurse during morning meeting patient reports that they do not take sertraline anymore at home. Removed from home med list but order still active. Provider is aware. Current Meds Current Medication Order Review: Intervened Comments: Retimed DuoNeb order to be on even hour per pharmacy protocol Pharmacy Antibiotic Review Relevant Labs: WBC 3.92 10^3/uL (4.4-10.8) L 04/25/25 10:11 Temperature 36.8 C Temperature 36.4 C Temperature 36.7 C Temperature 36.1 C Temperature 36.4 C Temperature 36.3 C Pharmacy Antibiotic Activity: C/S review and Renal function adjustment (Unasyn q8h --> q12h due to CrCl < 30) Comments: Patient is on Unasyn and azithromycin, day 1, for aspiration pneumonia. No cultures at this time.
[2025-04-25] MEDS: Furosemide 20 MG/2 ML VIAL IVP (14:56)
[2025-04-25] MEDS: CALCIUM GLUCONATE in NaCl 1 GM/50 ML BAG IVPB (15:16)
--- NOTE | 2025-04-25 17:37 | PGE_ITS ---
Date of Service Date of service: 04/25/25 Time of Service: 17:38 Assessment and Plan Assessment and plan (1) Acute hypoxic respiratory failure: Status: Acute Assessment and plan: Probable aspiration of blood 4 daysago iso epistaxis No O2 requirement His Eliquis and aspirin continue to be s/t recent epistaxis and acute blood loss. (2) Aspiration pneumonia: Status: Acute Assessment and plan: Continue Unasyn with continuation of Zithromax IV. (3) Acute blood loss anemia: Status: Acute Assessment and plan: S/p transfusion with 2 units packed red blood cells - hemoglobin 6.4 (down from 6.8 prior to transfusions) Transfuse two more units and check hgb/hct - furosemide and calcium given between units. Will check H&H after second unit transfused (4 total) Hold aspirin and apixaban (4) COPD (chronic obstructive pulmonary disease): Status: Chronic Assessment and plan: IV Solu-Medrol with frequent nebulizer treatments. Consider pulmonology consultation if needed. (5) Essential hypertension: Assessment and plan: Continue outpatient medical therapy. (6) Paroxysmal A-fib: Status: Chronic Assessment and plan: Continue outpatient medical therapy and cardiac monitoring (except apixaban and aspirin - hold). Reconsider Eliquis risk and benefit. Echocardiogram 01/29/25 EF 55-60% No WMA (7) Heart failure with preserved ejection fraction: Status: Chronic Assessment and plan: Echocardiogram 01/29/25 EF 55-60% No WMA Subjective Subjective Patient reports: no new complaints, tolerating liquids well, tolerating a regular diet and voiding w/o difficulty; denies flatus, bowel movement, diarrhea, nausea, vomiting or shortness of breath Interval history since last seen: Patient is awake, alert, conversant, pleasant. Exam Narrative Exam Narrative: General: no acute distress. Skin: Good turgor, no visible rashes or lesion HEENT: Normocephalic, atraumatic CV: Regular rate Lungs: Bilateral equal chest rise Abdomen: Soft, non-tender, non-distended Extremities: Warm, well perfused Neurologic: No focal deficits Psychiatric: Alert and oriented, normal mood and affect Objective Last Vital Signs Temp 36.9 C 04/25/25 17:10 Pulse 67 04/25/25 17:10 Resp 19 04/25/25 17:10 BP 110/76 04/25/25 17:10 Pulse Ox 96 04/25/25 17:10 Laboratory Results - last 24 hr 04/24/25 04/24/25 04/24/25 17:15 18:35 20:05 WBC RBC Hgb Hct MCV MCH MCHC RDW Plt Count MPV Sodium Potassium Chloride Carbon Dioxide Anion Gap BUN Creatinine Est GFR (CKD-EPI 2020) Glucose Calcium Magnesium Total Bilirubin AST ALT Alkaline Phosphatase Troponin I 20 Cancelled Total Protein Albumin TSH 1.55 Urine Color Yellow Urine Clarity Clear Urine pH 7.0 Ur Specific [place] 1.010 Urine Protein Negative Urine Ketones Trace H Urine Blood Negative Urine Nitrite Negative Urine Bilirubin Negative Urine Urobilinogen 0.2 Ur Leukocyte Esterase Negative Urine Glucose Negative ABO/Rh A Positive Antibody Screen NEGATIVE Crossmatch See Detail 04/24/25 04/25/25 04/25/25 22:30 02:19 06:25 WBC 4.44 3.69 L 2.82 L RBC 2.56 L 2.52 L 2.45 L Hgb 6.9 L* 6.9 L* 6.8 L* Hct 22.1 L 21.7 L 21.0 L MCV 86 86 86 MCH 27.0 27.4 27.8 MCHC 31.2 L 31.8 L 32.4 RDW 15.0 H 14.9 H 14.9 H Plt Count 216 217 185 MPV 9.5 9.4 9.8 Sodium 140 Potassium 3.6 Chloride 103 Carbon Dioxide 24.2 Anion Gap 12.8 H BUN 70 H Creatinine 1.94 H Est GFR (CKD-EPI 2020) 32.99 Glucose 197 H Calcium 8.0 L Magnesium 2.2 Total Bilirubin 0.4 AST 15 ALT 11 Alkaline Phosphatase 42 L Troponin I Total Protein 6.1 Albumin 3.5 TSH Urine Color Urine Clarity Urine pH Ur Specific [place] Urine Protein Urine Ketones Urine Blood Urine Nitrite Urine Bilirubin Urine Urobilinogen Ur Leukocyte Esterase Urine Glucose ABO/Rh Antibody Screen Crossmatch 04/25/25 10:11 WBC 3.92 L RBC 2.33 L Hgb 6.4 L* Hct 20.1 L* MCV 86 MCH 27.5 MCHC 31.8 L RDW 14.9 H Plt Count 180 MPV 9.2 Sodium Potassium Chloride Carbon Dioxide Anion Gap BUN Creatinine Est GFR (CKD-EPI 2020) Glucose Calcium Magnesium Total Bilirubin AST ALT Alkaline Phosphatase Troponin I Total Protein Albumin TSH Urine Color Urine Clarity Urine pH Ur Specific [place] Urine Protein Urine Ketones Urine Blood Urine Nitrite Urine Bilirubin Urine Urobilinogen Ur Leukocyte Esterase Urine Glucose ABO/Rh Antibody Screen Crossmatch PAWSS Have you Been Recently Intoxicated or Drunk Within the Last 30 days?: No Have you Ever Experienced Previous Episodes of Alcohol Withdrawal?: No Have you ever Experienced Withdrawal Seizures?: No Have you ever Experienced Delirium Tremens(DT)s?: No Have you ever undergone Alcohol Rehabilitation Treatment (i.e, inpt ot outpatient treatment programs)?: No Have you ever Experienced Blackouts?: No Have you ever Combined Alcohol with other Downers within the last 90 days?: No Have you ever Combined Alcohol with any other Substance of Abuse during the last 90 days?: No Positive Blood Alcohol level on Presentation? [PCS.BAL]: No Evidence of Increased Autonomic Activity (i.e. HR>120, tremor, sweating, agitation, nausea)?: No Result: 0 VTE Prohylaxis Risk Level: Moderate/High Risk Contraindications: Active bleed/high bleed risk (Nosebleed with blood loss anemia) and Medical contrainidcation Prophylaxis: Patient anticoagulated and Mechanical Time Spent with Patient Time Spent with Patient: 25-34 minutes Time was spent: preparing to see the patient(eg.review tests), ordering medications,tests, procedures, referring, communicating with other health caregivers homecare, indepentently interpreting results, counseling the patient and care coordination
[2025-04-25] MEDS: AZITHROMYCIN 500 MG in Normal Saline 250 ML 250 MG IVPB (18:42)
[2025-04-25 20:30] LABS: HCT 25.8 % (40.0-50.0); HGB 8.3 g/dL (13.5-17.5)
[2025-04-25 21:11] LABS: Glucose Negative (Negative)
[2025-04-26 03:37] VITALS: BP 107/76; PULSE 73; TEMP 36.7; O2SAT 94
[2025-04-26] MEDS: Normal Saline Flush 10 ML SYR IVP ×4 (06:15→13:25)
[2025-04-26] MEDS: methylPREDNISolone SUCC 125 MG VIAL 60 MG IVP ×2 (06:15→13:24)
[2025-04-26] MEDS: AMPICILLIN/SULBACTAM 3 GM in Normal Saline 100 ML IVPB (06:15)
--- NOTE | 2025-04-26 07:26 | PGE_ITS ---
Date of Service Date of service: 04/26/25 Time of Service: 07:26 Assessment and Plan Assessment and plan (1) Anemia requiring transfusions: Status: Acute Assessment and plan: Patient is an 84-year-old male admitted to the hospitalist service with epistaxis with subsequent aspiration pneumonia and acute blood loss anemia. He notes that about 4 days ago he had a severe nosebleed and subsequently developed likely aspiration, shortness of breath and hypoxia. He was admitted to the hospitalist service through the emergency department. On admission he received 2 units of PRBCs and still was noted to have a hemoglobin of 6.4 this morning. Given this finding General Surgery was consulted for concern for additional GI source of bleeding. Overnight he remains stable and has no abdominal concerns or concern for GI bleeding. He has had documented bowel movements which were not reported as bloody or melena. He denies any history of a GI bleed. He did have an appropriate response to the two units of pRBCs yesterday. Will follow up AM labs. Given no concerns for ongoing GI bleeding and appropriate response to most recent transfusion he has no indication for urgent upper endoscopy or colonoscopy. He remains unsure if he would proceed with any procedures as well even if recommended. If concern for GI bleeding and patient is considering moving forward with upper endoscopy and colonoscopy please contact general surgery team. (2) Aspiration pneumonia: Status: Acute Subjective Subjective Interval history since last seen: He notes he is doing ok this morning. Denies nausea, vomiting, abdominal pain. He states he has had some bowel movements but is unsure if they were bloody or dark. He has continued to tolerate a diet. Exam Narrative Exam Narrative: General: no acute distress. Skin: Good turgor, no visible rashes or lesion HEENT: Normocephalic, atraumatic CV: Regular rate Lungs: Bilateral equal chest rise Abdomen: Soft, non-tender, non-distended Extremities: Warm, well perfused Neurologic: No focal deficits Psychiatric: Alert, normal mood and affect Objective Last Vital Signs Temp 36.7 C 04/26/25 03:37 Pulse 73 04/26/25 03:37 Resp 16 04/25/25 23:03 BP 107/76 04/26/25 03:37 Pulse Ox 94 04/26/25 03:37 Laboratory Results - last 24 hr 04/24/25 04/25/25 04/25/25 17:15 10:11 19:51 WBC 3.92 L RBC 2.33 L Hgb 6.4 L* Hct 20.1 L* MCV 86 MCH 27.5 MCHC 31.8 L RDW 14.9 H Plt Count 180 MPV 9.2 Urine Color Yellow Urine Clarity Clear Urine pH 5.5 Ur Specific [place] 1.010 Urine Protein Negative Urine Ketones Negative Urine Blood Negative Urine Nitrite Negative Urine Bilirubin Negative Urine Urobilinogen 0.2 Ur Leukocyte Esterase Negative Urine Glucose Negative ABO/Rh A Positive Antibody Screen NEGATIVE Crossmatch See Detail 04/25/25 20:06 WBC RBC Hgb 8.3 L Hct 25.8 L MCV MCH MCHC RDW Plt Count MPV Urine Color Urine Clarity Urine pH Ur Specific [place] Urine Protein Urine Ketones Urine Blood Urine Nitrite Urine Bilirubin Urine Urobilinogen Ur Leukocyte Esterase Urine Glucose ABO/Rh Antibody Screen Crossmatch PAWSS Have you Been Recently Intoxicated or Drunk Within the Last 30 days?: No Have you Ever Experienced Previous Episodes of Alcohol Withdrawal?: No Have you ever Experienced Withdrawal Seizures?: No Have you ever Experienced Delirium Tremens(DT)s?: No Have you ever undergone Alcohol Rehabilitation Treatment (i.e, inpt ot outpatient treatment programs)?: No Have you ever Experienced Blackouts?: No Have you ever Combined Alcohol with other Downers within the last 90 days?: No Have you ever Combined Alcohol with any other Substance of Abuse during the last 90 days?: No Positive Blood Alcohol level on Presentation? [PCS.BAL]: No Evidence of Increased Autonomic Activity (i.e. HR>120, tremor, sweating, agitation, nausea)?: No Result: 0 VTE Prohylaxis Risk Level: Moderate/High Risk Contraindications: Active bleed/high bleed risk (Nosebleed with blood loss anemia) and Medical contrainidcation Prophylaxis: Patient anticoagulated and Mechanical Time Spent with Patient Time Spent with Patient: <25 minutes Time was spent: preparing to see the patient(eg.review tests), obtaining and/or reviewing separately otained hiistory, indepentently interpreting results and counseling the patient
[2025-04-26] MEDS: Ascorbic Acid 500 MG TAB 1000 MG PO (07:43)
[2025-04-26] MEDS: Tamsulosin 0.4 MG CAPCR PO (07:44)
[2025-04-26] MEDS: Multivitamin w/Minerals TAB 1 TAB PO (07:44)
[2025-04-26] MEDS: Torsemide 20 MG TAB PO (07:44)
[2025-04-26] MEDS: Metoprolol 25 MG TAB PO (07:44)
[2025-04-26 07:47] VITALS: BP 121/73; PULSE 76; RESP 18; TEMP 36.8; O2SAT 91
[2025-04-26 07:52] LABS: ALT 11 U/L (10-49); AST 18 U/L (<34); Albumin 3.7 g/dL (3.2-5.0); Alkaline Phosphatase 42 U/L (46-116); Anion Gap 12.3 mmol/L (3-11); BUN 58 mg/dL (9-23); Bilirubin, Total 0.6 mg/dL (0.2-1.2); CO2 24.7 mmol/L (20.0-31.0); Calcium 8.5 mg/dL (8.3-10.6); Chloride 106 mmol/L (98-107); Glucose 156 mg/dL (74-106); Potassium 3.9 mmol/L (3.5-5.1); Sodium 143 mmol/L (136-145); Total Protein 6.7 g/dL (5.7-8.2)
[2025-04-26 07:54] LABS: Magnesium 2.2 mg/dL (1.6-2.6)
[2025-04-26 08:07] VITALS: PULSE 70
[2025-04-26 08:12] LABS: HCT 27.7 % (40.0-50.0); HGB 9.0 g/dL (13.5-17.5); MCH 28.2 pg (27.0-33.0); MCHC 32.5 % (32.0-36.0); MCV 87 fL (80-95); MPV 9.7 fL (8.0-11.0); Platelet Count 211 10^3/uL (130-400); RBC 3.19 10^6/uL (4.36-5.78); RDW 15.8 % (11.8-14.1); RDW-SD 50.0 fL; WBC 8.92 10^3/uL (4.4-10.8)
--- NOTE | 2025-04-26 08:54 | PDOC.CMDIS ---
Date of service: 04/26/25 Time of Service: 08:55 LACE Index Scoring Tool Questions: Length of Stay (in days): 2 Was the patient admitted via the E.D.?: Yes Comorbidities: Congestive Heart Failure and Chronic Pulmonary Disease E.D. Visits: 2 Answers: Total Score: 12 Risk of Readmission: High Risk Care Management Discharge Plan Reason for Hospitalization: Epistasis with Acute blood loss anemia, CHF Discharge Plan: Romeo will discharge home today; CM recommends and requested new PT/OT/RN, patient is agreeable to these services. Romeo declined the Physical Therapy consult in the hospital today, stating that his would be arriving shortly and that he prefers to work with physical therapy at home. It is recommended he follow up with his community providers, possibly general surgery and continue per his discharge plan of care. He will transport via private vehicle with family. Patient/Family Education Needs: Review of discharge instruction, activity, limitations, and plan of care. Discuss ask me three. SDOH Health Related Social Needs: Health related social needs lonely/isolated
[2025-04-26 11:11] VITALS: BP 100/73; PULSE 74; RESP 20; TEMP 36.5; O2SAT 96
--- NOTE | 2025-04-26 13:00 | W.PM.DS.N ---
Date of service: 04/26/25 Time of Service: 13:00 DS: Diagnosis Discharge Diagnosis (1) Anemia requiring transfusions: Status: Acute (2) Aspiration pneumonia: Status: Acute Discharge Plan Disposition Patient Disposition: Home Condition: Improving Discharge Details Reason For Visit: Epistasis with Acute Blood Loss Anemia,CHF,Aspirat Admit Date/Time: 04/24/25 19:44 Admit Provider: Myron Felix Attending Provider: Myron Felix [facility] Course: Patient is an 84-year-old male with a past medical history significant for CHF with preserved ejection fraction, COPD, paroxysmal atrial fibrillation on apixaban, hypertension, thoracic aortic aneurysm, mitral valve repair, BPH, hyperlipidemia, psoriasis/psoriatic arthritis, prior lacunar infarcts, and remote tobacco use, who presented with progressive shortness of breath and hypoxia. The patient was found to have acute hypoxic respiratory failure in the setting of COPD exacerbation, pneumonia, and severe anemia. Initial hemoglobin was 6.4 g/dL. He received a total of 4 units of packed red blood cells with appropriate response and stabilization of hemoglobin to 9.0 g/dL. Respiratory status improved with supplemental oxygen, bronchodilators, systemic steroids, and antibiotics (ceftriaxone and azithromycin). Chest imaging suggested a right-sided pleural effusion versus infiltrate. He was also noted to have an acute kidney injury (BUN 77, creatinine 2.2), felt to be multifactorial, including anemia and cardiorenal physiology. Renal function remained stable without need for IV fluids given heart failure history. Creatinine is 1.65 today, close to baseline. Aspirin and Apixaban was discontinued in patient due to anemia and bleeding risk. Given his atrial fibrillation and stroke risk, apixaban will be continued at discharge after discussion of risks and benefits ( also present for discussion). Aspirin will be stopped. We asked PT to do an evaluation prior to discharge, the patient refused stating he did not need PT. The patient remained hemodynamically stable and was deemed safe for discharge with close outpatient follow-up. Home Meds and New Rx's Prescriptions: New amoxicillin-pot clavulanate 875-125 mg tablet 1 tab PO BID Qty: 10 0RF Continued DHEA 50 mg tablet 50 mg PO DAILY (DME) Aerochamber MV Spacer See Rx Instructions .Route Qty: 1 0RF Rx Instructions: As directed metoprolol succinate 50 mg tablet extended release 24 hr 50 mg PO DAILY Qty: 90 3RF tamsulosin 0.4 mg capsule 0.4 mg PO DAILY Qty: 90 3RF CENTRUM SILVER TABLET 1 EACH tablet 1 tab PO DAILY ascorbic acid (vitamin C) 1,000 MG tablet 1,000 mg PO DAILY [id number] C-Mn [Glucosamine 1500 Complex] 500-400 mg capsule 1 cap PO BID triamcinolone acetonide 0.5 % cream 1 applic Topical BID PRN (Reason: psoriasis) Qty: 45 3RF albuterol sulfate 90 mcg/actuation HFA aerosol inhaler 2 puff inhalation Q4H PRN (Reason: shortness of breath or wheezing) Qty: 8.5 12RF Eliquis 5 mg tablet 5 mg PO BID Qty: 180 3RF Breztri Aerosphere 160-9-4.8 mcg/actuation HFA aerosol inhaler 2 inh inhalation BID Qty: 10.7 3RF torsemide 20 mg tablet 20 mg PO BID Qty: 180 3RF Discontinued aspirin [Adult Low Dose Aspirin] 81 mg tablet,delayed release (DR/EC) 81 mg PO DAILY Discharge Instructions Instructions: Nosebleeds, Amoxicillin and Clavulanate Additional Instructions: Monitor for signs of bleeding Return for worsening shortness of breath, chest pain, dizziness, syncope, or bleeding Continue inhalers as prescribed Low-sodium diet and daily weights Hold Aspirin until told it is ok to take from your PCP. Continue Apixaban Start Augmentin twice a day for 5 days. Stand Alone Forms: Portal Information, Nursing Discharge Form Referrals: Edelmira Dillard MD [ [facility] STAFF PHYSICIAN, Cardiology] Referral Note: Keep scheduled appointment this month. Jocy Forbes NP [Primary Care Provider, Medicine] Referral Note: Your PCP will reach out, if you do not hear from them please call. 1 week post hospitalization for anemia ISO epistaxis req transfusions x 4. Asp PNA. Held aspirin, continued apixaban (risk/benefit) and augmentin for 5 days. Recommend CBC in 3 days. Activity:: Activity as Tolerated Equipment/Supplies:: No Equipment Needed Diet:: Heart Healthy Discharge Orders Discharge Orders: Discharge Order (Routine); Ordered 04/26/25 Ordered By: Kaela Wagoner Discharge Data Discharge Date/Time-TO BE ENTERED AT DEPARTURE: 04/26/25 15:35 DS: Summary Time Spent with Patient providing and/or coordinating discharge services: Greater than 30 minutes Status at Discharge Functional status at discharge: independent ambulation Overall status at discharge: patient is back to baseline Mental Status: mental status grossly normal Speech and Movement: speech and movement normal Mood: congruent mood Affect: normal affect Quality:SDOH Health Related Social Needs: Health related social needs lonely/isolated Exam Narrative Exam Narrative: General: no acute distress. Skin: Good turgor, no visible rashes or lesion HEENT: Normocephalic, atraumatic CV: Regular rate Lungs: Bilateral equal chest rise Abdomen: Soft, non-tender, non-distended Extremities: Warm, well perfused Neurologic: No focal deficits Psychiatric: Alert and oriented, normal mood and affect Psych Mental Status: mental status grossly normal Speech and Movement: speech and movement normal Mood: congruent mood Affect: normal affect DS: Data Vitals/I&O Vitals and I&O: Vital Signs Temperature 36.5 C 04/26/25 11:11 Temperature Source Tympanic 04/26/25 11:11 Pulse 74 04/26/25 11:11 Pulse Rhythm Regular 04/24/25 22:22 Pulse 65 04/24/25 21:50 Respiratory Rate 20 04/26/25 11:11 Respiratory Effort Normal 04/24/25 22:22 Respiratory Depth Normal 04/24/25 20:18 Respiratory Pattern Normal 04/24/25 22:22 Blood Pressure 100/73 04/26/25 11:11 Blood Pressure Mean 82 04/26/25 11:11 Blood Pressure Position Supine 04/24/25 20:17 Pulse Oximetry 96 04/26/25 11:11 Oxygen Delivery Method Room Air 04/26/25 11:11 Oxygen Flow Rate 0 04/26/25 11:11 End Tidal Co2 2 04/24/25 20:17 Pain Level 0 04/26/25 08:02 Comment Notifying RN 04/25/25 11:18 Intake & Output 04/25/25 04/26/25 04/26/25 23:59 11:59 23:59 Intake Total 1788 / 2671 840 / 1320 480 / 1320 Output Total 1300 / 2210 1045 / 1045 Balance 488 / 461 -205 / 275 480 / 275 Weight 85.2 kg Intake: IV 410 / 510 120 / 120 Oral 800 / 1300 720 / 1200 480 / 1200 Blood Product 578 / 861 Rbc Leuko Reduced Unit 297 / 297 [id number] Rbc Leuko Reduced Unit 281 / 281 [id number] Output: Urine 1300 / 2210 1045 / 1045 Other: Urine Color Yellow Yellow Urine Appearance Cloudy Clear Urine Odor Normal Normal Comment pt voids to toilet. Stool Size Large Small Small Stool Characteristics Bloody Liquid Soft Data Completed and Pending Pending Labs at Discharge: 04/24/25 04/24/25 04/24/25 15:40 16:00 17:15 WBC 6.24 RBC 2.24 L Hgb 6.0 L* Hct 19.6 L* MCV 88 MCH 26.8 L MCHC 30.6 L RDW 16.2 H Plt Count 267 MPV 9.8 Immature Gran % 0.3 Neutrophils % 71.8 Lymphocytes % 10.7 Monocytes % 11.4 Eosinophils % 5.6 Basophils % 0.2 Nucleated RBC % 0.0 Absolute Neutrophils 4.48 Absolute Lymphocytes 0.67 L Absolute Monocytes 0.71 Absolute Eosinophils 0.35 Absolute Basophils 0.01 RBC Morphology See Below Polychromasia Present Hypochromasia 1+ Poikilocytosis 1+ Anisocytosis 1+ PT 11.9 H INR 1.2 H APTT 21.9 VBG pH 7.47 H VBG pCO2 33 L VBG pO2 30 VBG HCO3 24 VBG Total CO2 23 L VBG O2 Saturation 52 VBG Base Excess 0 Sodium 140 Potassium 4.5 Chloride 103 Carbon Dioxide 21.6 Anion Gap 15.4 H BUN 77 H Creatinine 2.24 H Est GFR (CKD-EPI 2020) 27.95 Glucose 113 H Calcium 8.9 Magnesium 2.6 Total Bilirubin 0.4 AST 32 ALT 14 Alkaline Phosphatase 47 Troponin I 20 20 NT-Pro-B Natriuret Pep 3663 H Total Protein 6.9 Albumin 4.0 TSH 1.55 Urine Color Urine Clarity Urine pH Ur Specific [place] Urine Protein Urine Ketones Urine Blood Urine Nitrite Urine Bilirubin Urine Urobilinogen Ur Leukocyte Esterase Urine Glucose COVID-19 Source Nasopharynx SARS-CoV-2 (PCR) Negative Influenza Type A (PCR) Negative Influenza Type B (PCR) Negative RSV (PCR) Negative ABO/Rh A Positive Blood Type Recheck A Positive Antibody Screen NEGATIVE Crossmatch See Detail 04/24/25 04/24/25 04/24/25 18:35 20:05 22:30 WBC 4.44 RBC 2.56 L Hgb 6.9 L* Hct 22.1 L MCV 86 MCH 27.0 MCHC 31.2 L RDW 15.0 H Plt Count 216 MPV 9.5 Immature Gran % Neutrophils % Lymphocytes % Monocytes % Eosinophils % Basophils % Nucleated RBC % Absolute Neutrophils Absolute Lymphocytes Absolute Monocytes Absolute Eosinophils Absolute Basophils RBC Morphology Polychromasia Hypochromasia Poikilocytosis Anisocytosis PT INR APTT VBG pH VBG pCO2 VBG pO2 VBG HCO3 VBG Total CO2 VBG O2 Saturation VBG Base Excess Sodium Potassium Chloride Carbon Dioxide Anion Gap BUN Creatinine Est GFR (CKD-EPI 2020) Glucose Calcium Magnesium Total Bilirubin AST ALT Alkaline Phosphatase Troponin I Cancelled NT-Pro-B Natriuret Pep Total Protein Albumin TSH Urine Color Yellow Urine Clarity Clear Urine pH 7.0 Ur Specific [place] 1.010 Urine Protein Negative Urine Ketones Trace H Urine Blood Negative Urine Nitrite Negative Urine Bilirubin Negative Urine Urobilinogen 0.2 Ur Leukocyte Esterase Negative Urine Glucose Negative COVID-19 Source SARS-CoV-2 (PCR) Influenza Type A (PCR) Influenza Type B (PCR) RSV (PCR) ABO/Rh Blood Type Recheck Antibody Screen Crossmatch 04/25/25 04/25/25 04/25/25 02:19 06:25 10:11 WBC 3.69 L 2.82 L 3.92 L RBC 2.52 L 2.45 L 2.33 L Hgb 6.9 L* 6.8 L* 6.4 L* Hct 21.7 L 21.0 L 20.1 L* MCV 86 86 86 MCH 27.4 27.8 27.5 MCHC 31.8 L 32.4 31.8 L RDW 14.9 H 14.9 H 14.9 H Plt Count 217 185 180 MPV 9.4 9.8 9.2 Immature Gran % Neutrophils % Lymphocytes % Monocytes % Eosinophils % Basophils % Nucleated RBC % Absolute Neutrophils Absolute Lymphocytes Absolute Monocytes Absolute Eosinophils Absolute Basophils RBC Morphology Polychromasia Hypochromasia Poikilocytosis Anisocytosis PT INR APTT VBG pH VBG pCO2 VBG pO2 VBG HCO3 VBG Total CO2 VBG O2 Saturation VBG Base Excess Sodium 140 Potassium 3.6 Chloride 103 Carbon Dioxide 24.2 Anion Gap 12.8 H BUN 70 H Creatinine 1.94 H Est GFR (CKD-EPI 2020) 32.99 Glucose 197 H Calcium 8.0 L Magnesium 2.2 Total Bilirubin 0.4 AST 15 ALT 11 Alkaline Phosphatase 42 L Troponin I NT-Pro-B Natriuret Pep Total Protein 6.1 Albumin 3.5 TSH Urine Color Urine Clarity Urine pH Ur Specific [place] Urine Protein Urine Ketones Urine Blood Urine Nitrite Urine Bilirubin Urine Urobilinogen Ur Leukocyte Esterase Urine Glucose COVID-19 Source SARS-CoV-2 (PCR) Influenza Type A (PCR) Influenza Type B (PCR) RSV (PCR) ABO/Rh Blood Type Recheck Antibody Screen Crossmatch 04/25/25 04/25/25 04/26/25 19:51 20:06 06:55 WBC 8.92 RBC 3.19 L Hgb 8.3 L 9.0 L Hct 25.8 L 27.7 L MCV 87 MCH 28.2 MCHC 32.5 RDW 15.8 H Plt Count 211 MPV 9.7 Immature Gran % Neutrophils % Lymphocytes % Monocytes % Eosinophils % Basophils % Nucleated RBC % Absolute Neutrophils Absolute Lymphocytes Absolute Monocytes Absolute Eosinophils Absolute Basophils RBC Morphology Polychromasia Hypochromasia Poikilocytosis Anisocytosis PT INR APTT VBG pH VBG pCO2 VBG pO2 VBG HCO3 VBG Total CO2 VBG O2 Saturation VBG Base Excess Sodium 143 Potassium 3.9 Chloride 106 Carbon Dioxide 24.7 Anion Gap 12.3 H BUN 58 H Creatinine 1.65 H Est GFR (CKD-EPI 2020) 39.77 Glucose 156 H Calcium 8.5 Magnesium 2.2 Total Bilirubin 0.6 AST 18 ALT 11 Alkaline Phosphatase 42 L Troponin I NT-Pro-B Natriuret Pep Total Protein 6.7 Albumin 3.7 TSH Urine Color Yellow Urine Clarity Clear Urine pH 5.5 Ur Specific [place] 1.010 Urine Protein Negative Urine Ketones Negative Urine Blood Negative Urine Nitrite Negative Urine Bilirubin Negative Urine Urobilinogen 0.2 Ur Leukocyte Esterase Negative Urine Glucose Negative COVID-19 Source SARS-CoV-2 (PCR) Influenza Type A (PCR) Influenza Type B (PCR) RSV (PCR) ABO/Rh Blood Type Recheck Antibody Screen Crossmatch [facility] All Active Problems (Updated 04/24/25 @ 19:34 by Myron Felix) Acute blood loss anemia (Acute) Aspiration pneumonia (Acute) Anemia requiring transfusions (Acute) Acute hypoxic respiratory failure (Acute) COPD (chronic obstructive pulmonary disease) (Chronic 11/22/13) Depression (Chronic) Acute hypoxic respiratory failure (Acute) Heart failure with preserved ejection fraction (Chronic) Decompensated heart failure (Acute) BRITTANY (acute kidney injury) (Acute) CHF (congestive heart failure) (Chronic) Obstructive lung disease (Acute) Pleural effusion (Acute) Paroxysmal A-fib (Chronic) Supraventricular tachycardia (Chronic) On deep vein thrombosis (DVT) prophylaxis (Acute) COPD exacerbation (Acute) Community acquired pneumonia (Acute) Bilateral edema of lower extremity (Acute) Urinary hesitancy (Acute) Possibly due to BPH Dupuytren contracture (Acute) bilateral palms Mitral insufficiency (Chronic) status post mitral valve ring 2021 EF 60-65% Sensorineural hearing loss (SNHL) of both ears (Acute) Venous insufficiency of left leg (Acute) Psoriasis (Acute) On methotrexate, CBC & CMP yearly Medical History BPH (benign prostatic hyperplasia) Essential hypertension (09/08/13) Hypomagnesemia Thoracic aortic aneurysm 2021- Aortic root is moderately dilated.4.89 cm The ascending aorta isdilated.4.98 cm Aortic arch is normal in caliber. 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 Substance abuse Depression Son No problems noted. Daughter , 40+ Substance abuse Daughter No problems noted. Sister No problems noted. Sister No problems noted. Social History Smoking/Tobacco Use Status: Former Tobacco Use tobacco type: cigarettes, pipe and cigars Quit Date: 10/11/98 Tobacco: How many years used: 45 Quit status: has quit before Second Hand Exposure: Yes Smoking risk assessment performed?: Yes Alcohol Intake: current Alcohol Intake frequency: 3 or more drinks per day Alcohol type: beer, wine and hard liquor Drug use: Never Substance use type: does not use Caregiver/Support person: No Household members: spouse Housing: house Communication Needs: None Do you need help understanding health information?: Never Pets and animals: Yes Pets and animals: cat(s) Sexually active: No Do you think of yourself as: straight/heterosexual Current gender identity: male What is your relationship status?: How often do you talk on the phone with friends or family?: once per week How often do you get together with friends or relatives?: decline to answer How often do you attend methodist or religion services?: decline to answer Do you belong to any clubs or organized social groups?: no Panel score (0-1 are the most socially isolated patients): 1 What type of physical activity do you participate in: walking Duration: 30-45 minutes/day Frequency: 1-2 times per week Ericka/Moravian: None Special ericka needs: No Seatbelt use: always Helmet use: No Drive intox or ride w/intox local bulk driver: No Do you feel safe at home: Yes Do you feel safe in your relationship?: Yes Time Spent with Patient Time Spent with Patient: 45-69 minutes Time was spent: preparing to see the patient(eg.review tests), ordering medications,tests, procedures, referring, communicating with other health childcare provider, indepentently interpreting results, counseling the patient and care coordination
--- NOTE | 2025-04-26 13:27 | PT.INNT ---
PT Notes Visit Reasons: Epistasis with Acute Blood Loss Anemia,CHF,Aspirat Patient politely refused PT saying that all he needed was for somebody to take out his IV as his was going to be in any minute. He was told that the hospitalist wanted PT to check on safety level for patient but patient did not feel that he needed PT at time it was offered to him.
[2025-04-26] MEDS: AZITHROMYCIN 500 MG in Normal Saline 250 ML 250 MG IVPB (14:00)
== END 2025-04-26 15:35 | disposition home or self-care (01) | DRG 177 ==
LOC: ER 20:28 → MS 22:14
PROVIDERS: Admitting Provider Family Medicine; Emergency Provider Emergency Medicine; PCP Nurse Practitioner Family; Responsible Provider Nurse Practitioner Family; Visit Provider Family Medicine
DX: J69.0 Pneumonitis due to inhalation of food and vomit (principal); J96.01 Acute respiratory failure with hypoxia; D62 Acute posthemorrhagic anemia; N17.9 Acute kidney failure, unspecified; J44.0 Chronic obstructive pulmonary disease with (acute) lower respiratory infection; J44.1 Chronic obstructive pulmonary disease with (acute) exacerbation; F32.A Depression, unspecified; I87.2 Venous insufficiency (chronic) (peripheral); L40.59 Other psoriatic arthropathy; H90.3 Sensorineural hearing loss, bilateral; I34.0 Nonrheumatic mitral (valve) insufficiency; Z95.818 Presence of other cardiac implants and grafts; I13.0 Hypertensive heart and chronic kidney disease with heart failure and stage 1 through stage 4 chronic kidney disease, or unspecified chronic kidney disease; I50.32 Chronic diastolic (congestive) heart failure; Z79.631 Long term (current) use of antimetabolite agent; I71.20 Thoracic aortic aneurysm, without rupture, unspecified; Z66 Do not resuscitate; N18.9 Chronic kidney disease, unspecified; Z79.01 Long term (current) use of anticoagulants; Z86.73 Personal history of transient ischemic attack (TIA), and cerebral infarction without residual deficits; Z87.891 Personal history of nicotine dependence; W44.F9XA Other object of natural or organic material, entering into or through a natural orifice, initial encounter
CPT/HCPCS: 00123; 36415; 80053; 82805; 85027; 86850; 86900; 86901; 86920; 87637; 93005; 94640; 96365; 96367; 96375; 99222; 99231; 99291; 71046; 81003; 82272; 83735; 83880; 84443; 84484; 85014; 85018; 85025; 85610; 85730; 93010; 94760; 99223; 99239; J0295; J0456; J0613; J0696; J1938; J2919; J7620; P9016